=== PATIENT | female | born 1970 | race Caucasian/White ===

== ENCOUNTER 2019-08-05 12:32 | Inpatient (IN) | payer OTHER ==
--- NOTE | 2019-08-05 12:24 | XR ---
EXAMINATION TYPE: XR chest 2V DATE OF EXAM: 08/05/2019 COMPARISON: None INDICATION: Chronic obstructive pulmonary disease emphysema short of breath x4 days TECHNIQUE: Frontal and lateral views of the chest are obtained. FINDINGS: The heart size is normal. The pulmonary vasculature is normal. There is a moderately large left pneumothorax. A loculated pneumothorax at the left costophrenic angl e. This is estimated to measure 50%. No focal consolidations are evident. Some atelectasis may be at the level left lung base. There is hyperinflation compatible COPD. IMPRESSION: 1. Moderately large left pneumothorax estimated at 50%. 2. COPD. A Red level critical message alert has been initiated for Celio Barahona DO via the [employer] Critical Results System on 08/05/2019 12:21 PM. This message alert has been sent to Celio Curiel nd, DO via the preferences provided by the clinician for the receipt of Radiology Critical Findings. Message ID [id number].
[2019-08-05] MEDS ORDERED: KETOROLAC 30 MG/ML 1 ML VIAL IVP STA (12:53)
[2019-08-05] MEDS ORDERED: LORazepam 2 MG/ML INJ IV STA (12:53)
[2019-08-05 13:12] LABS: Basophils % (A) 1 %; Eosinophils # (A) 0.2 k/uL (0-0.7); Eosinophils % (A) 3 %; HCT 42.6 % (34.0-46.0); HGB 14.5 gm/dL (11.4-16.0); Lymphocytes # (A) 1.8 k/uL (1.0-4.8); Lymphocytes % (A) 27 %; MCH 32.3 pg (25.0-35.0); MCV 94.9 fL (80.0-100.0); Monocytes # (A) 0.3 k/uL (0-1.0); Monocytes % (A) 4 %; Neutrophils # (A) 4.3 k/uL (1.3-7.7); Neutrophils % (A) 64 %; Platelet Count 270 k/uL (150-450); RBC 4.49 m/uL (3.80-5.40); RDW 12.4 % (11.5-15.5); WBC 6.7 k/uL (3.8-10.6)
[2019-08-05 13:22] LABS: ALT 23 U/L (9-52); AST 26 U/L (14-36); African American GFR (CKD) >90 (>60 ml/min/1.73 sqM); Albumin 4.6 g/dL (3.5-5.0); Alkaline Phosphatase 50 U/L (38-126); Anion Gap 12 mmol/L; Blood Urea Nitrogen 13 mg/dL (7-17); Calcium 9.8 mg/dL (8.4-10.2); Carbon Dioxide 22 mmol/L (22-30); Chloride 107 mmol/L (98-107); Glucose 126 mg/dL (74-99); Non-African American GFR(CKD) >90 (>60 ml/min/1.73 sqM); Potassium 3.8 mmol/L (3.5-5.1); Sodium 141 mmol/L (137-145); Total Bilirubin 0.8 mg/dL (0.2-1.3); Total Protein 7.5 g/dL (6.3-8.2)
--- NOTE | 2019-08-05 13:37 | ED ---
General Adult HPI - General Chief complaint: Shortness of Breath Stated complaint: pneumothorax Time Seen by Provider: 08/05/19 12:40 Source: patient, RN notes reviewed, old records reviewed Mode of arrival: wheelchair Limitations: no limitations - History of Present Illness Initial comments: 41-year-old female with history of COPD presents from outpatient x-ray with x- ray confirmed pneumothorax. She's had cough and dyspnea for the past 5 days. Coughs been nonproductive. She did report subjective fever and chills. Breathing has worsened over this 5 days. She does report some mild left-sided chest pain as well. No history of pneumothorax. - Related Data Home Medications Medication Instructions Recorded Confirmed Ibuprofen [Motrin Ib] 400 mg PO Q6H PRN 08/05/19 08/05/19 Loratadine [Claritin] 10 mg PO DAILY 08/05/19 08/05/19 Allergies Allergy/AdvReac Type Severity Reaction Status Date / Time Penicillins Allergy Rash/Hives Verified 08/05/19 14:05 erythromycin base AdvReac Vomiting Verified 08/05/19 14:05 Review of Systems ROS Statement: Those systems with pertinent positive or pertinent negative responses have been documented in the HPI. ROS Other: All systems not noted in ROS Statement are negative. Past Medical History Past Medical History: No Reported History History of Any Multi-Drug Resistant Organisms: None Reported Past Surgical History: Cholecystectomy Past Psychological History: Anxiety, Bipolar, Depression Smoking Status: Current every day smoker Past Alcohol Use History: Rare Past Drug Use History: Marijuana General Exam Limitations: no limitations General appearance: alert, in no apparent distress Head exam: Present: atraumatic, normocephalic Eye exam: Present: normal appearance, PERRL ENT exam: Present: normal exam Neck exam: Present: normal inspection. Absent: tenderness, meningismus Respiratory exam: Present: respiratory distress, decreased breath sounds (Left- sided lung diminished breath sounds) Cardiovascular Exam: Present: regular rate, normal rhythm GI/Abdominal exam: Present: soft. Absent: distended, tenderness, guarding Extremities exam: Present: normal inspection, normal capillary refill. Absent: pedal edema Neurological exam: Present: alert, oriented X3, CN II-XII intact. Absent: motor sensory deficit Psychiatric exam: Present: normal affect, normal mood Skin exam: Present: warm, dry, intact. Absent: cyanosis, diaphoretic Course Vital Signs 08/05/19 08/05/19 08/05/19 12:33 12:53 13:22 Temperature 98.2 F Pulse Rate 62 76 61 Respiratory 18 16 18 Rate Blood Pressure 117/76 143/82 111/82 O2 Sat by Pulse 95 96 100 Oximetry 08/05/19 08/05/19 08/05/19 13:26 13:32 14:11 Temperature Pulse Rate 70 66 Respiratory 22 16 16 Rate Blood Pressure 122/91 125/99 O2 Sat by Pulse 100 99 Oximetry EKG Findings - EKG Comments: EKG Findings:: EKG: Normal sinus rhythm, rate of 67, MI interval 150, QRS duration 84, QTC 448 Procedures - Chest Tube Insertion Consent Obtained: written consent Side of Procedure: left Indication: Pneumothorax Placed on monitor/pulse oximetry: Yes Site Prep: Chloroprep Local Anesthesia: Lidocaine 1% Amount (mLs): 5 Insertion Site: Other (Midclavicular, second intercostal space) Scalpel: #11 Open into Pleural Space Using: Trocar Tube Size (Frisian): Other (thora-vent) Returns: Air Attached to Suction: No Type of Suction: Other (Improved aeration chest tube in place) Repeat X-ray Results: Other (Placement of left-sided chest tube with minimal reexpansion of left lung) Patient Tolerated Procedure: well Medical Decision Making - Medical Decision Making 49-year-old patient with COPD, current smoker presenting with spontaneous pneumothorax. Patient had an outpatient x-ray and was brought immediately to the trauma bay for evaluation and treatment. Patient was in mild to moderate respiratory distress. She had stable blood pressure and heart repeat she was placed on a nonrebreather. Case was discussed with work measurement engineer Dr. Donaldson, prior to chest tube placement. A Thoravent was placed on the left. Patient tolerated procedure well. Vital signs after the procedure were stable she was monitored in the emergency department. Repeat chest x-ray was performed which showed minimal reexpansion of the left lung. Patient does have a functioning vent. Case discussed with Dr. Snow, will accept admission with pulmonology on consult. - Lab Data Result diagrams: 08/05/19 12:51 08/05/19 12:51 Lab Results 08/05/19 08/05/19 Range/Units 12:51 12:51 WBC 6.7 (3.8-10.6) k/uL RBC 4.49 (3.80-5.40) m/uL Hgb 14.5 (11.4-16.0) gm/dL Hct 42.6 (34.0-46.0) % MCV 94.9 (80.0-100.0) fL MCH 32.3 (25.0-35.0) pg MCHC 34.0 (31.0-37.0) g/dL RDW 12.4 (11.5-15.5) % Plt Count 270 (150-450) k/uL Neutrophils % 64 % Lymphocytes % 27 % Monocytes % 4 % Eosinophils % 3 % Basophils % 1 % Neutrophils # 4.3 (1.3-7.7) k/uL Lymphocytes # 1.8 (1.0-4.8) k/uL Monocytes # 0.3 (0-1.0) k/uL Eosinophils # 0.2 (0-0.7) k/uL Basophils # 0.0 (0-0.2) k/uL Sodium 141 (137-145) mmol/L Potassium 3.8 (3.5-5.1) mmol/L Chloride 107 (98-107) mmol/L Carbon Dioxide 22 (22-30) mmol/L Anion Gap 12 mmol/L BUN 13 (7-17) mg/dL Creatinine 0.61 (0.52-1.04) mg/dL Est GFR (CKD-EPI)AfAm >90 (>60 ml/min/1.73 sqM) Est GFR (CKD-EPI)NonAf >90 (>60 ml/min/1.73 sqM) Glucose 126 H (74-99) mg/dL Calcium 9.8 (8.4-10.2) mg/dL Total Bilirubin 0.8 (0.2-1.3) mg/dL AST 26 (14-36) U/L ALT 23 (9-52) U/L Alkaline Phosphatase 50 (38-126) U/L Total Protein 7.5 (6.3-8.2) g/dL Albumin 4.6 (3.5-5.0) g/dL Critical Care Time Critical Care Time: Yes Total Critical Care Time: 35 Disposition Clinical Impression: Pneumothorax on left Disposition: ADMITTED IP TO THIS HOSP Condition: Stable Is patient prescribed a controlled substance at d/c from ED?: No Referrals: Celio Barahona DO [Primary Care Provider] - 1-2 days Decision to Admit Reason: Admit from EC Decision Date: 08/05/19 Decision Time: 14:19
--- NOTE | 2019-08-05 13:59 | XR ---
EXAMINATION TYPE: XR chest 1V portable DATE OF EXAM: 08/05/2019 COMPARISON: Chest x-ray earlier today. HISTORY: Chest tube placement. TECHNIQUE: Single frontal view of the chest is obtained. FINDINGS: New chest tube projects over the left upper lung on frontal view only. There is stable mod erate to large size left apical and lateral pneumothorax. Background chronic emphysematous change wi th central parenchymal scarring. The cardiac silhouette size remains within normal limits. No mediast inal shift. The osseous structures are intact. IMPRESSION: Stable moderate to large size left pneumothorax despite chest tube placement. Lateral vie w not performed to evaluate chest tube tip.
[2019-08-05] MEDS ORDERED: NALOXONE 0.4 MG/ML 1 ML VIAL IV PRN (14:12)
[2019-08-05] MEDS ORDERED: HYDROmorphone 0.5 MG/0.5 ML SYRINGE IVP PRN (14:12)
--- NOTE | 2019-08-05 15:40 | XR ---
EXAMINATION TYPE: XR chest 1V DATE OF EXAM: 08/05/2019 COMPARISON: Prior chest x-ray 08/05/2019 at earlier time HISTORY: Pneumothorax TECHNIQUE: Single frontal view of the chest is obtained. FINDINGS: Left-sided pneumothorax is markedly improved. Left-sided pleural vein shows the distal tip at the left lung apex. Some probable subsegmental atelectatic changes at the left lung base. Heart s ize is stable. Patient is rotated. IMPRESSION: Improvement in patient's pneumothorax.
--- NOTE | 2019-08-05 16:11 | P.CNPUL ---
History of Present Illness Consult date: 08/05/19 Reason for consult: COPD, pneumothorax History of present illness: A 41-year-old female patient, a chronic smoker, history of COPD, was been having symptoms of bronchitis with cough and congestion of 5 days' duration. Her breathing got worse and she presented emergency department and the patient was found to have a large left-sided pneumothorax. The chest x-ray showed a 50% pneumothorax on the left. The patient had a Thoravent inserted in the emergency department. There was incomplete expansion of the left lung. Based on that, using a T wave stopcock, I used a syringe to evacuate more air through the Thoravent and attached the Thoravent to a Pleur-evac. Patient's FiO2 is at 100% nonrebreather facemask and the patient is currently pulse oxing 100%. No chest pain. Less short of breath. A subsequent chest x-ray was done and showed a left-sided pneumothorax is markedly improved. No trauma. No falls. No previous history of pneumothoraces. The patient smokes cigarettes and she also smokes marijuana. Review of Systems Constitutional: Denies chills, Denies fever Eyes: denies as per HPI, denies blurred vision, denies bulging eye, denies decreased vision, denies diplopia, denies discharge, denies dry eye, denies irritation, denies itching, denies pain, denies photophobia, denies loss of peripheral vision, denies loss of vision, denies tunnel vision/blind spots Ears: deny: decreased hearing, ear discharge, earache, tinnitus Ears, nose, mouth and throat: Denies headache, Denies sore throat Breasts: absent: as per HPI, change in shape, gynecomastia, masses, nipple discharge, pain, skin changes, swelling Cardiovascular: Reports decreased exercise tolerance, Reports dyspnea on exertion Respiratory: Reports dyspnea Gastrointestinal: Reports as per HPI Genitourinary: Reports as per HPI Menstruation: Reports as per HPI Musculoskeletal: Reports as per HPI Musculoskeletal: absent: ankle pain, ankle stiffness, ankle swelling, as per HPI, elbow pain, elbow stiffness, elbow swelling, foot pain, foot stiffness, foot swelling, hand pain, hand stiffness, hand swelling, hip pain, hip stiffness, hip swelling, knee pain, knee stiffness, knee swelling, shoulder pain, shoulder stiffness, shoulder swelling, wrist pain, wrist stiffness, wrist swelling Integumentary: Reports as per HPI Neurological: Reports as per HPI Psychiatric: Reports as per HPI Endocrine: Reports as per HPI Past Medical History Past Medical History: No Reported History, COPD History of Any Multi-Drug Resistant Organisms: None Reported Past Surgical History: Cholecystectomy Past Psychological History: Anxiety, Bipolar, Depression Smoking Status: Current every day smoker Past Alcohol Use History: Rare Past Drug Use History: Marijuana Medications and Allergies Home Medications Medication Instructions Recorded Confirmed Type Ibuprofen [Motrin Ib] 400 mg PO Q6H PRN 08/05/19 08/05/19 History Loratadine [Claritin] 10 mg PO DAILY 08/05/19 08/05/19 History Allergies Allergy/AdvReac Type Severity Reaction Status Date / Time Penicillins Allergy Rash/Hives Verified 08/05/19 14:05 erythromycin base AdvReac Vomiting Verified 08/05/19 14:05 Physical Exam Vitals: Vital Signs Temp Pulse Resp BP Pulse Ox 08/05/19 14:11 66 16 125/99 99 08/05/19 13:32 70 16 122/91 100 08/05/19 13:26 22 08/05/19 13:22 61 18 111/82 100 08/05/19 12:53 76 16 143/82 96 08/05/19 12:33 98.2 F 62 18 117/76 95 Intake and Output 08/05/19 08/05/19 08/05/19 06:59 14:59 22:59 Other: Weight 48.988 kg - Constitutional General appearance: no acute distress - EENT Eyes: EOMI Ears: negative: bulging, bullous, dull, erythema, fluid, myringotomy tube, obstructed by cerumen, scarring, unable to vistualize, other - Neck Neck: no lymphadenopathy Carotids: negative: upstroke normal, upstroke delayed, upstroke diminished, upstroke bounding, bruit absent, bruit present Thyroid: negative: normal size, enlarged, firm, nodule - Respiratory Respiratory: left: diminished, bilateral: wheezing - Cardiovascular Rhythm: regular Heart sounds: normal: S1, S2 - Gastrointestinal General gastrointestinal: no organomegaly, soft, no tenderness - Neurologic Neurologic: CNII-XII intact - Psychiatric Psychiatric: A&O x's 3 Results - Laboratory Findings CBC and BMP: 08/05/19 12:51 08/05/19 12:51 Abnormal lab findings: Abnormal Labs 08/05/19 12:51 Glucose 126 H - Diagnostic Findings Chest x-ray: image reviewed Assessment and Plan Plan: 1 acute left-sided pneumothorax, likely secondary pneumothorax as the patient has underlying COPD. The patient's postoperative vent insertion with adequate expansion of the left lung. 2 acute shortness of breath secondary to above 3 COPD 4 acute bronchitis 5 smoking cigarettes and marijuana Plan Admit the patient to the hospital. Provide an incentive spirometer. Keep the fluoroscopy vent attached to a Pleur-evac and the subsequent chest x-ray shows reexpansion of the left lung. Monitor for air leaks. Provide the patient Dilaudid for pain control. Provide the patient incentive spirometer. Daily chest x-rays. Nicotine patch. Albuterol nebulized treatments 4 times a day [id number]. Heparin subcu for DVT prophylaxis. We'll continue to follow. We'll need an outpatient of alpha-1 antitrypsin level. Outpatient PFT regarding the severity of her COPD.
[2019-08-05] MEDS: ONDANSETRON 4 MG/2 ML VIAL IVP PRN (17:15)
[2019-08-05] MEDS: ALBUTEROL NEBULIZED 2.5 MG/3 ML INHALATION SCH (19:32)
[2019-08-05] MEDS: IBUPROFEN 400 MG TAB PO PRN (20:18)
[2019-08-05] MEDS: HEPARIN SODIUM,PORCINE 5,000 UNIT/ML 1 ML VIAL SQ SCH (21:37)
[2019-08-06] MEDS: ALBUTEROL NEBULIZED 2.5 MG/3 ML INHALATION SCH ×2 (07:26→11:05)
--- NOTE | 2019-08-06 07:40 | XR ---
EXAMINATION TYPE: XR chest 1V portable DATE OF EXAM: 08/06/2019 CLINICAL HISTORY: Difficulty breathing in pneumothorax progress study. TECHNIQUE: Single AP portable upright view of the chest is obtained. COMPARISON: Chest x-ray from one day earlier and older studies. FINDINGS: Stable left apical chest tube. There is Background chronic emphysematous an parenchymal f ibrotic change without new focal airspace opacity or pleural effusion. The cardiac silhouette size re vidhi within normal limits. No significant left-sided pneumothorax. The osseous structures are inta ct. IMPRESSION: Overall stable findings, chronic emphysematous and parenchymal changes. Left apical jg st tube without pneumothorax.
[2019-08-06] MEDS: HEPARIN SODIUM,PORCINE 5,000 UNIT/ML 1 ML VIAL SQ SCH (09:56)
[2019-08-06] MEDS: NICOTINE 21MG/24HR PATCH TRANSDERM SCH (13:49)
[2019-08-06] MEDS: NICOTINE POLACRILEX 2 MG GUM BUCCAL PRN ×2 (13:49→20:24)
--- NOTE | 2019-08-06 13:57 | P.PN ---
Subjective Progress Note Date: 08/06/19 On 08/06/2019, the patient is feeling well. No chest pain. The fluoroscopy vent is in place and there is evidence of air leak. The chest x-ray from today shows adequate expansion of the left lung without any significant residual pneumothorax. She is having some soreness of the chest area. She is using incentive spirometer. No fever or chills. No other new complaints otherwise for now. Objective - Vital Signs Vital signs: Vital Signs Temp 98.3 F 08/06/19 12:00 Pulse 58 L 08/06/19 12:00 Resp 16 08/06/19 12:00 BP 124/69 08/06/19 12:00 Pulse Ox 98 08/06/19 12:00 Intake & Output 08/05/19 08/06/19 08/06/19 18:59 06:59 18:59 Intake Total 222 Balance 222 Weight 48.988 kg 48.988 kg Intake: Oral 222 Other: Voiding Method Toilet # Voids 1 - Exam The patient appeared well nourished and normally developed. Vital signs as documented. Head exam is unremarkable. No scleral icterus or corneal arcus noted. Neck is without jugular venous distension, thyromegaly, or carotid bruits. Carotid upstrokes are brisk bilaterally. Lungs equal and symmetrical breath sounds and the patient has a fluoroscopy vent over the left anterior chest area with positive air leak and the Pleur-evac. Cardiac exam reveals the PMI to be normally sized and situated. Rhythm is regular. First and second heart sounds normal. No murmurs, rubs or gallops. Abdominal exam reveals normal bowel sounds, no masses, no organomegaly and no aortic enlargement. Extremities are nonedematous and both femoral and pedal pulses are normal.Examination of the skin revealed no evidence of significant rashes, suspicious appearing nevi or other concerning lesions. Neurologically the patient is awake and alert and there is no focal neurological deficits. - Labs CBC & Chem 7: 08/05/19 12:51 08/05/19 12:51 Assessment and Plan Plan: 1 acute left-sided pneumothorax, likely secondary pneumothorax as the patient has underlying COPD. The patient's postoperative vent insertion with adequate expansion of the left lung. There is positive air leak. We'll keep the suction and we'll keep the chest tube in place. 2 acute shortness of breath secondary to above 3 COPD 4 acute bronchitis 5 smoking cigarettes and marijuana Plan Keep the Serevent in place. Continue low suction. Pain is under adequate control. No significant respiratory distress. She was taken off the oxygen and she is currently on room air. We'll continue to follow. Daily chest x-rays. Nicotine patch.
--- NOTE | 2019-08-06 14:47 | P.HPIM ---
History of Present Illness H&P Date: 08/06/19 Chief Complaint: Short of breath History of present complaint: This is a pleasant 49-year-old patient of Dr. Scarlett Barahona. Long-standing smoker. Also smokes marijuana. Last 5 days has noticed herself to become more and more short of breath and wheezing. Decided to present to her PCP. She was given bronchodilators and sent to the ER. Accu-Cheks x-ray done. Checks x-ray revealed 50% left-sided pneumothorax. thoravac was placed. Attached to a chest tube. Patient is having nicotine craving. Patient's daughter by the bedside. Review of systems: GEN.: Tired EYES: None HEENT: None NECK: None RESPIRATORY: As above. Minimal cough] CARDIOVASCULAR: None GASTROINTESTINAL: None GENITOURINARY: None MUSCULOSKELETAL: None LYMPHATICS: None HEMATOLOGICAL: None PSYCHIATRY: Bit anxious NEUROLOGICAL: None Past medical history: Bipolar, COPD Past surgical history: cholecystectomy Social history: . Smokes a pack a day for about 36 years, does 2 joints of marijuana for many years. Works as a [employer] Physical examination: VITAL SIGNS: 98.2, 62, 18, 11 7/76, 95% room air-upon presentation GENERAL: BMI 18, sitting up in bed slightly anxious. EYES: Pupils equal. Conjunctiva normal. HEENT: External appearance of nose and ears normal, oral cavity grossly normal. NECK: JVD not raised; masses not palpable. HEART: First and second heart sounds are normal; no edema. LUNGS: Respiratory rate increased, decreased breath sounds, some wheezing, thora VAC on the left chest wall anteriorly. ABDOMEN: Soft, nontender, liver spleen not palpable, no masses palpable. PSYCH: Alert and oriented x3; mood and affect slightly anxiousl. NEUROLOGICAL: Cranial nerves grossly intact; no facial asymmetry, power and sensation grossly intact. LYMPHATICS: No lymph nodes palpable in the axilla and neck INVESTIGATIONS, reviewed in the clinical context: White count 6.7 hemoglobin 40.5 platelets 270 progression 3.8 crit 0.61 Chest x-ray film personally reviewed by me-hyperinflation left-sided pneumothorax EKG tracing-personally reviewed by me shows normal sinus rhythm Assessment: -Acute left-sided pneumothorax present for at least 5 days. The patient and possibly bullous emphysema -COPD in a current smoker -Chronic nicotine dependence patient's active cigarette smoker -Recreational marijuana use - Plan: Patient checks x-ray showed expansion of the lung compared to yesterday. Rather anxious. Having nicotine withdrawal symptoms. Nicotine patch and nicotine gum is being prescribed. Lovenox for DVT prophylaxis. Bronchodilators added. Pulmonary was consulted. Smoke cessation counseling: This was done with the patient. Nicotine patch and nicotine gum is being given. More than 3 minutes was spent for this Past Medical History Past Medical History: COPD History of Any Multi-Drug Resistant Organisms: None Reported Past Surgical History: Cholecystectomy Additional Past Surgical History / Comment(s): laproscoph Past Anesthesia/Blood Transfusion Reactions: No Reported Reaction Past Psychological History: Anxiety, Bipolar, Depression Smoking Status: Current every day smoker Past Alcohol Use History: None Reported, Rare Past Drug Use History: Marijuana - Past Family History Mother Family Medical History: Cancer Additional Family Medical History / Comment(s): Mother and father from Lung Cancer; Brother is Diabetic and ETOH Medications and Allergies Home Medications Medication Instructions Recorded Confirmed Type Ibuprofen [Motrin Ib] 400 mg PO Q6H PRN 08/05/19 08/05/19 History Loratadine [Claritin] 10 mg PO DAILY 08/05/19 08/05/19 History Allergies Allergy/AdvReac Type Severity Reaction Status Date / Time Penicillins Allergy Rash/Hives Verified 08/05/19 14:05 erythromycin base AdvReac Vomiting Verified 08/05/19 14:05 Physical Exam Vitals: Vital Signs Temp Pulse Pulse Resp BP BP Pulse Ox 08/06/19 08:00 98.5 F 66 16 122/72 96 08/06/19 04:00 69 16 105/69 96 08/05/19 23:51 61 16 122/69 98 08/05/19 20:00 51 L 16 121/71 97 08/05/19 16:35 97.4 F L 57 L 16 110/66 94 L 08/05/19 16:00 97.4 F L 57 L 16 110/66 94 L 08/05/19 15:53 56 L 16 112/75 98 08/05/19 14:11 66 16 125/99 99 08/05/19 13:32 70 16 122/91 100 08/05/19 13:26 22 08/05/19 13:22 61 18 111/82 100 08/05/19 12:53 76 16 143/82 96 08/05/19 12:33 98.2 F 62 18 117/76 95 Intake and Output 08/05/19 08/06/19 08/06/19 22:59 06:59 14:59 Intake Total 222 Balance 222 Intake: Oral 222 Other: Voiding Method Toilet # Voids 1 1 Weight 48.988 kg Results CBC & Chem 7: 08/05/19 12:51 08/05/19 12:51 Labs: Abnormal Lab Results - Last 24 Hours (Table) 08/05/19 Range/Units 12:51 Glucose 126 H (74-99) mg/dL Thrombosis Risk Factor Assmnt - Choose All That Apply Each Factor Represents 1 point: Age 41-60 years Other Risk Factors: No Other congenital or acquired thrombophilia - If yes, enter type in comment: No Thrombosis Risk Factor Assessment Total Risk Factor Score: 1 Thrombosis Risk Factor Assessment Level: Low Risk
[2019-08-06] MEDS: ENOXAPARIN 40 MG/0.4 ML SYRINGE SQ SCH (15:30)
[2019-08-06] MEDS: IPRATROPIUM-ALBUTEROL 3 ML NEB INHALATION SCH ×2 (16:30→19:50)
[2019-08-06] MEDS: IBUPROFEN 400 MG TAB PO PRN ×2 (17:44→22:35)
[2019-08-07] MEDS: ACETAMINOPHEN TAB 325 MG TAB PO PRN ×2 (02:00→21:42)
[2019-08-07] MEDS: IBUPROFEN 400 MG TAB PO PRN ×3 (06:04→18:33)
[2019-08-07] MEDS: IPRATROPIUM-ALBUTEROL 3 ML NEB INHALATION SCH ×4 (07:43→20:50)
--- NOTE | 2019-08-07 08:26 | XR ---
EXAMINATION TYPE: XR chest 1V portable DATE OF EXAM: 08/07/2019 COMPARISON: Prior chest x-ray 07/29/2019 HISTORY: Spontaneous pneumothorax, chest tube TECHNIQUE: Single frontal view of the chest is obtained. FINDINGS: Minimal left apical pneumothorax is present, there is a thoracic vent in place with the ti p of the level of the left hemithorax apex. No evident effusion. Heart is small. Pulmonary vascularit y and chucky are stable. There are overlying cardiac leads. There are prominent lung volumes. IMPRESSION: Indwelling chest tube, minimal left apical pneumothorax
[2019-08-07] MEDS: ENOXAPARIN 40 MG/0.4 ML SYRINGE SQ SCH (08:42)
[2019-08-07] MEDS: NICOTINE 21MG/24HR PATCH TRANSDERM SCH (08:42)
--- NOTE | 2019-08-07 10:20 | XR ---
EXAMINATION TYPE: XR chest 1V portable DATE OF EXAM: 08/07/2019 COMPARISON: Chest x-ray same dated earlier time HISTORY: Pneumothorax and chest tube TECHNIQUE: Single frontal view of the chest is obtained. FINDINGS: Left apical pneumothorax has increased in size slightly. Left apical chest tube is again s een. No other significant interval change. IMPRESSION: There has been some progression in the size of the left apical pneumothorax.
[2019-08-07] MEDS: NICOTINE POLACRILEX 2 MG GUM BUCCAL PRN (10:42)
--- NOTE | 2019-08-07 11:29 | P.GSCN ---
<Benitez Llanos - Last Filed: 08/07/19 11:06> History of Present Illness Consult date: 08/07/19 Reason for Consult: Spontaneous left pneumothorax Requesting physician: You Ramirez History of present illness: This is a 49-year-old female patient who is followed by Dr. Scarlett Barahona on an outpatient basis. She has a past medical history significant for chronic obstructive pulmonary disease, chronic ongoing nicotine dependence, manic depression bipolar, and history of marijuana use. On 08/01/2019 on doing some house chores she became severely short of breath. She denies any trauma, nausea, vomiting, fever or chills. Over the next several days her shortness of breath became progressive and she presented to her family doctor's office on Saturday with the above mentioned complaints. She was sent to the emergency department at [facility] where she underwent a chest x-ray which demonstrated a 50% spontaneous pneumothorax on the left side. Subsequently a left Thoravent was inserted in the emergency department by the emergency room physician. A repeat chest x-ray post Thoravent placement showed a markedly improved left-sided pneumothorax. Subsequently the patient was admitted for further evaluation. Due to the patient's presenting symptoms, spontaneous pneumothorax requiring Thoravent placement a consult was placed to Dr. Amador from cardio thoracic surgery for further evaluation and treatment recommendations. Review of Systems A 14 point review of systems was completed was negative except as mentioned in the HPI. Past Medical History Past Medical History: COPD History of Any Multi-Drug Resistant Organisms: None Reported Past Surgical History: Cholecystectomy Additional Past Surgical History / Comment(s): Laparoscopy, history of neck fracture. Past Anesthesia/Blood Transfusion Reactions: No Reported Reaction Past Psychological History: Anxiety, Bipolar, Depression Smoking Status: Current every day smoker Past Alcohol Use History: Rare Past Drug Use History: Marijuana - Past Family History Mother Family Medical History: Cancer Additional Family Medical History / Comment(s): Mother and father from Lung Cancer; Brother is Diabetic and ETOH Medications and Allergies Home Medications Medication Instructions Recorded Confirmed Type Ibuprofen [Motrin Ib] 400 mg PO Q6H PRN 08/05/19 08/05/19 History Loratadine [Claritin] 10 mg PO DAILY 08/05/19 08/05/19 History Allergies Allergy/AdvReac Type Severity Reaction Status Date / Time Penicillins Allergy Rash/Hives Verified 08/12/19 12:09 erythromycin base AdvReac Vomiting Verified 08/12/19 12:09 hydromorphone [From Dilaudid] AdvReac Vomiting Verified 08/12/19 12:09 Surgical - Exam Vital Signs Temp Pulse Resp BP Pulse Ox 98.2 F 62 18 117/76 95 08/05/19 12:33 08/05/19 12:33 08/05/19 12:33 08/05/19 12:33 08/05/19 12:33 - General well developed, well nourished, no distress, no pain - Eyes PERRL, normal ocular movement - ENT normal pinna, normal nares, normal mucosa, no hearing loss, no congestion, dentures (Upper plate) - Neck Neck is supple, no lymphadenopathy. no masses, no bruits, trachea midline, no venous distension - Respiratory Lung sounds are essentially clear throughout, no wheezes, rhonchi or crackles. Respirations are symmetrical and nonlabored. Left chest Thoravent in place to low continuous wall suction -20 cm H2O. Intermittent air leak is present. - Cardiovascular Regular rhythm and rate. S1 and S2 present, negative for S3, gallop or murmur. Remote telemetry showing normal sinus rhythm heart rate 62. No edema present. - Abdomen Abdomen is soft, nontender and nondistended. Active bowel sounds present in all 4 abdominal quadrants. No organomegaly. - Genitourinary Deferred - Rectum Deferred - Integumentary no rash, no growths, no abnormal pigmentation - Neurologic normal coordination, normal sensation - Musculoskeletal normal gait, normal posture - Psychiatric oriented to time, oriented to person, oriented to place, speech is normal, memor y intact Results - Labs 08/05/19 12:51 08/05/19 12:51 - Imaging Chest x-ray: report reviewed, image reviewed Assessment and Plan Assessment: 1. Left spontaneous pneumothorax, status post Thoravent placement by the emergency room physician. 2. Acute dyspnea secondary to left spontaneous pneumothorax 3. History of chronic obstructive pulmonary disease 4. Chronic ongoing nicotine abuse 5. History of marijuana use Plan: The patient was seen and examined at her bedside on the cardiac stepdown unit. Her chart and diagnostics were reviewed. She was seen and examined by Dr. Haider Amador from cardiothoracic surgery. We will place her left Thoravent chest tube to waterseal and repeat a chest x-ray 1 hour post placement waterseal. No surgical intervention is warranted at this time. Discussed the importance of smoking cessation with the patient. We will follow her daily chest x-rays and monitor her left Thoravent 4 resolution of her air leak. Incentive spirometry ordered and encouraged to use of her incentive spirometry every hour while awake. Medical management recommendations per primary care service. Pulmonary management per pulmonology recommendations. More recommendations to follow based on patient's clinical course. Thank you Dr. Ramirez for this consult and we will forward to working with you in the care of your patient. Time with Patient: Greater than 30 <Haider Amador - Last Filed: 08/14/19 14:02> Surgical - Exam Vital Signs Temp Pulse Resp BP Pulse Ox 98.2 F 62 18 117/76 95 08/05/19 12:33 08/05/19 12:33 08/05/19 12:33 08/05/19 12:33 08/05/19 12:33 Results - Labs 08/13/19 06:10 08/13/19 06:10 Assessment and Plan Plan: The patient was seen and examined. The history and physical findings were verified. I agree with the above assessment and plan. The patient is a 49 year old female who presented to the hospital with shortness of breath. She was diagnosed with her first episode of left spontaneous pneumothorax. A thoravent was placed in the ED. Her CXR reveals expansion of the left lung. She appears to have a persistent leak. We will therefore continue the patient on suction for now. Additional recommendations will follow.
--- NOTE | 2019-08-07 11:46 | P.CNPUL ---
History of Present Illness Consult date: 08/07/19 Reason for consult: dyspnea, chest pain, COPD, pneumothorax Chief complaint: Left-sided chest pain History of present illness: This is a 41-year-old female patient, a chronic smoker, history of COPD, was been having symptoms of bronchitis with cough and congestion of 5 days' duration. Her breathing got worse and she presented emergency department and the patient was found to have a large left-sided pneumothorax. The chest x-ray showed a 50% pneumothorax on the left. The patient had a Thoravent inserted in the emergency department. There was incomplete expansion of the left lung. Patient's initial FiO2 is at 100% nonrebreather facemask now is tapered down to 2 L nasal cannula. No chest pain. Less short of breath. Denies any trauma. No falls. No previous history of pneumothoraces. The patient smokes cigarettes and she also smokes marijuana. This morning she was placed on water seal pneumothorax have progressed again and sharp she started feeling some symptoms of chest discomfort connected back to section noted that significant air leak was present however pain subsided post placing on suction Review of Systems All systems: negative Past Medical History Past Medical History: COPD History of Any Multi-Drug Resistant Organisms: None Reported Past Surgical History: Cholecystectomy Additional Past Surgical History / Comment(s): Laparoscopy, history of neck fracture. Past Anesthesia/Blood Transfusion Reactions: No Reported Reaction Past Psychological History: Anxiety, Bipolar, Depression Smoking Status: Current every day smoker Past Alcohol Use History: Rare Past Drug Use History: Marijuana - Past Family History Mother Family Medical History: Cancer Additional Family Medical History / Comment(s): Mother and father from Lung Cancer; Brother is Diabetic and ETOH Medications and Allergies Home Medications Medication Instructions Recorded Confirmed Type Ibuprofen [Motrin Ib] 400 mg PO Q6H PRN 08/05/19 08/05/19 History Loratadine [Claritin] 10 mg PO DAILY 08/05/19 08/05/19 History Allergies Allergy/AdvReac Type Severity Reaction Status Date / Time Penicillins Allergy Rash/Hives Verified 08/05/19 14:05 erythromycin base AdvReac Vomiting Verified 08/05/19 14:05 Physical Exam Vitals: Vital Signs Temp Pulse Pulse Resp BP Pulse Ox 08/07/19 04:00 73 17 129/65 96 08/06/19 23:16 63 17 128/76 96 08/06/19 20:00 98.5 F 65 16 112/70 99 08/06/19 16:00 98.2 F 58 L 16 130/70 98 08/06/19 12:00 98.3 F 58 L 16 124/69 98 Intake and Output 08/06/19 08/07/19 08/07/19 22:59 06:59 14:59 Intake Total 150 Output Total 7 Balance -7 150 Intake: Oral 150 Output: Chest Tube Drainage 7 Thora-Vent Left Anterior 7 Chest Other: # Voids 1 1 Weight 48.9 kg - Constitutional General appearance: cooperative, disheveled, no acute distress, thin - EENT Eyes: anicteric sclerae, EOMI, PERRLA, poor dentition, normal appearance ENT: hearing grossly normal Ears: bilateral: normal - Neck Neck: normal ROM Carotids: bilateral: upstroke normal - Respiratory Respiratory: bilateral: CTA - Cardiovascular Rhythm: regular Heart sounds: normal: S1, S2 - Gastrointestinal General gastrointestinal: normal bowel sounds - Integumentary Integumentary: normal turgor - Neurologic Neurologic: CNII-XII intact - Musculoskeletal Musculoskeletal: gait normal, generalized weakness, strength equal bilaterally - Psychiatric Psychiatric: A&O x's 3, appropriate affect, intact judgment & insight Results - Laboratory Findings CBC and BMP: 08/05/19 12:51 08/05/19 12:51 Abnormal lab findings: Abnormal Labs 08/05/19 12:51 Glucose 126 H - Diagnostic Findings Chest x-ray: report reviewed, image reviewed (X-rays reviewed finding as above) Assessment and Plan Assessment: Spontaneous pneumothorax of the left side 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
--- NOTE | 2019-08-07 12:42 | CT ---
EXAMINATION TYPE: CT chest wo con DATE OF EXAM: 08/07/2019 COMPARISON: None HISTORY: Post op vent insertion CT DLP: 201.[address] of the chest was performed with lung and mediastinal window settings submitted. The la ck of contrast limits evaluation of the vascular, mediastinal and parenchymal structures including th e upper abdomen. LUNGS: Left apical vent plaque noted to be in place. There is a left-sided pneumothorax identified es timated at 15%. Largest component is noted at the left lung base. Moderate upper lobe emphysematous c hange appreciated. Small amount of subcutaneous air noted at the insertion of the vent. Moderate uppe r lobe emphysematous changes noted. MEDIASTINUM/HARRIETT: Thoracic aorta is of normal caliber with limited evaluation given lack of contrast . The heart is not enlarged. No evidence for mediastinal mass. No lymph nodes greater than 1cm. UPPER ABDOMEN: No significant abnormality is seen. OTHER: No significant other abnormality. IMPRESSION: 1. Left Sided pneumothorax estimated at approximately 15% as noted above.
[2019-08-07 17:33] LABS: Appearance,Urine Cloudy (Clear); Bilirubin,Urine Negative (Negative); Blood,Urine Negative (Negative); Color,Urine Yellow; Glucose,Urine (UA) Negative (Negative); Hyaline Casts,Urine 1 /lpf (0-2); Ketones,Urine Negative (Negative); Leukocyte Esterase,Urine Small (Negative); Mucus,Urine Rare /hpf; Nitrite,Urine Negative (Negative); PH, Urine 6.5 (5.0-8.0); Protein,Urine Trace (Negative); RBC,Urine 3 /hpf (0-5); Specific Gravity,Urine 1.022 (1.001-1.035); Squamous Epithelial Cell,Urine 12 /hpf (0-4); WBC,Urine 1 /hpf (0-5)
--- NOTE | 2019-08-07 22:55 | P.PN ---
Progress Note - Text Progress Note Date: 08/07/19 Chief Complaint: Short of breath Interval history: This is a pleasant 49-year-old patient of Dr. Scarlett Barahona. Long-standing smoker. Also smokes marijuana. Last 5 days has noticed herself to become more and more short of breath and wheezing. Decided to present to her PCP. She was given bronchodilators and sent to the ER. Accu-Cheks x-ray done. Checks x-ray revealed 50% left-sided pneumothorax. thoravac was placed. Attached to a chest tube. Patient is having nicotine craving. Patient's daughter by the bedside. Today-patient's Thora-vent was attached to water seal. Patient had again 15% pneumothorax on the CT chest following reexpansion. Short of breath. Patient's mother the bedside. Review of systems: Was done for constitutional, cardiovascular, GI, pulmonary. relevant finding as above Active Medications Acetaminophen (Tylenol Tab) 650 mg PO Q6HR PRN PRN Reason: Mild Pain or Fever > 100.5 Last Admin: 08/07/19 21:42 Dose: 650 mg Documented by: Albuterol/Ipratropium (Duoneb 0.5 Mg-3 Mg/3 Ml Soln) 3 ml INHALATION RT-QID [facility] Last Admin: 08/07/19 20:50 Dose: Not Given Documented by: Enoxaparin Sodium (Lovenox) 40 mg SQ DAILY [facility] Last Admin: 08/07/19 08:42 Dose: 40 mg Documented by: Hydromorphone HCl (Dilaudid) 0.5 mg IVP Q3HR PRN PRN Reason: Moderate Pain Last Admin: 08/05/19 16:24 Dose: 0.5 mg Documented by: Ibuprofen (Motrin) 400 mg PO Q6HR PRN PRN Reason: Mild Pain or Fever > 100.5 Last Admin: 08/07/19 18:33 Dose: 400 mg Documented by: Naloxone HCl (Narcan) 0.2 mg IV Q2M PRN PRN Reason: Opioid Reversal Nicotine (Habitrol 21mg/24hr Patch) 1 patch TRANSDERM DAILY [facility] Last Admin: 08/07/19 08:42 Dose: 1 patch Documented by: Nicotine Polacrilex (Nicorette Gum) 2 mg BUCCAL Q4HR PRN PRN Reason: Nicotine Cravings Last Admin: 08/07/19 10:42 Dose: 2 mg Documented by: Ondansetron HCl (Zofran) 4 mg IVP Q6HR PRN PRN Reason: Nausea And Vomiting Last Admin: 08/05/19 17:15 Dose: 4 mg Documented by: Physical examination: VITAL SIGNS: 98.2, 69, 16, 11 , 97% room air GENERAL: Sitting up in a chair, slightly short of breath EYES: Pupils equal. Conjunctiva normal. HEENT: External appearance of nose and ears normal, oral cavity grossly normal. NECK: JVD not raised; masses not palpable. HEART: First and second heart sounds are normal; no edema. LUNGS: Respiratory rate increased, decreased breath sounds, some wheezing, thora VAC on the left chest wall anteriorly. ABDOMEN: Soft, nontender, liver spleen not palpable, no masses palpable. PSYCH: Alert and oriented x3; mood and affect slightly anxiousl. INVESTIGATIONS, reviewed in the clinical context: CT chest-15% left-sided pneumothorax Previous testing White count 6.7 hemoglobin 40.5 platelets 270 progression 3.8 crit 0.61 Chest x-ray film personally reviewed by me-hyperinflation left-sided pneumothorax EKG tracing-personally reviewed by me shows normal sinus rhythm Assessment: -Acute left-sided pneumothorax present for at least 5 days. The patient and possibly bullous emphysema. Slow to expand -Thora-vent on the left sideto water seal -COPD in a current smoker -Chronic nicotine dependence patient's active cigarette smoker -Recreational marijuana use -Moderate protein calorie malnutrition. Patient is decreased muscle mass loss of subcutaneous fat. - Plan: Care was discussed with the patient. Continue to water seal. Encouraged to increase oral intake. Questions were answered. Ensure supplements to be added.
[2019-08-08] MEDS: IBUPROFEN 400 MG TAB PO PRN ×3 (04:20→20:30)
--- NOTE | 2019-08-08 06:53 | XR ---
EXAMINATION TYPE: XR chest 1V portable DATE OF EXAM: 08/08/2019 CLINICAL HISTORY: Difficulty breathing progress study. TECHNIQUE: Single AP portable frontal view of the chest is obtained. COMPARISON: Chest x-ray from one day earlier and older studies. CT chest from yesterday. FINDINGS: Background of fairly advanced emphysematous change redemonstrated that are appreciated on CT versus x-ray. There is stable left apical chest tube with fairly stable small residual apical pneu mothorax estimated near 10%. Scattered parenchymal fibrotic changes without new focal airspace opacit y or pleural effusion. No mediastinal shift. Cardiac silhouette size is stable and within normal limi ts. Osseous structures intact. Cholecystectomy clips are redemonstrated. IMPRESSION: Overall stable findings, residual small left apical pneumothorax despite chest tube. Ba ckground moderate to advanced emphysematous change without new acute pulmonary process.
[2019-08-08] MEDS: NICOTINE 21MG/24HR PATCH TRANSDERM SCH (08:06)
[2019-08-08] MEDS: NICOTINE POLACRILEX 2 MG GUM BUCCAL PRN ×2 (08:07→20:30)
[2019-08-08] MEDS: ENOXAPARIN 40 MG/0.4 ML SYRINGE SQ SCH (08:07)
[2019-08-08] MEDS: IPRATROPIUM-ALBUTEROL 3 ML NEB INHALATION SCH ×4 (08:49→19:31)
--- NOTE | 2019-08-08 10:17 | XR ---
EXAMINATION TYPE: XR chest 1V portable DATE OF EXAM: 08/08/2019 CLINICAL HISTORY: Pneumothorax on waterseal. TECHNIQUE: Single AP portable upright view of the chest is obtained. COMPARISON: Chest x-ray from earlier today and older studies FINDINGS: There is a larger left apical pneumothorax when chest tube placed off suction. Lateral bas ilar component now visualized. No new mediastinal shift. Emphysematous and fibrotic changes bilateral ly. Right lung remains clear. Cardiac silhouette size stable. Osseous structures intact. IMPRESSION: Small to moderate size left pneumothorax increased in size after chest tube taken off suc tion.
--- NOTE | 2019-08-08 10:24 | P.PN ---
Subjective Progress Note Date: 08/08/19 Principal diagnosis: Left-sided spontaneous pneumothorax, severe COPD, extensive emphysematous bullous changes 08/08/2019, patient seen eval examined during the rounds patient has a computed tomography scan done which is reviewed extensive bullous changes in the apices has been noted bilaterally to the pneumothorax is mainly at the basal area with the small bore chest tube in the apical region, cardiothoracic surgery is planning to DC the suction 2 hour post chest x-ray shows significant enlarging pneumothorax after that This is a 41-year-old female patient, a chronic smoker, history of COPD, was been having symptoms of bronchitis with cough and congestion of 5 days' duration. Her breathing got worse and she presented emergency department and the patient was found to have a large left-sided pneumothorax. The chest x-ray showed a 50% pneumothorax on the left. The patient had a Thoravent inserted in the emergency department. There was incomplete expansion of the left lung. Patient's initial FiO2 is at 100% nonrebreather facemask now is tapered down to 2 L nasal cannula. No chest pain. Less short of breath. Denies any trauma. N o falls. No previous history of pneumothoraces. The patient smokes cigarettes and she also smokes marijuana. This morning she was placed on water seal pneumothorax have progressed again and sharp she started feeling some symptoms of chest discomfort connected back to section noted that significant air leak was present however pain subsided post placing on suction Objective - Vital Signs Vital signs: Vital Signs Temp 98.3 F 08/08/19 04:00 Pulse 68 08/08/19 09:06 Resp 17 08/08/19 04:00 BP 125/75 08/08/19 04:00 Pulse Ox 98 08/08/19 04:00 Intake & Output 08/07/19 08/08/19 08/08/19 18:59 06:59 18:59 Intake Total 630 120 Balance 630 120 Weight 48.1 kg Intake: Oral 630 120 Other: Voiding Method Toilet # Voids 1 1 # Bowel Movements 0 0 - Exam - Constitutional General appearance: cooperative, disheveled, no acute distress, thin - EENT Eyes: anicteric sclerae, EOMI, PERRLA, poor dentition, normal appearance ENT: hearing grossly normal Ears: bilateral: normal - Neck Neck: normal ROM Carotids: bilateral: upstroke normal - Respiratory Respiratory: bilateral: CTA - Cardiovascular Rhythm: regular Heart sounds: normal: S1, S2 - Gastrointestinal General gastrointestinal: normal bowel sounds - Integumentary Integumentary: normal turgor - Neurologic Neurologic: CNII-XII intact - Musculoskeletal Musculoskeletal: gait normal, generalized weakness, strength equal bilaterally - Psychiatric Psychiatric: A&O x's 3, appropriate affect, intact judgment & insight - Labs CBC & Chem 7: 08/05/19 12:51 08/05/19 12:51 Labs: Abnormal Lab Results - Last 24 Hours (Table) 08/07/19 Range/Units 17:18 Urine Appearance Cloudy H (Clear) Urine Protein Trace H (Negative) Ur Leukocyte Esterase Small H (Negative) Ur Squamous Epith Cells 12 H (0-4) /hpf Urine Mucus Rare H (None) /hpf Assessment and Plan Assessment: Spontaneous pneumothorax of the left side 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
--- NOTE | 2019-08-08 11:11 | P.PN ---
Subjective Progress Note Date: 08/08/19 Principal diagnosis: Spontaneous left pneumothorax. Past medical history significant for chronic obstructive pulmonary disease, chronic ongoing nicotine dependence, manic-depressive bipolar and history of marijuana use. POD #3 Post Thoravent placement by the emergency room physician, for a spontaneous left pneumothorax. The patient is sitting up in bed on the cardiac stepdown unit. She is no acute distress. She denies any complaints of pain or shortness of breath at this time. Left anterior chest Thoravent remains in place to low continuous wall suction -20 cm H2O. Continuous air leak is present. No drainage is present. The patient underwent a computed tomography scan of her chest yesterday without contrast which demonstrated a left sided pneumothorax estimated around 15% off suction. Oxygen saturation is 98% on room air. Achieving 1500 mL on her incentive spirometry. Importance of smoking cessation were discussed with the patient. Objective - Vital Signs Vital signs: Vital Signs Temp 98.3 F 08/08/19 04:00 Pulse 68 08/08/19 09:06 Resp 17 08/08/19 04:00 BP 125/75 08/08/19 04:00 Pulse Ox 98 08/08/19 04:00 Intake & Output 08/07/19 08/08/19 08/08/19 18:59 06:59 18:59 Intake Total 630 120 Balance 630 120 Weight 48.1 kg Intake: Oral 630 120 Other: Voiding Method Toilet # Voids 1 1 # Bowel Movements 0 0 - Constitutional General appearance: Present: cooperative, no acute distress, thin (Resident) - Respiratory Details: Lung sounds essentially clear throughout, diminished to her left lower lobe. No wheezes, rhonchi present. Respirations are symmetrical and nonlabored. Left anterior chest Thoravent in place to low continuous wall suction -20 cm H2O. Positive air leak is present. - Cardiovascular Details: Regular rhythm and rate. S1 and S2 present, negative for S3, gallop or murmur. No edema present. - Gastrointestinal Gastrointestinal Comment(s): Abdomen is soft, nontender and nondistended. Active bowel sounds present all 4 abdominal quadrants. No guarding or rigidity. No organomegaly appreciated. - Neurologic Neurologic: Present: CNII-XII intact - Musculoskeletal Musculoskeletal: Present: gait normal, strength equal bilaterally - Psychiatric Psychiatric: Present: A&O x's 3, appropriate affect, intact judgment & insight - Allied health notes Allied health notes reviewed: nursing - Labs CBC & Chem 7: 08/05/19 12:51 08/05/19 12:51 Labs: Abnormal Lab Results - Last 24 Hours (Table) 08/07/19 Range/Units 17:18 Urine Appearance Cloudy H (Clear) Urine Protein Trace H (Negative) Ur Leukocyte Esterase Small H (Negative) Ur Squamous Epith Cells 12 H (0-4) /hpf Urine Mucus Rare H (None) /hpf - Imaging and Cardiology Chest x-ray: report reviewed, image reviewed CT scan - chest: report reviewed, image reviewed Assessment and Plan Assessment: 1. Left spontaneous pneumothorax, status post Thoravent placement by the emergency room physician. 2. Acute dyspnea secondary to left spontaneous pneumothorax 3. History of chronic obstructive pulmonary disease 4. Chronic ongoing nicotine abuse 5. History of marijuana use Plan: 1. We will remove wall suction from her Thoravent today and The Thoravent. Repeat chest x-ray 2 hours after the Thoravent has been capped. 2. Continue to encourage smoking cessation and discussed the importance with the patient. 3. Encourage use of her incentive spirometry every hour while awake. 4. Monitor daily chest x-rays. 5. GI and DVT prophylaxis. 6. Increase activity as tolerated. 7. More recommendations to follow based on patient's clinical course. Time with Patient: Greater than 30
[2019-08-08] MEDS: ACETAMINOPHEN TAB 325 MG TAB PO PRN (15:25)
--- NOTE | 2019-08-08 20:40 | P.PN ---
Progress Note - Text Progress Note Date: 08/08/19 Chief Complaint: Short of breath Interval history: This is a pleasant 49-year-old patient of Dr. Scarlett Barahona. Long-standing smoker. Also smokes marijuana. Last 5 days has noticed herself to become more and more short of breath and wheezing. Decided to present to her PCP. She was given bronchodilators and sent to the ER. Accu-Cheks x-ray done. Checks x-ray revealed 50% left-sided pneumothorax. thoravac was placed. Today- today patient was taken off the wall suction. Thora VAC was.capped. Repeat x-ray showed a pneumothorax to be present again./Increasing. Patient is put back to water seal. Patient is very anxious. Some pain at the chest tube site. Patient's been turning down bronchodilators as it makes her feel dizzy. Review of systems: Was done for constitutional, cardiovascular, GI, pulmonary. relevant finding as above Active Medications Acetaminophen (Tylenol Tab) 650 mg PO Q6HR PRN PRN Reason: Mild Pain or Fever > 100.5 Last Admin: 08/08/19 15:25 Dose: 650 mg Documented by: Albuterol/Ipratropium (Duoneb 0.5 Mg-3 Mg/3 Ml Soln) 3 ml INHALATION RT-QID [facility] Last Admin: 08/08/19 19:31 Dose: 3 ml Documented by: Enoxaparin Sodium (Lovenox) 40 mg SQ DAILY [facility] Last Admin: 08/08/19 08:07 Dose: 40 mg Documented by: Hydromorphone HCl (Dilaudid) 0.5 mg IVP Q3HR PRN PRN Reason: Moderate Pain Last Admin: 08/05/19 16:24 Dose: 0.5 mg Documented by: Ibuprofen (Motrin) 400 mg PO Q6HR PRN PRN Reason: Mild Pain or Fever > 100.5 Last Admin: 08/08/19 20:30 Dose: 400 mg Documented by: Naloxone HCl (Narcan) 0.2 mg IV Q2M PRN PRN Reason: Opioid Reversal Nicotine (Habitrol 21mg/24hr Patch) 1 patch TRANSDERM DAILY [facility] Last Admin: 08/08/19 08:06 Dose: 1 patch Documented by: Nicotine Polacrilex (Nicorette Gum) 2 mg BUCCAL Q4HR PRN PRN Reason: Nicotine Cravings Last Admin: 08/08/19 20:30 Dose: 2 mg Documented by: Ondansetron HCl (Zofran) 4 mg IVP Q6HR PRN PRN Reason: Nausea And Vomiting Last Admin: 08/05/19 17:15 Dose: 4 mg Documented by: Pantoprazole Sodium (Protonix) 40 mg PO AC-BRKFST [facility] Physical examination: VITAL SIGNS: 98.2, 56, 16, 128/54, 99% room air GENERAL: Laying in bed, but anxious EYES: Pupils equal. Conjunctiva normal. HEENT: External appearance of nose and ears normal, oral cavity grossly normal. NECK: JVD not raised; masses not palpable. HEART: First and second heart sounds are normal; no edema. LUNGS: Respiratory rate increased, decreased breath sounds, some wheezing, thora VAC on the left chest wall anteriorly., Atto water seal ABDOMEN: Soft, nontender, liver spleen not palpable, no masses palpable. PSYCH: Alert and oriented x3; mood and affect anxiousl. INVESTIGATIONS, reviewed in the clinical context: Chest x-ray showing increasing pneumothorax after the Thora VAC was capped Previous testing White count 6.7 hemoglobin 40.5 platelets 270 progression 3.8 crit 0.61 Chest x-ray film personally reviewed by me-hyperinflation left-sided pneumothorax EKG tracing-personally reviewed by me shows normal sinus rhythm Assessment: -Acute left-sided pneumothorax, but the Thora VAC, slow to respond -Thora-vent on the left sideto water seal -COPD in a current smoker -Chronic nicotine dependence patient's active cigarette smoker -Recreational marijuana use -Moderate protein calorie malnutrition. Patient is decreased muscle mass loss of subcutaneous fat. -Situational anxiety - Plan: Spent a lot of time with patient today to reassure her. Made to understand the disease process. Did remind her that I told him the beginning that this happened that lungs were not fully expanded. Encouraged her with simple things to do to mind. Follow with pulmonary and cardiac thoracic surgery.
[2019-08-08] MEDS: ALPRAZolam 0.25 MG TAB PO PRN (22:34)
[2019-08-08] MEDS: LEVOFLOXACIN 500 MG TAB PO SCH (22:34)
[2019-08-09] MEDS: IBUPROFEN 400 MG TAB PO PRN ×4 (04:07→23:21)
[2019-08-09] MEDS: PANTOPRAZOLE 40 MG TABLET PO SCH (06:31)
[2019-08-09] MEDS: ALPRAZolam 0.25 MG TAB PO PRN ×3 (06:50→23:21)
[2019-08-09] MEDS: IPRATROPIUM-ALBUTEROL 3 ML NEB INHALATION SCH ×4 (07:22→19:46)
[2019-08-09] MEDS: ENOXAPARIN 40 MG/0.4 ML SYRINGE SQ SCH (08:14)
[2019-08-09] MEDS: NICOTINE 21MG/24HR PATCH TRANSDERM SCH (08:14)
[2019-08-09] MEDS: NICOTINE POLACRILEX 2 MG GUM BUCCAL PRN ×2 (08:14→12:00)
--- NOTE | 2019-08-09 10:19 | P.PN ---
Subjective Progress Note Date: 08/09/19 Principal diagnosis: Spontaneous left pneumothorax. Past medical history significant for chronic obstructive pulmonary disease, chronic ongoing nicotine dependence, manic-depressive bipolar and history of marijuana use. POD #4 Post Thoravent placement by the emergency room physician, for a spontaneous left pneumothorax. The patient is sitting up in bed on the cardiac stepdown unit. She is no acute distress. She denies any complaints of pain or shortness of breath at this time. Left anterior chest Thoravent remains in place to low continuous wall suction -20 cm H2O. Continuous air leak is present. No drainage is present. The Thoravent was stopped taken off wall suction yesterday and was. Repeat chest x-ray was completed a couple hours post capping of the Thoravent and demonstrated an increased size of her left pneumothorax, subsequently her Thoravent was placed back to low continuous wall suction -20 cm H2O. Oxygen saturation is 96% on room air. Achieving 1500 mL on her incentive spirometry. Importance of smoking cessation were discussed with the patient. Objective - Vital Signs Vital signs: Vital Signs Temp 98.3 F 08/09/19 08:00 Pulse 73 08/09/19 08:00 Resp 18 08/09/19 08:00 BP 94/54 08/09/19 08:00 Pulse Ox 96 08/09/19 08:00 Intake & Output 08/08/19 08/09/19 08/09/19 18:59 06:59 18:59 Intake Total 450 240 Balance 450 240 Weight 48.7 kg Intake: Oral 450 240 Other: Voiding Method Toilet Toilet Toilet # Voids 1 1 # Bowel Movements 0 - Constitutional General appearance: Present: cooperative, no acute distress, thin - Respiratory Details: Lung sounds essentially clear throughout. Respirations are symmetrical and nonlabored. Oxygen saturation are 96% on room air. Achieving 1500 mL on her incentive spirometry. Left Thoravent in place to low continuous wall suction at -20 cm H2O. Continuous air leak is present. - Cardiovascular Details: Regular rhythm and rate. S1 and S2 present, negative for S3, gallop or murmur. No edema present. - Gastrointestinal Gastrointestinal Comment(s): Abdomen is soft, nontender and nondistended. Active bowel sounds present all 4 abdominal quadrants. No guarding or rigidity. No organomegaly appreciated. Tolerating oral intake. - Genitourinary Genitourinary Comment(s): Voiding clear yellow urine. - Integumentary Integumentary Comment(s): Skin is warm and dry. No clubbing or cyanosis is present. Left chest Thoravent dressing clean and dry. - Neurologic Neurologic: Present: CNII-XII intact - Musculoskeletal Musculoskeletal: Present: gait normal, strength equal bilaterally - Psychiatric Psychiatric: Present: A&O x's 3, appropriate affect, intact judgment & insight - Allied health notes Allied health notes reviewed: nursing - Labs CBC & Chem 7: 08/05/19 12:51 08/05/19 12:51 - Imaging and Cardiology Chest x-ray: report reviewed, image reviewed Assessment and Plan Assessment: 1. Left spontaneous pneumothorax, status post Thoravent placement by the emergency room physician. 2. Acute dyspnea secondary to left spontaneous pneumothorax 3. History of chronic obstructive pulmonary disease 4. Chronic ongoing nicotine abuse 5. History of marijuana use Plan: 1. Continue left chest Thoravent to continuous low wall suction -20 cm H2O. If the air leak remains persistent she may require a VATS with stapling procedure. This was discussed with the patient by Dr. Kidd. 2. Continue to encourage smoking cessation and discussed the importance with the patient. 3. Encourage use of her incentive spirometry every hour while awake. 4. Monitor daily chest x-rays. 5. GI and DVT prophylaxis. 6. Increase activity as tolerated. 7. More recommendations to follow based on patient's clinical course. Time with Patient: Greater than 30
--- NOTE | 2019-08-09 10:26 | P.PN ---
Subjective Progress Note Date: 08/09/19 Principal diagnosis: Left-sided spontaneous pneumothorax, severe COPD, extensive emphysematous bullous changes 08/09/2019, patient seen eval examined during the rounds labs reviewed medications reviewed remains on suction intermittent. Li present chest x-ray performed today reviewed no significant pneumothorax is seen patient has some shoulder discomfort otherwise doing very well continued do deep breathing exercises and incentive spirometry, has been on breathing treatment twice a day as needed 08/08/2019, patient seen eval examined during the rounds patient has a computed tomography scan done which is reviewed extensive bullous changes in the apices has been noted bilaterally to the pneumothorax is mainly at the basal area with the small bore chest tube in the apical region, cardiothoracic surgery is planning to DC the suction 2 hour post chest x-ray shows significant enlarging pneumothorax after that This is a 41-year-old female patient, a chronic smoker, history of COPD, was been having symptoms of bronchitis with cough and congestion of 5 days' duration. Her breathing got worse and she presented emergency department and the patient was found to have a large left-sided pneumothorax. The chest x-ray showed a 50% pneumothorax on the left. The patient had a Thoravent inserted in the emergency department. There was incomplete expansion of the left lung. Patient's initial FiO2 is at 100% nonrebreather facemask now is tapered down to 2 L nasal cannula. No chest pain. Less short of breath. Denies any trauma. No falls. No previous history of pneumothoraces. The patient smokes cigarettes and she also smokes marijuana. This morning she was placed on water seal pneumothorax have progressed again and sharp she started feeling some symptoms of chest discomfort connected back to section noted that significant air leak was present however pain subsided post placing on suction Objective - Vital Signs Vital signs: Vital Signs Temp 98.3 F 08/09/19 08:00 Pulse 73 08/09/19 08:00 Resp 18 08/09/19 08:00 BP 94/54 08/09/19 08:00 Pulse Ox 96 08/09/19 08:00 Intake & Output 08/08/19 08/09/19 08/09/19 18:59 06:59 18:59 Intake Total 450 240 Balance 450 240 Weight 48.7 kg Intake: Oral 450 240 Other: Voiding Method Toilet Toilet Toilet # Voids 1 1 # Bowel Movements 0 - Exam - Constitutional General appearance: cooperative, disheveled, no acute distress, thin - EENT Eyes: anicteric sclerae, EOMI, PERRLA, poor dentition, normal appearance ENT: hearing grossly normal Ears: bilateral: normal - Neck Neck: normal ROM Carotids: bilateral: upstroke normal - Respiratory Respiratory: bilateral: CTA - Cardiovascular Rhythm: regular Heart sounds: normal: S1, S2 - Gastrointestinal General gastrointestinal: normal bowel sounds - Integumentary Integumentary: normal turgor - Neurologic Neurologic: CNII-XII intact - Musculoskeletal Musculoskeletal: gait normal, generalized weakness, strength equal bilaterally - Psychiatric Psychiatric: A&O x's 3, appropriate affect, intact judgment & insight - Labs CBC & Chem 7: 08/05/19 12:51 08/05/19 12:51 Assessment and Plan Assessment: Spontaneous pneumothorax of the left side Likely severe COPD emphysema Extensive bullous lung disease bilaterally History of smoking and nicotine abuse and use of marijuana Plan: Continue chest tube to suction for continued to have a leak may need an another regular chest tube, as it appears that it may be malpositioned Agree with plan of cardiothoracic surgery if he continued to present for VATS with stapling procedure Continue deep breathing exercises incentive spirometry Supplemental oxygen Reviewed computed tomography scan of the chest without any contrast to review extent of pneumothorax as well as bullous lung disease Time with Patient: Greater than 30
--- NOTE | 2019-08-09 10:49 | XR ---
EXAMINATION TYPE: XR chest 1V portable DATE OF EXAM: 08/09/2019 COMPARISON: 08/08/2019 HISTORY: Chest pain TECHNIQUE: Single frontal view of the chest is obtained. FINDINGS: Left apical pleural catheter is in place. Pneumothorax is smaller in size and is estimated at less th an 10%. Hyperinflation is compatible with COPD. Cardia mediastinal silhouette is unremarkable. IMPRESSION: 1. Left apical pleural catheter is in place. Pneumothorax is smaller in size and is estimated at les s than 10%.
[2019-08-09] MEDS: ACETAMINOPHEN TAB 325 MG TAB PO PRN ×2 (11:49→19:09)
--- NOTE | 2019-08-09 19:11 | P.PN ---
Progress Note - Text Progress Note Date: 08/09/19 Chief Complaint: Short of breath Interval history: This is a pleasant 49-year-old patient of Dr. Scarlett Barahona. Long-standing smoker. Also smokes marijuana. Last 5 days has noticed herself to become more and more short of breath and wheezing. Decided to present to her PCP. She was given bronchodilators and sent to the ER. Accu-Cheks x-ray done. Checks x-ray revealed 50% left-sided pneumothorax. thoravac was placed. Today- patient checks x-ray from today showing less than 10% pneumothorax. Remains on wall suction. Patient's been a bit anxious. Tolerated diet. Family present.. Review of systems: Was done for constitutional, cardiovascular, GI, pulmonary. relevant finding as above Active Medications Acetaminophen (Tylenol Tab) 650 mg PO Q6HR PRN PRN Reason: Mild Pain or Fever > 100.5 Last Admin: 08/09/19 11:49 Dose: 650 mg Documented by: Albuterol/Ipratropium (Duoneb 0.5 Mg-3 Mg/3 Ml Soln) 3 ml INHALATION RT-QID [facility] Last Admin: 08/09/19 15:13 Dose: Not Given Documented by: Alprazolam (Xanax) 0.25 mg PO TID PRN PRN Reason: Anxiety Last Admin: 08/09/19 14:50 Dose: 0.25 mg Documented by: Enoxaparin Sodium (Lovenox) 40 mg SQ DAILY [facility] Last Admin: 08/09/19 08:14 Dose: 40 mg Documented by: Hydromorphone HCl (Dilaudid) 0.5 mg IVP Q3HR PRN PRN Reason: Moderate Pain Last Admin: 08/05/19 16:24 Dose: 0.5 mg Documented by: Ibuprofen (Motrin) 400 mg PO Q6HR PRN PRN Reason: Mild Pain or Fever > 100.5 Last Admin: 08/09/19 16:40 Dose: 400 mg Documented by: Levofloxacin (Levaquin) 500 mg PO Q24H [facility] Last Admin: 08/08/19 22:34 Dose: 500 mg Documented by: Naloxone HCl (Narcan) 0.2 mg IV Q2M PRN PRN Reason: Opioid Reversal Nicotine (Habitrol 21mg/24hr Patch) 1 patch TRANSDERM DAILY [facility] Last Admin: 08/09/19 08:14 Dose: 1 patch Documented by: Nicotine Polacrilex (Nicorette Gum) 2 mg BUCCAL Q4HR PRN PRN Reason: Nicotine Cravings Last Admin: 08/09/19 12:00 Dose: 2 mg Documented by: Ondansetron HCl (Zofran) 4 mg IVP Q6HR PRN PRN Reason: Nausea And Vomiting Last Admin: 08/05/19 17:15 Dose: 4 mg Documented by: Pantoprazole Sodium (Protonix) 40 mg PO AC-BRKFST [facility] Last Admin: 08/09/19 06:31 Dose: 40 mg Documented by: Physical examination: VITAL SIGNS: 98.1, 71, 16, 105/70, 98% room air GENERAL: Sitting up in the bed, slightly short of breath EYES: Pupils equal. Conjunctiva normal. HEENT: External appearance of nose and ears normal, oral cavity grossly normal. NECK: JVD not raised; masses not palpable. HEART: First and second heart sounds are normal; no edema. LUNGS: Respiratory rate increased, decreased breath sounds, some wheezing, thora VAC on the left chest wall anteriorly., Attached toto water seal ABDOMEN: Soft, nontender, liver spleen not palpable, no masses palpable. PSYCH: Alert and oriented x3; mood and affect anxiousl. INVESTIGATIONS, reviewed in the clinical context: Chest x-ray showing less than 10% pneumothorax Previous testing White count 6.7 hemoglobin 40.5 platelets 270 progression 3.8 crit 0.61 Chest x-ray film personally reviewed by me-hyperinflation left-sided pneumothorax EKG tracing-personally reviewed by me shows normal sinus rhythm Assessment: -Acute left-sided pneumothorax, with Thora VAC, slow to respond -Thora-vent on the left sideto water seal -COPD in a current smoker -Chronic nicotine dependence patient's active cigarette smoker -Recreational marijuana use -Moderate protein calorie malnutrition. Patient is decreased muscle mass loss of subcutaneous fat. -Situational anxiety - Plan: Spent time again with the patient and reassured her. If the lung does not expand and patient have to go to the stapling procedure with a VATS procedure. Discussed with Dr. Ramirez from pulmonary.
[2019-08-09] MEDS: LEVOFLOXACIN 500 MG TAB PO SCH (23:21)
[2019-08-10] MEDS: IBUPROFEN 400 MG TAB PO PRN ×3 (06:18→17:47)
[2019-08-10] MEDS: PANTOPRAZOLE 40 MG TABLET PO SCH (06:18)
[2019-08-10] MEDS: ALPRAZolam 0.25 MG TAB PO PRN ×3 (06:18→22:52)
[2019-08-10] MEDS: IPRATROPIUM-ALBUTEROL 3 ML NEB INHALATION SCH ×4 (07:20→18:51)
[2019-08-10] MEDS: ENOXAPARIN 40 MG/0.4 ML SYRINGE SQ SCH (08:07)
[2019-08-10] MEDS: NICOTINE 21MG/24HR PATCH TRANSDERM SCH (08:07)
[2019-08-10] MEDS: NICOTINE POLACRILEX 2 MG GUM BUCCAL PRN (08:07)
--- NOTE | 2019-08-10 08:13 | XR ---
EXAMINATION TYPE: XR chest 1V portable DATE OF EXAM: 08/10/2019 COMPARISON: 08/09/2019 HISTORY: Chest tube placement TECHNIQUE: Single frontal view of the chest is obtained. FINDINGS: Diffuse emphysematous changes are noted. Left-sided chest tube is seen. No definite sizabl e pneumothorax. No overt failure or consolidation. No pleural effusion. IMPRESSION: COPD. No definite sizable pneumothorax identified.
[2019-08-10] MEDS: ACETAMINOPHEN TAB 325 MG TAB PO PRN ×3 (10:09→20:45)
--- NOTE | 2019-08-10 13:09 | P.PN ---
Subjective Progress Note Date: 08/10/19 Principal diagnosis: Spontaneous left pneumothorax. Past medical history significant for chronic obstructive pulmonary disease, chronic ongoing nicotine dependence, manic-depressive bipolar and history of marijuana use. POD #5 Post Thoravent placement by the emergency room physician, for a spontaneous left pneumothorax. The patient is sitting up in bed on the cardiac stepdown unit. She is no acute distress. She denies any complaints of pain or shortness of breath at this t margarito. States pain is controlled. Left anterior chest Thoravent remains in place to low continuous wall suction -20 cm H2O. Continuous air leak is present. 5ml serous drainage is present. Chest x-ray was completed this morning and findings indicated no definite sizable pneumothorax, no overt failure or consolidation, and no pleural effusion. Oxygen saturation is 98% on room air. Achieving 1500 mL on her incentive spirometry. Objective - Vital Signs Vital signs: Vital Signs Temp 98.1 F 08/09/19 23:59 Pulse 72 08/10/19 07:34 Resp 18 08/10/19 04:00 BP 116/71 08/10/19 04:00 Pulse Ox 98 08/10/19 07:25 Intake & Output 08/09/19 08/10/19 08/10/19 18:59 06:59 18:59 Intake Total 480 500 Output Total 0 10 Balance 480 490 Weight 48.3 kg Intake: Oral 480 500 Output: Chest Tube Drainage 0 10 Thora-Vent Left Anterior 0 10 Chest Other: Voiding Method Toilet Toilet # Voids 1 1 # Bowel Movements 0 - Constitutional General appearance: Present: cooperative, no acute distress, thin - Respiratory Details: Lungs essentially clear throughout with bilateral diminished bases. Respirations are symmetrical and nonlabored. Oxygen saturation is 98% on RA. Achieving 1500ml on her incentive spirpmetry. Left Thoravent in place to low continuous wall suction at -20 cm H2O. Continuous air leak is present. - Cardiovascular Details: Regular rhythm and rate. S1 and S2 present, negative for S3, gallop or murmur. No edema present. - Gastrointestinal Gastrointestinal Comment(s): Abdomen is soft, nontender and nondistended. Active bowel sounds present in all 4 quadrants. No guarding or rigidity. No organomegaly appreciated. Tolerating diet. - Genitourinary Genitourinary Comment(s): Voiding clear yellow urine. - Integumentary Integumentary: Present: normal - Neurologic Neurologic: Present: CNII-XII intact - Musculoskeletal Musculoskeletal: Present: gait normal, strength equal bilaterally - Psychiatric Psychiatric: Present: A&O x's 3, appropriate affect, intact judgment & insight - Allied health notes Allied health notes reviewed: nursing - Labs CBC & Chem 7: 08/05/19 12:51 08/05/19 12:51 - Imaging and Cardiology Chest x-ray: report reviewed, image reviewed Assessment and Plan Assessment: 1. Left spontaneous pneumothorax, status post Thoravent placement by the emergency room physician. 2. Acute dyspnea secondary to left spontaneous pneumothorax 3. History of chronic obstructive pulmonary disease 4. Chronic ongoing nicotine abuse 5. History of marijuana use Plan: 1. Continue left chest Thoravent to continuous low wall suction -20 cm H2O. If the air leak remains persistent she may require a VATS with stapling procedure. 2. Continue to encourage smoking cessation and discussed the importance with the patient. 3. Encourage use of her incentive spirometry every hour while awake. 4. Monitor daily chest x-rays. 5. GI and DVT prophylaxis. 6. Increase activity as tolerated. 7. More recommendations to follow based on patient's clinical course. Time with Patient: Greater than 30
--- NOTE | 2019-08-10 16:25 | P.PN ---
Subjective Progress Note Date: 08/10/19 Principal diagnosis: Left-sided spontaneous pneumothorax, severe COPD, extensive emphysematous bullous changes 08/10/2019, patient seen eval examined during the rounds labs reviewed medications reviewed today's x-ray has been reviewed as well patient has intermittently air leak from the chest U however lungs are fully expanded now patient is tentatively being scheduled for VATS and stapling procedure for 08/09/2019, patient seen eval examined during the rounds labs reviewed medications reviewed remains on suction intermittent. Li present chest x-ray performed today reviewed no significant pneumothorax is seen patient has some shoulder discomfort otherwise doing very well continued do deep breathing exercises and incentive spirometry, has been on breathing treatment twice a day as needed 08/08/2019, patient seen eval examined during the rounds patient has a computed tomography scan done which is reviewed extensive bullous changes in the apices has been noted bilaterally to the pneumothorax is mainly at the basal area with the small bore chest tube in the apical region, cardiothoracic surgery is planning to DC the suction 2 hour post chest x-ray shows significant enlarging pneumothorax after that This is a 41-year-old female patient, a chronic smoker, history of COPD, was been having symptoms of bronchitis with cough and congestion of 5 days' duration. Her breathing got worse and she presented emergency department and the patient was found to have a large left-sided pneumothorax. The chest x-ray showed a 50% pneumothorax on the left. The patient had a Thoravent inserted in the emergency department. There was incomplete expansion of the left lung. Patient's initial FiO2 is at 100% nonrebreather facemask now is tapered down to 2 L nasal cannula. No chest pain. Less short of breath. Denies any trauma. N o falls. No previous history of pneumothoraces. The patient smokes cigarettes and she also smokes marijuana. This morning she was placed on water seal pneumothorax have progressed again and sharp she started feeling some symptoms of chest discomfort connected back to section noted that significant air leak was present however pain subsided post placing on suction Objective - Vital Signs Vital signs: Vital Signs Temp 98.6 F 08/10/19 16:00 Pulse 68 08/10/19 16:00 Resp 18 08/10/19 16:00 BP 117/72 08/10/19 16:00 Pulse Ox 98 08/10/19 16:00 Intake & Output 08/09/19 08/10/19 08/10/19 18:59 06:59 18:59 Intake Total 480 500 Output Total 0 10 2 Balance 480 490 -2 Weight 48.3 kg Intake: Oral 480 500 Output: Chest Tube Drainage 0 10 0 Thora-Vent Left Anterior 0 10 0 Chest Urine 2 Other: Voiding Method Toilet Toilet Toilet # Voids 1 1 2 # Bowel Movements 0 - Exam - Constitutional General appearance: cooperative, disheveled, no acute distress, thin - EENT Eyes: anicteric sclerae, EOMI, PERRLA, poor dentition, normal appearance ENT: hearing grossly normal Ears: bilateral: normal - Neck Neck: normal ROM Carotids: bilateral: upstroke normal - Respiratory Respiratory: bilateral: CTA - Cardiovascular Rhythm: regular Heart sounds: normal: S1, S2 - Gastrointestinal General gastrointestinal: normal bowel sounds - Integumentary Integumentary: normal turgor - Neurologic Neurologic: CNII-XII intact - Musculoskeletal Musculoskeletal: gait normal, generalized weakness, strength equal bilaterally - Psychiatric Psychiatric: A&O x's 3, appropriate affect, intact judgment & insight - Labs CBC & Chem 7: 08/05/19 12:51 08/05/19 12:51 Assessment and Plan Assessment: Spontaneous pneumothorax of the left side Likely severe COPD emphysema Extensive bullous lung disease bilaterally History of smoking and nicotine abuse and use of marijuana Plan: Continue chest tube to suction for continued to have a leak Agree with plan of cardiothoracic surgery if he continued to present for VATS with stapling procedure Continue deep breathing exercises incentive spirometry Supplemental oxygen Reviewed computed tomography scan of the chest without any contrast to review extent of pneumothorax as well as bullous lung disease Time with Patient: Greater than 30
[2019-08-10] MEDS: LEVOFLOXACIN 500 MG TAB PO SCH (22:52)
--- NOTE | 2019-08-11 00:18 | P.PN ---
Progress Note - Text Progress Note Date: 08/10/19 Chief Complaint: Short of breath Interval history: This is a pleasant 49-year-old patient of Dr. Scarlett Barahona. Long-standing smoker. Also smokes marijuana. Last 5 days has noticed herself to become more and more short of breath and wheezing. Decided to present to her PCP. She was given bronchodilators and sent to the ER. Accu-Cheks x-ray done. Checks x-ray revealed 50% left-sided pneumothorax. thoravac was placed. Today- . Stable. Breathing stable. No new issues. Minimal pneumothorax on the chest x-ray. . Review of systems: Was done for constitutional, cardiovascular, GI, pulmonary. relevant finding as above Active Medications Acetaminophen (Tylenol Tab) 650 mg PO Q6HR PRN PRN Reason: Mild Pain or Fever > 100.5 Last Admin: 08/10/19 20:45 Dose: 650 mg Documented by: Albuterol/Ipratropium (Duoneb 0.5 Mg-3 Mg/3 Ml Soln) 3 ml INHALATION RT-QID [facility] Last Admin: 08/10/19 18:51 Dose: 3 ml Documented by: Alprazolam (Xanax) 0.25 mg PO TID PRN PRN Reason: Anxiety Last Admin: 08/10/19 22:52 Dose: 0.25 mg Documented by: Enoxaparin Sodium (Lovenox) 40 mg SQ DAILY [facility] Last Admin: 08/10/19 08:07 Dose: 40 mg Documented by: Hydromorphone HCl (Dilaudid) 0.5 mg IVP Q3HR PRN PRN Reason: Moderate Pain Last Admin: 08/05/19 16:24 Dose: 0.5 mg Documented by: Ibuprofen (Motrin) 400 mg PO Q6HR PRN PRN Reason: Mild Pain or Fever > 100.5 Last Admin: 08/10/19 17:47 Dose: 400 mg Documented by: Levofloxacin (Levaquin) 500 mg PO Q24H [facility] Last Admin: 08/10/19 22:52 Dose: 500 mg Documented by: Naloxone HCl (Narcan) 0.2 mg IV Q2M PRN PRN Reason: Opioid Reversal Nicotine (Habitrol 21mg/24hr Patch) 1 patch TRANSDERM DAILY [facility] Last Admin: 08/10/19 08:07 Dose: 1 patch Documented by: Nicotine Polacrilex (Nicorette Gum) 2 mg BUCCAL Q4HR PRN PRN Reason: Nicotine Cravings Last Admin: 08/10/19 08:07 Dose: 2 mg Documented by: Ondansetron HCl (Zofran) 4 mg IVP Q6HR PRN PRN Reason: Nausea And Vomiting Last Admin: 08/05/19 17:15 Dose: 4 mg Documented by: Pantoprazole Sodium (Protonix) 40 mg PO -[facility] Last Admin: 08/10/19 06:18 Dose: 40 mg Documented by: Physical examination: VITAL SIGNS: 98.1, 77, 18, 11 6/69, 97% room air GENERAL: Laying in bed EYES: Pupils equal. Conjunctiva normal. HEENT: External appearance of nose and ears normal, oral cavity grossly normal. NECK: JVD not raised; masses not palpable. HEART: First and second heart sounds are normal; no edema. LUNGS: Respiratory rate increased, decreased breath sounds, some wheezing, thora VAC on the left chest wall anteriorly., Attached toto water seal ABDOMEN: Soft, nontender, liver spleen not palpable, no masses palpable. PSYCH: Alert and oriented x3; mood and affect anxiousl. INVESTIGATIONS, reviewed in the clinical context: Chest x-ray not showing pneumothorax Previous testing White count 6.7 hemoglobin 40.5 platelets 270 progression 3.8 crit 0.61 Chest x-ray film personally reviewed by me-hyperinflation left-sided pneumothorax EKG tracing-personally reviewed by me shows normal sinus rhythm Assessment: -Acute left-sided pneumothorax, with Thora VAC, slow to respond -Thora-vent on the left sideto water seal -COPD in a current smoker -Chronic nicotine dependence patient's active cigarette smoker -Recreational marijuana use -Moderate protein calorie malnutrition. Patient is decreased muscle mass loss of subcutaneous fat. -Situational anxiety - Plan: Care was discussed with the patient. Possible stapling and VATS procedure on . Other medications to continue.
[2019-08-11] MEDS: PANTOPRAZOLE 40 MG TABLET PO SCH (05:07)
[2019-08-11] MEDS: IBUPROFEN 400 MG TAB PO PRN ×3 (05:09→19:31)
[2019-08-11] MEDS: NICOTINE POLACRILEX 2 MG GUM BUCCAL PRN ×3 (07:00→19:31)
[2019-08-11] MEDS: NICOTINE 21MG/24HR PATCH TRANSDERM SCH (08:05)
[2019-08-11] MEDS: ENOXAPARIN 40 MG/0.4 ML SYRINGE SQ SCH (08:05)
[2019-08-11] MEDS: ACETAMINOPHEN TAB 325 MG TAB PO PRN ×3 (08:05→23:34)
[2019-08-11] MEDS: ALPRAZolam 0.25 MG TAB PO PRN ×3 (08:05→23:34)
[2019-08-11] MEDS: IPRATROPIUM-ALBUTEROL 3 ML NEB INHALATION SCH ×4 (09:01→19:05)
--- NOTE | 2019-08-11 09:15 | P.PN ---
Subjective Progress Note Date: 08/11/19 Principal diagnosis: Spontaneous left pneumothorax, first episode. 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 POD #6 Thoravent placement by the emergency room physicians The patient is currently sitting up in bed in no acute distress on the cardiac step-down unit eating breakfast. She does complain of pain at the Thora-vent site with coughing and deep inspiration, denies shortness of breath. Thora-vent remains connected to continuous wall suction with continuous air leak present. No other new concerns. Objective - Vital Signs Vital signs: Vital Signs Temp 98.4 F 08/11/19 04:00 Pulse 65 08/11/19 04:00 Resp 16 08/11/19 04:00 BP 110/60 08/11/19 04:00 Pulse Ox 98 08/11/19 04:00 Intake & Output 08/10/19 08/11/19 08/11/19 18:59 06:59 18:59 Output Total 2 5 Balance -2 -5 Weight 47.8 kg Output: Chest Tube Drainage 0 5 Thora-Vent Left Anterior 0 5 Chest Urine 2 Other: Voiding Method Toilet Toilet # Voids 2 2 - Constitutional General appearance: Present: cooperative, no acute distress, thin - Respiratory Details: Lung sounds diminished bilaterally. Respirations even, non-labored. Currently on room air with oxygen saturation 98%. Able to achieve 2000 mL on her incentive spirometry. Strong cough. Left-sided thoravent present and connected to continuous wall suction, 20 mL total serous drainage in atrium, continuous air leak present. - Cardiovascular Details: S1/S2 present. Regular rate/rhythm, sinus rhythm on telemetry. Palpable pulses bilaterally. No edema present. No calf pain or tenderness noted. SCDs present. - Gastrointestinal Gastrointestinal Comment(s): Abdomen soft, non-tender, non-distended. Active bowel sounds x 4 quadrants. Tolerating diet. - Genitourinary Genitourinary Comment(s): Continues to void. - Integumentary Integumentary Comment(s): Skin is warm and dry with evidence of good perfusion. - Neurologic Neurologic: Present: CNII-XII intact - Musculoskeletal Musculoskeletal: Present: gait normal, strength equal bilaterally - Psychiatric Psychiatric: Present: A&O x's 3, appropriate affect, intact judgment & insight - Allied health notes Allied health notes reviewed: nursing - Labs CBC & Chem 7: 08/05/19 12:51 08/05/19 12:51 - Imaging and Cardiology Chest x-ray: image reviewed Assessment and Plan Assessment: 1. Spontaneous left-sided pneumothorax, first episode, status post thora-vent placement 2. COPD with bullous disease 3. Chronic on-going nicotine dependence 4. Manic-depressive bipolar disorder 5. Marijuana use Plan: 1. Continue left-sided Thoravent to wall suction. Plan is for left thoracoscopic stapling of blebs with pleurodesis on Saturday, Aug 12, 2019. NPO after midnight 2. Continue to encourage smoking cessation 3. Encourage use of incentive spirometry 10x every hour while awake. 4. Monitor daily chest x-rays. 5. GI and DVT prophylaxis. 6. Increase activity as tolerated. Nursing to add extention tubing to atrium to allow ambulation around the room. 7. More recommendations to follow based on patient's clinical course. Time with Patient: Greater than 30
--- NOTE | 2019-08-11 10:51 | XR ---
EXAMINATION TYPE: XR chest 1V portable DATE OF EXAM: 08/11/2019 COMPARISON: 08/10/2019 HISTORY: Shortness of breath TECHNIQUE: Single frontal view of the chest is obtained. FINDINGS: Diffuse emphysematous changes are noted. Left-sided chest tube is seen. No definite sizabl e pneumothorax. No overt failure or consolidation. No pleural effusion. IMPRESSION: COPD. No definite sizable pneumothorax identified.
--- NOTE | 2019-08-11 13:38 | P.PN ---
Subjective Progress Note Date: 08/11/19 Principal diagnosis: Left-sided spontaneous pneumothorax, severe COPD, extensive emphysematous bullous changes 08/11/2019, patient seen eval reexamined during the rounds labs reviewed medications reviewed, patient has a higher lung expanded well but however still have significant air leak, some shoulder pain is present, hemodynamically she is stable denies any cough or sputum production patient is being scheduled tentatively for the VATS with bleb resection and stapling for tomorrow 08/10/2019, patient seen eval examined during the rounds labs reviewed medications reviewed today's x-ray has been reviewed as well patient has intermittently air leak from the chest U however lungs are fully expanded now patient is tentatively being scheduled for VATS and stapling procedure for 08/09/2019, patient seen eval examined during the rounds labs reviewed medications reviewed remains on suction intermittent. Li present chest x-ray performed today reviewed no significant pneumothorax is seen patient has some shoulder discomfort otherwise doing very well continued do deep breathing exercises and incentive spirometry, has been on breathing treatment twice a day as needed 08/08/2019, patient seen eval examined during the rounds patient has a computed tomography scan done which is reviewed extensive bullous changes in the apices has been noted bilaterally to the pneumothorax is mainly at the basal area with the small bore chest tube in the apical region, cardiothoracic surgery is planning to DC the suction 2 hour post chest x-ray shows significant enlarging pneumothorax after that This is a 41-year-old female patient, a chronic smoker, history of COPD, was been having symptoms of bronchitis with cough and congestion of 5 days' duration. Her breathing got worse and she presented emergency department and the patient was found to have a large left-sided pneumothorax. The chest x-ray showed a 50% pneumothorax on the left. The patient had a Thoravent inserted in the emergency department. There was incomplete expansion of the left lung. Patient's initial FiO2 is at 100% nonrebreather facemask now is tapered down to 2 L nasal cannula. No chest pain. Less short of breath. Denies any trauma. No falls. No previous history of pneumothoraces. The patient smokes cigarettes and she also smokes marijuana. This morning she was placed on water seal pneumothorax have progressed again and sharp she started feeling some symptoms of chest discomfort connected back to section noted that significant air leak was present however pain subsided post placing on suction Objective - Vital Signs Vital signs: Vital Signs Temp 98.4 F 08/11/19 12:00 Pulse 70 08/11/19 12:00 Resp 18 08/11/19 12:00 BP 106/69 08/11/19 12:00 Pulse Ox 99 08/11/19 12:00 Intake & Output 08/10/19 08/11/19 08/11/19 18:59 06:59 18:59 Intake Total 340 Output Total 2 5 0 Balance -2 -5 340 Weight 47.8 kg Intake: Oral 340 Output: Chest Tube Drainage 0 5 0 Thora-Vent Left Anterior 0 5 0 Chest Urine 2 Other: Voiding Method Toilet Toilet Toilet # Voids 2 2 1 # Bowel Movements 1 - Exam - Constitutional General appearance: cooperative, disheveled, no acute distress, thin - EENT Eyes: anicteric sclerae, EOMI, PERRLA, poor dentition, normal appearance ENT: hearing grossly normal Ears: bilateral: normal - Neck Neck: normal ROM Carotids: bilateral: upstroke normal - Respiratory Respiratory: bilateral: CTA - Cardiovascular Rhythm: regular Heart sounds: normal: S1, S2 - Gastrointestinal General gastrointestinal: normal bowel sounds - Integumentary Integumentary: normal turgor - Neurologic Neurologic: CNII-XII intact - Musculoskeletal Musculoskeletal: gait normal, generalized weakness, strength equal bilaterally - Psychiatric Psychiatric: A&O x's 3, appropriate affect, intact judgment & insight - Labs CBC & Chem 7: 08/05/19 12:51 08/05/19 12:51 Assessment and Plan Assessment: Spontaneous pneumothorax of the left side Likely severe COPD emphysema Extensive bullous lung disease bilaterally History of smoking and nicotine abuse and use of marijuana Plan: Continue chest tube to suction for continued to have a leak Agree with plan of cardiothoracic surgery if he continued to present for VATS with stapling procedure and lab results showed Continue deep breathing exercises incentive spirometry Supplemental oxygen Time with Patient: Greater than 30
[2019-08-11] MEDS: LEVOFLOXACIN 500 MG TAB PO SCH (23:34)
[2019-08-11] MEDS: DEXTROSE 5%-0.45% NACL 1,000 ML IV SCH (23:38)
--- NOTE | 2019-08-11 23:44 | P.PN ---
Progress Note - Text Progress Note Date: 08/11/19 Chief Complaint: Short of breath Interval history: This is a pleasant 49-year-old patient of Dr. Scarlett Barahona. Long-standing smoker. Also smokes marijuana. Last 5 days has noticed herself to become more and more short of breath and wheezing. Decided to present to her PCP. She was given bronchodilators and sent to the ER. Accu-Cheks x-ray done. Checks x-ray - 50% left-sided pneumothorax. thoravac was placed. Today- laying in bed. No new issues. Connected to wall suction . Review of systems: Was done for constitutional, cardiovascular, GI, pulmonary. relevant finding as above Active Medications Acetaminophen (Tylenol Tab) 650 mg PO Q6HR PRN PRN Reason: Mild Pain or Fever > 100.5 Last Admin: 08/11/19 23:34 Dose: 650 mg Documented by: Albuterol/Ipratropium (Duoneb 0.5 Mg-3 Mg/3 Ml Soln) 3 ml INHALATION RT-QID [facility] Last Admin: 08/11/19 19:05 Dose: 3 ml Documented by: Alprazolam (Xanax) 0.25 mg PO TID PRN PRN Reason: Anxiety Last Admin: 08/11/19 23:34 Dose: 0.25 mg Documented by: Enoxaparin Sodium (Lovenox) 40 mg SQ DAILY [facility] Last Admin: 08/11/19 08:05 Dose: 40 mg Documented by: Hydromorphone HCl (Dilaudid) 0.5 mg IVP Q3HR PRN PRN Reason: Moderate Pain Last Admin: 08/05/19 16:24 Dose: 0.5 mg Documented by: Dextrose/Sodium Chloride (Dextrose 5%-1/2ns Iv Soln) 1,000 mls @ 75 mls/hr IV .[id number] ON LICENSE OF [facility] Last Admin: 08/11/19 23:38 Dose: 75 mls/hr Documented by: Cefazolin Sodium 2 gm/ Sodium (Chloride) 50 mls @ 100 mls/hr IVPB ONCE ONE Stop: 08/12/19 12:29 Ibuprofen (Motrin) 400 mg PO Q6HR PRN PRN Reason: Mild Pain or Fever > 100.5 Last Admin: 08/11/19 19:31 Dose: 400 mg Documented by: Levofloxacin (Levaquin) 500 mg PO Q24H [facility] Last Admin: 08/11/19 23:34 Dose: 500 mg Documented by: Naloxone HCl (Narcan) 0.2 mg IV Q2M PRN PRN Reason: Opioid Reversal Nicotine (Habitrol 21mg/24hr Patch) 1 patch TRANSDERM DAILY [facility] Last Admin: 08/11/19 08:05 Dose: 1 patch Documented by: Nicotine Polacrilex (Nicorette Gum) 2 mg BUCCAL Q4HR PRN PRN Reason: Nicotine Cravings Last Admin: 08/11/19 19:31 Dose: 2 mg Documented by: Ondansetron HCl (Zofran) 4 mg IVP Q6HR PRN PRN Reason: Nausea And Vomiting Last Admin: 08/05/19 17:15 Dose: 4 mg Documented by: Pantoprazole Sodium (Protonix) 40 mg PO AC-BRKFST ON [facility] Last Admin: 08/11/19 05:07 Dose: 40 mg Documented by: Physical examination: VITAL SIGNS: 98.4, 70, 18, 106/69, 99% on room air GENERAL: Sitting up, comfortable EYES: Pupils equal. Conjunctiva normal. HEENT: External appearance of nose and ears normal, oral cavity grossly normal. NECK: JVD not raised; masses not palpable. HEART: First and second heart sounds are normal; no edema. LUNGS: Respiratory rate increased, decreased breath sounds, some wheezing, thora VAC on the left chest wall anteriorly., Attached toto water seal ABDOMEN: Soft, nontender, liver spleen not palpable, no masses palpable. PSYCH: Alert and oriented x3; mood and affect anxiousl. INVESTIGATIONS, reviewed in the clinical context: Chest x-ray not showing pneumothorax Previous testing White count 6.7 hemoglobin 40.5 platelets 270 progression 3.8 crit 0.61 Chest x-ray film personally reviewed by me-hyperinflation left-sided pneumothorax EKG tracing-personally reviewed by me shows normal sinus rhythm Assessment: -Acute left-sided pneumothorax, with Thora VAC, slow to respond -Thora-vent on the left sideto water seal -COPD in a current smoker -Chronic nicotine dependence patient's active cigarette smoker -Recreational marijuana use -Moderate protein calorie malnutrition. Patient is decreased muscle mass loss of subcutaneous fat. -Situational anxiety - Plan: Care was discussed with the patient. Possible stapling and VATS procedure tomorrow.
[2019-08-12] MEDS: IBUPROFEN 400 MG TAB PO PRN (05:07)
[2019-08-12] MEDS: NICOTINE POLACRILEX 2 MG GUM BUCCAL PRN ×2 (05:44→18:21)
[2019-08-12 06:15] LABS: Basophils % (A) 1 %; Eosinophils # (A) 0.4 k/uL (0-0.7); Eosinophils % (A) 8 %; HCT 36.9 % (34.0-46.0); Lymphocytes # (A) 1.7 k/uL (1.0-4.8); Lymphocytes % (A) 32 %; MCH 33.6 pg (25.0-35.0); MCHC 35.1 g/dL (31.0-37.0); MCV 95.7 fL (80.0-100.0); Mean Platelet Volume 6.3; Monocytes # (A) 0.3 k/uL (0-1.0); Monocytes % (A) 6 %; Neutrophils # (A) 2.9 k/uL (1.3-7.7); Neutrophils % (A) 53 %; Platelet Count 192 k/uL (150-450); RBC 3.86 m/uL (3.80-5.40); RDW 12.4 % (11.5-15.5); WBC 5.4 k/uL (3.8-10.6)
[2019-08-12 06:23] LABS: Prothrombin Time 10.3 sec (9.0-12.0)
[2019-08-12 06:28] LABS: African American GFR (CKD) >90 (>60 ml/min/1.73 sqM); Anion Gap 8 mmol/L; Blood Urea Nitrogen 19 mg/dL (7-17); Calcium 9.6 mg/dL (8.4-10.2); Carbon Dioxide 25 mmol/L (22-30); Chloride 106 mmol/L (98-107); Glucose 92 mg/dL (74-99); Non-African American GFR(CKD) >90 (>60 ml/min/1.73 sqM); Potassium 4.8 mmol/L (3.5-5.1); Sodium 139 mmol/L (137-145)
[2019-08-12] MEDS: IPRATROPIUM-ALBUTEROL 3 ML NEB INHALATION SCH ×4 (07:37→19:57)
[2019-08-12] MEDS: ALPRAZolam 0.25 MG TAB PO PRN ×2 (07:49→20:42)
[2019-08-12] MEDS: NICOTINE 21MG/24HR PATCH TRANSDERM SCH (07:50)
[2019-08-12] MEDS: PANTOPRAZOLE 40 MG TABLET PO SCH (07:51)
[2019-08-12] MEDS: ACETAMINOPHEN TAB 325 MG TAB PO PRN (08:04)
--- NOTE | 2019-08-12 08:34 | XR ---
EXAMINATION TYPE: XR chest 1V portable DATE OF EXAM: 08/12/2019 COMPARISON: 08/11/2019 HISTORY: Chest pain TECHNIQUE: Single frontal view of the chest is obtained. FINDINGS: Left apical pleural catheter noted with persistent left apical pneumothorax. Pneumothorax is essentia lly unchanged and estimated at less than 10% measures 1.1 cm in greatest dimension. Lungs are hyperin flated. Cardiomediastinal silhouette is stable. IMPRESSION: 1. No significant change in left apical pneumothorax.
[2019-08-12] MEDS ORDERED: STERILE TALC 3 GM POWDER W/BLOWER KIT INTRAPLEUR ONE (08:59)
[2019-08-12] MEDS: DEXTROSE 5%-0.45% NACL 1,000 ML IV SCH (11:28)
[2019-08-12] MEDS ORDERED: IV FLUID CONTINUATION 1,000 ML IV ONE (12:17)
[2019-08-12] MEDS ORDERED: DEXAMETHASONE SOD PHOSPHATE 10 MG/ML 1 ML VIAL IV ONE (12:23)
[2019-08-12] MEDS: ONDANSETRON 4 MG/2 ML VIAL IVP PRN (12:23)
[2019-08-12] MEDS ORDERED: SCOPOLAMINE 1.5MG/72HR PATCH TRANSDERM ONE (12:24)
[2019-08-12] MEDS ORDERED: MIDAZOLAM 2 MG/2 ML VIAL IV ONE (12:34)
[2019-08-12] MEDS ORDERED: LIDOCAINE 1% INJ 10MG/ML (20 ML MDV) ONE (13:27)
[2019-08-12] MEDS ORDERED: GLYCOPYRROLATE 0.2 MG/ML 2 ML VIAL ONE (13:27)
[2019-08-12] MEDS ORDERED: SUCCINYLCHOLINE CHLORIDE 100 MG/5 ML SYR IV ONE (13:27)
[2019-08-12] MEDS ORDERED: PROPOFOL 10 MG/ML 20 ML VIAL IV ONE (13:27)
[2019-08-12] MEDS ORDERED: ROCURONIUM BROMIDE 10 MG/ML 10 ML VIAL IV ONE (13:27)
[2019-08-12] MEDS ORDERED: fentaNYL (PF) 50 MCG/ML 2 ML AMP ONE (13:27)
[2019-08-12] MEDS ORDERED: NEOSTIGMINE 1 MG/ML 10 ML VIAL ONE (13:27)
[2019-08-12] MEDS ORDERED: MIDAZOLAM 2 MG/2 ML VIAL ONE (13:27)
[2019-08-12] MEDS ORDERED: BUPIVACAINE (PF) 0.5% 30 ML VIAL SQ ONE ×2 (13:58)
[2019-08-12] MEDS ORDERED: DEXTROSE 5%-0.45% NACL 1,000 ML IV SCH (14:39)
[2019-08-12] MEDS ORDERED: diphenhydrAMINE 50 MG/ML 1 ML VIAL IVP ONE (14:49)
[2019-08-12] MEDS: MORPHINE SULFATE 4 MG/ML SYRINGE IVP ONE ×3 (14:50→14:57)
[2019-08-12] MEDS ORDERED: ONDANSETRON 4 MG/2 ML VIAL IVP ONE (14:50)
[2019-08-12] MEDS ORDERED: MIDAZOLAM 2 MG/2 ML VIAL IVP ONE (15:00)
--- NOTE | 2019-08-12 15:13 | XR ---
EXAMINATION TYPE: XR chest 1V DATE OF EXAM: 08/12/2019 COMPARISON: 08/12/2019 HISTORY: Post VATS TECHNIQUE: Single frontal view of the chest is obtained. FINDINGS: There is a left-sided pneumothorax measuring approximately 30%. No mediastinal deviation. Chest tube is seen in position. Underlying COPD noted. Heart size stable. No sizable pleural effusion or consolidation. IMPRESSION: Chest tube noted in position with interval increase in size of the left pneumothorax now measuring approximately 30%.
[2019-08-12] MEDS: ACETAMINOPHEN IV (For NPO) 1,000 MG in EMPTY BAG 1 BAG IVPB SCH ×2 (15:27→22:04)
[2019-08-12] MEDS: KETOROLAC 30 MG/ML 1 ML VIAL IVP SCH ×2 (15:28→21:59)
[2019-08-12] MEDS ORDERED: LACTATED RINGERS 1,000 ML IV ONE (15:28)
[2019-08-12] MEDS: HYDROmorphone 1 MG/ML 1 ML SYRINGE IVP ONE ×2 (15:37→15:46)
--- NOTE | 2019-08-12 15:51 | P.OP ---
Date of Procedure: 08/12/19 Preoperative Diagnosis: Left spontaneous pneumothorax with persistent bronchopleural fistula, bullous emphysematous disease of lung Postoperative Diagnosis: Same Procedure(s) Performed: Left thoracoscopy with reinforced wedge resection of apex of left upper lobe including ruptured bleb Anesthesia: OSCAR Surgeon: Kee Kidd Estimated Blood Loss (ml): 5 IV fluids (ml): 500 Pathology: other (Wedge resection left upper lobe) Condition: stable Disposition: PACU Indications for Procedure: 49-year-old female presents with spontaneous pneumothorax and shortness of breath. Thora vent was placed in the emergency department with good reexpansion of the lung. Patient had persistent air leak. Patient had recurrent pneumothorax anytime the Thora vent was removed from suction. After 1 week of hospitalization, surgical repair was recommended. Operative Findings: There was chronic emphysematous disease of the lung. There were minimal adhesions within the pleural space. The apex there were no adhesions. There was an obvious ruptured bleb. On completion of resection, reinforced staple lines were intact. They did not go through any obvious blebs. Description of Procedure: The patient was brought to the operating room, placed supine on the operating table, anesthetized and intubated. Double lumen endotracheal tube was positioned appropriately with fiberoptic bronchoscopy and secured. Patient was turned in the right lateral decubitus position. Left chest sterilely prepped and draped. 3 one-inch incisions were made in the left chest and the lung was deflated. Video thoracoscope was introduced. Chest was explored with findings as noted above. The area bleb disease in the apex along with the associated ruptured bleb were carefully evaluated and plan staple line was initiated. This was initially planned by clamping with the lung clamp and being sure that the resultant staple line was not through any blebs. 45 mm reinforced stapler was used to create the staple lines along the areas outlined by the lung clamp after appropriate preconditioning. Following completion of the wedge resection of the apex it was removed. The area of the ruptured bleb was carefully examined and marked with a suture for sending to pathology. Mechanical pleurodesis was performed throughout the chest cavity with sponges and a 28-Bulgarian chest tube was placed through separate stab incision anteriorly and positioned posterior apically and connected to a Pleur-evac. The lung was reinflated. There was persistent air leak noted. Was felt this was likely from the reinforced staple lines. No other evidence of air leak could be ascertained. Rib blocks were performed at the level of the incisions were half percent Marcaine. Incisions were closed with layers of Vicryl suture. They were dressed with skin glue and Band-Aids. The patient was turned supine and extubated and transferred to recovery in stable position.
[2019-08-12] MEDS: ENOXAPARIN 40 MG/0.4 ML SYRINGE SQ SCH (16:17)
[2019-08-12] MEDS ORDERED: HYDROmorphone 0.5 MG/0.5 ML SYRINGE IVP PRN (16:57)
[2019-08-12] MEDS: ACETAMINOPHEN TAB 500 MG TAB PO PRN (19:52)
[2019-08-12] MEDS: LEVOFLOXACIN 500 MG TAB PO SCH (21:59)
--- NOTE | 2019-08-12 22:32 | P.PN ---
Progress Note - Text Progress Note Date: 08/12/19 Chief Complaint: Short of breath Interval history: This is a pleasant 49-year-old patient of Dr. Scarlett Barahona. Long-standing smoker. Also smokes marijuana. Last 5 days has noticed herself to become more and more short of breath and wheezing. Decided to present to her PCP. She was given bronchodilators and sent to the ER. Accu-Cheks x-ray done. Checks x-ray - 50% left-sided pneumothorax. thoravac was placed. Patient did not respond to be water seal. Decision was made to have the patient go down for surgery. Today-underwent wedge resection of the left upper lobe and stapling off the ruptured bleb. Chest tube drain in place. Some pain is present. . Review of systems: Was done for constitutional, cardiovascular, GI, pulmonary. relevant finding as above Active Medications Acetaminophen (Tylenol Tab) 1,000 mg PO Q6HR PRN PRN Reason: Fever and/ or Pain Last Admin: 08/12/19 19:52 Dose: 1,000 mg Documented by: Albuterol/Ipratropium (Duoneb 0.5 Mg-3 Mg/3 Ml Soln) 3 ml INHALATION RT-QID [facility] Last Admin: 08/12/19 19:57 Dose: Not Given Documented by: Alprazolam (Xanax) 0.25 mg PO TID PRN PRN Reason: Anxiety Last Admin: 08/12/19 20:42 Dose: 0.25 mg Documented by: Enoxaparin Sodium (Lovenox) 40 mg SQ DAILY [facility] Last Admin: 08/12/19 16:17 Dose: Not Given Documented by: Hydromorphone HCl (Dilaudid) 0.5 mg IVP Q3HR PRN PRN Reason: Pain Cefazolin Sodium 2 gm/ Sodium (Chloride) 50 mls @ 100 mls/hr IVPB Q8H [facility] Stop: 08/13/19 06:29 Last Admin: 08/12/19 22:04 Dose: 100 mls/hr Documented by: Dextrose/Sodium Chloride (Dextrose 5%-1/2ns Iv Soln) 1,000 mls @ 40 mls/hr IV .Q24H [facility] Stop: 08/13/19 02:40 Last Admin: 08/12/19 17:24 Dose: 40 mls/hr Documented by: Ketorolac Tromethamine (Toradol) 15 mg IVP Q6H [facility] Stop: 08/17/19 16:01 Last Admin: 08/12/19 21:59 Dose: 15 mg Documented by: Levofloxacin (Levaquin) 500 mg PO Q24H [facility] Last Admin: 08/12/19 21:59 Dose: 500 mg Documented by: Nicotine (Habitrol 21mg/24hr Patch) 1 patch TRANSDERM DAILY [facility] Last Admin: 08/12/19 07:50 Dose: 1 patch Documented by: Nicotine Polacrilex (Nicorette Gum) 2 mg BUCCAL Q4HR PRN PRN Reason: Nicotine Cravings Last Admin: 08/12/19 18:21 Dose: 2 mg Documented by: Ondansetron HCl (Zofran) 4 mg IVP Q6HR PRN PRN Reason: Nausea And Vomiting Last Admin: 08/12/19 12:23 Dose: 4 mg Documented by: Pantoprazole Sodium (Protonix) 40 mg PO AC-BRKFST [facility] Last Admin: 08/12/19 07:51 Dose: Not Given Documented by: Physical examination: VITAL SIGNS: Afebrile, 57, 18, 105/59, 96% on 2 L GENERAL: Sitting up, tired EYES: Pupils equal. Conjunctiva normal. HEENT: External appearance of nose and ears normal, oral cavity grossly normal. NECK: JVD not raised; masses not palpable. HEART: First and second heart sounds are normal; no edema. LUNGS: Respiratory rate increased, decreased breath sounds, some wheezing, left- sided chest tube ABDOMEN: Soft, nontender, liver spleen not palpable, no masses palpable. PSYCH: Alert and oriented x3; mood and affect anxiousl. INVESTIGATIONS, reviewed in the clinical context: White count 5.4 hemoglobin 13 creatinine 0.69 Previous testing White count 6.7 hemoglobin 40.5 platelets 270 progression 3.8 crit 0.61 Chest x-ray film personally reviewed by me-hyperinflation left-sided pneumothorax EKG tracing-personally reviewed by me shows normal sinus rhythm Assessment: -Acute left-sided pneumothorax, with Thora VAC, slow to respond -08/12/2019-partial left upper lobe wedge resection with bleb stapling -Thora-vent on the left sideto water seal -COPD in a current smoker -Chronic nicotine dependence patient's active cigarette smoker -Recreational marijuana use -Moderate protein calorie malnutrition. Patient is decreased muscle mass loss of subcutaneous fat. -Situational anxiety - Plan: Patient is status post above procedure today. Pain control in place. No new issues.Did tolerate her supper.
[2019-08-13] MEDS: ACETAMINOPHEN TAB 500 MG TAB PO PRN ×3 (02:46→23:46)
[2019-08-13] MEDS: KETOROLAC 30 MG/ML 1 ML VIAL IVP SCH ×4 (02:50→21:10)
[2019-08-13] MEDS: NICOTINE 21MG/24HR PATCH TRANSDERM SCH (06:14)
[2019-08-13] MEDS: PANTOPRAZOLE 40 MG TABLET PO SCH (06:15)
[2019-08-13 06:28] LABS: Basophils % (A) 0 %; Eosinophils # (A) 0.2 k/uL (0-0.7); Eosinophils % (A) 2 %; HCT 38.5 % (34.0-46.0); HGB 12.7 gm/dL (11.4-16.0); Lymphocytes # (A) 1.5 k/uL (1.0-4.8); Lymphocytes % (A) 19 %; MCH 31.6 pg (25.0-35.0); MCHC 32.8 g/dL (31.0-37.0); MCV 96.2 fL (80.0-100.0); Mean Platelet Volume 6.7; Monocytes # (A) 0.4 k/uL (0-1.0); Monocytes % (A) 5 %; Neutrophils % (A) 73 %; Platelet Count 191 k/uL (150-450); RBC 4.01 m/uL (3.80-5.40); RDW 12.3 % (11.5-15.5); WBC 8.2 k/uL (3.8-10.6)
[2019-08-13 06:38] LABS: African American GFR (CKD) >90 (>60 ml/min/1.73 sqM); Anion Gap 10 mmol/L; Blood Urea Nitrogen 14 mg/dL (7-17); Calcium 9.2 mg/dL (8.4-10.2); Carbon Dioxide 21 mmol/L (22-30); Chloride 105 mmol/L (98-107); Glucose 93 mg/dL (74-99); Non-African American GFR(CKD) >90 (>60 ml/min/1.73 sqM); Potassium 4.4 mmol/L (3.5-5.1); Sodium 136 mmol/L (137-145)
--- NOTE | 2019-08-13 06:46 | XR ---
EXAMINATION TYPE: XR chest 1V portable DATE OF EXAM: 08/13/2019 COMPARISON: 08/12/2019 HISTORY: Postop TECHNIQUE: Single frontal view of the chest is obtained. FINDINGS: There is a left chest tube with the tip at the left lung apex. There is small left apical pneumothorax. Pneumothorax improved compared to yesterday. There is some mild atelectasis left upper lobe and left lower lobe. Right lung is clear. There is no heart failure. Heart size is normal. There is emphysema right upper lobe. IMPRESSION: There is improvement in the left side pneumothorax compared to yesterday.
[2019-08-13] MEDS: NICOTINE POLACRILEX 2 MG GUM BUCCAL PRN ×2 (07:34→16:58)
[2019-08-13] MEDS: IPRATROPIUM-ALBUTEROL 3 ML NEB INHALATION SCH ×4 (07:39→19:50)
[2019-08-13] MEDS: ALPRAZolam 0.25 MG TAB PO PRN ×2 (08:34→21:11)
[2019-08-13] MEDS: ENOXAPARIN 40 MG/0.4 ML SYRINGE SQ SCH (08:35)
--- NOTE | 2019-08-13 09:24 | P.PN ---
Subjective Progress Note Date: 08/13/19 Principal diagnosis: Spontaneous left pneumothorax, first episode, with persistent bronchopleural fistula, emphysematous disease of the lung, continued air leak. 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 POD #8 Thoravent placement by the emergency room physicians POD #1 left thoracoscopy with reinforced wedge resection of the apex of the left upper lobe including ruptured bleb The patient is currently sitting up in bed in no acute distress on the cardiac step-down unit eating breakfast. She does complain of left-sided post surgical chest pain with coughing and deep inspiration, denies shortness of breath. Patient states she doesn't want to take narcotics, continues with Tylenol and Toradol. Left pleural chest tube remains to continuous wall suction with air leak present with expiration and coughing. No new complaints. Objective - Vital Signs Vital signs: Vital Signs Temp 98.9 F 08/13/19 08:00 Pulse 68 08/13/19 08:00 Resp 18 08/13/19 08:00 BP 131/68 08/13/19 08:00 Pulse Ox 98 08/13/19 08:00 Intake & Output 08/12/19 08/13/19 08/13/19 18:59 06:59 18:59 Intake Total 1422 240 Output Total 510 1108 Balance 912 -1108 240 Weight 49.7 kg Intake: IV 1050 Intake, IV Titration 150 Amount Dextrose 5%-0.45% NaCl 1, 150 000 ml @ 75 mls/hr IV . [id number] [facility] Rx#:[id number] Oral 222 240 Output: Chest Tube Drainage 0 108 Chest Tube Left Lower 108 Anterior Chest Thora-Vent Left Anterior 0 Chest Urine 500 1000 Estimated Blood Loss 10 Other: Voiding Method Toilet - Constitutional General appearance: Present: cooperative, no acute distress, thin - Respiratory Details: Lung sounds diminished bilaterally. Respirations even, non-labored. Currently on room air with oxygen saturation 98%. Able to achieve 1000 mL on her incentive spirometry. Strong cough. Left pleural chest tube present, connected to continuous wall suction, 140 mL total serous drainage in atrium, air leak present with expiration and coughing. - Cardiovascular Details: S1/S2 present. Regular rate/rhythm, sinus rhythm on telemetry. Palpable pulses bilaterally. No edema present. No calf pain or tenderness noted. SCDs present. - Gastrointestinal Gastrointestinal Comment(s): Abdomen soft, non-tender, non-distended. Active bowel sounds x 4 quadrants. Tolerating diet. - Genitourinary Genitourinary Comment(s): Continues to void. - Integumentary Integumentary Comment(s): Skin is warm and dry with evidence of good perfusion. - Neurologic Neurologic: Present: CNII-XII intact - Musculoskeletal Musculoskeletal: Present: gait normal, strength equal bilaterally - Psychiatric Psychiatric: Present: A&O x's 3, appropriate affect, intact judgment & insight - Allied health notes Allied health notes reviewed: nursing - Labs CBC & Chem 7: 08/13/19 06:10 08/13/19 06:10 Labs: Abnormal Lab Results - Last 24 Hours (Table) 08/13/19 Range/Units 06:10 Sodium 136 L (137-145) mmol/L Carbon Dioxide 21 L (22-30) mmol/L - Imaging and Cardiology Chest x-ray: report reviewed, image reviewed Assessment and Plan Assessment: 1. Spontaneous left-sided pneumothorax, first episode, with persistent bronchopleural fistula, emphysematous disease of the lung, continued air leak, status post thora-vent placement, status post left thoracoscopy 2. COPD with bullous disease 3. Chronic on-going nicotine dependence 4. Manic-depressive bipolar disorder 5. Marijuana use Plan: 1. Continue pleural chest tube to wall suction. Will monitor for resolution of air leak 2. Continue to encourage smoking cessation. Continue nicotine patch and lozeng es 3. Encourage use of incentive spirometry 10x every hour while awake. 4. Monitor daily chest x-rays. 5. GI and DVT prophylaxis. 6. Increase activity as tolerated. Nursing to add extention tubing to atrium to allow ambulation around the room. 7. More recommendations to follow based on patient's clinical course. Time with Patient: Greater than 30
[2019-08-13] MEDS ORDERED: MORPHINE SULFATE 2 MG/ML SYRINGE IVP STA (12:30)
--- NOTE | 2019-08-13 12:42 | XR ---
EXAMINATION TYPE: XR chest 1V portable DATE OF EXAM: 08/13/2019 COMPARISON: 08/13/2019 HISTORY: Postop TECHNIQUE: Single frontal view of the chest is obtained. FINDINGS: There is a 5% or less apical pneumothorax. This appears similar to the prior exam. Postsur gical changes and chest tube is stable. Underlying COPD noted. Linear changes left upper lobe suggest sophia of scar or atelectasis. IMPRESSION: Postsurgical change with COPD and less than 5% left apical pneumothorax.
[2019-08-13] MEDS: ONDANSETRON 4 MG/2 ML VIAL IVP PRN (12:52)
--- NOTE | 2019-08-13 15:12 | P.PN ---
Subjective Progress Note Date: 08/13/19 Principal diagnosis: Left-sided spontaneous pneumothorax, severe COPD, extensive emphysematous bullous changes 08/13/2019, patient seen eval examined during the rounds he she is postoperative day #1 of left thoracoscopy with wedge resection of left upper lobe ruptured bulla were resected, complaining of some pain morphine just have been given, chest x-ray cystoscopy postoperative changes of COPD with small rhythm left apical pneumothorax 08/11/2019, patient seen eval reexamined during the rounds labs reviewed medications reviewed, patient has a higher lung expanded well but however still have significant air leak, some shoulder pain is present, hemodynamically she is stable denies any cough or sputum production patient is being scheduled tentatively for the VATS with bleb resection and stapling for tomorrow 08/10/2019, patient seen eval examined during the rounds labs reviewed medications reviewed today's x-ray has been reviewed as well patient has intermittently air leak from the chest U however lungs are fully expanded now patient is tentatively being scheduled for VATS and stapling procedure for 08/09/2019, patient seen eval examined during the rounds labs reviewed medications reviewed remains on suction intermittent. Li present chest x-ray performed today reviewed no significant pneumothorax is seen patient has some shoulder discomfort otherwise doing very well continued do deep breathing exercises and incentive spirometry, has been on breathing treatment twice a day as needed 08/08/2019, patient seen eval examined during the rounds patient has a computed tomography scan done which is reviewed extensive bullous changes in the apices has been noted bilaterally to the pneumothorax is mainly at the basal area with the small bore chest tube in the apical region, cardiothoracic surgery is planning to DC the suction 2 hour post chest x-ray shows significant enlarging pneumothorax after that This is a 41-year-old female patient, a chronic smoker, history of COPD, was been having symptoms of bronchitis with cough and congestion of 5 days' duration. Her breathing got worse and she presented emergency department and the patient was found to have a large left-sided pneumothorax. The chest x-ray showed a 50% pneumothorax on the left. The patient had a Thoravent inserted in the emergency department. There was incomplete expansion of the left lung. Patient's initial FiO2 is at 100% nonrebreather facemask now is tapered down to 2 L nasal cannula. No chest pain. Less short of breath. Denies any trauma. No falls. No previous history of pneumothoraces. The patient smokes cigarettes and she also smokes marijuana. This morning she was placed on water seal pneumothorax have progressed again and sharp she started feeling some symptoms of chest discomfort connected back to section noted that significant air leak was present however pain subsided post placing on suction Objective - Vital Signs Vital signs: Vital Signs Temp 98.7 F 08/13/19 11:22 Pulse 67 08/13/19 11:22 Resp 18 08/13/19 11:22 BP 116/71 08/13/19 11:22 Pulse Ox 98 08/13/19 11:22 Intake & Output 08/12/19 08/13/19 08/13/19 18:59 06:59 18:59 Intake Total 1422 688 Output Total 510 1108 Balance 912 -1108 688 Weight 49.7 kg 49.7 kg Intake: IV 1050 Intake, IV Titration 150 Amount Dextrose 5%-0.45% NaCl 1, 150 000 ml @ 75 mls/hr IV . [id number] [facility] Rx#:[id number] Oral 222 688 Output: Chest Tube Drainage 0 108 Chest Tube Left Lower 108 Anterior Chest Thora-Vent Left Anterior 0 Chest Urine 500 1000 Estimated Blood Loss 10 Other: Voiding Method Toilet Toilet # Bowel Movements 1 - Exam - Constitutional General appearance: cooperative, disheveled, no acute distress, thin - EENT Eyes: anicteric sclerae, EOMI, PERRLA, poor dentition, normal appearance ENT: hearing grossly normal Ears: bilateral: normal - Neck Neck: normal ROM Carotids: bilateral: upstroke normal - Respiratory Respiratory: bilateral: CTA - Cardiovascular Rhythm: regular Heart sounds: normal: S1, S2 - Gastrointestinal General gastrointestinal: normal bowel sounds - Integumentary Integumentary: normal turgor - Neurologic Neurologic: CNII-XII intact - Musculoskeletal Musculoskeletal: gait normal, generalized weakness, strength equal bilaterally - Psychiatric Psychiatric: A&O x's 3, appropriate affect, intact judgment & insight - Labs CBC & Chem 7: 08/13/19 06:10 08/13/19 06:10 Labs: Abnormal Lab Results - Last 24 Hours (Table) 08/13/19 Range/Units 06:10 Sodium 136 L (137-145) mmol/L Carbon Dioxide 21 L (22-30) mmol/L Assessment and Plan Assessment: Spontaneous pneumothorax of the left side, status post repair of bronchopleural fistula and vaginal resection of ruptured bleb thoracoscopic procedure Likely severe COPD emphysema Extensive bullous lung disease bilaterally History of smoking and nicotine abuse and use of marijuana Plan: Continue chest tube to suction for continued to have a leak Pain management Continue deep breathing exercises incentive spirometry Supplemental oxygen Time with Patient: Greater than 30
[2019-08-13] MEDS: LEVOFLOXACIN 500 MG TAB PO SCH (21:11)
--- NOTE | 2019-08-13 22:10 | P.PN ---
Progress Note - Text Progress Note Date: 08/13/19 Chief Complaint: Short of breath Interval history: This is a pleasant 49-year-old patient of Dr. Scarlett Barahona. Long-standing smoker. Also smokes marijuana. Last 5 days has noticed herself to become more and more short of breath and wheezing. Decided to present to her PCP. She was given bronchodilators and sent to the ER. Accu-Cheks x-ray done. Checks x-ray - 50% left-sided pneumothorax. thoravac was placed. Patient did not respond to be water seal. Decision was made to have the patient go down for surgery.underwent wedge resection of the left upper lobe and stapling off the ruptured bleb.Chest tube drain in place. Today-chest tube remains in place. No new issues. Laying in bed. at the bedside. Did tolerate some diet. . Review of systems: Was done for constitutional, cardiovascular, GI, pulmonary. relevant finding as above Active Medications Acetaminophen (Tylenol Tab) 1,000 mg PO Q6HR PRN PRN Reason: Fever and/ or Pain Last Admin: 08/13/19 08:34 Dose: 1,000 mg Documented by: Albuterol/Ipratropium (Duoneb 0.5 Mg-3 Mg/3 Ml Soln) 3 ml INHALATION RT-QID [facility] Last Admin: 08/13/19 19:50 Dose: 3 ml Documented by: Alprazolam (Xanax) 0.25 mg PO TID PRN PRN Reason: Anxiety Last Admin: 08/13/19 21:11 Dose: 0.25 mg Documented by: Enoxaparin Sodium (Lovenox) 40 mg SQ DAILY [facility] Last Admin: 08/13/19 08:35 Dose: 40 mg Documented by: Ketorolac Tromethamine (Toradol) 15 mg IVP Q6H [facility] Stop: 08/17/19 16:01 Last Admin: 08/13/19 21:10 Dose: 15 mg Documented by: Levofloxacin (Levaquin) 500 mg PO Q24H [facility] Last Admin: 08/13/19 21:11 Dose: 500 mg Documented by: Nicotine (Habitrol 21mg/24hr Patch) 1 patch TRANSDERM DAILY [facility] Last Admin: 08/13/19 06:14 Dose: 1 patch Documented by: Nicotine Polacrilex (Nicorette Gum) 2 mg BUCCAL Q4HR PRN PRN Reason: Nicotine Cravings Last Admin: 08/13/19 16:58 Dose: 2 mg Documented by: Ondansetron HCl (Zofran) 4 mg IVP Q6HR PRN PRN Reason: Nausea And Vomiting Last Admin: 08/13/19 12:52 Dose: 4 mg Documented by: Pantoprazole Sodium (Protonix) 40 mg PO -[facility] Last Admin: 08/13/19 06:15 Dose: 40 mg Documented by: Physical examination: VITAL SIGNS: 99, 74, 18, 110/61, 97% on room air GENERAL: Laying in bed, not in distress EYES: Pupils equal. Conjunctiva normal. HEENT: External appearance of nose and ears normal, oral cavity grossly normal. NECK: JVD not raised; masses not palpable. HEART: First and second heart sounds are normal; no edema. LUNGS: Respiratory rate increased, decreased breath sounds, some wheezing, left- sided chest tube ABDOMEN: Soft, nontender, liver spleen not palpable, no masses palpable. PSYCH: Alert and oriented x3; mood and affect anxiousl. INVESTIGATIONS, reviewed in the clinical context: White count 8.2 hemoglobin 12.7 progression 4.4 bun 14 creatinine 0.56 Previous testing White count 6.7 hemoglobin 40.5 platelets 270 progression 3.8 crit 0.61 Chest x-ray film personally reviewed by me-hyperinflation left-sided pneumothorax EKG tracing-personally reviewed by me shows normal sinus rhythm Assessment: -Acute left-sided pneumothorax, with Thora VAC, followed by on 08/12/2019- partial left upper lobe wedge resection with bleb stapling -COPD in a current smoker -Chronic nicotine dependence patient's active cigarette smoker -Recreational marijuana use -Moderate protein calorie malnutrition. Patient is decreased muscle mass loss of subcutaneous fat. -Situational anxiety - Plan: Continue current medication treatment plan. Care was discussed with the patient and .
[2019-08-14] MEDS: KETOROLAC 30 MG/ML 1 ML VIAL IVP SCH ×4 (03:02→21:18)
[2019-08-14] MEDS: PANTOPRAZOLE 40 MG TABLET PO SCH (06:58)
[2019-08-14] MEDS: ALPRAZolam 0.25 MG TAB PO PRN ×3 (06:58→21:18)
[2019-08-14] MEDS: ACETAMINOPHEN TAB 500 MG TAB PO PRN ×3 (06:58→18:51)
[2019-08-14] MEDS: NICOTINE POLACRILEX 2 MG GUM BUCCAL PRN ×2 (07:04→18:52)
[2019-08-14] MEDS: IPRATROPIUM-ALBUTEROL 3 ML NEB INHALATION SCH ×4 (07:34→19:47)
--- NOTE | 2019-08-14 07:37 | P.PN ---
Subjective Progress Note Date: 08/14/19 Principal diagnosis: Spontaneous left pneumothorax, first episode, with persistent bronchopleural fistula, emphysematous disease of the lung, continued air leak. 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 POD #9 Thoravent placement by the emergency room physicians POD #2 Left thoracoscopy with reinforced wedge resection of the apex of the left upper lobe including ruptured bleb The patient is currently sitting up in the chairi no acute distress on the cardiac step-down unit eating breakfast. She does complain of left-sided post surgical chest pain with coughing and deep inspiration, denies shortness of breath. Patient states she doesn't want to take narcotics, but states pain is not controlled with Tylenol and Toradol. Left pleural chest tube remains to continuous wall suction with air leak present with expiration and coughing. No new complaints. Objective - Vital Signs Vital signs: Vital Signs Temp 98.3 F 08/14/19 03:06 Pulse 62 08/14/19 03:06 Resp 18 08/14/19 03:06 BP 108/62 08/14/19 03:06 Pulse Ox 95 08/14/19 03:06 Intake & Output 08/13/19 08/14/19 08/14/19 18:59 06:59 18:59 Intake Total 688 Output Total 50 40 Balance 638 -40 Weight 49.7 kg 49.7 kg Intake: Oral 688 Output: Chest Tube Drainage 50 40 Chest Tube Left Lower 50 40 Anterior Chest Other: Voiding Method Toilet # Bowel Movements 1 - Constitutional Constitutional Comment(s): Present: cooperative, no acute distress, thin - Respiratory Details: Lung sounds diminished bilaterally. Respirations even, non-labored. Currently on room air with oxygen saturation 95%. Able to achieve 900 mL on her incentive spirometry. Strong cough. Left pleural chest tube present, connected to continuous wall suction, 100ml serous drainage in the last 24 hours, 140 mL total drainage in atrium. Air leak present with expiration and coughing. - Cardiovascular Details: S1/S2 present. Regular rate/rhythm, sinus rhythm on telemetry. Palpable pulses bilaterally. No edema present. No calf pain or tenderness noted. SCDs present. - Gastrointestinal Gastrointestinal Comment(s): Abdomen soft, non-tender, non-distended. Active bowel sounds x 4 quadrants. Tolerating diet. - Genitourinary Genitourinary Comment(s): Able to void without difficulty - Integumentary Integumentary Comment(s): Skin warm, dry and intact. Chest tube with dressing CDI. - Neurologic Neurologic Comment(s): Alert and oriented, CNII-XII grossly intact - Musculoskeletal Musculoskeletal Comment(s): Gait normal, strength equal bilaterally - Psychiatric Psychiatric: Present: A&O x's 3, appropriate affect, intact judgment & insight - Labs CBC & Chem 7: 08/13/19 06:10 08/13/19 06:10 - Imaging and Cardiology Chest x-ray: report reviewed, image reviewed Assessment and Plan Assessment: 1. Spontaneous left-sided pneumothorax, first episode, with persistent bronchopleural fistula, emphysematous disease of the lung, continued air leak, status post thora-vent placement, status post left thoracoscopy 2. COPD with bullous disease 3. Chronic on-going nicotine dependence 4. Manic-depressive bipolar disorder 5. Marijuana use Plan: 1. Continue pleural chest tube to wall suction. Will monitor for resolution of air leak 2. Continue to encourage smoking cessation. Continue nicotine patch and lozenges 3. Encourage use of incentive spirometry 10x every hour while awake. 4. Continue Toradol and Tylenol, add Tramadol for better pain control. 4. Monitor daily chest x-rays. 5. GI and DVT prophylaxis. 6. Increase activity as tolerated. Nursing to add extention tubing to atrium to allow ambulation around the room. 7. More recommendations to follow based on patient's clinical course.
[2019-08-14] MEDS: NICOTINE 21MG/24HR PATCH TRANSDERM SCH (08:13)
[2019-08-14] MEDS: traMADol 50 MG TAB PO PRN ×3 (08:13→20:11)
[2019-08-14] MEDS: ENOXAPARIN 40 MG/0.4 ML SYRINGE SQ SCH (08:14)
--- NOTE | 2019-08-14 10:26 | XR ---
EXAMINATION TYPE: XR chest 1V portable DATE OF EXAM: 08/14/2019 COMPARISON: 08/13/2019 HISTORY: Shortness of breath TECHNIQUE: Single frontal view of the chest is obtained. FINDINGS: Left-sided chest tube is seen. There is a small persistent left-sided pneumothorax noted l aterally measuring approximately 5-10%. Subcutaneous emphysema noted. Underlying COPD noted and there is soft tissue fullness in the left upper lobe medially which is increased from the prior exam. Righ t lung is clear. Heart size normal. IMPRESSION: 1. Left upper lobe medial consolidation may been the basis of atelectasis rather than pneumonia follo w-up to resolution. 2. Chest tube remains in place. There is a linear density along the lateral margin of the left lung m ay represent a soft tissue artifact rather than pneumothorax.
--- NOTE | 2019-08-14 14:57 | P.PN ---
Subjective Progress Note Date: 08/14/19 Principal diagnosis: Left-sided spontaneous pneumothorax, severe COPD, extensive emphysematous bullous changes 08/14/2019, patient seen ahmet examined during the rounds she is postoperative day #2 chest pain is slightly improved but still have significant air leak from 2 Pleur-evac Meryl has been doing deep breathing exercise incentive spirometry reviewed medications reviewed , Chest x-ray atelectasis and left upper lobe stable chest tube 08/13/2019, patient seen ahmet examined during the rounds he she is postoperative day #1 of left thoracoscopy with wedge resection of left upper lobe ruptured bulla were resected, complaining of some pain morphine just have been given, c hest x-ray cystoscopy postoperative changes of COPD with small rhythm left apical pneumothorax 08/11/2019, patient seen ahmet reexamined during the rounds labs reviewed medications reviewed, patient has a higher lung expanded well but however still have significant air leak, some shoulder pain is present, hemodynamically she is stable denies any cough or sputum production patient is being scheduled tentatively for the VATS with bleb resection and stapling for tomorrow 08/10/2019, patient seen evlefty examined during the rounds labs reviewed medications reviewed today's x-ray has been reviewed as well patient has intermittently air leak from the chest U however lungs are fully expanded now patient is tentatively being scheduled for VATS and stapling procedure for 08/09/2019, patient seen ahmet examined during the rounds labs reviewed medications reviewed remains on suction intermittent. Il present chest x-ray performed today reviewed no significant pneumothorax is seen patient has some shoulder discomfort otherwise doing very well continued do deep breathing exercises and incentive spirometry, has been on breathing treatment twice a day as needed 08/08/2019, patient seen evlefty examined during the rounds patient has a computed tomography scan done which is reviewed extensive bullous changes in the apices has been noted bilaterally to the pneumothorax is mainly at the basal area with the small bore chest tube in the apical region, cardiothoracic surgery is planning to DC the suction 2 hour post chest x-ray shows significant enlarging pneumothorax after that This is a 41-year-old female patient, a chronic smoker, history of COPD, was been having symptoms of bronchitis with cough and congestion of 5 days' duration. Her breathing got worse and she presented emergency department and the patient was found to have a large left-sided pneumothorax. The chest x-ray showed a 50% pneumothorax on the left. The patient had a Thoravent inserted in the emergency department. There was incomplete expansion of the left lung. Patient's initial FiO2 is at 100% nonrebreather facemask now is tapered down to 2 L nasal cannula. No chest pain. Less short of breath. Denies any trauma. No falls. No previous history of pneumothoraces. The patient smokes cigarettes and she also smokes marijuana. This morning she was placed on water seal pne umothorax have progressed again and sharp she started feeling some symptoms of chest discomfort connected back to section noted that significant air leak was present however pain subsided post placing on suction Objective - Vital Signs Vital signs: Vital Signs Temp 98 F 08/14/19 12:00 Pulse 76 08/14/19 12:00 Resp 18 08/14/19 12:00 BP 105/71 08/14/19 12:00 Pulse Ox 97 08/14/19 12:00 Intake & Output 08/13/19 08/14/19 08/14/19 18:59 06:59 18:59 Intake Total 688 462 Output Total 50 40 Balance 638 422 Weight 49.7 kg 49.7 kg Intake: Oral 688 462 Output: Chest Tube Drainage 50 40 Chest Tube Left Lower 50 40 Anterior Chest Other: Voiding Method Toilet # Bowel Movements 1 - Exam - Constitutional General appearance: cooperative, disheveled, no acute distress, thin - EENT Eyes: anicteric sclerae, EOMI, PERRLA, poor dentition, normal appearance ENT: hearing grossly normal Ears: bilateral: normal - Neck Neck: normal ROM Carotids: bilateral: upstroke normal - Respiratory Respiratory: bilateral: CTA - Cardiovascular Rhythm: regular Heart sounds: normal: S1, S2 - Gastrointestinal General gastrointestinal: normal bowel sounds - Integumentary Integumentary: normal turgor - Neurologic Neurologic: CNII-XII intact - Musculoskeletal Musculoskeletal: gait normal, generalized weakness, strength equal bilaterally - Psychiatric Psychiatric: A&O x's 3, appropriate affect, intact judgment & insight - Labs CBC & Chem 7: 08/13/19 06:10 08/13/19 06:10 Assessment and Plan Assessment: Spontaneous pneumothorax of the left side, status post repair of bronchopleural fistula and vaginal resection of ruptured bleb thoracoscopic procedure, postop day #2 Likely severe COPD emphysema Extensive bullous lung disease bilaterally Left upper lobe atelectasis History of smoking and nicotine abuse and use of marijuana Plan: Continue chest tube to suction for continued to have a leak Pain management Continue deep breathing exercises incentive spirometry Supplemental oxygen We'll follow closely atelectasis so far no evidence of infection or pneumonia Time with Patient: Greater than 30
[2019-08-14 16:57] LABS: Glucose,Whole Blood 119 mg/dL (75-99)
[2019-08-14] MEDS: LEVOFLOXACIN 500 MG TAB PO SCH (21:18)
[2019-08-14] MEDS: MORPHINE SULFATE 2 MG/ML SYRINGE IVP PRN (23:42)
[2019-08-14] MEDS: ONDANSETRON 4 MG/2 ML VIAL IVP PRN (23:46)
[2019-08-15] MEDS: KETOROLAC 30 MG/ML 1 ML VIAL IVP SCH ×4 (04:07→22:16)
[2019-08-15] MEDS: ALPRAZolam 0.25 MG TAB PO PRN ×3 (04:08→23:38)
[2019-08-15] MEDS: PANTOPRAZOLE 40 MG TABLET PO SCH (06:31)
--- NOTE | 2019-08-15 07:50 | XR ---
EXAMINATION TYPE: XR chest 1V portable DATE OF EXAM: 08/15/2019 HISTORY: post vats. REFERENCE: Previous study dated 08/14/2019. FINDINGS: The lungs are overinflated. There are bullous changes in the upper lobes bilaterally. A lef t pleural drain remains in place. There is a tiny apical pneumothorax on the left. This is approximat marian 5-10% by volume. There is stable atelectatic changes at the lung bases. The heart is not enlarged . IMPRESSION: 1. COPD. 2. TINY LEFT APICAL PNEUMOTHORAX.
--- NOTE | 2019-08-15 08:44 | P.PN ---
Subjective Progress Note Date: 08/15/19 Principal diagnosis: Spontaneous left pneumothorax, first episode, with persistent bronchopleural fistula, emphysematous disease of the lung, continued air leak. 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 POD #10 Thoravent placement by the emergency room physicians POD #3 Left thoracoscopy with reinforced wedge resection of the apex of the left upper lobe including ruptured bleb The patient is currently sitting up in the chair in no acute distress on the cardiac step-down unit eating breakfast. She does complain of left-sided post surgical chest pain with coughing and deep inspiration, denies shortness of breath. Was up in chair most of the day yesterday. Left pleural chest tube remains to continuous wall suction with air leak present with expiration and coughing. No new complaints. Objective - Vital Signs Vital signs: Vital Signs Temp 98.6 F 08/15/19 04:31 Pulse 77 08/15/19 04:31 Resp 20 08/15/19 04:31 BP 106/69 08/15/19 04:31 Pulse Ox 96 08/15/19 04:31 Intake & Output 08/14/19 08/15/19 08/15/19 18:59 06:59 18:59 Intake Total 662 Output Total 40 0 Balance 622 0 Weight 49.3 kg Intake: Oral 662 Output: Chest Tube Drainage 40 0 Chest Tube Left Lower 40 0 Anterior Chest Other: Voiding Method Toilet - Constitutional General appearance: Present: cooperative, no acute distress, thin - Respiratory Details: Lung sounds diminished bilaterally. Respirations even, non-labored. Currently on room air with oxygen saturation 96%. Able to achieve 750 mL on her incentive spirometry. Strong cough. Left pleural chest tube present, connected to continuous wall suction, 140 mL total drainage in atrium. Air leak present with expiration and coughing. - Cardiovascular Details: S1/S2 present. Regular rate/rhythm, sinus rhythm on telemetry. Palpable pulses bilaterally. No edema present. No calf pain or tenderness noted. SCDs present. - Gastrointestinal Gastrointestinal Comment(s): Abdomen soft, non-tender, non-distended. Active bowel sounds x 4 quadrants. Tolerating diet. - Genitourinary Genitourinary Comment(s): Continues to void clear, yellow urine. - Integumentary Integumentary Comment(s): Skin warm, dry and intact. Chest tube with dressing CDI. - Neurologic Neurologic: Present: CNII-XII intact - Musculoskeletal Musculoskeletal: Present: gait normal, strength equal bilaterally - Psychiatric Psychiatric: Present: A&O x's 3, appropriate affect, intact judgment & insight - Allied health notes Allied health notes reviewed: nursing - Labs CBC & Chem 7: 08/13/19 06:10 08/13/19 06:10 Labs: Abnormal Lab Results - Last 24 Hours (Table) 08/14/19 Range/Units 16:45 POC Glucose (mg/dL) 119 H (75-99) mg/dL - Imaging and Cardiology Chest x-ray: report reviewed, image reviewed Assessment and Plan Assessment: 1. Spontaneous left-sided pneumothorax, first episode, with persistent bro nchopleural fistula, emphysematous disease of the lung, continued air leak, status post thora-vent placement, status post left thoracoscopy 2. COPD with bullous disease 3. Chronic on-going nicotine dependence 4. Manic-depressive bipolar disorder 5. Marijuana use Plan: 1. Continue pleural chest tube to wall suction. Will monitor for resolution of air leak 2. Continue to encourage smoking cessation. Continue nicotine patch and lozenges 3. Encourage use of incentive spirometry 10x every hour while awake. 4. Continue Toradol and Tylenol, Tramadol added for better pain control. Morphine added for breakthrough pain. 4. Monitor daily chest x-rays. 5. GI and DVT prophylaxis. 6. Increase activity as tolerated, may ambulate around the room. Patient should be up in the chair at the minimum for all meals. 7. More recommendations to follow based on patient's clinical course. Time with Patient: Greater than 30
[2019-08-15] MEDS: NICOTINE 21MG/24HR PATCH TRANSDERM SCH (08:46)
[2019-08-15] MEDS: ENOXAPARIN 40 MG/0.4 ML SYRINGE SQ SCH (08:47)
[2019-08-15] MEDS: ONDANSETRON 4 MG/2 ML VIAL IVP PRN ×3 (09:03→19:49)
[2019-08-15] MEDS: MORPHINE SULFATE 2 MG/ML SYRINGE IVP PRN ×3 (09:06→19:49)
[2019-08-15] MEDS: NICOTINE POLACRILEX 2 MG GUM BUCCAL PRN ×2 (09:11→19:58)
[2019-08-15] MEDS: IPRATROPIUM-ALBUTEROL 3 ML NEB INHALATION SCH ×4 (09:18→20:29)
[2019-08-15] MEDS: traMADol 50 MG TAB PO PRN ×3 (11:27→23:38)
[2019-08-15] MEDS: ACETAMINOPHEN TAB 500 MG TAB PO PRN ×2 (13:01→21:16)
[2019-08-15] MEDS ORDERED: LEVOFLOXACIN 500 MG TAB PO STA (22:12)
[2019-08-15] MEDS: LEVOFLOXACIN 500 MG TAB PO SCH (22:12)
--- NOTE | 2019-08-16 00:19 | P.PN ---
Subjective Progress Note Date: 08/14/19 Principal diagnosis: Spontaneous pneumothorax This is a pleasant 49-year-old patient of Dr. Scarlett Barahona. Long-standing smoker. Also smokes marijuana. Last 5 days has noticed herself to become more and more short of breath and wheezing. Decided to present to her PCP. She was given bronchodilators and sent to the ER. Accu-Cheks x-ray done. Checks x-ray - 50% left-sided pneumothorax. thoravac was placed. Patient did not respond to be water seal. Decision was made to have the patient go down for surgery.underwent wedge resection of the left upper lobe and stapling off the ruptured bleb.Chest tube drain in place. Today-chest tube remains in place. No new issues. Laying in bed. at the bedside. Did tolerate some diet. 08/14/2019 Patient is currently sitting up in the bed. Complaints of left-sided chest pain at the tube site. No complaints of shortness of breath. Left pleural chest tube with continuous suction with air leak. CT surgery is following. Patient is requesting IV pain medications . Review of systems: Was done for constitutional, cardiovascular, GI, pulmonary. relevant finding as above Objective - Vital Signs Vital signs: Vital Signs Temp 98.3 F 08/14/19 03:06 Pulse 73 08/14/19 08:00 Resp 18 08/14/19 08:00 BP 100/63 08/14/19 08:00 Pulse Ox 96 08/14/19 08:00 Intake & Output 08/13/19 08/14/19 08/14/19 18:59 06:59 18:59 Intake Total 688 222 Output Total 50 40 Balance 638 182 Weight 49.7 kg 49.7 kg Intake: Oral 688 222 Output: Chest Tube Drainage 50 40 Chest Tube Left Lower 50 40 Anterior Chest Other: Voiding Method Toilet # Bowel Movements 1 - Exam GENERAL: Laying in bed, not in distress EYES: Pupils equal. Conjunctiva normal. HEENT: External appearance of nose and ears normal, oral cavity grossly normal. NECK: JVD not raised; masses not palpable. HEART: First and second heart sounds are normal; no edema. LUNGS: Respiratory rate increased, decreased breath sounds, some wheezing, left- sided chest tube ABDOMEN: Soft, nontender, liver spleen not palpable, no masses palpable. PSYCH: Alert and oriented x3; mood and affect anxiousl. INVESTIGATIONS, reviewed in the clinical context: White count 8.2 hemoglobin 12.7 progression 4.4 bun 14 creatinine 0.56 Previous testing White count 6.7 hemoglobin 40.5 platelets 270 progression 3.8 crit 0.61 Chest x-ray film personally reviewed by me-hyperinflation left-sided pneumothorax EKG tracing-personally reviewed by me shows normal sinus rhythm - Labs CBC & Chem 7: 08/13/19 06:10 08/13/19 06:10 Assessment and Plan Assessment: Assessment: -Acute left-sided pneumothorax, with Thora VAC, followed by on 08/12/2019- partial left upper lobe wedge resection with bleb stapling -COPD in a current smoker -Chronic nicotine dependence patient's active cigarette smoker -Recreational marijuana use -Moderate protein calorie malnutrition. Patient is decreased muscle mass loss of subcutaneous fat. -Situational anxiety - Plan: Continue current medication treatment plan. Care was discussed with the patient and . Time with Patient: Greater than 30
--- NOTE | 2019-08-16 00:21 | P.PN ---
Subjective Progress Note Date: 08/15/19 Principal diagnosis: Spontaneous pneumothorax This is a pleasant 49-year-old patient of Dr. Scarlett Barahona. Long-standing smoker. Also smokes marijuana. Last 5 days has noticed herself to become more and more short of breath and wheezing. Decided to present to her PCP. She was given bronchodilators and sent to the ER. Accu-Cheks x-ray done. Checks x-ray - 50% left-sided pneumothorax. thoravac was placed. Patient did not respond to be water seal. Decision was made to have the patient go down for surgery.underwent wedge resection of the left upper lobe and stapling off the ruptured bleb.Chest tube drain in place. Today-chest tube remains in place. No new issues. Laying in bed. at the bedside. Did tolerate some diet. 08/14/2019 Patient is currently sitting up in the bed. Complaints of left-sided chest pain at the tube site. No complaints of shortness of breath. Left pleural chest tube with continuous suction with air leak. CT surgery is following. Patient is requesting IV pain medications 08/15/2019 Patient denied any complaints of shortness of breath today. Still has pain at the chest tube sites. Chest tube with suction is in place. Still leaking air with coughing and inspiration. No other acute overnight issues. Review of systems: Was done for constitutional, cardiovascular, GI, pulmonary. relevant finding as above Objective - Vital Signs Vital signs: Vital Signs Temp 98.6 F 08/15/19 16:00 Pulse 72 08/15/19 20:00 Resp 15 08/15/19 20:00 BP 119/72 08/15/19 20:00 Pulse Ox 96 08/15/19 20:00 Intake & Output 08/15/19 08/15/19 08/16/19 06:59 18:59 06:59 Intake Total 742 Output Total 0 6 10 Balance 0 736 -10 Weight 49.3 kg Intake: IV 40 0.9 40 Oral 702 Output: Chest Tube Drainage 0 5 10 Chest Tube Left Lower 0 5 10 Anterior Chest Urine 1 Other: Voiding Method Toilet Toilet # Voids 1 - Exam GENERAL: Laying in bed, not in distress EYES: Pupils equal. Conjunctiva normal. HEENT: External appearance of nose and ears normal, oral cavity grossly normal. NECK: JVD not raised; masses not palpable. HEART: First and second heart sounds are normal; no edema. LUNGS: Respiratory rate increased, decreased breath sounds, some wheezing, left- sided chest tube ABDOMEN: Soft, nontender, liver spleen not palpable, no masses palpable. PSYCH: Alert and oriented x3; mood and affect anxiousl. INVESTIGATIONS, reviewed in the clinical context: White count 8.2 hemoglobin 12.7 progression 4.4 bun 14 creatinine 0.56 Previous testing White count 6.7 hemoglobin 40.5 platelets 270 progression 3.8 crit 0.61 Chest x-ray film personally reviewed by me-hyperinflation left-sided pneumothorax EKG tracing-personally reviewed by me shows normal sinus rhythm - Labs CBC & Chem 7: 08/13/19 06:10 08/13/19 06:10 Assessment and Plan Assessment: Assessment: -Acute left-sided pneumothorax, with Thora VAC, followed by on 08/12/2019-p artial left upper lobe wedge resection with bleb stapling -COPD in a current smoker -Chronic nicotine dependence patient's active cigarette smoker -Recreational marijuana use -Moderate protein calorie malnutrition. Patient is decreased muscle mass loss of subcutaneous fat. -Situational anxiety - Plan: Continue current medication treatment plan. Care was discussed with the patient and . Time with Patient: Greater than 30
[2019-08-16] MEDS: KETOROLAC 30 MG/ML 1 ML VIAL IVP SCH ×4 (04:01→21:01)
[2019-08-16] MEDS: NICOTINE POLACRILEX 2 MG GUM BUCCAL PRN ×4 (04:09→23:19)
[2019-08-16] MEDS: PANTOPRAZOLE 40 MG TABLET PO SCH (05:38)
[2019-08-16] MEDS: ACETAMINOPHEN TAB 500 MG TAB PO PRN ×3 (05:39→17:17)
[2019-08-16 06:21] LABS: Basophils % (A) 0 %; Eosinophils # (A) 0.3 k/uL (0-0.7); Eosinophils % (A) 6 %; HCT 36.6 % (34.0-46.0); HGB 12.3 gm/dL (11.4-16.0); Lymphocytes # (A) 1.3 k/uL (1.0-4.8); Lymphocytes % (A) 24 %; MCH 32.6 pg (25.0-35.0); MCHC 33.7 g/dL (31.0-37.0); MCV 96.7 fL (80.0-100.0); Mean Platelet Volume 7.5; Monocytes # (A) 0.4 k/uL (0-1.0); Monocytes % (A) 7 %; Neutrophils # (A) 3.2 k/uL (1.3-7.7); Neutrophils % (A) 61 %; Platelet Count 227 k/uL (150-450); RBC 3.78 m/uL (3.80-5.40); RDW 12.1 % (11.5-15.5); WBC 5.3 k/uL (3.8-10.6)
[2019-08-16 06:30] LABS: African American GFR (CKD) >90 (>60 ml/min/1.73 sqM); Anion Gap 6 mmol/L; Blood Urea Nitrogen 18 mg/dL (7-17); Calcium 9.5 mg/dL (8.4-10.2); Carbon Dioxide 31 mmol/L (22-30); Chloride 98 mmol/L (98-107); Glucose 84 mg/dL (74-99); Non-African American GFR(CKD) >90 (>60 ml/min/1.73 sqM); Potassium 4.5 mmol/L (3.5-5.1); Sodium 135 mmol/L (137-145)
--- NOTE | 2019-08-16 06:57 | XR ---
EXAMINATION TYPE: XR chest 1V portable DATE OF EXAM: 08/16/2019 HISTORY: left pneumothorax. REFERENCE: Previous study dated 08/15/2019. FINDINGS: A left pleural drain remains in place. A definite residual pneumothorax is not identified. The lungs are overinflated. The heart is not enlarged. IMPRESSION: RESOLUTION OF THE PATIENT'S LEFT APICAL PNEUMOTHORAX.
[2019-08-16] MEDS: NICOTINE 21MG/24HR PATCH TRANSDERM SCH (07:33)
[2019-08-16] MEDS: ENOXAPARIN 40 MG/0.4 ML SYRINGE SQ SCH (07:34)
[2019-08-16] MEDS: traMADol 50 MG TAB PO PRN ×3 (07:41→19:02)
[2019-08-16] MEDS: IPRATROPIUM-ALBUTEROL 3 ML NEB INHALATION SCH ×4 (07:58→21:08)
--- NOTE | 2019-08-16 08:19 | P.PN ---
Subjective Progress Note Date: 08/16/19 Principal diagnosis: Spontaneous left pneumothorax, first episode, with persistent bronchopleural fistula, emphysematous disease of the lung, continued air leak. 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 POD #11 Thoravent placement by the emergency room physicians POD #4 Left thoracoscopy with reinforced wedge resection of the apex of the left upper lobe including ruptured bleb The patient is currently sitting up in the chair in no acute distress on the cardiac step-down unit. She does complain of left-sided post surgical chest pain with coughing and deep inspiration, denies shortness of breath. Left pleural chest tube remains to continuous wall suction with air leak present with expiration and coughing. No new complaints. Objective - Vital Signs Vital signs: Vital Signs Temp 98.4 F 08/16/19 07:45 Pulse 71 08/16/19 07:45 Resp 16 08/16/19 07:45 BP 112/72 08/16/19 07:45 Pulse Ox 96 08/16/19 07:45 Intake & Output 08/15/19 08/16/19 08/16/19 18:59 06:59 18:59 Intake Total 742 Output Total 6 10 0 Balance 736 -10 0 Weight 49.4 kg Intake: IV 40 0.9 40 Oral 702 Output: Chest Tube Drainage 5 10 0 Chest Tube Left Lower 5 10 0 Anterior Chest Urine 1 Other: Voiding Method Toilet # Voids 1 - Constitutional General appearance: Present: cooperative, no acute distress, thin - Respiratory Details: Lung sounds diminished bilaterally. Respirations even, non-labored. Currently on room air with oxygen saturation 95%. Able to achieve 1000 mL on her incentive spirometry. Strong cough. Left pleural chest tube present, connected to continuous wall suction, minimal serous drainage. Air leak present with expiration and coughing. - Cardiovascular Details: S1/S2 present. Regular rate/rhythm, sinus rhythm on telemetry. Palpable pulses bilaterally. No edema present. No calf pain or tenderness noted. SCDs present. - Gastrointestinal Gastrointestinal Comment(s): Abdomen soft, non-tender, non-distended. Active bowel sounds x 4 quadrants. Tolerating diet. Positive bowel movement - Genitourinary Genitourinary Comment(s): Continues to void clear, yellow urine. - Integumentary Integumentary Comment(s): Skin warm, dry and intact. Chest tube with dressing CDI. - Neurologic Neurologic: Present: CNII-XII intact - Musculoskeletal Musculoskeletal: Present: gait normal, strength equal bilaterally - Psychiatric Psychiatric: Present: A&O x's 3, appropriate affect, intact judgment & insight - Allied health notes Allied health notes reviewed: nursing - Labs CBC & Chem 7: 08/16/19 05:43 08/16/19 05:43 Labs: Abnormal Lab Results - Last 24 Hours (Table) 08/16/19 08/16/19 Range/Units 05:43 05:43 RBC 3.78 L (3.80-5.40) m/uL Sodium 135 L (137-145) mmol/L Carbon Dioxide 31 H (22-30) mmol/L BUN 18 H (7-17) mg/dL - Imaging and Cardiology Chest x-ray: report reviewed, image reviewed Assessment and Plan Assessment: 1. Spontaneous left-sided pneumothorax, first episode, with persistent bronchopleural fistula, emphysematous disease of the lung, continued air leak, status post thora-vent placement, status post left thoracoscopy 2. COPD with bullous disease 3. Chronic on-going nicotine dependence 4. Manic-depressive bipolar disorder 5. Marijuana use Plan: 1. Continue pleural chest tube to wall suction. Will monitor for resolution of air leak 2. Continue to encourage smoking cessation. Continue nicotine patch and lozenges 3. Encourage use of incentive spirometry 10x every hour while awake. 4. Continue Toradol and Tylenol, Tramadol added for better pain control. Morphine added for breakthrough pain. 4. Monitor daily chest x-rays. 5. GI and DVT prophylaxis. 6. Increase activity as tolerated, may ambulate around the room. Patient should be up in the chair at the minimum for all meals. 7. More recommendations to follow based on patient's clinical course. Time with Patient: Greater than 30
[2019-08-16] MEDS: ALPRAZolam 0.25 MG TAB PO PRN ×2 (11:00→17:17)
--- NOTE | 2019-08-16 14:36 | P.PN ---
Subjective Progress Note Date: 08/16/19 Principal diagnosis: Left-sided spontaneous pneumothorax, severe COPD, extensive emphysematous bullous changes 08/16/2019, patient seen and evaluated examined during the rounds labs reviewed medications reviewed care plan discussed with the patient at length, very minimal air leak present and pleural VAC chest pain is better patient is actively undergoing physical therapy Ammann chest x-ray showed resolution of left apical pneumothorax 08/14/2019, patient seen eval examined during the rounds she is postoperative day #2 chest pain is slightly improved but still have significant air leak from 2 Pleur-evac Meryl has been doing deep breathing exercise incentive spirometry reviewed medications reviewed , Chest x-ray atelectasis and left upper lobe stable chest tube 08/13/2019, patient seen eval examined during the rounds he she is postoperative day #1 of left thoracoscopy with wedge resection of left upper lobe ruptured bulla were resected, complaining of some pain morphine just have been given, chest x-ray cystoscopy postoperative changes of COPD with small rhythm left apical pneumothorax 08/11/2019, patient seen eval reexamined during the rounds labs reviewed m edications reviewed, patient has a higher lung expanded well but however still have significant air leak, some shoulder pain is present, hemodynamically she is stable denies any cough or sputum production patient is being scheduled tentatively for the VATS with bleb resection and stapling for tomorrow 08/10/2019, patient seen eval examined during the rounds labs reviewed medications reviewed today's x-ray has been reviewed as well patient has intermittently air leak from the chest U however lungs are fully expanded now patient is tentatively being scheduled for VATS and stapling procedure for 08/09/2019, patient seen eval examined during the rounds labs reviewed medications reviewed remains on suction intermittent. Li present chest x-ray performed today reviewed no significant pneumothorax is seen patient has some shoulder discomfort otherwise doing very well continued do deep breathing exercises and incentive spirometry, has been on breathing treatment twice a day as needed 08/08/2019, patient seen eval examined during the rounds patient has a computed tomography scan done which is reviewed extensive bullous changes in the apices has been noted bilaterally to the pneumothorax is mainly at the basal area with the small bore chest tube in the apical region, cardiothoracic surgery is planning to DC the suction 2 hour post chest x-ray shows significant enlarging pneumothorax after that This is a 41-year-old female patient, a chronic smoker, history of COPD, was been having symptoms of bronchitis with cough and congestion of 5 days' dur ation. Her breathing got worse and she presented emergency department and the patient was found to have a large left-sided pneumothorax. The chest x-ray showed a 50% pneumothorax on the left. The patient had a Thoravent inserted in the emergency department. There was incomplete expansion of the left lung. Patient's initial FiO2 is at 100% nonrebreather facemask now is tapered down to 2 L nasal cannula. No chest pain. Less short of breath. Denies any trauma. No falls. No previous history of pneumothoraces. The patient smokes cigarettes and she also smokes marijuana. This morning she was placed on water seal pneumothorax have progressed again and sharp she started feeling some symptoms of chest discomfort connected back to section noted that significant air leak was present however pain subsided post placing on suction Objective - Vital Signs Vital signs: Vital Signs Temp 98.8 F 08/16/19 11:39 Pulse 63 08/16/19 11:39 Resp 16 08/16/19 11:39 BP 106/62 08/16/19 11:39 Pulse Ox 96 08/16/19 11:39 Intake & Output 08/15/19 08/16/19 08/16/19 18:59 06:59 18:59 Intake Total 742 247 Output Total 6 10 0 Balance 736 -10 247 Weight 49.4 kg Intake: IV 40 10 0.9 40 10 Oral 702 237 Output: Chest Tube Drainage 5 10 0 Chest Tube Left Lower 5 10 0 Anterior Chest Urine 1 Other: Voiding Method Toilet # Voids 1 - Exam - Constitutional General appearance: cooperative, disheveled, no acute distress, thin - EENT Eyes: anicteric sclerae, EOMI, PERRLA, poor dentition, normal appearance ENT: hearing grossly normal Ears: bilateral: normal - Neck Neck: normal ROM Carotids: bilateral: upstroke normal - Respiratory Respiratory: bilateral: CTA - Cardiovascular Rhythm: regular Heart sounds: normal: S1, S2 - Gastrointestinal General gastrointestinal: normal bowel sounds - Integumentary Integumentary: normal turgor - Neurologic Neurologic: CNII-XII intact - Musculoskeletal Musculoskeletal: gait normal, generalized weakness, strength equal bilaterally - Psychiatric Psychiatric: A&O x's 3, appropriate affect, intact judgment & insight - Labs CBC & Chem 7: 08/16/19 05:43 08/16/19 05:43 Labs: Abnormal Lab Results - Last 24 Hours (Table) 08/16/19 08/16/19 Range/Units 05:43 05:43 RBC 3.78 L (3.80-5.40) m/uL Sodium 135 L (137-145) mmol/L Carbon Dioxide 31 H (22-30) mmol/L BUN 18 H (7-17) mg/dL Assessment and Plan Assessment: Spontaneous pneumothorax of the left side, status post repair of bronchopleural fistula and vaginal resection of ruptured bleb thoracoscopic procedure, postop day #4 Likely severe COPD emphysema Extensive bullous lung disease bilaterally Left upper lobe atelectasis History of smoking and nicotine abuse and use of marijuana Plan: Continue chest tube to suction for continued to have a minimal leak, which has been improved significantly Pain management Continue deep breathing exercises incentive spirometry Supplemental oxygen We'll follow closely atelectasis so far no evidence of infection or pneumonia Time with Patient: Greater than 30
--- NOTE | 2019-08-16 20:20 | XR ---
EXAMINATION TYPE: XR chest 1V portable DATE OF EXAM: 08/16/2019 COMPARISON: Chest x-ray same day at 0612 hours HISTORY: Pain, concern for chest tube displacement TECHNIQUE: Single frontal view of the chest is obtained. FINDINGS: Stable position of left chest tube with the tip projecting over the left lung apex. Postsurgical quispe ges are present of the left upper lung with suture material noted. No discrete pleural line is visual ized to suggest residual pneumothorax. Subcutaneous air is noted along the left costal margin extendi ng into the lower neck, more pronounced in the interim. No focal airspace consolidation. Apical predominant emphysematous changes of both lungs are noted. No pleural effusion. IMPRESSION: Stable position of left chest tube. No discretely visualized left pneumothorax. Subcutan eous air along the left chest wall is more pronounced from this morning however.
[2019-08-17] MEDS: ONDANSETRON 4 MG/2 ML VIAL IVP PRN (00:41)
[2019-08-17] MEDS: ALPRAZolam 0.25 MG TAB PO PRN ×4 (01:24→23:25)
[2019-08-17] MEDS: traMADol 50 MG TAB PO PRN ×3 (01:24→21:24)
--- NOTE | 2019-08-17 02:09 | P.PN ---
Subjective Progress Note Date: 08/16/19 Principal diagnosis: Spontaneous pneumothorax This is a pleasant 49-year-old patient of Dr. Scarlett Barahona. Long-standing smoker. Also smokes marijuana. Last 5 days has noticed herself to become more and more short of breath and wheezing. Decided to present to her PCP. She was given bronchodilators and sent to the ER. Accu-Cheks x-ray done. Checks x-ray - 50% left-sided pneumothorax. thoravac was placed. Patient did not respond to be water seal. Decision was made to have the patient go down for surgery.underwent wedge resection of the left upper lobe and stapling off the ruptured bleb.Chest tube drain in place. Today-chest tube remains in place. No new issues. Laying in bed. at the bedside. Did tolerate some diet. 08/14/2019 Patient is currently sitting up in the bed. Complaints of left-sided chest pain at the tube site. No complaints of shortness of breath. Left pleural chest tube with continuous suction with air leak. CT surgery is following. Patient is requesting IV pain medications 08/15/2019 Patient denied any complaints of shortness of breath today. Still has pain at the chest tube sites. Chest tube with suction is in place. Still leaking air with coughing and inspiration. No other acute overnight issues. 08 16 2019 Patient denied any complains of shortness of breath. Chest pain improved with morphine. Being monitored for resolution of a leak from the chest tube. Pulmonary and CT surgery is following. Review of systems: Was done for constitutional, cardiovascular, GI, pulmonary. relevant finding as above Objective - Vital Signs Vital signs: Vital Signs Temp 98.7 F 08/16/19 16:00 Pulse 68 08/16/19 19:48 Resp 16 08/16/19 19:48 BP 117/69 08/16/19 19:48 Pulse Ox 96 08/16/19 19:48 Intake & Output 08/16/19 08/16/19 08/17/19 06:59 18:59 06:59 Intake Total 247 Output Total 10 0 5 Balance -10 247 -5 Weight 49.4 kg Intake: IV 10 0.9 10 Oral 237 Output: Chest Tube Drainage 10 0 5 Chest Tube Left Lower 10 0 5 Anterior Chest Other: # Voids 1 1 - Exam GENERAL: Laying in bed, not in distress EYES: Pupils equal. Conjunctiva normal. HEENT: External appearance of nose and ears normal, oral cavity grossly normal. NECK: JVD not raised; masses not palpable. HEART: First and second heart sounds are normal; no edema. LUNGS: Respiratory rate increased, decreased breath sounds, some wheezing, left- sided chest tube ABDOMEN: Soft, nontender, liver spleen not palpable, no masses palpable. PSYCH: Alert and oriented x3; mood and affect anxiousl. INVESTIGATIONS, reviewed in the clinical context: White count 8.2 hemoglobin 12.7 progression 4.4 bun 14 creatinine 0.56 Previous testing White count 6.7 hemoglobin 40.5 platelets 270 progression 3.8 crit 0.61 Chest x-ray film personally reviewed by me-hyperinflation left-sided pneumothorax EKG tracing-personally reviewed by me shows normal sinus rhythm - Labs CBC & Chem 7: 08/16/19 05:43 08/16/19 05:43 Labs: Abnormal Lab Results - Last 24 Hours (Table) 08/16/19 08/16/19 Range/Units 05:43 05:43 RBC 3.78 L (3.80-5.40) m/uL Sodium 135 L (137-145) mmol/L Carbon Dioxide 31 H (22-30) mmol/L BUN 18 H (7-17) mg/dL Assessment and Plan Assessment: Assessment: -Acute left-sided pneumothorax, with Thora VAC, followed by on 08/12/2019- partial left upper lobe wedge resection with bleb stapling -COPD in a current smoker -Chronic nicotine dependence patient's active cigarette smoker -Recreational marijuana use -Moderate protein calorie malnutrition. Patient is decreased muscle mass loss of subcutaneous fat. -Situational anxiety - Plan: Continue current medication treatment plan. Care was discussed with the patient and . Time with Patient: Greater than 30
[2019-08-17] MEDS: KETOROLAC 30 MG/ML 1 ML VIAL IVP SCH ×3 (04:24→16:00)
[2019-08-17] MEDS: PANTOPRAZOLE 40 MG TABLET PO SCH (05:37)
[2019-08-17] MEDS: ACETAMINOPHEN TAB 500 MG TAB PO PRN ×2 (06:14→23:25)
[2019-08-17] MEDS: IPRATROPIUM-ALBUTEROL 3 ML NEB INHALATION SCH ×4 (07:58→21:27)
[2019-08-17] MEDS: NICOTINE 21MG/24HR PATCH TRANSDERM SCH (08:25)
[2019-08-17] MEDS: ENOXAPARIN 40 MG/0.4 ML SYRINGE SQ SCH (08:25)
[2019-08-17] MEDS: NICOTINE POLACRILEX 2 MG GUM BUCCAL PRN (08:28)
--- NOTE | 2019-08-17 09:15 | XR ---
EXAMINATION TYPE: XR chest 1V portable DATE OF EXAM: 08/17/2019 COMPARISON: 08/16/2019 HISTORY: Post VATS TECHNIQUE: Single frontal view of the chest is obtained. FINDINGS: Left-sided chest tube seen with a less than 5% stable pneumothorax. Diffuse COPD noted. He art size normal. No overt failure. Prominence the pulmonary arteries can reflect pulmonary arterial h ypertension. IMPRESSION: Stable less than 5% left apical pneumothorax.
--- NOTE | 2019-08-17 10:09 | P.PN ---
Subjective Progress Note Date: 08/17/19 Principal diagnosis: Spontaneous left pneumothorax, first episode, with persistent bronchopleural fistula, emphysematous disease of the lung, continued air leak. 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 POD #12 Thoravent placement by the emergency room physicians POD #5 Left thoracoscopy with reinforced wedge resection of the apex of the left upper lobe including ruptured bleb The patient is currently sitting up in bed in no acute distress on the cardiac step-down unit. She does complain of continued left-sided post surgical chest pain with coughing and deep inspiration, denies shortness of breath. Left pleural chest tube remains to continuous wall suction with air leak present with expiration and coughing, positional-not present when patient is sitting back in bed. No new complaints. Objective - Vital Signs Vital signs: Vital Signs Temp 98.7 F 08/16/19 16:00 Pulse 69 08/17/19 04:00 Resp 16 08/17/19 04:00 BP 123/75 08/17/19 04:00 Pulse Ox 95 08/17/19 04:00 Intake & Output 08/16/19 08/17/19 08/17/19 18:59 06:59 18:59 Intake Total 247 Output Total 0 5 Balance 247 -5 Weight 48.8 kg Intake: IV 10 0.9 10 Oral 237 Output: Chest Tube Drainage 0 5 Chest Tube Left Lower 0 5 Anterior Chest Other: # Voids 1 - Constitutional General appearance: Present: cooperative, no acute distress, thin - Respiratory Details: Lung sounds diminished bilaterally. Respirations even, non-labored. Currently on room air with oxygen saturation 95%. Able to achieve 1000 mL on her incentive spirometry. Strong cough. Left pleural chest tube present, connected to continuous wall suction, minimal serous drainage. Positional air leak present with expiration and coughing, not present when sitting back in bed. - Cardiovascular Details: S1/S2 present. Regular rate/rhythm, sinus rhythm on telemetry. Palpable pulses bilaterally. No edema present. No calf pain or tenderness noted. SCDs present. - Gastrointestinal Gastrointestinal Comment(s): Abdomen soft, non-tender, non-distended. Active bowel sounds x 4 quadrants. Tolerating diet. Positive bowel movement - Genitourinary Genitourinary Comment(s): Continues to void clear, yellow urine. - Integumentary Integumentary Comment(s): Skin warm, dry and intact. Chest tube with dressing CDI. - Neurologic Neurologic: Present: CNII-XII intact - Musculoskeletal Musculoskeletal Comment(s): Able to ambulate in room but does complain of weakness secondary to pain Musculoskeletal: Present: gait normal, strength equal bilaterally - Psychiatric Psychiatric: Present: A&O x's 3, appropriate affect, intact judgment & insight - Allied health notes Allied health notes reviewed: nursing - Labs CBC & Chem 7: 08/16/19 05:43 08/16/19 05:43 - Imaging and Cardiology Chest x-ray: image reviewed Assessment and Plan Assessment: 1. Spontaneous left-sided pneumothorax, first episode, with persistent bronchopleural fistula, emphysematous disease of the lung, continued air leak, status post thora-vent placement, status post left thoracoscopy 2. COPD with bullous disease 3. Chronic on-going nicotine dependence 4. Manic-depressive bipolar disorder 5. Marijuana use Plan: 1. Continue pleural chest tube to wall suction. Will monitor for resolution of air leak 2. Continue to encourage smoking cessation. Continue nicotine patch and lozen ges 3. Encourage use of incentive spirometry 10x every hour while awake. 4. Continue current pain control regimen. 4. Monitor daily chest x-rays. 5. GI and DVT prophylaxis. 6. Increase activity as tolerated, may ambulate around the room. Patient should be up in the chair at the minimum for all meals. 7. More recommendations to follow based on patient's clinical course. Time with Patient: Greater than 30
--- NOTE | 2019-08-17 11:47 | P.PN ---
Subjective 49-year-old patient of Dr. Scarlett Barahona. Long-standing smoker. Also smokes marijuana. Last 5 days has noticed herself to become more and more short of breath and wheezing. Decided to present to her PCP. She was given bronchodilators and sent to the ER. Accu-Cheks x-ray done. Checks x-ray - 50% left-sided pneumothorax. thoravac was placed. Patient did not respond to be water seal. Decision was made to have the patient go down for surgery.underwent wedge resection of the left upper lobe and stapling off the ruptured bleb.Chest tube drain in place. Today-chest tube remains in place. No new issues. Laying in bed. at the bedside. Did tolerate some diet. 08/14/2019 Patient is currently sitting up in the bed. Complaints of left-sided chest pain at the tube site. No complaints of shortness of breath. Left pleural chest tube with continuous suction with air leak. CT surgery is following. Patient is requesting IV pain medications 08/15/2019 Patient denied any complaints of shortness of breath today. Still has pain at the chest tube sites. Chest tube with suction is in place. Still leaking air with coughing and inspiration. No other acute overnight issues. 08 16 2019 Patient denied any complains of shortness of breath. Chest pain improved with morphine. Being monitored for resolution of a leak from the chest tube. Pulmonary and CT surgery is following. 08/17/2019 Patient chest tube is being clamped today patient when undergo repeat chest x- ray tomorrow if patient doesn't have any worsening pneumothorax chest tube will be removed. Patient denied any shortness of breath pain is better controlled Constitutional: Denied any fatigue denied any fever. Cardio vascular: denied any chest pain, palpitations Gastrointestinal denied any nausea vomiting Pulmonary: Denied any shortness of breath cough Neurologic denied any new focal deficits All inpatient medications were reviewed and appropriate changes in these medications as dictated in the interval history and assessment and plan. Objective - Vital Signs Vital signs: Vital Signs Temp 98.2 F 08/17/19 08:00 Pulse 72 08/17/19 11:37 Resp 16 08/17/19 08:00 BP 121/81 08/17/19 08:00 Pulse Ox 95 08/17/19 08:00 Intake & Output 08/16/19 08/17/19 08/17/19 18:59 06:59 18:59 Intake Total 247 237 Output Total 0 5 Balance 247 -5 237 Weight 48.8 kg Intake: IV 10 0.9 10 Oral 237 237 Output: Chest Tube Drainage 0 5 Chest Tube Left Lower 0 5 Anterior Chest Other: # Voids 1 - Exam PHYSICAL EXAMINATION: GENERAL: The patient is alert and oriented x3, not in any acute distress. Well developed, well nourished. HEENT: Pupils are round and equally reacting to light. EOMI. No scleral icterus. No conjunctival pallor. Normocephalic, atraumatic. No pharyngeal erythema. No thyromegaly. CARDIOVASCULAR: S1 and S2 present. No murmurs, rubs, or gallops. PULMONARY: Chest is clear to auscultation, no wheezing or crackles. patient has a left-sided chest tube not draining much better no air leak ABDOMEN: Soft, nontender, nondistended, normoactive bowel sounds. No palpable organomegaly. MUSCULOSKELETAL: No joint swelling or deformity. EXTREMITIES: No cyanosis, clubbing, or pedal edema. NEUROLOGICAL: Gross neurological examination did not reveal any focal deficits. SKIN: No rashes. - Labs CBC & Chem 7: 08/16/19 05:43 08/16/19 05:43 Assessment and Plan Plan: left-sided pneumothorax, with Thora VAC, followed by on 08/12/2019-partial left upper lobe wedge resection with bleb stapling, chest tube is being clamped today further management as mentioned above, continue Toradol morphine for pain. -COPD in a current smoker -Chronic nicotine dependence patient's active cigarette smoker -Recreational marijuana use -Moderate protein calorie malnutrition. Patient is decreased muscle mass loss of subcutaneous fat. -anxiety disorder
--- NOTE | 2019-08-17 13:11 | P.PN ---
Subjective Progress Note Date: 08/17/19 Principal diagnosis: Left-sided spontaneous pneumothorax, severe COPD, extensive emphysematous bullous changes 08/27/2019, patient seen eval examined during the rounds labs reviewed medications reviewed care plan discussed with the patient and son present at bedside, the chest tube has been connected to water seal is still occasional air bubbles noted, respiratory status improved now she able to ambulate, has been doing I-S regularly 08/16/2019, patient seen and evaluated examined during the rounds labs reviewed medications reviewed care plan discussed with the patient at length, very minimal air leak present and pleural VAC chest pain is better patient is actively [facility]ray showed resolution of left apical pneumothorax 08/14/2019, patient seen eval examined during the rounds she is postoperative day #2 chest pain is slightly improved but still have significant air leak from 2 Pleur-evac Meryl has been doing deep breathing exercise incentive spirometry reviewed medications reviewed , Chest x-ray atelectasis and left upper lobe stable chest tube 08/13/2019, patient seen eval examined during the rounds he she is postoperative day #1 of left thoracoscopy with wedge resection of left upper lobe ruptured bulla were resected, complaining of some pain morphine just have been given, chest x-ray cystoscopy postoperative changes of COPD with small rhythm left apical pneumothorax 08/11/2019, patient seen eval reexamined during the rounds labs reviewed medications reviewed, patient has a higher lung expanded well but however still have significant air leak, some shoulder pain is present, hemodynamically she is stable denies any cough or sputum production patient is being scheduled tentatively for the VATS with bleb resection and stapling for tomorrow 08/10/2019, patient seen eval examined during the rounds labs reviewed medications reviewed today's x-ray has been reviewed as well patient has intermittently air leak from the chest U however lungs are fully expanded now patient is tentatively being scheduled for VATS and stapling procedure for 08/09/2019, patient seen eval examined during the rounds labs reviewed medications reviewed remains on suction intermittent. Li present chest x-ray performed today reviewed no significant pneumothorax is seen patient has some shoulder discomfort otherwise doing very well continued do deep breathing exercises and incentive spirometry, has been on breathing treatment twice a day as needed 08/08/2019, patient seen eval examined during the rounds patient has a computed tomography scan done which is reviewed extensive bullous changes in the apices has been noted bilaterally to the pneumothorax is mainly at the basal area with the small bore chest tube in the apical region, cardiothoracic surgery is planning to DC the suction 2 hour post chest x-ray shows significant enlarging pneumothorax after that This is a 41-year-old female patient, a chronic smoker, history of COPD, was been having symptoms of bronchitis with cough and congestion of 5 days' duration. Her breathing got worse and she presented emergency department and the patient was found to have a large left-sided pneumothorax. The chest x-ray showed a 50% pneumothorax on the left. The patient had a Thoravent inserted in the emergency department. There was incomplete expansion of the left lung. Patient's initial FiO2 is at 100% nonrebreather facemask now is tapered down to 2 L nasal cannula. No chest pain. Less short of breath. Denies any trauma. No falls. No previous history of pneumothoraces. The patient smokes cigarettes and she also smokes marijuana. This morning she was placed on water seal pneumothorax have progressed again and sharp she started feeling some symptoms of chest discomfort connected back to section noted that significant air leak was present however pain subsided post placing on suction Objective - Vital Signs Vital signs: Vital Signs Temp 98.2 F 08/17/19 08:00 Pulse 78 08/17/19 12:00 Resp 16 08/17/19 08:00 BP 110/70 08/17/19 12:00 Pulse Ox 95 08/17/19 12:00 Intake & Output 08/16/19 08/17/19 08/17/19 18:59 06:59 18:59 Intake Total 247 237 Output Total 0 5 Balance 247 -5 237 Weight 48.8 kg Intake: IV 10 0.9 10 Oral 237 237 Output: Chest Tube Drainage 0 5 Chest Tube Left Lower 0 5 Anterior Chest Other: # Voids 1 - Exam - Constitutional General appearance: cooperative, disheveled, no acute distress, thin - EENT Eyes: anicteric sclerae, EOMI, PERRLA, poor dentition, normal appearance ENT: hearing grossly normal Ears: bilateral: normal - Neck Neck: normal ROM Carotids: bilateral: upstroke normal - Respiratory Respiratory: bilateral: CTA - Cardiovascular Rhythm: regular Heart sounds: normal: S1, S2 - Gastrointestinal General gastrointestinal: normal bowel sounds - Integumentary Integumentary: normal turgor - Neurologic Neurologic: CNII-XII intact - Musculoskeletal Musculoskeletal: gait normal, generalized weakness, strength equal bilaterally - Psychiatric Psychiatric: A&O x's 3, appropriate affect, intact judgment & insight - Labs CBC & Chem 7: 08/16/19 05:43 08/16/19 05:43 Assessment and Plan Assessment: Spontaneous pneumothorax of the left side, status post repair of bronchopleural fistula and vaginal resection of ruptured bleb thoracoscopic procedure, postop day #4 Likely severe COPD emphysema Extensive bullous lung disease bilaterally Left upper lobe atelectasis History of smoking and nicotine abuse and use of marijuana Plan: Continue chest tube to suction for continued to have a minimal leak, which has been improved significantly Pain management Continue deep breathing exercises incentive spirometry Supplemental oxygen We'll follow closely atelectasis so far no evidence of infection or pneumonia
[2019-08-18] MEDS: traMADol 50 MG TAB PO PRN ×2 (03:57→15:40)
[2019-08-18] MEDS: NICOTINE POLACRILEX 2 MG GUM BUCCAL PRN ×3 (04:02→17:48)
[2019-08-18] MEDS: ONDANSETRON 4 MG/2 ML VIAL IVP PRN (05:21)
[2019-08-18] MEDS: ACETAMINOPHEN TAB 500 MG TAB PO PRN (06:49)
[2019-08-18] MEDS: PANTOPRAZOLE 40 MG TABLET PO SCH (06:49)
[2019-08-18] MEDS: ALPRAZolam 0.25 MG TAB PO PRN ×2 (06:50→17:50)
--- NOTE | 2019-08-18 08:42 | XR ---
EXAMINATION TYPE: XR chest 2V DATE OF EXAM: 08/18/2019 COMPARISON: Prior chest x-ray 08/17/2019 HISTORY: Status post VATS, chest tube TECHNIQUE: Frontal and lateral views of the chest are obtained. FINDINGS: Left-sided chest tube shows a similar positioning, there is subcutaneous emphysema. Postop changes are noted at the upper aspect of the left lung, pneumothorax has increased in size in the in terval, estimated at 20-30%. Air-fluid level present at the left costophrenic angle. Heart size is st able. Aorta is dense. Increased volume noted of the right lung suggesting underlying COPD. IMPRESSION: Left hydropneumothorax has increased as compared to prior exam.
[2019-08-18] MEDS: ENOXAPARIN 40 MG/0.4 ML SYRINGE SQ SCH (08:53)
[2019-08-18] MEDS: NICOTINE 21MG/24HR PATCH TRANSDERM SCH (08:53)
--- NOTE | 2019-08-18 08:55 | P.PN ---
Subjective Progress Note Date: 08/18/19 Principal diagnosis: Spontaneous left pneumothorax, first episode, with persistent bronchopleural fistula, emphysematous disease of the lung, continued air leak. 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 POD #13 Thoravent placement by the emergency room physicians POD #6 Left thoracoscopy with reinforced wedge resection of the apex of the left upper lobe including ruptured bleb The patient is currently sitting up in bed in no acute distress on the cardiac step-down unit. She does complain of continued left-sided post surgical chest pain with coughing and deep inspiration, denies shortness of breath. Left pleural chest tube placed to waterseal yesterday, CXR this morning demonstrates increase apical pneumothorax to 20-30%, no increase in respiratory distress, oxygenating well, ambulating in hallway. Patient and updated by Dr. James kowalski, both were disappointed that the chest tube won't be removed today. Objective - Vital Signs Vital signs: Vital Signs Temp 98.2 F 08/18/19 04:00 Pulse 68 08/18/19 04:00 Resp 17 08/18/19 04:00 BP 128/74 08/18/19 04:00 Pulse Ox 92 L 08/18/19 04:00 Intake & Output 08/17/19 08/18/19 08/18/19 18:59 06:59 18:59 Intake Total 948 474 Output Total 30 Balance 948 -30 474 Weight 48.9 kg Intake: Oral 948 474 Output: Chest Tube Drainage 30 Chest Tube Left Lower 30 Anterior Chest Other: Voiding Method Toilet # Voids 1 - Constitutional General appearance: Present: cooperative, no acute distress, thin - Respiratory Details: Lung sounds diminished bilaterally, left greater than right. Respirations even, non-labored. Currently on room air with oxygen saturation 94%. Able to achieve 1000 mL on her incentive spirometry. Strong cough. Left pleural chest tube present, placed to water seal yesterday, air leak present - Cardiovascular Details: S1/S2 present. Regular rate/rhythm, sinus rhythm on telemetry. Palpable pulses bilaterally. No edema present. No calf pain or tenderness noted. SCDs present although patient is not wearing as she has been ambulating. - Gastrointestinal Gastrointestinal Comment(s): Abdomen soft, non-tender, non-distended. Active bowel sounds x 4 quadrants. Tolerating diet. Positive bowel movement - Genitourinary Genitourinary Comment(s): Continues to void clear, yellow urine. - Integumentary Integumentary Comment(s): Skin warm, dry and intact. Chest tube with dressing CDI. - Neurologic Neurologic: Present: CNII-XII intact - Musculoskeletal Musculoskeletal: Present: gait normal, strength equal bilaterally - Psychiatric Psychiatric: Present: A&O x's 3, appropriate affect, intact judgment & insight - Allied health notes Allied health notes reviewed: nursing - Labs CBC & Chem 7: 08/16/19 05:43 08/16/19 05:43 - Imaging and Cardiology Chest x-ray: report reviewed, image reviewed Assessment and Plan Assessment: 1. Spontaneous left-sided pneumothorax, first episode, with persistent bronchopleural fistula, emphysematous disease of the lung, continued air leak, status post thora-vent placement, status post left thoracoscopy 2. COPD with bullous disease 3. Chronic on-going nicotine dependence 4. Manic-depressive bipolar disorder 5. Marijuana use Plan: 1. Continue pleural chest tube to water seal. Will monitor for resolution of air leak 2. Continue to encourage smoking cessation. Continue nicotine patch and lozenges 3. Encourage use of incentive spirometry 10x every hour while awake and controlled coughing. 4. Continue current pain control regimen. Will re-add Toradol 4. Monitor daily chest x-rays. 5. GI and DVT prophylaxis. 6. Increase activity as tolerated, may ambulate in hallway. Patient should be up in the chair at the minimum for all meals. 7. More recommendations to follow based on patient's clinical course. Time with Patient: Greater than 30
[2019-08-18] MEDS: IPRATROPIUM-ALBUTEROL 3 ML NEB INHALATION SCH ×4 (09:48→21:35)
[2019-08-18] MEDS: KETOROLAC 30 MG/ML 1 ML VIAL IVP SCH ×3 (12:37→23:05)
--- NOTE | 2019-08-18 18:08 | P.PN ---
Subjective Progress Note Date: 08/18/19 Principal diagnosis: Left-sided spontaneous pneumothorax, severe COPD, extensive emphysematous bullous changes 08/18/2019, Pt seen examined care plan discussed, on water seal air leak is still present 08/17/2019, patient seen eval examined during the rounds labs reviewed medicati ons reviewed care plan discussed with the patient and son present at bedside, the chest tube has been connected to water seal is still occasional air bubbles noted, respiratory status improved now she able to ambulate, has been doing I-S regularly 08/16/2019, patient seen and evaluated examined during the rounds labs reviewed medications reviewed care plan discussed with the patient at length, very minimal air leak present and pleural VAC chest pain is better patient is actively undergoing physical therapy Ammann chest x-ray showed resolution of left apical pneumothorax 08/14/2019, patient seen eval examined during the rounds she is postoperative day #2 chest pain is slightly improved but still have significant air leak from 2 Pleur-evac Meryl has been doing deep breathing exercise incentive spirometry reviewed medications reviewed , Chest x-ray atelectasis and left upper lobe stable chest tube 08/13/2019, patient seen eval examined during the rounds he she is postoperative day #1 of left thoracoscopy with wedge resection of left upper lobe ruptured bulla were resected, complaining of some pain morphine just have been given, chest x-ray cystoscopy postoperative changes of COPD with small rhythm left apical pneumothorax 08/11/2019, patient seen eval reexamined during the rounds labs reviewed medications reviewed, patient has a higher lung expanded well but however still have significant air leak, some shoulder pain is present, hemodynamically she is stable denies any cough or sputum production patient is being scheduled tentatively for the VATS with bleb resection and stapling for tomorrow 08/10/2019, patient seen eval examined during the rounds labs reviewed medicat ions reviewed today's x-ray has been reviewed as well patient has intermittently air leak from the chest U however lungs are fully expanded now patient is tentatively being scheduled for VATS and stapling procedure for 08/09/2019, patient seen eval examined during the rounds labs reviewed medications reviewed remains on suction intermittent. Li present chest x-ray performed today reviewed no significant pneumothorax is seen patient has some shoulder discomfort otherwise doing very well continued do deep breathing exercises and incentive spirometry, has been on breathing treatment twice a day as needed 08/08/2019, patient seen eval examined during the rounds patient has a computed tomography scan done which is reviewed extensive bullous changes in the apices has been noted bilaterally to the pneumothorax is mainly at the basal area with the small bore chest tube in the apical region, cardiothoracic surgery is planning to DC the suction 2 hour post chest x-ray shows significant enlarging pneumothorax after that This is a 41-year-old female patient, a chronic smoker, history of COPD, was been having symptoms of bronchitis with cough and congestion of 5 days' duration. Her breathing got worse and she presented emergency department and the patient was found to have a large left-sided pneumothorax. The chest x-ray showed a 50% pneumothorax on the left. The patient had a Thoravent inserted in the emergency department. There was incomplete expansion of the left lung. Patient's initial FiO2 is at 100% nonrebreather facemask now is tapered down to 2 L nasal cannula. No chest pain. Less short of breath. Denies any trauma. No falls. No previous history of pneumothoraces. The patient smokes cigarettes and she also smokes marijuana. This morning she was placed on water seal pneumothorax have progressed again and sharp she started feeling some symptoms of chest discomfort connected back to section noted that significant air leak was present however pain subsided post placing on suction Objective - Vital Signs Vital signs: Vital Signs Temp 97.5 F L 08/18/19 08:00 Pulse 80 08/18/19 16:10 Resp 17 08/18/19 04:00 BP 125/69 08/18/19 08:00 Pulse Ox 93 L 08/18/19 12:00 Intake & Output 08/17/19 08/18/19 08/18/19 18:59 06:59 18:59 Intake Total 948 711 Output Total 30 0 Balance 948 -30 711 Weight 48.9 kg Intake: Oral 948 711 Output: Chest Tube Drainage 30 0 Chest Tube Left Lower 30 0 Anterior Chest Other: Voiding Method Toilet # Voids 1 1 - Exam - Constitutional General appearance: cooperative, disheveled, no acute distress, thin - EENT Eyes: anicteric sclerae, EOMI, PERRLA, poor dentition, normal appearance ENT: hearing grossly normal Ears: bilateral: normal - Neck Neck: normal ROM Carotids: bilateral: upstroke normal - Respiratory Respiratory: bilateral: CTA - Cardiovascular Rhythm: regular Heart sounds: normal: S1, S2 - Gastrointestinal General gastrointestinal: normal bowel sounds - Integumentary Integumentary: normal turgor - Neurologic Neurologic: CNII-XII intact - Musculoskeletal Musculoskeletal: gait normal, generalized weakness, strength equal bilaterally - Psychiatric Psychiatric: A&O x's 3, appropriate affect, intact judgment & insight - Labs CBC & Chem 7: 08/16/19 05:43 08/16/19 05:43 Assessment and Plan Assessment: Spontaneous pneumothorax of the left side, status post repair of bronchopleural fistula and vaginal resection of ruptured bleb thoracoscopic procedure, postop day #4 Likely severe COPD emphysema Extensive bullous lung disease bilaterally Left upper lobe atelectasis History of smoking and nicotine abuse and use of marijuana Plan: Continue chest tube to suction for continued to have a minimal leak, which has been improved significantly Pain management Continue deep breathing exercises incentive spirometry Supplemental oxygen We'll follow closely atelectasis so far no evidence of infection or pneumonia
--- NOTE | 2019-08-18 21:32 | P.PN ---
Progress Note - Text Progress Note Date: 08/18/19 Chief Complaint: Short of breath Interval history: This is a pleasant 49-year-old patient of Dr. Scarlett Barahona. Long-standing smoker. Also smokes marijuana. Last 5 days has noticed herself to become more and more short of breath and wheezing. Decided to present to her PCP. She was given bronchodilators and sent to the ER. Accu-Cheks x-ray done. Checks x-ray - 50% left-sided pneumothorax. thoravac was placed. Patient did not respond to be water seal. Decision was made to have the patient go down for surgery.underwent wedge resection of the left upper lobe and stapling off the ruptured bleb.Chest tube drain in place. Today-sitting out of bed. Chest tube in place. Has continued to have a leak. Has been up in the hallway yesterday. Does not like hospital food. Family the bedside including and daughter. . Review of systems: Was done for constitutional, cardiovascular, GI, pulmonary. relevant finding as above Active Medications Acetaminophen (Tylenol Tab) 1,000 mg PO Q6HR PRN PRN Reason: Fever and/ or Pain Last Admin: 08/18/19 06:49 Dose: 1,000 mg Documented by: Albuterol/Ipratropium (Duoneb 0.5 Mg-3 Mg/3 Ml Soln) 3 ml INHALATION RT-QID [facility] Last Admin: 08/18/19 16:00 Dose: 3 ml Documented by: Alprazolam (Xanax) 0.25 mg PO TID PRN PRN Reason: Anxiety Last Admin: 08/18/19 17:50 Dose: 0.25 mg Documented by: Enoxaparin Sodium (Lovenox) 40 mg SQ DAILY [facility] Last Admin: 08/18/19 08:53 Dose: 40 mg Documented by: Ketorolac Tromethamine (Toradol) 15 mg IVP Q6HR [facility] Stop: 08/23/19 12:01 Last Admin: 08/18/19 17:47 Dose: 15 mg Documented by: Morphine Sulfate (Morphine Sulfate (Inj)) 2 mg IVP Q4H PRN PRN Reason: Pain/Discomfort Last Admin: 08/15/19 19:49 Dose: 2 mg Documented by: Nicotine (Habitrol 21mg/24hr Patch) 1 patch TRANSDERM DAILY [facility] Last Admin: 08/18/19 08:53 Dose: 1 patch Documented by: Nicotine Polacrilex (Nicorette Gum) 2 mg BUCCAL Q4HR PRN PRN Reason: Nicotine Cravings Last Admin: 08/18/19 17:48 Dose: 2 mg Documented by: Ondansetron HCl (Zofran) 4 mg IVP Q6HR PRN PRN Reason: Nausea And Vomiting Last Admin: 08/18/19 05:21 Dose: 4 mg Documented by: Pantoprazole Sodium (Protonix) 40 mg PO AC-BRKFST [facility] Last Admin: 08/18/19 06:49 Dose: 40 mg Documented by: Tramadol HCl (Ultram) 50 mg PO QID PRN PRN Reason: Breakthrough Pain Last Admin: 08/18/19 15:40 Dose: 50 mg Documented by: Physical examination: VITAL SIGNS: 97.5, 77, 18, 125/69, 92% on room air GENERAL: Sitting up in bed, EYES: Pupils equal. Conjunctiva normal. HEENT: External appearance of nose and ears normal, oral cavity grossly normal. NECK: JVD not raised; masses not palpable. HEART: First and second heart sounds are normal; no edema. LUNGS: Respiratory rate increased, decreased breath sounds, some wheezing, left- sided chest tube ABDOMEN: Soft, nontender, liver spleen not palpable, no masses palpable. PSYCH: Alert and oriented x3; mood and affect anxiousl. INVESTIGATIONS, reviewed in the clinical context: Hemoglobin 12.3 creatinine 0.61 Previous testing White count 6.7 hemoglobin 40.5 platelets 270 progression 3.8 crit 0.61 Chest x-ray film personally reviewed by me-hyperinflation left-sided pneumothorax EKG tracing-personally reviewed by me shows normal sinus rhythm Assessment: -Acute left-sided pneumothorax, with Thora VAC, followed by on 08/12/2019- partial left upper lobe wedge resection with bleb stapling, continuous tremor a leak -COPD in a current smoker -Chronic nicotine dependence patient's active cigarette smoker -Recreational marijuana use -Moderate protein calorie malnutrition. Patient is decreased muscle mass loss of subcutaneous fat. -Situational anxiety - Plan: Discussed with Tenisha from thoracic team. Talked to the patient and the family. Reassured. Encouraged to increase oral intake.
[2019-08-19] MEDS: ACETAMINOPHEN TAB 500 MG TAB PO PRN (04:20)
[2019-08-19] MEDS: NICOTINE POLACRILEX 2 MG GUM BUCCAL PRN ×4 (04:20→19:51)
[2019-08-19] MEDS: ALPRAZolam 0.25 MG TAB PO PRN ×3 (04:20→15:54)
[2019-08-19] MEDS: KETOROLAC 30 MG/ML 1 ML VIAL IVP SCH ×4 (06:52→23:02)
[2019-08-19] MEDS: PANTOPRAZOLE 40 MG TABLET PO SCH (06:52)
[2019-08-19] MEDS: NICOTINE 21MG/24HR PATCH TRANSDERM SCH (08:16)
[2019-08-19] MEDS: ENOXAPARIN 40 MG/0.4 ML SYRINGE SQ SCH (08:17)
--- NOTE | 2019-08-19 08:49 | P.PN ---
Subjective Progress Note Date: 08/19/19 Principal diagnosis: Spontaneous left pneumothorax, first episode, with persistent bronchopleural fistula, emphysematous disease of the lung, continued air leak. 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 POD #14 Thoravent placement by the emergency room physicians POD #7 Left thoracoscopy with reinforced wedge resection of the apex of the left upper lobe including ruptured bleb The patient is currently sitting up in bed in no acute distress on the cardiac step-down unit. She does complain of continued left-sided post surgical chest pain with coughing and deep inspiration, denies shortness of breath. Left pleural chest tube continues to waterseal, CXR yesterday morning demonstrated increase apical pneumothorax to 20-30%, this morning's CXR appears slightly better, no increase in respiratory distress, oxygenating well, ambulating in hallway. There is tidaling in the water chamber and airleak is significantly less, positional, only with forceful coughing. Objective - Vital Signs Vital signs: Vital Signs Temp 97.8 F 08/19/19 04:00 Pulse 69 08/19/19 04:00 Resp 18 08/19/19 04:00 BP 111/57 08/19/19 04:00 Pulse Ox 96 08/19/19 04:00 Intake & Output 08/18/19 08/19/19 08/19/19 18:59 06:59 18:59 Intake Total 948 Output Total 0 0 Balance 948 0 Weight 49.9 kg Intake: Oral 948 Output: Chest Tube Drainage 0 0 Chest Tube Left Lower 0 0 Anterior Chest Other: Voiding Method Toilet # Voids 1 - Constitutional General appearance: Present: cooperative, no acute distress, thin - Respiratory Details: Lung sounds diminished bilaterally. Respirations even, non-labored. Currently on room air with oxygen saturation 96%. Able to achieve 1500 mL on her incentive spirometry. Strong cough. Left pleural chest tube present, continues to water seal, air leak present but significantly less, positional and occurs only with forceful coughing, tidaling present. - Cardiovascular Details: S1/S2 present. Regular rate/rhythm, sinus rhythm on telemetry. Palpable pulses bilaterally. No edema present. No calf pain or tenderness noted. SCDs present although patient is not wearing as she has been ambulating. - Gastrointestinal Gastrointestinal Comment(s): Abdomen soft, non-tender, non-distended. Active bowel sounds x 4 quadrants. Tolerating diet. Positive bowel movement - Genitourinary Genitourinary Comment(s): Continues to void clear, yellow urine. - Integumentary Integumentary Comment(s): Skin warm, dry and intact. Chest tube with dressing CDI. - Neurologic Neurologic: Present: CNII-XII intact - Musculoskeletal Musculoskeletal: Present: gait normal, strength equal bilaterally - Psychiatric Psychiatric: Present: A&O x's 3, appropriate affect, intact judgment & insight - Allied health notes Allied health notes reviewed: nursing - Labs CBC & Chem 7: 08/16/19 05:43 08/16/19 05:43 Assessment and Plan Assessment: 1. Spontaneous left-sided pneumothorax, first episode, with persistent bronchopleural fistula, emphysematous disease of the lung, continued air leak, status post thora-vent placement, status post left thoracoscopy 2. COPD with bullous disease 3. Chronic on-going nicotine dependence 4. Manic-depressive bipolar disorder 5. Marijuana use Plan: 1. Will continue chest tube to water seal for another 24 hours. May consider dc to home with Pneumostat until air leak completely resolved 2. Continue to encourage smoking cessation. Continue nicotine patch and lozenges 3. Encourage use of incentive spirometry 10x every hour while awake and controlled coughing. 4. Continue current pain control regimen. 4. Monitor daily chest x-rays. 5. GI and DVT prophylaxis. 6. Increase activity as tolerated, may ambulate in hallway. Patient should be up in the chair at the minimum for all meals. 7. More recommendations to follow based on patient's clinical course. Time with Patient: Greater than 30
[2019-08-19] MEDS: IPRATROPIUM-ALBUTEROL 3 ML NEB INHALATION SCH ×4 (09:40→20:19)
[2019-08-19] MEDS: traMADol 50 MG TAB PO PRN ×3 (10:23→23:03)
[2019-08-19 14:25] VITALS: BMI 18.3
--- NOTE | 2019-08-20 00:55 | P.PN ---
Progress Note - Text Progress Note Date: 08/19/19 Chief Complaint: Short of breath Interval history: This is a pleasant 49-year-old patient of Dr. Scarlett Barahona. Long-standing smoker. Also smokes marijuana. Last 5 days has noticed herself to become more and more short of breath and wheezing. Decided to present to her PCP. She was given bronchodilators and sent to the ER. Accu-Cheks x-ray done. Checks x-ray - 50% left-sided pneumothorax. thoravac was placed. Patient did not respond to be water seal. Decision was made to have the patient go down for surgery.underwent wedge resection of the left upper lobe and stapling off the ruptured bleb.Chest tube drain in place. Today-no new issues. Tolerating a diet. Chest tube was connected. Breathing stable. r. . Review of systems: Was done for constitutional, cardiovascular, GI, pulmonary. relevant finding as above Active Medications Acetaminophen (Tylenol Tab) 1,000 mg PO Q6HR PRN PRN Reason: Fever and/ or Pain Last Admin: 08/19/19 04:20 Dose: 1,000 mg Documented by: Albuterol/Ipratropium (Duoneb 0.5 Mg-3 Mg/3 Ml Soln) 3 ml INHALATION RT-QID [facility] Last Admin: 08/19/19 20:19 Dose: 3 ml Documented by: Alprazolam (Xanax) 0.25 mg PO TID PRN PRN Reason: Anxiety Last Admin: 08/19/19 15:54 Dose: 0.25 mg Documented by: Enoxaparin Sodium (Lovenox) 40 mg SQ DAILY [facility] Last Admin: 08/19/19 08:17 Dose: 40 mg Documented by: Ketorolac Tromethamine (Toradol) 15 mg IVP Q6HR [facility] Stop: 08/23/19 12:01 Last Admin: 08/19/19 23:02 Dose: 15 mg Documented by: Morphine Sulfate (Morphine Sulfate (Inj)) 2 mg IVP Q4H PRN PRN Reason: Pain/Discomfort Last Admin: 08/15/19 19:49 Dose: 2 mg Documented by: Nicotine (Habitrol 21mg/24hr Patch) 1 patch TRANSDERM DAILY [facility] Last Admin: 08/19/19 08:16 Dose: 1 patch Documented by: Nicotine Polacrilex (Nicorette Gum) 2 mg BUCCAL Q4HR PRN PRN Reason: Nicotine Cravings Last Admin: 08/19/19 19:51 Dose: 2 mg Documented by: Ondansetron HCl (Zofran) 4 mg IVP Q6HR PRN PRN Reason: Nausea And Vomiting Last Admin: 08/18/19 05:21 Dose: 4 mg Documented by: Pantoprazole Sodium (Protonix) 40 mg PO [facility] Last Admin: 08/19/19 06:52 Dose: 40 mg Documented by: Tramadol HCl (Ultram) 50 mg PO QID PRN PRN Reason: Breakthrough Pain Last Admin: 08/19/19 23:03 Dose: 50 mg Documented by: Physical examination: VITAL SIGNS: 98, 70, 20, 98/59, 100% room air GENERAL: Sitting up in bed, comfortable EYES: Pupils equal. Conjunctiva normal. HEENT: External appearance of nose and ears normal, oral cavity grossly normal. NECK: JVD not raised; masses not palpable. HEART: First and second heart sounds are normal; no edema. LUNGS: Respiratory rate increased, decreased breath sounds, some wheezing, left- sided chest tube ABDOMEN: Soft, nontender, liver spleen not palpable, no masses palpable. PSYCH: Alert and oriented x3; mood and affect anxiousl. INVESTIGATIONS, reviewed in the clinical context: Hemoglobin 12.3 creatinine 0.61 Previous testing White count 6.7 hemoglobin 40.5 platelets 270 progression 3.8 crit 0.61 Chest x-ray film personally reviewed by me-hyperinflation left-sided pneumothorax EKG tracing-personally reviewed by me shows normal sinus rhythm Assessment: -Acute left-sided pneumothorax, with Thora VAC, followed by on 08/12/2019- partial left upper lobe wedge resection with bleb stapling, -COPD in a current smoker -Chronic nicotine dependence patient's active cigarette smoker -Recreational marijuana use -Moderate protein calorie malnutrition. Patient is decreased muscle mass loss of subcutaneous fat. -Situational anxiety - Plan: Continue current medication treatment plan. Chest tube remains in place. Follow with cardiothoracic surgery. Discussed with the patient.
[2019-08-20] MEDS: IPRATROPIUM-ALBUTEROL 3 ML NEB INHALATION SCH ×4 (06:28→19:04)
[2019-08-20] MEDS: KETOROLAC 30 MG/ML 1 ML VIAL IVP SCH ×4 (06:33→23:10)
[2019-08-20] MEDS: NICOTINE POLACRILEX 2 MG GUM BUCCAL PRN ×5 (06:34→23:15)
[2019-08-20] MEDS: PANTOPRAZOLE 40 MG TABLET PO SCH (06:43)
[2019-08-20] MEDS: ENOXAPARIN 40 MG/0.4 ML SYRINGE SQ SCH (07:38)
[2019-08-20] MEDS: NICOTINE 21MG/24HR PATCH TRANSDERM SCH (07:38)
[2019-08-20] MEDS: ALPRAZolam 0.25 MG TAB PO PRN ×3 (07:38→23:10)
--- NOTE | 2019-08-20 07:47 | XR ---
EXAMINATION TYPE: XR chest 2V DATE OF EXAM: 08/19/2019 COMPARISON: Prior chest x-ray 08/18/2019 HISTORY: Chest tube TECHNIQUE: Frontal and lateral views of the chest are obtained. FINDINGS: The left-sided pneumothorax is reduced in size. Left-sided chest tube remains in place. No significant interval change. IMPRESSION: Improvement in left pneumothorax
--- NOTE | 2019-08-20 08:34 | XR ---
EXAMINATION TYPE: XR chest 2V DATE OF EXAM: 08/20/2019 COMPARISON: 08/19/2019 TECHNIQUE: PA and lateral views submitted. HISTORY: Post VATS FINDINGS: Left-sided chest tube seen with interval reduction in size of the pneumothorax now measuring 5% or le ss. Underlying COPD noted and there is left basilar consolidation small effusion. Subcutaneous emphys gregory persists. Right lung clear. No overt failure. IMPRESSION: 1. Interval reduction in size of the left pneumothorax measuring less than 5%.
[2019-08-20] MEDS: traMADol 50 MG TAB PO PRN ×2 (08:50→14:44)
--- NOTE | 2019-08-20 08:54 | P.PN ---
Subjective Progress Note Date: 08/20/19 Principal diagnosis: Spontaneous left pneumothorax, first episode, with persistent bronchopleural fistula, emphysematous disease of the lung, continued air leak. 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 POD #15 Thoravent placement by the emergency room physicians POD #8 Left thoracoscopy with reinforced wedge resection of the apex of the left upper lobe including ruptured bleb The patient is currently sitting up in bed in no acute distress on the cardiac step-down unit. She does complain of continued left-sided post surgical chest pain with coughing and deep inspiration, denies shortness of breath. Left pleural chest tube continues to waterseal, CXR demonstrates minimal apical PTX, no respiratory distress, oxygenating well, ambulating in hallway. There is tidaling in the water chamber and no airleak present. Objective - Vital Signs Vital signs: Vital Signs Temp 97 F L 08/20/19 07:43 Pulse 69 08/20/19 07:43 Resp 18 08/20/19 07:43 BP 109/71 08/20/19 07:43 Pulse Ox 97 08/20/19 07:43 Intake & Output 08/19/19 08/20/19 08/20/19 18:59 06:59 18:59 Intake Total 960 480 Output Total 0 0 0 Balance 960 0 480 Weight 49.9 kg 51.3 kg Intake: Oral 960 480 Output: Chest Tube Drainage 0 0 0 Chest Tube Left Lower 0 0 0 Anterior Chest Other: Voiding Method Toilet - Constitutional General appearance: Present: cooperative, no acute distress, thin - Respiratory Details: Lung sounds diminished bilaterally. Respirations even, non-labored. Currently on room air with oxygen saturation 97%. Able to achieve 1500 mL on her incentive spirometry. Strong cough. Left pleural chest tube present, continues to water seal, no air leak present, tidaling present. - Cardiovascular Details: S1/S2 present. Regular rate/rhythm, sinus rhythm on telemetry. Palpable pulses bilaterally. No edema present. No calf pain or tenderness noted. SCDs present although patient is not wearing as she has been ambulating. - Gastrointestinal Gastrointestinal Comment(s): Abdomen soft, non-tender, non-distended. Active bowel sounds x 4 quadrants. Tolerating diet. Positive bowel movement - Genitourinary Genitourinary Comment(s): Continues to void clear, yellow urine. - Integumentary Integumentary Comment(s): Skin warm, dry and intact. Chest tube with dressing CDI. - Neurologic Neurologic: Present: CNII-XII intact - Musculoskeletal Musculoskeletal: Present: gait normal, strength equal bilaterally - Psychiatric Psychiatric: Present: A&O x's 3, appropriate affect, intact judgment & insight - Allied health notes Allied health notes reviewed: nursing - Labs CBC & Chem 7: 08/16/19 05:43 08/16/19 05:43 - Imaging and Cardiology Chest x-ray: report reviewed, image reviewed Assessment and Plan Assessment: 1. Spontaneous left-sided pneumothorax, first episode, with persistent bronchopleural fistula, emphysematous disease of the lung, continued air leak, status post thora-vent placement, status post left thoracoscopy 2. COPD with bullous disease 3. Chronic on-going nicotine dependence 4. Manic-depressive bipolar disorder 5. Marijuana use Plan: 1. Will discontinue pleural chest tube. Repeat CXR in AM. If stable, may discharge to home from our standpoint when ok with primary and pulmonology. 2. Continue to encourage smoking cessation. Continue nicotine patch and lozenges 3. Encourage use of incentive spirometry 10x every hour while awake and controlled coughing. 4. Continue current pain control regimen. 4. Monitor daily chest x-rays. 5. GI and DVT prophylaxis. 6. Increase activity as tolerated, may ambulate in hallway. Patient should be up in the chair at the minimum for all meals. 7. More recommendations to follow based on patient's clinical course. Time with Patient: Greater than 30
--- NOTE | 2019-08-20 15:51 | P.PN ---
Subjective Progress Note Date: 08/20/19 Principal diagnosis: Left-sided spontaneous pneumothorax, severe COPD, extensive emphysematous bullous changes 08/20/2019, patient seen eval examined denies any chest pain or shortness of breath except during deep breathing and cough patient has been doing deep breathing exercises incentive spirometry, chest tubes have been removed x-rays pending for tomorrow, small residual pneumothorax is present 08/18/2019, Pt seen examined care plan discussed, on water seal air leak is s till present 08/17/2019, patient seen eval examined during the rounds labs reviewed medications reviewed care plan discussed with the patient and son present at bedside, the chest tube has been connected to water seal is still occasional air bubbles noted, respiratory status improved now she able to ambulate, has been doing I-S regularly 08/16/2019, patient seen and evaluated examined during the rounds labs reviewed medications reviewed care plan discussed with the patient at length, very minim al air leak present and pleural VAC chest pain is better patient is actively undergoing physical therapy [facility] chest x-ray showed resolution of left apical pneumothorax 08/14/2019, patient seen eval examined during the rounds she is postoperative day #2 chest pain is slightly improved but still have significant air leak from 2 Pleur-evac Meryl has been doing deep breathing exercise incentive spirometry reviewed medications reviewed , Chest x-ray atelectasis and left upper lobe stable chest tube 08/13/2019, patient seen eval examined during the rounds he she is postoperative day #1 of left thoracoscopy with wedge resection of left upper lobe ruptured bulla were resected, complaining of some pain morphine just have been given, chest x-ray cystoscopy postoperative changes of COPD with small rhythm left apical pneumothorax 08/11/2019, patient seen eval reexamined during the rounds labs reviewed medications reviewed, patient has a higher lung expanded well but however still have significant air leak, some shoulder pain is present, hemodynamically she is stable denies any cough or sputum production patient is being scheduled tentatively for the VATS with bleb resection and stapling for tomorrow 08/10/2019, patient seen eval examined during the rounds labs reviewed medications reviewed today's x-ray has been reviewed as well patient has intermittently air leak from the chest U however lungs are fully expanded now patient is tentatively being scheduled for VATS and stapling procedure for 08/09/2019, patient seen eval examined during the rounds labs reviewed medicati ons reviewed remains on suction intermittent. Li present chest x-ray performed today reviewed no significant pneumothorax is seen patient has some shoulder discomfort otherwise doing very well continued do deep breathing exercises and incentive spirometry, has been on breathing treatment twice a day as needed 08/08/2019, patient seen ahmet examined during the rounds patient has a computed tomography scan done which is reviewed extensive bullous changes in the apices has been noted bilaterally to the pneumothorax is mainly at the basal area with the small bore chest tube in the apical region, cardiothoracic surgery is planning to DC the suction 2 hour post chest x-ray shows significant enlarging pneumothorax after that This is a 41-year-old female patient, a chronic smoker, history of COPD, was been having symptoms of bronchitis with cough and congestion of 5 days' duration. Her breathing got worse and she presented emergency department and the patient was found to have a large left-sided pneumothorax. The chest x-ray showed a 50% pneumothorax on the left. The patient had a Thoravent inserted in the emergency department. There was incomplete expansion of the left lung. Patient's initial FiO2 is at 100% nonrebreather facemask now is tapered down to 2 L nasal cannula. No chest pain. Less short of breath. Denies any trauma. No falls. No previous history of pneumothoraces. The patient smokes cigarettes and she also smokes marijuana. This morning she was placed on water seal pneumothorax have progressed again and sharp she started feeling some symptoms of chest discomfort connected back to section noted that significant air leak was present however pain subsided post placing on suction Objective - Vital Signs Vital signs: Vital Signs Temp 98 F 08/20/19 12:00 Pulse 72 08/20/19 15:21 Resp 18 08/20/19 12:00 BP 108/63 08/20/19 12:00 Pulse Ox 95 08/20/19 12:00 Intake & Output 08/19/19 08/20/19 08/20/19 18:59 06:59 18:59 Intake Total 960 840 Output Total 0 0 0 Balance 960 0 840 Weight 49.9 kg 51.3 kg Intake: Oral 960 840 Output: Chest Tube Drainage 0 0 0 Chest Tube Left Lower 0 0 0 Anterior Chest Other: Voiding Method Toilet # Voids 1 - Exam - Constitutional General appearance: cooperative, disheveled, no acute distress, thin - EENT Eyes: anicteric sclerae, EOMI, PERRLA, poor dentition, normal appearance ENT: hearing grossly normal Ears: bilateral: normal - Neck Neck: normal ROM Carotids: bilateral: upstroke normal - Respiratory Respiratory: bilateral: CTA - Cardiovascular Rhythm: regular Heart sounds: normal: S1, S2 - Gastrointestinal General gastrointestinal: normal bowel sounds - Integumentary Integumentary: normal turgor - Neurologic Neurologic: CNII-XII intact - Musculoskeletal Musculoskeletal: gait normal, generalized weakness, strength equal bilaterally - Psychiatric Psychiatric: A&O x's 3, appropriate affect, intact judgment & insight - Labs CBC & Chem 7: 08/16/19 05:43 08/16/19 05:43 Assessment and Plan Assessment: Spontaneous pneumothorax of the left side, status post repair of bronchopleural fistula and vaginal resection of ruptured bleb thoracoscopic procedure, Likely severe COPD emphysema Extensive bullous lung disease bilaterally Left upper lobe atelectasis History of smoking and nicotine abuse and use of marijuana Plan: Pain management Continue deep breathing exercises incentive spirometry Supplemental oxygen We'll follow closely atelectasis so far no evidence of infection or pneumonia Time with Patient: Greater than 30
--- NOTE | 2019-08-20 22:06 | P.PN ---
Progress Note - Text Progress Note Date: 08/20/19 Chief Complaint: Short of breath Interval history: This is a pleasant 49-year-old patient of Dr. Scarlett Barahona. Long-standing smoker. Also smokes marijuana. Last 5 days has noticed herself to become more and more short of breath and wheezing. Decided to present to her PCP. She was given bronchodilators and sent to the ER. Accu-Cheks x-ray done. Checks x-ray - 50% left-sided pneumothorax. thoravac was placed. Patient did not respond to be water seal. Decision was made to have the patient go down for surgery.underwent wedge resection of the left upper lobe and stapling off the ruptured bleb.Chest tube drain in place. Today-chest tube was discontinued today. Dressing of the chest wall. Breathing stable. Starting a diet. Has been out of bed. . Review of systems: Was done for constitutional, cardiovascular, GI, pulmonary. relevant finding as above Active Medications Acetaminophen (Tylenol Tab) 1,000 mg PO Q6HR PRN PRN Reason: Fever and/ or Pain Last Admin: 08/19/19 04:20 Dose: 1,000 mg Documented by: Albuterol/Ipratropium (Duoneb 0.5 Mg-3 Mg/3 Ml Soln) 3 ml INHALATION RT-QID [facility] Last Admin: 08/20/19 19:04 Dose: 3 ml Documented by: Alprazolam (Xanax) 0.25 mg PO TID PRN PRN Reason: Anxiety Last Admin: 08/20/19 14:44 Dose: 0.25 mg Documented by: Enoxaparin Sodium (Lovenox) 40 mg SQ DAILY [facility] Last Admin: 08/20/19 07:38 Dose: 40 mg Documented by: Ketorolac Tromethamine (Toradol) 15 mg IVP Q6HR [facility] Stop: 08/23/19 12:01 Last Admin: 08/20/19 17:40 Dose: 15 mg Documented by: Morphine Sulfate (Morphine Sulfate (Inj)) 2 mg IVP Q4H PRN PRN Reason: Pain/Discomfort Last Admin: 08/15/19 19:49 Dose: 2 mg Documented by: Nicotine (Habitrol 21mg/24hr Patch) 1 patch TRANSDERM DAILY [facility] Last Admin: 08/20/19 07:38 Dose: 1 patch Documented by: Nicotine Polacrilex (Nicorette Gum) 2 mg BUCCAL Q4HR PRN PRN Reason: Nicotine Cravings Last Admin: 08/20/19 19:51 Dose: 2 mg Documented by: Ondansetron HCl (Zofran) 4 mg IVP Q6HR PRN PRN Reason: Nausea And Vomiting Last Admin: 08/18/19 05:21 Dose: 4 mg Documented by: Pantoprazole Sodium (Protonix) 40 mg PO [facility] Last Admin: 08/20/19 06:43 Dose: 40 mg Documented by: Tramadol HCl (Ultram) 50 mg PO QID PRN PRN Reason: Breakthrough Pain Last Admin: 08/20/19 14:44 Dose: 50 mg Documented by: Physical examination: VITAL SIGNS: 98.3, 84, 18, 11 7/65, 98% room air GENERAL: Sitting up in bed, comfortable EYES: Pupils equal. Conjunctiva normal. HEENT: External appearance of nose and ears normal, oral cavity grossly normal. NECK: JVD not raised; masses not palpable. HEART: First and second heart sounds are normal; no edema. LUNGS: Respiratory rate increased, decreased breath sounds, , dressing over the chest wall ABDOMEN: Soft, nontender, liver spleen not palpable, no masses palpable. PSYCH: Alert and oriented x3; mood and affect anxiousl. INVESTIGATIONS, reviewed in the clinical context: Hemoglobin 12.3 creatinine 0.61 Previous testing White count 6.7 hemoglobin 40.5 platelets 270 progression 3.8 crit 0.61 Chest x-ray film personally reviewed by me-hyperinflation left-sided pneumothorax EKG tracing-personally reviewed by me shows normal sinus rhythm Assessment: -Acute left-sided pneumothorax, with Thora VAC, followed by on 08/12/2019- partial left upper lobe wedge resection with bleb stapling, -COPD in a current smoker -Chronic nicotine dependence patient's active cigarette smoker -Recreational marijuana use -Moderate protein calorie malnutrition. Patient is decreased muscle mass loss of subcutaneous fat. -Situational anxiety - Plan: chest tube discontinued today. Repeat checks x-ray in the morning. If stable can be discharged. Discussed the patient and .
[2019-08-21] MEDS: KETOROLAC 30 MG/ML 1 ML VIAL IVP SCH (06:16)
[2019-08-21] MEDS: PANTOPRAZOLE 40 MG TABLET PO SCH (06:17)
[2019-08-21] MEDS: NICOTINE POLACRILEX 2 MG GUM BUCCAL PRN ×2 (06:17→11:28)
[2019-08-21] MEDS: IPRATROPIUM-ALBUTEROL 3 ML NEB INHALATION SCH ×2 (07:25→10:56)
[2019-08-21] MEDS: ALPRAZolam 0.25 MG TAB PO PRN (07:35)
[2019-08-21] MEDS: traMADol 50 MG TAB PO PRN (07:35)
[2019-08-21] MEDS: ENOXAPARIN 40 MG/0.4 ML SYRINGE SQ SCH (07:36)
[2019-08-21] MEDS: NICOTINE 21MG/24HR PATCH TRANSDERM SCH (07:36)
[2019-08-21 07:41] VITALS: RESP 18; TEMP 97.5
--- NOTE | 2019-08-21 08:04 | P.PN ---
Subjective Progress Note Date: 08/21/19 Principal diagnosis: Spontaneous left pneumothorax, first episode, with persistent bronchopleural fistula, emphysematous disease of the lung, continued air leak. 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 POD #16 Thoravent placement by the emergency room physicians POD #9 Left thoracoscopy with reinforced wedge resection of the apex of the left upper lobe including ruptured bleb The patient is currently sitting up in bed in no acute distress on the cardiac step-down unit. Left pleural chest tube discontinued yesterday without incident. Patient states her left-sided chest post surgical pain has significantly improved since discontinuation of the chest tube. She has been up ambulating in the hallway without incident, did sleep well last night. Repeat chest x-ray this morning does show increase in pneumothorax. No respiratory distress present, oxygenating well, improved use of incentive spirometry. Objective - Vital Signs Vital signs: Vital Signs Temp 97.5 F L 08/21/19 07:40 Pulse 74 08/21/19 07:40 Resp 18 08/21/19 07:40 BP 122/81 08/21/19 07:40 Pulse Ox 97 08/21/19 07:40 Intake & Output 08/20/19 08/21/19 08/21/19 18:59 06:59 18:59 Intake Total 960 Output Total 0 Balance 960 Weight 51.2 kg Intake: Oral 960 Output: Chest Tube Drainage 0 Chest Tube Left Lower 0 Anterior Chest Other: Voiding Method Toilet # Voids 1 1 - Constitutional General appearance: Present: cooperative, no acute distress, thin - Respiratory Details: Lung sounds diminished bilaterally. Respirations even, non-labored. Currently on room air with oxygen saturation 97%. Able to achieve just over 1500 mL on her incentive spirometry. Strong cough. - Cardiovascular Details: S1/S2 present. Regular rate/rhythm, sinus rhythm on telemetry. Palpable pulses bilaterally. No edema present. No calf pain or tenderness noted. SCDs present although patient is not wearing as she has been ambulating. - Gastrointestinal Gastrointestinal Comment(s): Abdomen soft, non-tender, non-distended. Active bowel sounds x 4 quadrants. Tolerating diet. Positive bowel movement - Genitourinary Genitourinary Comment(s): Continues to void clear, yellow urine. - Integumentary Integumentary Comment(s): Skin warm, dry and intact. Chest tube with dressing CDI. - Neurologic Neurologic: Present: CNII-XII intact - Musculoskeletal Musculoskeletal: Present: gait normal, strength equal bilaterally - Psychiatric Psychiatric: Present: A&O x's 3, appropriate affect, intact judgment & insight - Allied health notes Allied health notes reviewed: nursing - Labs CBC & Chem 7: 08/16/19 05:43 08/16/19 05:43 - Imaging and Cardiology Chest x-ray: image reviewed Assessment and Plan Assessment: 1. Spontaneous left-sided pneumothorax, first episode, with persistent bronchopleural fistula, emphysematous disease of the lung, continued air leak, status post thora-vent placement, status post left thoracoscopy 2. COPD with bullous disease 3. Chronic on-going nicotine dependence 4. Manic-depressive bipolar disorder 5. Marijuana use Plan: 1. Chest x-ray reviewed this morning, increase in pneumothorax, patient is stable. May be discharged to home from our standpoint, patient is to see Dr. Kidd next week with CXR before appointment 2. Continue to encourage smoking cessation. Continue nicotine patch and lozenges 3. Encourage use of incentive spirometry 10x every hour while awake and controlled coughing. 4. Continue current pain control regimen. 4. Monitor daily chest x-rays. 5. GI and DVT prophylaxis. 6. Increase activity as tolerated, may ambulate in hallway. Patient should be up in the chair at the minimum for all meals. 7. More recommendations to follow based on patient's clinical course. Time with Patient: Greater than 30
--- NOTE | 2019-08-21 09:31 | XR ---
EXAMINATION TYPE: XR chest 2V DATE OF EXAM: 08/21/2019 COMPARISON: Prior chest x-ray 08/20/2019 HISTORY: Status post chest tube removal TECHNIQUE: Frontal and lateral views of the chest are obtained. FINDINGS: There is been interval removal of the left-sided chest tube. Left-sided apical pneumothora x has increased in size in the interval. Prominent lung lines suggest underlying COPD. Interstitium i s increased at the lung bases. No evident pleural effusion. Heart size is small. Aorta is dense. IMPRESSION: Interval chest tube removal with interval increase in left apical pneumothorax.
[2019-08-21] MEDS: ACETAMINOPHEN TAB 500 MG TAB PO PRN (11:28)
[2019-08-21 11:31] VITALS: BP 117/78; PULSE 64
--- NOTE | 2019-08-21 11:49 | P.PN ---
Subjective Progress Note Date: 08/21/19 Principal diagnosis: Left-sided spontaneous pneumothorax, severe COPD, extensive emphysematous bullous changes 08/21/2019, patient seen eval examined during the rounds labs reviewed medications reviewed x-ray reviewed as well patient just U has been removed she is not complaining of any chest pain no cough congestion is present patient is ambulating hallway at room air saturation is stable would recommend follow-up in 1-2 weeks as outpatient 08/20/2019, patient seen eval examined denies any chest pain or shortness of breath except during deep breathing and cough patient has been doing deep breathing exercises incentive spirometry, chest tubes have been removed x-rays pending for tomorrow, small residual pneumothorax is present 08/18/2019, Pt seen examined care plan discussed, on water seal air leak is still present 08/17/2019, patient seen eval examined during the rounds labs reviewed medications reviewed care plan discussed with the patient and son present at bed side, the chest tube has been connected to water seal is still occasional air bubbles noted, respiratory status improved now she able to ambulate, has been doing I-S regularly 08/16/2019, patient seen and evaluated examined during the rounds labs reviewed medications reviewed care plan discussed with the patient at length, very minimal air leak present and pleural VAC chest pain is better patient is actively undergoing physical therapy [facility] chest x-ray showed resolution of left apical pneumothorax 08/14/2019, patient seen eval examined during the rounds she is postoperative day #2 chest pain is slightly improved but still have significant air leak from 2 Pleur-evac Meryl has been doing deep breathing exercise incentive spirometry reviewed medications reviewed , Chest x-ray atelectasis and left upper lobe stable chest tube 08/13/2019, patient seen eval examined during the rounds he she is postoperative day #1 of left thoracoscopy with wedge resection of left upper lobe ruptured bu lla were resected, complaining of some pain morphine just have been given, chest x-ray cystoscopy postoperative changes of COPD with small rhythm left apical pneumothorax 08/11/2019, patient seen eval reexamined during the rounds labs reviewed medications reviewed, patient has a higher lung expanded well but however still have significant air leak, some shoulder pain is present, hemodynamically she is stable denies any cough or sputum production patient is being scheduled tentatively for the VATS with bleb resection and stapling for tomorrow 08/10/2019, patient seen ahmet examined during the rounds labs reviewed medications reviewed today's x-ray has been reviewed as well patient has interm ittently air leak from the chest U however lungs are fully expanded now patient is tentatively being scheduled for VATS and stapling procedure for 08/09/2019, patient seen ahmet examined during the rounds labs reviewed medications reviewed remains on suction intermittent. Li present chest x-ray performed today reviewed no significant pneumothorax is seen patient has some shoulder discomfort otherwise doing very well continued do deep breathing exercises and incentive spirometry, has been on breathing treatment twice a day as needed 08/08/2019, patient seen ahmet examined during the rounds patient has a computed tomography scan done which is reviewed extensive bullous changes in the apices has been noted bilaterally to the pneumothorax is mainly at the basal area with the small bore chest tube in the apical region, cardiothoracic surgery is planning to DC the suction 2 hour post chest x-ray shows significant enlarging pneumothorax after that This is a 41-year-old female patient, a chronic smoker, history of COPD, was been having symptoms of bronchitis with cough and congestion of 5 days' duration. Her breathing got worse and she presented emergency department and the patient was found to have a large left-sided pneumothorax. The chest x-ray showed a 50% pneumothorax on the left. The patient had a Thoravent inserted in the emergency department. There was incomplete expansion of the left lung. Patient's initial FiO2 is at 100% nonrebreather facemask now is tapered down to 2 L nasal cannula. No chest pain. Less short of breath. Denies any trauma. No falls. No previous history of pneumothoraces. The patient smokes cigarettes and she also smokes marijuana. This morning she was placed on water seal pneumothorax have progressed again and sharp she started feeling some symptoms of chest discomfort connected back to section noted that significant air leak was present however pain subsided post placing on suction Objective - Vital Signs Vital signs: Vital Signs Temp 97.5 F L 08/21/19 07:40 Pulse 64 08/21/19 11:30 Resp 18 08/21/19 11:30 BP 117/78 08/21/19 11:30 Pulse Ox 99 08/21/19 11:30 Intake & Output 08/20/19 08/21/19 08/21/19 18:59 06:59 18:59 Intake Total 960 Output Total 0 Balance 960 Weight 51.2 kg Intake: Oral 960 Output: Chest Tube Drainage 0 Chest Tube Left Lower 0 Anterior Chest Other: Voiding Method Toilet # Voids 1 1 1 - Exam - Constitutional General appearance: cooperative, disheveled, no acute distress, thin - EENT Eyes: anicteric sclerae, EOMI, PERRLA, poor dentition, normal appearance ENT: hearing grossly normal Ears: bilateral: normal - Neck Neck: normal ROM Carotids: bilateral: upstroke normal - Respiratory Respiratory: bilateral: CTA - Cardiovascular Rhythm: regular Heart sounds: normal: S1, S2 - Gastrointestinal General gastrointestinal: normal bowel sounds - Integumentary Integumentary: normal turgor - Neurologic Neurologic: CNII-XII intact - Musculoskeletal Musculoskeletal: gait normal, generalized weakness, strength equal bilaterally - Psychiatric Psychiatric: A&O x's 3, appropriate affect, intact judgment & insight - Labs CBC & Chem 7: 08/16/19 05:43 08/16/19 05:43 Assessment and Plan Assessment: Spontaneous pneumothorax of the left side, status post repair of bronchopleural fistula and vaginal resection of ruptured bleb thoracoscopic procedure, Likely severe COPD emphysema Extensive bullous lung disease bilaterally Left upper lobe atelectasis History of smoking and nicotine abuse and use of marijuana Plan: Pain management Continue deep breathing exercises incentive spirometry Supplemental oxygen We'll follow closely atelectasis so far no evidence of infection or pneumonia Time with Patient: Greater than 30
--- NOTE | 2019-08-21 20:29 | P.DS ---
Providers Date of admission: 08/05/19 14:13 Expected date of discharge: 08/21/19 Attending physician: Broderick Snow Consults: 08/06/19 16:34 Consult Physician Routine Consulting Provider: You Ramirez Consult Reason/Comments: spontaneous pneumothorax Do you want consulting provider notified?: Yes 08/06/19 17:48 Consult Physician Routine Consulting Provider: Terrance Issa Consult Reason/Comments: spontaneous pnuemothorax with thoravent Do you want consulting provider notified?: Yes, Notify in am Primary care physician: Celio Barahona [place] [facility] Course: Chief Complaint: Short of breath Hospital course: This is a pleasant 49-year-old patient of Dr. Scarlett Barahona. Long-standing smoker. Also smokes marijuana. Last 5 days has noticed herself to become more and more short of breath and wheezing. Decided to present to her PCP. She was given bronchodilators and sent to the ER. Accu-Cheks x-ray done. Checks x-ray - 50% left-sided pneumothorax. thoravac was placed. Patient did not respond to be water seal. Decision was made to have the patient go down for surgery.underwent wedge resection of the left upper lobe and stapling off the ruptured bleb.Chest tube drain in place. patient had a bronchopleural fistula. That took a while to respond. Today-patient doing well. Up and about. Chest tube was discontinued yesterday. Breathing stable. Care discussed with the patient.patient is not to return to work until follow-up with Dr. Ramirez from pulmonary and cleared byr him to return to work. .consultation: Dr. Sofia Ramirez from pulmonary Cardiothoracic surgery Physical examination: VITAL SIGNS: 97.5, 74, 18, 122/81, 97% on room air GENERAL: Sitting up in bed, comfortable EYES: Pupils equal. Conjunctiva normal. HEENT: External appearance of nose and ears normal, oral cavity grossly normal. NECK: JVD not raised; masses not palpable. HEART: First and second heart sounds are normal; no edema. LUNGS: Respiratory rate normal,, decreased breath sounds, , dressing over the chest wall ABDOMEN: Soft, nontender, liver spleen not palpable, no masses palpable. PSYCH: Alert and oriented x3; mood and affect anxiousl. INVESTIGATIONS, reviewed in the clinical context: Hemoglobin 12.3 creatinine 0.61 Previous testing White count 6.7 hemoglobin 40.5 platelets 270 progression 3.8 crit 0.61 Chest x-ray film personally reviewed by me-hyperinflation left-sided pneumothorax EKG tracing-personally reviewed by me shows normal sinus rhythm Assessment: -Acute left-sided pneumothorax, with Thora VAC, followed by on 08/12/2019-pa rtial left upper lobe wedge resection with bleb stapling, -COPD in a current smoker -Chronic nicotine dependence patient's active cigarette smoker -Recreational marijuana use -Moderate protein calorie malnutrition. -Situational anxiety - disposition: Home Patient Condition at Discharge: Stable Plan - Discharge Summary Discharge Rx Participant: Yes New Discharge Prescriptions: New Ipratropium-Albuterol Nebulize [Duoneb 0.5 mg-3 mg/3 ml Soln] 3 ml INHALATION TID #90 ampul.neb Nicotine 21Mg/24Hr Patch [Habitrol] 1 patch TRANSDERM DAILY #14 patch Nicotine Polacrilex [Nicorette] 2 mg BUCCAL Q4HR PRN #30 gum PRN Reason: Nicotine Cravings Famotidine [Pepcid] 20 mg PO BID #60 tablet Acetaminophen Tab [Tylenol] 500 mg PO Q6HR PRN tab PRN Reason: Fever And/ Or Pain Continue Ibuprofen [Motrin Ib] 400 mg PO Q6H PRN PRN Reason: Pain Discontinued Loratadine [Claritin] 10 mg PO DAILY Discharge Medication List Ibuprofen [Motrin Ib] 400 mg PO Q6H PRN 08/05/19 [History] Acetaminophen Tab [Tylenol] 500 mg PO Q6HR PRN tab 08/21/19 [Rx] Famotidine [Pepcid] 20 mg PO BID #60 tablet 08/21/19 [Rx] Ipratropium-Albuterol Nebulize [Duoneb 0.5 mg-3 mg/3 ml Soln] 3 ml INHALATION TID #90 ampul.neb 08/21/19 [Rx] Nicotine 21Mg/24Hr Patch [Habitrol] 1 patch TRANSDERM DAILY #14 patch 08/21/19 [Rx] Nicotine Polacrilex [Nicorette] 2 mg BUCCAL Q4HR PRN #30 gum 08/21/19 [Rx] Follow up Appointment(s)/Referral(s): [facility] [NON-STAFF] - 1 Week (nebulizer. If any questions plese call agency. ) Kee Kidd MD [STAFF PHYSICIAN] - 08/26/19 (Office will call with time. Please have chest x-ray completed at the hospital prior to appointment.) Celio Barahona DO [Primary Care Provider] - 08/28/19 2:30 pm (With [facility]IENT [facility]ER DEVELOPER. Dr. Barahona has no follow up availability until after [place].) You Ramirez MD [STAFF PHYSICIAN] - 09/14/19 10:30 am Ambulatory/Diagnostic Orders: XR chest 2V [RAD.AMB] Time Frame: 08/26/19, Facility: [facility], Location: [facility] Patient Instructions/Handouts: Spontaneous Pneumothorax (DC), How to Stop Smoking (DC) Activity/Diet/Wound Care/Special Instructions: DISCHARGE INSTRUCTIONS: 1. No driving for 2 weeks, or until physician gives their ok. 2. No lifting, pushing, or pulling more than 10 pounds for 2 weeks. The y sician will advise of any restriction changes. 3. Continue pain control per as needed orders. Alternate acetaminophen (Tylenol) and ibuprofen (Motrin/Advil) for pain. 4. Continue with incentive spirometry and splinting until otherwise directed by the physician. 5. Leave chest tube dressing for 48 hours. After that, remove all dressings and shower daily. 6. Routine incision care. No powders, lotions, ointments on incisions. No dressings needed if no drainage. 7. Please call surgeon/CLIENT SERVER DEVELOPER for temp greater than 101 F or purulent drainage from incisions. not to return to work until okayed by dr sofia ramirez/pulmonary Discharge/Stand Alone Forms: Work/School Release / Restrict Discharge Disposition: HOME SELF-CARE
== END 2019-08-21 13:35 | disposition home or self-care (01) | DRG 164 ==
LOC: EC 12:32 → 3SCARD 14:13
PROVIDERS: ADMIT Hospitalist; ATTEND Hospitalist
PROC: 0W9B30Z Drainage of Left Pleural Cavity with Drainage Device, Percutaneous Approach (ICD-10-PCS; 2019-08-05)
PROC: 0B5P4ZZ Destruction of Left Pleura, Percutaneous Endoscopic Approach (ICD-10-PCS; 2019-08-12)
PROC: 0BBG4ZX Excision of Left Upper Lung Lobe, Percutaneous Endoscopic Approach, Diagnostic (ICD-10-PCS; 2019-08-12)
PROC: 0W9B30Z Drainage of Left Pleural Cavity with Drainage Device, Percutaneous Approach (ICD-10-PCS; principal; 2019-08-12 13:00)
DX: J86.0 Pyothorax with fistula (principal); E44.0 Moderate protein-calorie malnutrition; F31.30 Bipolar disorder, current episode depressed, mild or moderate severity, unspecified; J98.11 Atelectasis; J93.82 Other air leak; F17.210 Nicotine dependence, cigarettes, uncomplicated; F41.9 Anxiety disorder, unspecified; J20.9 Acute bronchitis, unspecified; J43.8 Other emphysema; Z80.1 Family history of malignant neoplasm of trachea, bronchus and lung; Z83.3 Family history of diabetes mellitus; D72.829 Elevated white blood cell count, unspecified; Z88.1 Allergy status to other antibiotic agents; Z88.5 Allergy status to narcotic agent; Z88.0 Allergy status to penicillin; Z90.49 Acquired absence of other specified parts of digestive tract
CPT/HCPCS: 32551; 36415; 71045; 71046; 71250; 80048; 80053; 81001; 81025; 85025; 85610; 86850; 86900; 86901; 88307; 94640; 94760; 96374; 96375; 99291

== ENCOUNTER → 2019-08-26 | Outpatient (CLI) | payer OTHER ==
--- NOTE | 2019-08-26 14:22 | XR ---
EXAMINATION TYPE: XR chest 2V DATE OF EXAM: 08/26/2019 COMPARISON: Prior chest x-ray 08/21/2019 HISTORY: Pneumothorax TECHNIQUE: Frontal and lateral views of the chest are obtained. FINDINGS: The left-sided apical pneumothorax has resolved. Lung sutures are present at the upper lef t hemithorax. No pleural effusion. Heart is stable. Aorta is dense. IMPRESSION: Resolution of patient's left-sided pneumothorax.
== END | disposition home or self-care (01) ==
LOC: RADXRMAIN 12:06
PROVIDERS: ATTEND Nurse Practitioner Acute Care
DX: J93.9 Pneumothorax, unspecified (principal)
CPT/HCPCS: 71046

== ENCOUNTER 2019-10-02 08:34 | Inpatient (IN) | payer OTHER ==
[2019-10-02] MEDS ORDERED: ONDANSETRON 4 MG/2 ML VIAL IVP STA (08:58)
[2019-10-02] MEDS ORDERED: SODIUM CHLORIDE 0.9% 1,000 ML IV STA ×2 (08:58)
[2019-10-02] MEDS ORDERED: KETOROLAC 30 MG/ML 1 ML VIAL IVP STA (08:59)
--- NOTE | 2019-10-02 09:00 | ED ---
General Adult HPI - General Chief complaint: Nausea/Vomiting/Diarrhea Stated complaint: vomiting Time Seen by Provider: 10/02/19 08:47 Source: patient, RN notes reviewed, old records reviewed Mode of arrival: ambulatory Limitations: no limitations - History of Present Illness Initial comments: 41-year-old female presents emergency room today with nausea vomiting, diarrhea for the past 2 days. Concerned that she has influenza. Patient states that she was around young child who was recently diagnosed with influenza. Patient states that she's had chills and fevers well. Her main complaint is nausea. She denies any specific abdominal pain. She does report that she has some left- sided lung pain where she had a chest tube for placed approximately 2 months ago. Patient states that she's been healing relatively well up until the past few weeks. She states that pain is worse with her vomitng. . - Related Data Home Medications Medication Instructions Recorded Confirmed Ibuprofen [Motrin Ib] 400 mg PO Q6H PRN 08/05/19 10/02/19 ALPRAZolam [Xanax] 0.25 mg PO BID PRN 10/02/19 10/02/19 Albuterol Sulfate [Ventolin HFA] 1 - 2 puff INHALATION RT-Q6H PRN 10/02/19 10/02/19 Ipratropium-Albuterol Nebulize 3 ml INHALATION RT-TID 10/02/19 10/02/19 [Duoneb 0.5 mg-3 mg/3 ml Soln] Melatonin 10 mg PO HS 10/02/19 10/02/19 Tiotropium Br/Olodaterol HCl 1 puff INHALATION RT-BID 10/02/19 10/02/19 [Stiolto Respimat Inhal [place]] Umeclidinium Brm/Vilanterol Tr 1 puff INHALATION RT-BID 10/02/19 10/02/19 [Anoro Ellipta 62.5-25 Mcg INH] busPIRone HCl [Buspar] 10 mg PO BID 10/02/19 10/02/19 Previous Rx's Medication Instructions Recorded Acetaminophen Tab [Tylenol] 500 mg PO Q6HR PRN tab 08/21/19 Famotidine [Pepcid] 20 mg PO BID #60 tablet 08/21/19 Nicotine 21Mg/24Hr Patch [Habitrol] 1 patch TRANSDERM DAILY #14 patch 08/21/19 Nicotine Polacrilex [Nicorette] 2 mg BUCCAL Q4HR PRN #30 gum 08/21/19 Allergies Allergy/AdvReac Type Severity Reaction Status Date / Time Penicillins Allergy Rash/Hives Verified 10/02/19 12:13 erythromycin base AdvReac Vomiting Verified 10/02/19 12:13 hydromorphone [From Dilaudid] AdvReac Vomiting Verified 10/02/19 12:13 Review of Systems ROS Statement: Those systems with pertinent positive or pertinent negative responses have been documented in the HPI. ROS Other: All systems not noted in ROS Statement are negative. Past Medical History Past Medical History: COPD History of Any Multi-Drug Resistant Organisms: None Reported Past Surgical History: Cholecystectomy Additional Past Surgical History / Comment(s): Laparoscopy, history of neck fracture. Past Anesthesia/Blood Transfusion Reactions: No Reported Reaction Past Psychological History: Anxiety, Bipolar, Depression Smoking Status: Former smoker Past Alcohol Use History: None Reported, Rare Past Drug Use History: Marijuana - Past Family History Mother Family Medical History: Cancer Additional Family Medical History / Comment(s): Mother and father from Lung Cancer; Brother is Diabetic and ETOH General Exam - General Exam Comments Initial Comments: 49-year-old female. Alert and oriented 3. Limitations: no limitations General appearance: alert, in no apparent distress Head exam: Present: atraumatic, normocephalic, normal inspection Eye exam: Present: normal appearance, PERRL, EOMI. Absent: scleral icterus, conjunctival injection, periorbital swelling ENT exam: Present: normal exam, mucous membranes moist Neck exam: Present: normal inspection. Absent: tenderness, meningismus, lymphadenopathy Respiratory exam: Absent: normal lung sounds bilaterally (diminished left lung sounds), respiratory distress, wheezes, rales, rhonchi, stridor Cardiovascular Exam: Present: regular rate, normal rhythm, normal heart sounds. Absent: systolic murmur, diastolic murmur, rubs, gallop, clicks GI/Abdominal exam: Present: soft, normal bowel sounds. Absent: distended, tenderness, guarding, rebound, rigid Extremities exam: Present: normal inspection, full ROM, normal capillary refill. Absent: tenderness, pedal edema, joint swelling, calf tenderness Back exam: Present: normal inspection Neurological exam: Present: alert, oriented X3, CN II-XII intact Psychiatric exam: Present: normal affect, normal mood Course Vital Signs 10/02/19 10/02/19 10/02/19 08:41 10:31 12:07 Temperature 98.1 F Pulse Rate 101 H 56 L 51 L Respiratory 18 18 18 Rate Blood Pressure 116/76 118/78 123/70 O2 Sat by Pulse 99 94 L 99 Oximetry Medical Decision Making - Medical Decision Making 41-year-old female presents nausea vomiting, episodes of diarrhea for the past 2 days. She also claims some left lung pain. History of pneumothorax. She reports she was just recently cleared. Today her chest x-ray continues to show a large pneumothorax. Patient has no significant abdominal tenderness. She was informed of the recurring pneumothorax. She is quite anxious and concerned. Patient initially refused thoravent as this did not work well for her in the past. Currently awaiting call from Dr. Ramirez, patient corporate wellness coordinator. After discussing the case with Dr. Ramirez, whom is well aware of the Patient. He recommends to avoid doing that thoravent, and consult patient's cardiothoracic surgeon Dr. Kidd. Dr. Kidd had performed LVATS procedure on the Patient. She is clinically stable, no need for emergent chest tube or thoravent at this time and Patient will just remain on oxygen. Patient case discussed with Dr. Thomas. - Lab Data Result diagrams: 10/02/19 09:07 10/02/19 09:07 Lab Results 10/02/19 10/02/19 10/02/19 Range/Units 09:07 09:07 09:07 WBC 9.7 (3.8-10.6) k/uL RBC 4.25 (3.80-5.40) m/uL Hgb 14.0 (11.4-16.0) gm/dL Hct 42.2 (34.0-46.0) % MCV 99.3 (80.0-100.0) fL MCH 33.0 (25.0-35.0) pg MCHC 33.3 (31.0-37.0) g/dL RDW 14.7 (11.5-15.5) % Plt Count 322 (150-450) k/uL Neutrophils % 78 % Lymphocytes % 14 % Monocytes % 5 % Eosinophils % 0 % Basophils % 0 % Neutrophils # 7.6 (1.3-7.7) k/uL Lymphocytes # 1.4 (1.0-4.8) k/uL Monocytes # 0.5 (0-1.0) k/uL Eosinophils # 0.0 (0-0.7) k/uL Basophils # 0.0 (0-0.2) k/uL Macrocytosis Slight Sodium 138 (137-145) mmol/L Potassium 3.6 (3.5-5.1) mmol/L Chloride 99 (98-107) mmol/L Carbon Dioxide 28 (22-30) mmol/L Anion Gap 11 mmol/L BUN 28 H (7-17) mg/dL Creatinine 0.53 (0.52-1.04) mg/dL Est GFR (CKD-EPI)AfAm >90 (>60 ml/min/1.73 sqM) Est GFR (CKD-EPI)NonAf >90 (>60 ml/min/1.73 sqM) Glucose 103 H (74-99) mg/dL Calcium 9.8 (8.4-10.2) mg/dL Total Bilirubin 1.1 (0.2-1.3) mg/dL AST 30 (14-36) U/L ALT 26 (4-34) U/L Alkaline Phosphatase 67 (38-126) U/L Total Protein 8.0 (6.3-8.2) g/dL Albumin 5.0 (3.5-5.0) g/dL Amylase 53 (30-110) U/L Lipase 57 (23-300) U/L Urine Color Urine Appearance (Clear) Urine pH (5.0-8.0) Ur Specific [place] (1.001-1.035) Urine Protein (Negative) Urine Glucose (UA) (Negative) Urine Ketones (Negative) Urine Blood (Negative) Urine Nitrite (Negative) Urine Bilirubin (Negative) Urine Urobilinogen (<2.0) mg/dL Ur Leukocyte Esterase (Negative) Urine RBC (0-5) /hpf Urine WBC (0-5) /hpf Ur Squamous Epith Cells (0-4) /hpf Amorphous Sediment (None) /hpf Urine Mucus (None) /hpf Influenza Type A RNA Not Detected (Not Detectd) Influenza Type B (PCR) Not Detected (Not Detectd) 10/02/19 Range/Units 10:13 WBC (3.8-10.6) k/uL RBC (3.80-5.40) m/uL Hgb (11.4-16.0) gm/dL Hct (34.0-46.0) % MCV (80.0-100.0) fL MCH (25.0-35.0) pg MCHC (31.0-37.0) g/dL RDW (11.5-15.5) % Plt Count (150-450) k/uL Neutrophils % % Lymphocytes % % Monocytes % % Eosinophils % % Basophils % % Neutrophils # (1.3-7.7) k/uL Lymphocytes # (1.0-4.8) k/uL Monocytes # (0-1.0) k/uL Eosinophils # (0-0.7) k/uL Basophils # (0-0.2) k/uL Macrocytosis Sodium (137-145) mmol/L Potassium (3.5-5.1) mmol/L Chloride (98-107) mmol/L Carbon Dioxide (22-30) mmol/L Anion Gap mmol/L BUN (7-17) mg/dL Creatinine (0.52-1.04) mg/dL Est GFR (CKD-EPI)AfAm (>60 ml/min/1.73 sqM) Est GFR (CKD-EPI)NonAf (>60 ml/min/1.73 sqM) Glucose (74-99) mg/dL Calcium (8.4-10.2) mg/dL Total Bilirubin (0.2-1.3) mg/dL AST (14-36) U/L ALT (4-34) U/L Alkaline Phosphatase (38-126) U/L Total Protein (6.3-8.2) g/dL Albumin (3.5-5.0) g/dL Amylase (30-110) U/L Lipase (23-300) U/L Urine Color Yellow Urine Appearance Cloudy H (Clear) Urine pH 6.0 (5.0-8.0) Ur Specific [place] 1.031 (1.001-1.035) Urine Protein 2+ H (Negative) Urine Glucose (UA) Negative (Negative) Urine Ketones 2+ H (Negative) Urine Blood Moderate H (Negative) Urine Nitrite Negative (Negative) Urine Bilirubin Negative (Negative) Urine Urobilinogen 3.0 (<2.0) mg/dL Ur Leukocyte Esterase Negative (Negative) Urine RBC 2 (0-5) /hpf Urine WBC 4 (0-5) /hpf Ur Squamous Epith Cells 4 (0-4) /hpf Amorphous Sediment Occasional H (None) /hpf Urine Mucus Occasional H (None) /hpf Influenza Type A RNA (Not Detectd) Influenza Type B (PCR) (Not Detectd) - Radiology Data Radiology results: report reviewed Chest x-ray shows large left pneumothorax. KUB continues to have a large left pneumothorax. Nonspecific abdomen. Disposition Clinical Impression: Pneumothorax on left, Nausea & vomiting Disposition: ADMITTED IP TO THIS HOSP Condition: Stable Is patient prescribed a controlled substance at d/c from ED?: No Referrals: Celio Barahona DO [Primary Care Provider] - 1-2 days Time of Disposition: 12:28
[2019-10-02 09:36] LABS: Basophils % (A) 0 %; Eosinophils % (A) 0 %; HCT 42.2 % (34.0-46.0); Lymphocytes # (A) 1.4 k/uL (1.0-4.8); Lymphocytes % (A) 14 %; MCHC 33.3 g/dL (31.0-37.0); MCV 99.3 fL (80.0-100.0); Macrocytosis Slight; Mean Platelet Volume 7.2; Monocytes # (A) 0.5 k/uL (0-1.0); Monocytes % (A) 5 %; Neutrophils # (A) 7.6 k/uL (1.3-7.7); Neutrophils % (A) 78 %; Platelet Count 322 k/uL (150-450); RBC 4.25 m/uL (3.80-5.40); RDW 14.7 % (11.5-15.5); WBC 9.7 k/uL (3.8-10.6)
[2019-10-02 09:53] LABS: ALT 26 U/L (4-34); AST 30 U/L (14-36); African American GFR (CKD) >90 (>60 ml/min/1.73 sqM); Alkaline Phosphatase 67 U/L (38-126); Amylase 53 U/L (30-110); Anion Gap 11 mmol/L; Blood Urea Nitrogen 28 mg/dL (7-17); Calcium 9.8 mg/dL (8.4-10.2); Carbon Dioxide 28 mmol/L (22-30); Chloride 99 mmol/L (98-107); Glucose 103 mg/dL (74-99); Non-African American GFR(CKD) >90 (>60 ml/min/1.73 sqM); Potassium 3.6 mmol/L (3.5-5.1); Sodium 138 mmol/L (137-145); Total Bilirubin 1.1 mg/dL (0.2-1.3)
--- NOTE | 2019-10-02 10:46 | XR ---
EXAMINATION TYPE: XR KUB DATE OF EXAM: 10/02/2019 COMPARISON: NONE HISTORY: Nausea TECHNIQUE: One view abdominal series FINDINGS: There is a large left-sided pneumothorax. Bowel gas pattern nonspecific. Surgical clips are seen in t he right abdomen. Osseous structures grossly intact. IMPRESSION: 1. Large left pneumothorax 2. Nonspecific abdomen
--- NOTE | 2019-10-02 10:49 | XR ---
EXAMINATION TYPE: XR chest 2V DATE OF EXAM: 10/02/2019 COMPARISON: NONE TECHNIQUE: PA and lateral views submitted. HISTORY: Pain FINDINGS: Large left pneumothorax. Right lung clear. No mediastinal deviation. Heart size normal. Emphysematous changes involving the lung apices suggest IMPRESSION: 1. Large left pneumothorax. Report called called to the ER clinician.
[2019-10-02 10:58] LABS: Amorphous Sediment,Urine Occasional /hpf; Appearance,Urine Cloudy (Clear); Bilirubin,Urine Negative (Negative); Blood,Urine Moderate (Negative); Color,Urine Yellow; Glucose,Urine (UA) Negative (Negative); Ketones,Urine 2+ (Negative); Leukocyte Esterase,Urine Negative (Negative); Mucus,Urine Occasional /hpf; Nitrite,Urine Negative (Negative); Protein,Urine 2+ (Negative); RBC,Urine 2 /hpf (0-5); Specific Gravity,Urine 1.031 (1.001-1.035); Squamous Epithelial Cell,Urine 4 /hpf (0-4); WBC,Urine 4 /hpf (0-5)
[2019-10-02] MEDS ORDERED: LORazepam 2 MG/ML INJ IV STA (12:09)
[2019-10-02] MEDS ORDERED: IBUPROFEN 400 MG TAB PO PRN (12:28)
[2019-10-02] MEDS ORDERED: KETOROLAC 30 MG/ML 1 ML VIAL IVP PRN (12:28)
[2019-10-02] MEDS ORDERED: NALOXONE 0.4 MG/ML 1 ML VIAL IV PRN (12:28)
[2019-10-02] MEDS ORDERED: LIDOCAINE 1% INJ 10MG/ML (20 ML MDV) SQ ONE (14:22)
[2019-10-02] MEDS: MORPHINE SULFATE 4 MG/ML SYRINGE IV PRN (14:41)
--- NOTE | 2019-10-02 14:53 | ED ---
Medical Decision Making - Lab Data Result diagrams: 10/02/19 09:07 10/02/19 09:07 Lab Results 10/02/19 10/02/19 10/02/19 Range/Units 09:07 09:07 09:07 WBC 9.7 (3.8-10.6) k/uL RBC 4.25 (3.80-5.40) m/uL Hgb 14.0 (11.4-16.0) gm/dL Hct 42.2 (34.0-46.0) % MCV 99.3 (80.0-100.0) fL MCH 33.0 (25.0-35.0) pg MCHC 33.3 (31.0-37.0) g/dL RDW 14.7 (11.5-15.5) % Plt Count 322 (150-450) k/uL Neutrophils % 78 % Lymphocytes % 14 % Monocytes % 5 % Eosinophils % 0 % Basophils % 0 % Neutrophils # 7.6 (1.3-7.7) k/uL Lymphocytes # 1.4 (1.0-4.8) k/uL Monocytes # 0.5 (0-1.0) k/uL Eosinophils # 0.0 (0-0.7) k/uL Basophils # 0.0 (0-0.2) k/uL Macrocytosis Slight Sodium 138 (137-145) mmol/L Potassium 3.6 (3.5-5.1) mmol/L Chloride 99 (98-107) mmol/L Carbon Dioxide 28 (22-30) mmol/L Anion Gap 11 mmol/L BUN 28 H (7-17) mg/dL Creatinine 0.53 (0.52-1.04) mg/dL Est GFR (CKD-EPI)AfAm >90 (>60 ml/min/1.73 sqM) Est GFR (CKD-EPI)NonAf >90 (>60 ml/min/1.73 sqM) Glucose 103 H (74-99) mg/dL Calcium 9.8 (8.4-10.2) mg/dL Total Bilirubin 1.1 (0.2-1.3) mg/dL AST 30 (14-36) U/L ALT 26 (4-34) U/L Alkaline Phosphatase 67 (38-126) U/L Total Protein 8.0 (6.3-8.2) g/dL Albumin 5.0 (3.5-5.0) g/dL Amylase 53 (30-110) U/L Lipase 57 (23-300) U/L Urine Color Urine Appearance (Clear) Urine pH (5.0-8.0) Ur Specific [place] (1.001-1.035) Urine Protein (Negative) Urine Glucose (UA) (Negative) Urine Ketones (Negative) Urine Blood (Negative) Urine Nitrite (Negative) Urine Bilirubin (Negative) Urine Urobilinogen (<2.0) mg/dL Ur Leukocyte Esterase (Negative) Urine RBC (0-5) /hpf Urine WBC (0-5) /hpf Ur Squamous Epith Cells (0-4) /hpf Amorphous Sediment (None) /hpf Urine Mucus (None) /hpf Influenza Type A RNA Not Detected (Not Detectd) Influenza Type B (PCR) Not Detected (Not Detectd) 10/02/19 Range/Units 10:13 WBC (3.8-10.6) k/uL RBC (3.80-5.40) m/uL Hgb (11.4-16.0) gm/dL Hct (34.0-46.0) % MCV (80.0-100.0) fL MCH (25.0-35.0) pg MCHC (31.0-37.0) g/dL RDW (11.5-15.5) % Plt Count (150-450) k/uL Neutrophils % % Lymphocytes % % Monocytes % % Eosinophils % % Basophils % % Neutrophils # (1.3-7.7) k/uL Lymphocytes # (1.0-4.8) k/uL Monocytes # (0-1.0) k/uL Eosinophils # (0-0.7) k/uL Basophils # (0-0.2) k/uL Macrocytosis Sodium (137-145) mmol/L Potassium (3.5-5.1) mmol/L Chloride (98-107) mmol/L Carbon Dioxide (22-30) mmol/L Anion Gap mmol/L BUN (7-17) mg/dL Creatinine (0.52-1.04) mg/dL Est GFR (CKD-EPI)AfAm (>60 ml/min/1.73 sqM) Est GFR (CKD-EPI)NonAf (>60 ml/min/1.73 sqM) Glucose (74-99) mg/dL Calcium (8.4-10.2) mg/dL Total Bilirubin (0.2-1.3) mg/dL AST (14-36) U/L ALT (4-34) U/L Alkaline Phosphatase (38-126) U/L Total Protein (6.3-8.2) g/dL Albumin (3.5-5.0) g/dL Amylase (30-110) U/L Lipase (23-300) U/L Urine Color Yellow Urine Appearance Cloudy H (Clear) Urine pH 6.0 (5.0-8.0) Ur Specific [place] 1.031 (1.001-1.035) Urine Protein 2+ H (Negative) Urine Glucose (UA) Negative (Negative) Urine Ketones 2+ H (Negative) Urine Blood Moderate H (Negative) Urine Nitrite Negative (Negative) Urine Bilirubin Negative (Negative) Urine Urobilinogen 3.0 (<2.0) mg/dL Ur Leukocyte Esterase Negative (Negative) Urine RBC 2 (0-5) /hpf Urine WBC 4 (0-5) /hpf Ur Squamous Epith Cells 4 (0-4) /hpf Amorphous Sediment Occasional H (None) /hpf Urine Mucus Occasional H (None) /hpf Influenza Type A RNA (Not Detectd) Influenza Type B (PCR) (Not Detectd) Disposition Clinical Impression: Pneumothorax on left, Nausea & vomiting Disposition: ADMITTED IP TO THIS [facility] Condition: Stable Procedures - Chest Tube Insertion Consent Obtained: written consent Side of Procedure: left Indication: Pneumothorax Placed on monitor/pulse oximetry: Yes Site Prep: Chloroprep Local Anesthesia: Lidocaine 1% Insertion Site: 5th Intercostal Space Scalpel: #10 Open into Pleural Space Using: Trocar Tube Size (Greek): Other Returns: Air Sutured in Place: No Attached to Suction: Yes Type of Suction: Pleuravac Repeat X-ray Results: Lung Inflated Patient Tolerated Procedure: well
--- NOTE | 2019-10-02 14:59 | XR ---
EXAMINATION TYPE: XR chest 1V portable DATE OF EXAM: 10/02/2019 COMPARISON: 10/02/2019 HISTORY: Post chest tube placement TECHNIQUE: Single frontal view of the chest is obtained. FINDINGS: There is interval marked improvement in the left pneumothorax which now measures approxima tely 15-20%. Subsegmental consolidation at the left lung noted there is emphysematous changes. Chest tube noted. Heart size stable. IMPRESSION: 1. Interval improvement in the left-sided pneumothorax now measuring approximately 15-20%. Consolidat ion at the lung base noted. 2. COPD
--- NOTE | 2019-10-02 15:41 | P.GSCN ---
History of Present Illness Consult date: 10/02/19 Reason for Consult: Recurrent left-sided spontaneous pneumothorax, known to our service history of left VATS. Requesting physician: Sd Ovalles History of present illness: This is a 49-year-old female patient who is followed by Dr. Scarlett Barahona on an outpatient basis. She has a past medical history significant for spontaneous left pneumothorax in July 2019 status post left thoracoscopic surgery with reinforced wedge resection of apex of the left upper lobe including ruptured bleb performed by Dr. Kee Kidd on 08/12/2018, chronic obstructive pulmonary disease, chronic nicotine dependence quit smoking in July 2019, manic depression bipolar and history of marijuana use. The patient presented to the emergency room today here at [facility] with complaints of nausea, vomiting, diarrhea and fever since 09/28/2019. She reports her fever was as high as 10 1F, complaints of some mild shortness of breath over the last couple of days and some left-sided chest pain where her old chest tube insertion site was. She denies any chills, abdominal pain, shortness of breath, dizziness or headache. Her labs on admission were WBC count of 9.7, hemoglobin 14.0, BUN 28, creatinine 0.53, and her influenza swab was negative for type A or type B. Due to her complaints of diarrhea, nausea and vomiting a KUB x-ray was completed which showed a nonspecific abdomen and a large left pneumothorax. For further evaluation a chest x-ray was completed which demonstrated a large left p neumothorax, no mediastinal deviation and emphysematous changes. Due to the findings of left large spontaneous pneumothorax a left chest Thoravent was placed by the emergency room physician Dr. Ovalles. The Thoravent was placed to low continuous wall suction -20 cm H2O and a continuous air leak is present. A post Thoravent chest tube insertion chest x-ray was completed which shows an improvement in the left sided pneumothorax measuring about 15% with consolidation at the left lung base. Due to the patient's history of spontaneous left pneumothorax status post left VATS surgery in August 2019 and this recurrent left pneumothorax a consult was placed to Dr. Kee Kidd from cardiothoracic surgery for further evaluation and treatment recommendations. Review of Systems A 14 point review of systems was completed and was negative except as mentioned in the HPI. Past Medical History Past Medical History: COPD History of Any Multi-Drug Resistant Organisms: None Reported Past Surgical History: Cholecystectomy Additional Past Surgical History / Comment(s): Laparoscopy, history of neck fracture. Past Anesthesia/Blood Transfusion Reactions: No Reported Reaction Past Psychological History: Anxiety, Bipolar, Depression Smoking Status: Former smoker (Quit smoking in July 2019) Past Alcohol Use History: None Reported, Rare Past Drug Use History: Marijuana - Past Family History Mother Family Medical History: Cancer Additional Family Medical History / Comment(s): Mother and father from Lung Cancer; Brother is Diabetic and ETOH Medications and Allergies Home Medications Medication Instructions Recorded Confirmed Type Ibuprofen [Motrin Ib] 400 mg PO Q6H PRN 08/05/19 10/02/19 History Acetaminophen Tab [Tylenol] 500 mg PO Q6HR PRN tab 08/21/19 10/02/19 Rx Famotidine [Pepcid] 20 mg PO BID #60 tablet 08/21/19 10/02/19 Rx Nicotine 21Mg/24Hr Patch [Habitrol] 1 patch TRANSDERM DAILY #14 patch 08/21/19 10/02/19 Rx Nicotine Polacrilex [Nicorette] 2 mg BUCCAL Q4HR PRN #30 gum 08/21/19 10/02/19 Rx ALPRAZolam [Xanax] 0.25 mg PO BID PRN 10/02/19 10/02/19 History Albuterol Sulfate [Ventolin HFA] 1 - 2 puff INHALATION RT-Q6H PRN 10/02/19 10/02/19 History Ipratropium-Albuterol Nebulize 3 ml INHALATION RT-TID 10/02/19 10/02/19 History [Duoneb 0.5 mg-3 mg/3 ml Soln] Melatonin 10 mg PO HS 10/02/19 10/02/19 History Tiotropium Br/Olodaterol HCl 1 puff INHALATION RT-BID 10/02/19 10/02/19 History [Stiolto Respimat Inhal [place]] Umeclidinium Brm/Vilanterol Tr 1 puff INHALATION RT-BID 10/02/19 10/02/19 History [Anoro Ellipta 62.5-25 Mcg INH] busPIRone HCl [Buspar] 10 mg PO BID 10/02/19 10/02/19 History Allergies Allergy/AdvReac Type Severity Reaction Status Date / Time Penicillins Allergy Rash/Hives Verified 10/02/19 12:13 erythromycin base AdvReac Vomiting Verified 10/02/19 12:13 hydromorphone [From Dilaudid] AdvReac Vomiting Verified 10/02/19 12:13 Surgical - Exam Vital Signs Temp Pulse Resp BP Pulse Ox 98.1 F 101 H 18 116/76 99 10/02/19 08:41 10/02/19 08:41 10/02/19 08:41 10/02/19 08:41 10/02/19 08:41 - General Thin well developed, well nourished, no distress, no pain - Eyes PERRL, normal ocular movement - ENT normal pinna, normal nares, normal mucosa, no hearing loss, no congestion, dentures (Upper plate) - Neck Neck is supple, no lymphadenopathy. no masses, no bruits, trachea midline, no venous distension - Respiratory Lungs sounds essentially clear throughout, diminished to her left lower lobe. Respirations are symmetrical and nonlabored. Left chest Thoravent in place to low continuous wall suction -20 cm H2O. Continuous air leak is present. - Cardiovascular Regular rhythm and rate. S1 and S2 present, negative for S3, gallop or murmur. No edema present. - Abdomen Abdomen is soft, nontender and nondistended. Active bowel sounds present all 4 abdominal quadrants. No guarding or rigidity. No organomegaly appreciated. - Genitourinary Deferred - Rectum Deferred - Integumentary no rash, no growths, no abnormal pigmentation - Neurologic Cranial nerves II through XII intact. normal coordination, normal sensation - Musculoskeletal normal gait, normal posture - Psychiatric oriented to time, oriented to person, oriented to place, speech is normal, memory intact Results - Labs 10/02/19 09:07 10/02/19 09:07 Abnormal Lab Results - Last 24 Hours (Table) 10/02/19 10/02/19 Range/Units 09:07 10:13 BUN 28 H (7-17) mg/dL Glucose 103 H (74-99) mg/dL Urine Appearance Cloudy H (Clear) Urine Protein 2+ H (Negative) Urine Ketones 2+ H (Negative) Urine Blood Moderate H (Negative) Amorphous Sediment Occasional H (None) /hpf Urine Mucus Occasional H (None) /hpf Diabetes panel 10/02/19 Range/Units 09:07 Sodium 138 (137-145) mmol/L Potassium 3.6 (3.5-5.1) mmol/L Chloride 99 (98-107) mmol/L Carbon Dioxide 28 (22-30) mmol/L BUN 28 H (7-17) mg/dL Creatinine 0.53 (0.52-1.04) mg/dL Glucose 103 H (74-99) mg/dL Calcium 9.8 (8.4-10.2) mg/dL AST 30 (14-36) U/L ALT 26 (4-34) U/L Alkaline Phosphatase 67 (38-126) U/L Total Protein 8.0 (6.3-8.2) g/dL Albumin 5.0 (3.5-5.0) g/dL Calcium panel 10/02/19 Range/Units 09:07 Calcium 9.8 (8.4-10.2) mg/dL Albumin 5.0 (3.5-5.0) g/dL Pituitary panel 10/02/19 Range/Units 09:07 Sodium 138 (137-145) mmol/L Potassium 3.6 (3.5-5.1) mmol/L Chloride 99 (98-107) mmol/L Carbon Dioxide 28 (22-30) mmol/L BUN 28 H (7-17) mg/dL Creatinine 0.53 (0.52-1.04) mg/dL Glucose 103 H (74-99) mg/dL Calcium 9.8 (8.4-10.2) mg/dL Adrenal panel 10/02/19 Range/Units 09:07 Sodium 138 (137-145) mmol/L Potassium 3.6 (3.5-5.1) mmol/L Chloride 99 (98-107) mmol/L Carbon Dioxide 28 (22-30) mmol/L BUN 28 H (7-17) mg/dL Creatinine 0.53 (0.52-1.04) mg/dL Glucose 103 H (74-99) mg/dL Calcium 9.8 (8.4-10.2) mg/dL Total Bilirubin 1.1 (0.2-1.3) mg/dL AST 30 (14-36) U/L ALT 26 (4-34) U/L Alkaline Phosphatase 67 (38-126) U/L Total Protein 8.0 (6.3-8.2) g/dL Albumin 5.0 (3.5-5.0) g/dL - Imaging Chest x-ray: report reviewed, image reviewed Assessment and Plan Assessment: 1. Recurrent left spontaneous pneumothorax, status post recent left VATS procedure and placement of left chest Thoravent by the emergency room physician 2. Diarrhea 3. Nausea and vomiting 4. 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 Chronic nicotine abuse, quit smoking in July 2019 6. History of marijuana use 7. Manic depressive bipolar disorder Plan: The patient was seen and examined at her bedside in the emergency room Department. Her chart and diagnostics were reviewed. The case to assist us in detail with Dr. Terrance Issa from cardiothoracic surgery. She has had a left chest Thoravent placed for pneumothorax by the emergency room physician Dr. Ovalles. We will keep her left Thoravent to low continuous wall suction -20 cm H2O and watch for airleak resolution. We will monitor her daily chest x-rays. Encourage use of her incentive spirometry every hour while awake. Pain control per current when necessary regimen. Medical management and comorbidities per primary care service. Further recommendations to follow based on patient's clinical course. Thank you for this consult and we look for to working with you in the care of this patient. Time with Patient: Greater than 30
--- NOTE | 2019-10-02 16:59 | P.CNPUL ---
History of Present Illness Consult date: 10/02/19 Reason for consult: dyspnea, pneumothorax Chief complaint: Shortness of breath History of present illness: This is a 49-year-old female who was seen evaluated examined in the emergency department patient presented into the hospital with a 5 day history of onset of nausea vomiting, patient started having shortness of breath came into the hospital a chest x-ray showed left-sided large pneumothorax vent has been placed per instruction of thoracic surgery which has been consulted currently is pain-free denies any cough or sputum production she had a significant history of left pneumothorax require VATS procedure and mechanical pleurodesis now with recurrence of the pneumothorax, her influenza serology is negative, labs and white cell count and normal BUN slightly elevated resistive of dehydration, patient is still have a large air leak through the pleural VAC Review of Systems All systems: negative Past Medical History Past Medical History: COPD History of Any Multi-Drug Resistant Organisms: None Reported Past Surgical History: Cholecystectomy Additional Past Surgical History / Comment(s): Laparoscopy, history of neck fracture. Past Anesthesia/Blood Transfusion Reactions: No Reported Reaction Past Psychological History: Anxiety, Bipolar, Depression Smoking Status: Former smoker (Quit smoking in July 2019) Past Alcohol Use History: None Reported, Rare Past Drug Use History: Marijuana - Past Family History Mother Family Medical History: Cancer Additional Family Medical History / Comment(s): Mother and father from Lung Cancer; Brother is Diabetic and ETOH Medications and Allergies Home Medications Medication Instructions Recorded Confirmed Type Ibuprofen [Motrin Ib] 400 mg PO Q6H PRN 08/05/19 10/02/19 History Acetaminophen Tab [Tylenol] 500 mg PO Q6HR PRN tab 08/21/19 10/02/19 Rx Famotidine [Pepcid] 20 mg PO BID #60 tablet 08/21/19 10/02/19 Rx Nicotine 21Mg/24Hr Patch [Habitrol] 1 patch TRANSDERM DAILY #14 patch 08/21/19 10/02/19 Rx Nicotine Polacrilex [Nicorette] 2 mg BUCCAL Q4HR PRN #30 gum 08/21/19 10/02/19 Rx ALPRAZolam [Xanax] 0.25 mg PO BID PRN 10/02/19 10/02/19 History Albuterol Sulfate [Ventolin HFA] 1 - 2 puff INHALATION RT-Q6H PRN 10/02/19 10/02/19 History Ipratropium-Albuterol Nebulize 3 ml INHALATION RT-TID 10/02/19 10/02/19 History [Duoneb 0.5 mg-3 mg/3 ml Soln] Melatonin 10 mg PO HS 10/02/19 10/02/19 History Tiotropium Br/Olodaterol HCl 1 puff INHALATION RT-BID 10/02/19 10/02/19 History [Stiolto Respimat Inhal [place]] Umeclidinium Brm/Vilanterol Tr 1 puff INHALATION RT-BID 10/02/19 10/02/19 History [Anoro Ellipta 62.5-25 Mcg INH] busPIRone HCl [Buspar] 10 mg PO BID 10/02/19 10/02/19 History Allergies Allergy/AdvReac Type Severity Reaction Status Date / Time Penicillins Allergy Rash/Hives Verified 10/02/19 12:13 erythromycin base AdvReac Vomiting Verified 10/02/19 12:13 hydromorphone [From Dilaudid] AdvReac Vomiting Verified 10/02/19 12:13 Physical Exam Vitals: Vital Signs Temp Pulse Resp BP Pulse Ox 10/02/19 15:30 44 L 10 L 122/64 99 10/02/19 15:00 49 L 13 122/64 97 10/02/19 14:55 20 10/02/19 14:50 52 L 17 122/64 97 10/02/19 14:49 47 L 15 132/66 97 10/02/19 14:01 55 L 20 117/65 96 10/02/19 12:07 51 L 18 123/70 99 10/02/19 10:31 56 L 18 118/78 94 L 10/02/19 08:41 98.1 F 101 H 18 116/76 99 Intake and Output 10/02/19 10/02/19 10/02/19 06:59 14:59 22:59 Other: Weight 56.245 kg Results - Laboratory Findings CBC and BMP: 10/02/19 09:07 10/02/19 09:07 Abnormal lab findings: Abnormal Labs 10/02/19 10/02/19 09:07 10:13 BUN 28 H Glucose 103 H Urine Appearance Cloudy H Urine Protein 2+ H Urine Ketones 2+ H Urine Blood Moderate H Amorphous Sediment Occasional H Urine Mucus Occasional H - Diagnostic Findings Chest x-ray: report reviewed, image reviewed (Finding as noted above large pneumothorax on admit x-ray followed by x-ray with further underwent revealed residual small pneumothorax) Assessment and Plan Assessment: Left-sided recurrence of spontaneous pneumothorax Advanced emphysema Intravascular volume depletion and dehydration Severe COPD Plan: Gentle rehydration Pain management Monitor clinical course with left Thoravent Time with Patient: Greater than 30
[2019-10-02] MEDS: HEPARIN SODIUM,PORCINE 5,000 UNIT/ML 1 ML VIAL SQ SCH ×2 (20:16→23:08)
[2019-10-02] MEDS: SODIUM CHLORIDE 0.9% 1,000 ML IV SCH ×2 (20:16→22:11)
[2019-10-02] MEDS: KETOROLAC 30 MG/ML 1 ML VIAL IVP SCH (21:24)
[2019-10-02] MEDS: ONDANSETRON 4 MG/2 ML VIAL IVP PRN (21:24)
[2019-10-02] MEDS: NICOTINE 21MG/24HR PATCH TRANSDERM SCH (23:01)
[2019-10-02] MEDS: NICOTINE POLACRILEX 2 MG GUM BUCCAL PRN (23:01)
--- NOTE | 2019-10-02 23:26 | P.HPIM ---
History of Present Illness H&P Date: 10/02/19 Chief Complaint: Cough and flulike symptoms Patient is a 49-year-old female with a known history of COPD, pneumothorax with history of VATS in August 2019, anxiety/bipolar/depression and previous history of smoking came to ER with complaints of cough and shortness of breath along with nausea vomiting diarrhea for the past 2 days. Patient says that she felt like flulike symptoms and came to ER. Patient states that her and changed was recently diagnosed with influenza. Patient did have fever and chills. Denied any abdominal pain. Patient did have left upper chest discomfort on admission. Influenza negative. Pelvis 9.7, hemoglobin 14.0 and creatinine 0.53. BUN 28. Chest x-ray showed large left pneumothorax. No mediastinal deviation. emphysematous changes. Patient was placed on Thoravent in the ER with low continuous suction. Review of Systems Constitutional: Patient have subjective fever or chills . No generalized weakness or weight loss. Abdomen: Patient denied nausea vomiting and diarrhea and abdominal pain. Cardiovascular: Patient denies any chest pain or short of breath no palpitations. Respiratory: Cough without sputum production. Did have shortness of breath Neurologic: Patient denied any numbness or tingling headache. Musculoskeletal: Patient denies any complaints of joint swelling or deformity. Skin: Negative Psychiatric: Negative Endocrine: No heat or cold intolerance. No recent weight gain. Genitourinary: No dysuria or hematuria. All other 14 point ROS negative except the above Past Medical History Past Medical History: COPD Additional Past Medical History / Comment(s): chest tube august 2019 History of Any Multi-Drug Resistant Organisms: None Reported Past Surgical History: Cholecystectomy Additional Past Surgical History / Comment(s): Laparoscopy, history of neck fracture. Past Anesthesia/Blood Transfusion Reactions: No Reported Reaction Past Psychological History: Anxiety, Bipolar, Depression Smoking Status: Former smoker Past Alcohol Use History: None Reported, Rare Past Drug Use History: Marijuana - Past Family History Mother Family Medical History: Cancer Additional Family Medical History / Comment(s): Mother and father from Lung Cancer; Brother is Diabetic and ETOH Medications and Allergies Home Medications Medication Instructions Recorded Confirmed Type Ibuprofen [Motrin Ib] 400 mg PO Q6H PRN 08/05/19 10/02/19 History Acetaminophen Tab [Tylenol] 500 mg PO Q6HR PRN tab 08/21/19 10/02/19 Rx Famotidine [Pepcid] 20 mg PO BID #60 tablet 08/21/19 10/02/19 Rx Nicotine 21Mg/24Hr Patch [Habitrol] 1 patch TRANSDERM DAILY #14 patch 08/21/19 10/02/19 Rx Nicotine Polacrilex [Nicorette] 2 mg BUCCAL Q4HR PRN #30 gum 08/21/19 10/02/19 Rx ALPRAZolam [Xanax] 0.25 mg PO BID PRN 10/02/19 10/02/19 History Albuterol Sulfate [Ventolin HFA] 1 - 2 puff INHALATION RT-Q6H PRN 10/02/19 10/02/19 History Ipratropium-Albuterol Nebulize 3 ml INHALATION RT-TID 10/02/19 10/02/19 History [Duoneb 0.5 mg-3 mg/3 ml Soln] Melatonin 10 mg PO HS 10/02/19 10/02/19 History Tiotropium Br/Olodaterol HCl 1 puff INHALATION RT-BID 10/02/19 10/02/19 History [Stiolto Respimat Inhal [place]] Umeclidinium Brm/Vilanterol Tr 1 puff INHALATION RT-BID 10/02/19 10/02/19 History [Anoro Ellipta 62.5-25 Mcg INH] busPIRone HCl [Buspar] 10 mg PO BID 10/02/19 10/02/19 History Allergies Allergy/AdvReac Type Severity Reaction Status Date / Time Penicillins Allergy Rash/Hives Verified 10/02/19 12:13 erythromycin base AdvReac Vomiting Verified 10/02/19 12:13 hydromorphone [From Dilaudid] AdvReac Vomiting Verified 10/02/19 12:13 Physical Exam Vitals: Vital Signs Temp Pulse Resp BP Pulse Ox 10/02/19 18:12 98.0 F 46 L 12 149/82 99 10/02/19 17:57 98.0 F 46 L 12 149/82 99 10/02/19 17:30 46 L 12 149/82 99 10/02/19 17:00 45 L 10 L 139/72 97 10/02/19 16:30 45 L 7 L 99 10/02/19 16:00 42 L 18 143/72 100 10/02/19 15:30 44 L 10 L 122/64 99 10/02/19 15:00 49 L 13 122/64 97 10/02/19 14:55 20 10/02/19 14:50 52 L 17 122/64 97 10/02/19 14:49 47 L 15 132/66 97 10/02/19 14:01 55 L 20 117/65 96 10/02/19 12:07 51 L 18 123/70 99 10/02/19 10:31 56 L 18 118/78 94 L 10/02/19 08:41 98.1 F 101 H 18 116/76 99 Intake and Output 10/02/19 10/02/19 10/02/19 06:59 14:59 22:59 Other: Weight 56.245 kg 56.245 kg PHYSICAL EXAMINATION: Patient is lying in the bed comfortably, no acute distress, awake alert and oriented.. HEENT: Normocephalic. Neck is supple. Pupils reactive. Nostrils clear. Oral cavity is moist. Ears reveal no drainage. Neck reveals no JVD, carotid bruits, or thyromegaly. CHEST EXAMINATION: Trachea is central. Symmetrical expansion. Left upper chest Thoravent. No wheezing. Nonlabored breathing.. CARDIAC: Normal S1, S2 with no gallops. No murmurs ABDOMEN: Soft. Bowel sounds normal. No organomegaly. No abdominal bruits. Extremities: reveal no edema. No clubbing or cyanosis Neurologically awake, alert, oriented x3 with well-coordinated movements. No focal deficits noted Skin: No rash or skin lesions. Psychiatric: Coperative. Nonsuicidal Musculoskeletal: No joint swelling or deformity. Normal range of motion. Results CBC & Chem 7: 10/02/19 09:07 10/02/19 09:07 Labs: Abnormal Lab Results - Last 24 Hours (Table) 10/02/19 10/02/19 Range/Units 09:07 10:13 BUN 28 H (7-17) mg/dL Glucose 103 H (74-99) mg/dL Urine Appearance Cloudy H (Clear) Urine Protein 2+ H (Negative) Urine Ketones 2+ H (Negative) Urine Blood Moderate H (Negative) Amorphous Sediment Occasional H (None) /hpf Urine Mucus Occasional H (None) /hpf Thrombosis Risk Factor Assmnt - DVT/VTE Prophylaxis DVT/VTE Prophylaxis: Pharmacologic Prophylaxis ordered - Choose All That Apply Each Factor Represents 1 point: Age 41-60 years Thrombosis Risk Factor Assessment Total Risk Factor Score: 1 Thrombosis Risk Factor Assessment Level: Low Risk Assessment and Plan Assessment: Left upper large spontaneous pneumothorax. Currently placed on Thoravent to low suction History of spontaneous pneumothorax status post chest tube placement and VATS in August 2019 COPD with emphysematous changes Nausea vomiting and diarrhea improved now Flulike illness on admission Anxiety/depression/bipolar disorder Previous history of smoking and marijuana use DVT prophylaxis Plan: Patient will be continued on thoravent with a low suction. air leak is present. Continue pain management and gentle hydration. Pulmonary and CT surgery is following. Further recommendations based on the clinical course. Time with Patient: Greater than 30
[2019-10-03] MEDS: KETOROLAC 30 MG/ML 1 ML VIAL IVP SCH ×4 (03:00→21:31)
[2019-10-03] MEDS: ONDANSETRON 4 MG/2 ML VIAL IVP PRN ×3 (05:45→17:57)
[2019-10-03] MEDS: MORPHINE SULFATE 4 MG/ML SYRINGE IV PRN (06:01)
--- NOTE | 2019-10-03 06:37 | XR ---
EXAMINATION TYPE: XR chest 1V portable DATE OF EXAM: 10/03/2019 HISTORY: Spontaneous left pneumothorax.. REFERENCE: Previous study dated 10/02/2019. FINDINGS: A left pleural drain remains in place. There continues to be a small right apical pneumotho rax. The heart is not enlarged. There is some left basilar atelectasis. There are tiny bilateral pleu ral effusions. IMPRESSION: SMALL RESIDUAL LEFT APICAL PNEUMOTHORAX.
[2019-10-03 06:54] LABS: HCT 35.3 % (34.0-46.0); HGB 11.6 gm/dL (11.4-16.0); MCH 32.8 pg (25.0-35.0); MCHC 32.7 g/dL (31.0-37.0); MCV 100.2 fL (80.0-100.0); Macrocytosis Slight; Mean Platelet Volume 7.3; Platelet Count 283 k/uL (150-450); RBC 3.53 m/uL (3.80-5.40); RDW 14.7 % (11.5-15.5); WBC 5.8 k/uL (3.8-10.6)
[2019-10-03 07:25] LABS: African American GFR (CKD) >90 (>60 ml/min/1.73 sqM); Anion Gap 7 mmol/L; Blood Urea Nitrogen 24 mg/dL (7-17); Calcium 8.1 mg/dL (8.4-10.2); Carbon Dioxide 26 mmol/L (22-30); Chloride 105 mmol/L (98-107); Glucose 82 mg/dL (74-99); Non-African American GFR(CKD) >90 (>60 ml/min/1.73 sqM); Potassium 3.3 mmol/L (3.5-5.1); Sodium 138 mmol/L (137-145)
--- NOTE | 2019-10-03 08:13 | P.PN ---
Subjective Progress Note Date: 10/03/19 Principal diagnosis: Recurrent left-sided spontaneous pneumothorax, status post left thoracoscopic surgery with reinforced wedge resection of apex of left upper lobe including ruptured blebs with mechanical pleurodesis on 08/12/2019, placement of left chest Thoravent by the emergency room physician. History of left spontaneous pneumothorax July 2019, severe chronic obstructive pulmonary disease, chronic nicotine dependence quit smoking in July 2018, manic depression bipolar and marijuana use. Status post day #1 placement of left chest Thoravent by the emergency room physician. The patient is laying in bed on the cardiac stepdown unit. She is in no acute distress. She continues to complain of nausea, denies any complaints of pain or shortness of breath. The patient states that if it wasn't for the nausea she would be feeling pretty good. Left chest Thoravent remains in place to low continuous wall suction -20 cm H2O. Continuous air leak is present. 15 mL of thin serous drainage since the Thoravent has been placed. She is achieving 1250 mL on her incentive spirometry. Oxygen saturation are 92% on room air. She has been afebrile since admission. Denies any further episodes of diarrhea or vomiting. Chest x-ray this morning demonstrates a small residual left apical pneumothorax. Objective - Vital Signs Vital signs: Vital Signs Temp 98.8 F 10/03/19 03:49 Pulse 59 L 10/03/19 03:52 Resp 16 10/03/19 03:52 BP 121/68 10/03/19 03:49 Pulse Ox 92 L 10/03/19 03:49 Intake & Output 10/02/19 10/03/19 10/03/19 18:59 06:59 18:59 Intake Total 800 Balance 800 Weight 56.245 kg 55.6 kg Intake: IV 800 0.9% NS @ 100ml/hr 800 Other: Voiding Method Toilet # Voids 1 - Constitutional General appearance: Present: cooperative, no acute distress, thin - Respiratory Details: Lung sounds essentially clear throughout. Respirations are symmetrical and nonlabored. Oxygen saturation is 92% on room air. Achieving 1250 mL on incent sophia spirometry. No wheezes, rhonchi or crackles present. - Cardiovascular Details: Regular rhythm and rate. S1 and S2 present, negative for S3, gallop or murmur. Remote telemetry showing sinus bradycardia heart rate 44. No edema present. - Gastrointestinal Gastrointestinal Comment(s): Abdomen is soft, nontender and nondistended. Active bowel sounds present in all 4 abdominal quadrants. No guarding or rigidity. No organomegaly appreciated. - Genitourinary Genitourinary Comment(s): Voiding clear paty urine. - Integumentary Integumentary Comment(s): Skin is warm and dry. No clubbing or cyanosis is present. No rash or abnormal pigmentation is present. Left chest Thoravent in place with scant serosanguineous drainage to insertion site. - Neurologic Neurologic: Present: CNII-XII intact - Musculoskeletal Musculoskeletal: Present: generalized weakness, strength equal bilaterally - Psychiatric Psychiatric: Present: A&O x's 3, appropriate affect, intact judgment & insight - Allied health notes Allied health notes reviewed: nursing - Labs CBC & Chem 7: 10/03/19 05:37 10/03/19 05:37 Labs: Abnormal Lab Results - Last 24 Hours (Table) 10/02/19 10/02/19 10/03/19 Range/Units 09:07 10:13 05:37 RBC 3.53 L (3.80-5.40) m/uL MCV 100.2 H (80.0-100.0) fL Potassium (3.5-5.1) mmol/L BUN 28 H (7-17) mg/dL Creatinine (0.52-1.04) mg/dL Glucose 103 H (74-99) mg/dL Calcium (8.4-10.2) mg/dL Urine Appearance Cloudy H (Clear) Urine Protein 2+ H (Negative) Urine Ketones 2+ H (Negative) Urine Blood Moderate H (Negative) Amorphous Sediment Occasional H (None) /hpf Urine Mucus Occasional H (None) /hpf 10/03/19 Range/Units 05:37 RBC (3.80-5.40) m/uL MCV (80.0-100.0) fL Potassium 3.3 L (3.5-5.1) mmol/L BUN 24 H (7-17) mg/dL Creatinine 0.48 L (0.52-1.04) mg/dL Glucose (74-99) mg/dL Calcium 8.1 L (8.4-10.2) mg/dL Urine Appearance (Clear) Urine Protein (Negative) Urine Ketones (Negative) Urine Blood (Negative) Amorphous Sediment (None) /hpf Urine Mucus (None) /hpf - Imaging and Cardiology Chest x-ray: report reviewed, image reviewed Assessment and Plan Assessment: 1. Recurrent left spontaneous pneumothorax, status post recent left VATS procedure and placement of left chest Thoravent by the emergency room physician 2. Diarrhea 3. Nausea and vomiting 4. 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 Chronic nicotine abuse, quit smoking in July 2019 6. History of marijuana use 7. Manic depressive bipolar disorder Plan: 1. Keep left chest Thoravent to low continuous wall suction -20 cm H2O. 2. Encourage use of her incentive spirometry every hour while awake. 3. Increase activity as tolerated. 4. Pain management per current when necessary orders. 5. Medical management and other comorbidities per primary care service. 6. Bronchodilator management per pulmonary medicine. 7. GI and DVT prophylaxis. 8. More recommendations to follow based on patient's clinical course. Time with Patient: Greater than 30
[2019-10-03] MEDS: HEPARIN SODIUM,PORCINE 5,000 UNIT/ML 1 ML VIAL SQ SCH ×2 (08:28→14:57)
[2019-10-03] MEDS: PANTOPRAZOLE 40 MG/10 ML VIAL IV SCH (08:28)
[2019-10-03] MEDS: SODIUM CHLORIDE 0.9% 1,000 ML IV SCH ×2 (13:34→21:31)
[2019-10-03] MEDS: NICOTINE 21MG/24HR PATCH TRANSDERM SCH (21:30)
--- NOTE | 2019-10-03 22:38 | P.PN ---
Subjective Progress Note Date: 10/03/19 Principal diagnosis: Left sided pneumothorax Patient is a 49-year-old female with a known history of COPD, pneumothorax with history of VATS in August 2019, anxiety/bipolar/depression and previous history of smoking came to ER with complaints of cough and shortness of breath a long with nausea vomiting diarrhea for the past 2 days. Patient says that she felt like flulike symptoms and came to ER. Patient states that her and changed was recently diagnosed with influenza. Patient did have fever and chills. Denied any abdominal pain. Patient did have left upper chest discomfort on admission. Influenza negative. Pelvis 9.7, hemoglobin 14.0 and creatinine 0.53. BUN 28. Chest x-ray showed large left pneumothorax. No mediastinal deviation. emphysematous changes. Patient was placed on Thoravent in the ER with low continuous suction. 10/03/2019 Patient is complaining of tightness in her left upper chest. Also complaints of nausea. No worsening shortness of breath. Chest x-ray showed improvement in left apical pneumothorax. Patient is being continued on Thoravent with low intermittent suction. Encouraged with incentive spirometry. CT surgery is following. Patient has been afebrile. plus or abdominal pain. No diarrhea. No headache or dizziness. Current medications reviewed. Objective - Vital Signs Vital signs: Vital Signs Temp 98.8 F 10/03/19 03:49 Pulse 59 L 10/03/19 03:52 Resp 16 10/03/19 03:52 BP 121/68 10/03/19 03:49 Pulse Ox 92 L 10/03/19 03:49 Intake & Output 10/02/19 10/03/19 10/03/19 18:59 06:59 18:59 Intake Total 800 0 Balance 800 0 Weight 56.245 kg 55.6 kg Intake: IV 800 0.9% NS @ 100ml/hr 800 Oral 0 Other: Voiding Method Toilet # Voids 1 - Exam PHYSICAL EXAMINATION: Patient is lying in the bed comfortably, no acute distress, awake alert and orie nted.. HEENT: Normocephalic. Neck is supple. Pupils reactive. Nostrils clear. Oral cavity is moist. Ears reveal no drainage. Neck reveals no JVD, carotid bruits, or thyromegaly. CHEST EXAMINATION: Trachea is central. Symmetrical expansion. Left upper chest Thoravent. No wheezing. Nonlabored breathing.. CARDIAC: Normal S1, S2 with no gallops. No murmurs ABDOMEN: Soft. Bowel sounds normal. No organomegaly. No abdominal bruits. Extremities: reveal no edema. No clubbing or cyanosis Neurologically awake, alert, oriented x3 with well-coordinated movements. No focal deficits noted Skin: No rash or skin lesions. Psychiatric: Coperative. Nonsuicidal Musculoskeletal: No joint swelling or deformity. Normal range of motion. - Labs CBC & Chem 7: 10/03/19 05:37 10/03/19 05:37 Labs: Abnormal Lab Results - Last 24 Hours (Table) 10/02/19 10/03/19 10/03/19 Range/Units 10:13 05:37 05:37 RBC 3.53 L (3.80-5.40) m/uL MCV 100.2 H (80.0-100.0) fL Potassium 3.3 L (3.5-5.1) mmol/L BUN 24 H (7-17) mg/dL Creatinine 0.48 L (0.52-1.04) mg/dL Calcium 8.1 L (8.4-10.2) mg/dL Urine Appearance Cloudy H (Clear) Urine Protein 2+ H (Negative) Urine Ketones 2+ H (Negative) Urine Blood Moderate H (Negative) Amorphous Sediment Occasional H (None) /hpf Urine Mucus Occasional H (None) /hpf Assessment and Plan Assessment: Left upper large spontaneous pneumothorax. Currently placed on Thoravent to low suction History of spontaneous pneumothorax status post chest tube placement and VATS in August 2019 COPD with emphysematous changes Nausea vomiting and diarrhea improved now Flulike illness on admission Anxiety/depression/bipolar disorder Previous history of smoking and marijuana use DVT prophylaxis Plan: Patient will be continued on thoravent with a low suction. air leak is present. Continue pain management and gentle hydration. Pulmonary and CT surgery is following. Further recommendations based on the clinical course. Time with Patient: Greater than 30
--- NOTE | 2019-10-03 23:08 | P.PN ---
Subjective Progress Note Date: 10/03/19 Principal diagnosis: Left-sided recurrence of spontaneous pneumothorax Advanced emphysema Intravascular volume depletion and dehydration Severe COPD Intractable nausea and vomiting 10/03/2019, patient seen and evaluated examined during the rounds he denies any chest pain, however air leak is still present, she has intractable nausea and vomiting for that Zofran is being given but is not helpful we'll and Noellan and also consult GI This is a 49-year-old female who was seen evaluated examined in the emergency department patient presented into the hospital with a 5 day history of onset of nausea vomiting, patient started having shortness of breath came into the hospital a chest x-ray showed left-sided large pneumothorax vent has been placed per instruction of thoracic surgery which has been consulted currently is pain-free denies any cough or sputum production she had a significant history of left pneumothorax require VATS procedure and mechanical pleurodesis now with recurrence of the pneumothorax, her influenza serology is negative, labs and white cell count and normal BUN slightly elevated resistive of dehydration, patient is still have a large air leak through the pleural VAC Objective - Vital Signs Vital signs: Vital Signs Temp 98.9 F 10/03/19 15:33 Pulse 50 L 10/03/19 15:33 Resp 16 10/03/19 15:33 BP 161/77 10/03/19 15:33 Pulse Ox 94 L 10/03/19 15:33 Intake & Output 10/03/19 10/03/19 10/04/19 06:59 18:59 06:59 Intake Total 800 1200 Output Total 835 Balance 800 1200 -835 Weight 55.6 kg Intake: IV 800 1000 0.9% NS @ 100ml/hr 800 1000 Oral 200 Output: Chest Tube Drainage 35 Thora-Vent Left Upper 35 Anterior Chest Urine 800 Other: Voiding Method Toilet Toilet # Voids 1 1 - Exam - General Thin well developed, well nourished, no distress, no pain - Eyes PERRL, normal ocular movement - ENT normal pinna, normal nares, normal mucosa, no hearing loss, no congestion, dentures (Upper plate) - Neck Neck is supple, no lymphadenopathy. no masses, no bruits, trachea midline, no venous distension - Respiratory Lungs sounds essentially clear throughout, diminished to her left lower lobe. Respirations are symmetrical and nonlabored. Left chest Thoravent in place to low continuous wall suction -20 cm H2O. Continuous air leak is present. - Cardiovascular Regular rhythm and rate. S1 and S2 present, negative for S3, gallop or murmur. No edema present. - Abdomen Abdomen is soft, nontender and nondistended. Active bowel sounds present all 4 abdominal quadrants. No guarding or rigidity. No organomegaly appreciated. - Integumentary no rash, no growths, no abnormal pigmentation - Neurologic Cranial nerves II through XII intact. normal coordination, normal sensation - Musculoskeletal normal gait, normal posture - Psychiatric oriented to time, oriented to person, oriented to place, speech is normal, memory intact - Labs CBC & Chem 7: 10/03/19 05:37 10/03/19 05:37 Labs: Abnormal Lab Results - Last 24 Hours (Table) 10/03/19 10/03/19 Range/Units 05:37 05:37 RBC 3.53 L (3.80-5.40) m/uL MCV 100.2 H (80.0-100.0) fL Potassium 3.3 L (3.5-5.1) mmol/L BUN 24 H (7-17) mg/dL Creatinine 0.48 L (0.52-1.04) mg/dL Calcium 8.1 L (8.4-10.2) mg/dL Assessment and Plan Assessment: Left-sided recurrence of spontaneous pneumothorax Advanced emphysema Intravascular volume depletion and dehydration Severe COPD Intractable nausea and vomiting Plan: Gentle rehydration Pain management Monitor clinical course with left Thoravent IV Zofran Reglan Time with Patient: Greater than 30
[2019-10-04] MEDS: METOCLOPRAMIDE 5 MG/ML 2 ML VIAL IVP PRN ×3 (00:22→14:48)
[2019-10-04] MEDS: ONDANSETRON 4 MG/2 ML VIAL IVP PRN ×3 (03:59→14:47)
[2019-10-04] MEDS: KETOROLAC 30 MG/ML 1 ML VIAL IVP SCH ×4 (03:59→20:55)
[2019-10-04] MEDS: SODIUM CHLORIDE 0.9% 1,000 ML IV SCH ×3 (04:00→23:10)
[2019-10-04 06:52] LABS: HCT 35.1 % (34.0-46.0); HGB 11.6 gm/dL (11.4-16.0); MCH 33.6 pg (25.0-35.0); MCV 101.8 fL (80.0-100.0); Macrocytosis Slight; Mean Platelet Volume 7.4; Platelet Count 242 k/uL (150-450); RBC 3.45 m/uL (3.80-5.40); RDW 14.5 % (11.5-15.5); WBC 6.3 k/uL (3.8-10.6)
--- NOTE | 2019-10-04 06:58 | XR ---
EXAMINATION TYPE: XR chest 1V portable DATE OF EXAM: 10/04/2019 HISTORY: Spontaneous left pneumothorax.. REFERENCE: Previous study dated 10/03/2019. FINDINGS: Left pleural drain remains in place. There continues to be a left apical pneumothorax. Ther e is atelectatic change present in the left upper lobe. The lungs are overinflated. The heart is not enlarged. IMPRESSION: CONTINUING, SMALL LEFT APICAL PNEUMOTHORAX.
[2019-10-04 07:14] LABS: African American GFR (CKD) >90 (>60 ml/min/1.73 sqM); Blood Urea Nitrogen 21 mg/dL (7-17); Calcium 8.1 mg/dL (8.4-10.2); Carbon Dioxide 17 mmol/L (22-30); Glucose 54 mg/dL (74-99); Non-African American GFR(CKD) >90 (>60 ml/min/1.73 sqM); Potassium 3.5 mmol/L (3.5-5.1)
[2019-10-04 07:44] LABS: Anion Gap 13 mmol/L; Chloride 107 mmol/L (98-107); Sodium 137 mmol/L (137-145)
[2019-10-04] MEDS: ENOXAPARIN 40 MG/0.4 ML SYRINGE SQ SCH (08:47)
[2019-10-04] MEDS: PANTOPRAZOLE 40 MG/10 ML VIAL IV SCH ×2 (08:47→20:55)
--- NOTE | 2019-10-04 09:20 | P.PN ---
Subjective Progress Note Date: 10/04/19 Principal diagnosis: Recurrent left-sided spontaneous pneumothorax, status post left thoracoscopic surgery with reinforced wedge resection of apex of left upper lobe including ruptured blebs with mechanical pleurodesis on 08/12/2019, placement of left chest Thoravent by the emergency room physician. History of left spontaneous pneumothorax July 2019, severe chronic obstructive pulmonary disease, chronic nicotine dependence quit smoking in July 2018, manic depression bipolar and marijuana use. Status post day #2 placement of left chest Thoravent by the emergency room physician. The patient is laying in bed on the cardiac stepdown unit. She is in no acute distress. She continues to complain of nausea, denies any further vomiting or complaints of pain or shortness of breath. She reports that she did have some abdominal pain yesterday. Left chest Thoravent remains in place to low continuous wall suction -20 cm H2O. Continuous air leak is present. Draining thin serous drainage. She is achieving 1250 mL on her incentive spirometry. Oxygen saturation are 95% on room air. She continues to be afebrile and her temperature at this time is 98.8F. Chest x-ray this morning continues to demonstrate a small residual left apical pneumothorax. Objective - Vital Signs Vital signs: Vital Signs Temp 98 F 10/04/19 04:00 Pulse 54 L 10/04/19 04:00 Resp 15 10/04/19 04:00 BP 137/79 10/04/19 04:00 Pulse Ox 95 10/04/19 04:00 Intake & Output 10/03/19 10/04/19 10/04/19 18:59 06:59 18:59 Intake Total 1200 Output Total 925 Balance 1200 -925 Weight 0 g Intake: IV 1000 0.9% NS @ 100ml/hr 1000 Oral 200 Output: Chest Tube Drainage 125 Thora-Vent Left Upper 125 Anterior Chest Urine 800 Other: Voiding Method Toilet Toilet # Voids 1 1 - Constitutional General appearance: Present: cooperative, no acute distress, thin - Respiratory Details: Lung sounds essentially clear to her bilateral upper lobes, few scattered crackles to her bilateral bases left greater than right. Respirations are symme trical and nonlabored. Oxygen saturation are 95% on room. Achieving 1250 mL on her incentive spirometry. Left chest Thoravent in place to low continuous wall suction -20 cm H2O. Draining thin serosanguineous drainage. Continuous air leak is present. - Cardiovascular Details: Regular rhythm and bradycardic rate. S1 and S2 present, negative for S3, gallop or murmur. Remote telemetry showing sinus bradycardia heart rate 51. No edema present. Sequential compression devices in place to bilateral lower extremities. - Gastrointestinal Gastrointestinal Comment(s): Abdomen is soft, nontender and nondistended. Active bowel sounds present all 4 abdominal quadrants. No guarding or rigidity. No organomegaly appreciated. - Integumentary Integumentary Comment(s): Skin is warm and dry. No clubbing or cyanosis is present. No rash or abnormal pigmentation is present. Left chest Thoravent is in place and secured. - Neurologic Neurologic: Present: CNII-XII intact - Musculoskeletal Musculoskeletal: Present: gait normal, strength equal bilaterally - Psychiatric Psychiatric: Present: A&O x's 3, appropriate affect, intact judgment & insight - Allied health notes Allied health notes reviewed: nursing - Labs CBC & Chem 7: 10/04/19 05:33 10/04/19 05:33 Labs: Abnormal Lab Results - Last 24 Hours (Table) 10/04/19 10/04/19 Range/Units 05:33 05:33 RBC 3.45 L (3.80-5.40) m/uL MCV 101.8 H (80.0-100.0) fL Carbon Dioxide 17 L (22-30) mmol/L BUN 21 H (7-17) mg/dL Creatinine 0.50 L (0.52-1.04) mg/dL Glucose 54 L (74-99) mg/dL Calcium 8.1 L (8.4-10.2) mg/dL - Imaging and Cardiology Chest x-ray: report reviewed, image reviewed Assessment and Plan Assessment: 1. Recurrent left spontaneous pneumothorax, status post recent left VATS procedure and placement of left chest Thoravent by the emergency room physician 2. Diarrhea 3. Nausea and vomiting 4. 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 Chronic nicotine abuse, quit smoking in July 2019 6. History of marijuana use 7. Manic depressive bipolar disorder Plan: 1. Keep left chest Thoravent to low continuous wall suction -20 cm H2O. Monitor for airleak resolution. 2. Encourage use of her incentive spirometry every hour while awake. 3. Increase activity as tolerated. 4. Pain management per current when necessary orders. 5. Medical management and other comorbidities per primary care service. 6. Bronchodilator management per pulmonary medicine. 7. GI and DVT prophylaxis. 8. More recommendations to follow based on patient's clinical course. Time with Patient: Greater than 30
[2019-10-04] MEDS ORDERED: TRIMETHOBENZAMIDE 100 MG/ML 2 ML VIAL IM PRN (16:25)
--- NOTE | 2019-10-04 17:11 | P.CONS ---
History of Present Illness - Reason for Consult Consult date: 10/04/19 Nausea Requesting physician: You Ramirez - Chief Complaint Cough, shortness of breath, nausea and vomiting - History of Present Illness 49-year-old female with a medical history significant for COPD, anxiety, previous tobacco abuse, marijuana abuse who presented to the hospital with complaints of cough, shortness of breath, nausea and vomiting. The patient was recently hospitalized for left sided spontaneous pneumothorax, status post left thorascopic surgery with wedge resection and mechanical pleurodesis on 08/12/2019 presented back to cough and shortness of breath after multiple episodes of nausea and vomiting. She underwent placement of a left chest thoravent in the emergency department. The patient had recently been diagnosed with influenza and reported multiple episodes of nausea and vomiting and association with her symptoms. Currently she is seen on the forward she continues to report intractable nausea. She denies any similar episodes in the past. No prior EGD or colonoscopy reported. She reports worsening of her symptoms with eating or smelling outside food. She reports a long-standing history of anxiety previously treated with Zantac therapy. Currently she uses marijuana daily for symptom control at home. Review of Systems REVIEW OF SYSTEMS: CONSTITUTIONAL: Denies any fevers, chills, weight change or fatigue. CARDIOVASCULAR: Denies any palpitations high or low blood pressures RESPIRATORY: Patient reported cough and shortness of breath on presentation and is status post chest tube placement.. GENITOURINARY: No dysuria or hematuria. MUSCULOSKELETAL: No weakness reported. SKIN: Denies any new rashes or lesions, jaundice or pallor. PSYCHIATRIC: She reports a long-standing history of anxiety treated with Xanax therapy and use of marijuana. NEUROLOGY: Denies headache, denies any new focal deficits. EARS/NOSE/THROAT: No recent hearing change, congestion, nasal discharge or sore throat. EYES: No pain in eyes, discharge or change in vision. GASTROINTESTINAL: As per HPI. Past Medical History Past Medical History: COPD Additional Past Medical History / Comment(s): chest tube august 2019 History of Any Multi-Drug Resistant Organisms: None Reported Past Surgical History: Cholecystectomy Additional Past Surgical History / Comment(s): Laparoscopy, history of neck fracture. Past Anesthesia/Blood Transfusion Reactions: No Reported Reaction Past Psychological History: Anxiety, Bipolar, Depression Smoking Status: Former smoker Past Alcohol Use History: None Reported, Rare Past Drug Use History: Marijuana - Past Family History Mother Family Medical History: Cancer Additional Family Medical History / Comment(s): Mother and father from Lung Cancer; Brother is Diabetic and ETOH Medications and Allergies Home Medications Medication Instructions Recorded Confirmed Type Ibuprofen [Motrin Ib] 400 mg PO Q6H PRN 08/05/19 10/02/19 History Acetaminophen Tab [Tylenol] 500 mg PO Q6HR PRN tab 08/21/19 10/02/19 Rx Famotidine [Pepcid] 20 mg PO BID #60 tablet 08/21/19 10/02/19 Rx Nicotine 21Mg/24Hr Patch [Habitrol] 1 patch TRANSDERM DAILY #14 patch 08/21/19 10/02/19 Rx Nicotine Polacrilex [Nicorette] 2 mg BUCCAL Q4HR PRN #30 gum 08/21/19 10/02/19 R x ALPRAZolam [Xanax] 0.25 mg PO BID PRN 10/02/19 10/02/19 History Albuterol Sulfate [Ventolin HFA] 1 - 2 puff INHALATION RT-Q6H PRN 10/02/19 10/02/19 History Ipratropium-Albuterol Nebulize 3 ml INHALATION RT-TID 10/02/19 10/02/19 History [Duoneb 0.5 mg-3 mg/3 ml Soln] Melatonin 10 mg PO HS 10/02/19 10/02/19 History Tiotropium Br/Olodaterol HCl 1 puff INHALATION RT-BID 10/02/19 10/02/19 History [Stiolto Respimat Inhal [place]] Umeclidinium Brm/Vilanterol Tr 1 puff INHALATION RT-BID 10/02/19 10/02/19 History [Anoro Ellipta 62.5-25 Mcg INH] busPIRone HCl [Buspar] 10 mg PO BID 10/02/19 10/02/19 History Allergies Allergy/AdvReac Type Severity Reaction Status Date / Time Penicillins Allergy Rash/Hives Verified 10/02/19 12:13 erythromycin base AdvReac Vomiting Verified 10/02/19 12:13 hydromorphone [From Dilaudid] AdvReac Vomiting Verified 10/02/19 12:13 Physical Exam Vitals: Vital Signs Temp Pulse Resp BP Pulse Ox 10/04/19 04:00 98 F 54 L 15 137/79 95 10/04/19 00:00 98 F 60 18 121/59 100 10/03/19 20:00 98.8 F 58 L 18 125/65 93 L 10/03/19 15:33 98.9 F 48 L 14 161/77 94 L 10/03/19 12:00 98.9 F 50 L 18 120/68 93 L Intake and Output 10/03/19 10/04/19 10/04/19 22:59 06:59 14:59 Intake Total 1200 Output Total 885 40 Balance 315 -40 Intake: IV 1000 0.9% NS @ 100ml/hr 1000 Oral 200 Output: Chest Tube Drainage 85 40 Thora-Vent Left Upper 85 40 Anterior Chest Urine 800 Other: Voiding Method Toilet Toilet # Voids 1 Weight 0 g On physical examination, patient appears comfortable in no apparent distress. HEAD: Normocephalic, atraumatic. EYES: No scleral icterus. No conjunctival injection. MOUTH: No lesions, tongue midline. NECK: Trachea midline, no gross abnormalities. CHEST: Decreased air entry in all lung farias, left chest tube in place. HEART: Regular rate and rhythm. ABDOMEN: Soft, and nontender to palpation. Bowel sounds are positive. No organomegaly. No guarding or rigidity. EXTREMITIES: No pedal edema. SKIN: No rashes, no jaundice. NEUROLOGIC: Alert and oriented x3. No focal deficits. Results CBC & Chem 7: 10/04/19 05:33 10/04/19 05:33 Labs: Abnormal Lab Results - Last 24 Hours (Table) 10/04/19 10/04/19 Range/Units 05:33 05:33 RBC 3.45 L (3.80-5.40) m/uL MCV 101.8 H (80.0-100.0) fL Carbon Dioxide 17 L (22-30) mmol/L BUN 21 H (7-17) mg/dL Creatinine 0.50 L (0.52-1.04) mg/dL Glucose 54 L (74-99) mg/dL Calcium 8.1 L (8.4-10.2) mg/dL Chest x-ray: report reviewed (Continuing left apical pneumothorax on chest x- ray.) Assessment and Plan (1) Nausea & vomiting Narrative/Plan: 41-year-old female with multiple medical comorbidities including COPD, anxiety, chronic daily marijuana use who presented to the hospital with cough, shortness of breath and nausea and vomiting. She reports recently being diagnosed with the flu and had multiple episodes of nausea and vomiting subsequently developing cough and shortness of breath. She had been seen and previously treated on rece nt hospitalization for a pneumothorax was found to have recurrence of the normal thorax currently with a Thoravent in place. Symptoms of nausea and vomiting may be related to viral or bacterial gastroenteritis, uncontrolled reflux, marijuana hyperemesis syndrome, gastritis or esophagitis or other etiology. Based on the patient's symptoms in general demeanor suspicion is that his anxiety is playing a role in persistence of her symptoms. Current Visit: Yes Status: Acute Code(s): R11.2 - NAUSEA WITH VOMITING, UNSPECIFIED SNOMED Code(s): 94942003 (2) Pneumothorax on left Current Visit: Yes Status: Acute Code(s): J93.9 - PNEUMOTHORAX, UNSPECIFIED SNOMED Code(s): 807324778 Plan: Supportive care Okay for diet as tolerated Protonix increased to twice daily Reglan increased to around the clock Zofran increased to around the clock Tigan as needed for breakthrough nausea IM added Would recommend consultation to the psychiatry service as the patient reports chronic use of marijuana and uncontrolled anxiety which is likely worsening her underlying symptoms of nausea and vomiting Marijuana abstinence No plans for endoscopic evaluation as the patient is high risk given current left pneumothorax Thank you for allowing us to participate in the care of the patient we will continue to follow
[2019-10-04] MEDS ORDERED: ONDANSETRON 4 MG/2 ML VIAL IVP SCH (18:00)
[2019-10-04] MEDS: ONDANSETRON 4 MG/2 ML VIAL IVP SCH (20:55)
[2019-10-04] MEDS: METOCLOPRAMIDE 5 MG/ML 2 ML VIAL IVP SCH (20:55)
[2019-10-04] MEDS: NICOTINE 21MG/24HR PATCH TRANSDERM SCH (23:10)
--- NOTE | 2019-10-04 23:31 | P.PN ---
Subjective Progress Note Date: 10/04/19 Principal diagnosis: Left sided pneumothorax Patient is a 49-year-old female with a known history of COPD, pneumothorax with history of VATS in August 2019, anxiety/bipolar/depression and previous history of smoking came to ER with complaints of cough and shortness of breath a long with nausea vomiting diarrhea for the past 2 days. Patient says that she felt like flulike symptoms and came to ER. Patient states that her and changed was recently diagnosed with influenza. Patient did have fever and chills. Denied any abdominal pain. Patient did have left upper chest discomfort on admission. Influenza negative. Pelvis 9.7, hemoglobin 14.0 and creatinine 0.53. BUN 28. Chest x-ray showed large left pneumothorax. No mediastinal deviation. emphysematous changes. Patient was placed on Thoravent in the ER with low continuous suction. 10/03/2019 Patient is complaining of tightness in her left upper chest. Also complaints of nausea. No worsening shortness of breath. Chest x-ray showed improvement in left apical pneumothorax. Patient is being continued on Thoravent with low intermittent suction. Encouraged with incentive spirometry. CT surgery is following. Patient has been afebrile. plus or abdominal pain. No diarrhea. No headache or dizziness. 10/04/2016 Patient was admitted to the hospital with nausea vomiting and flulike symptoms. Found have left upper pneumothorax. Patient is currently onThoravent with low intermittent suction. Patient did have intractable nausea yesterday. GI was consulted-recorded no intervention at this time. Continue the Reglan and Zofran. Patient is otherwise extremely anxious. Current medications reviewed. Objective - Vital Signs Vital signs: Vital Signs Temp 98.1 F 10/04/19 15:08 Pulse 62 10/04/19 15:08 Resp 16 10/04/19 15:08 BP 128/62 10/04/19 15:08 Pulse Ox 94 L 10/04/19 15:08 Intake & Output 10/03/19 10/04/19 10/04/19 18:59 06:59 18:59 Intake Total 1200 800 Output Total 925 1750 Balance 1200 -925 -950 Weight 0 g Intake: IV 1000 800 0.9% NS @ 100ml/hr 1000 800 Oral 200 Output: Chest Tube Drainage 125 Thora-Vent Left Upper 125 Anterior Chest Urine 800 1750 Other: Voiding Method Toilet Toilet Toilet # Voids 1 1 1 - Exam PHYSICAL EXAMINATION: Patient is lying in the bed comfortably, no acute distress, awake alert and oriented.. HEENT: Normocephalic. Neck is supple. Pupils reactive. Nostrils clear. Oral cavity is moist. Ears reveal no drainage. Neck reveals no JVD, carotid bruits, or thyromegaly. CHEST EXAMINATION: Trachea is central. Symmetrical expansion. Left upper chest Thoravent. No wheezing. Nonlabored breathing.. CARDIAC: Normal S1, S2 with no gallops. No murmurs ABDOMEN: Soft. Bowel sounds normal. No organomegaly. No abdominal bruits. Extremities: reveal no edema. No clubbing or cyanosis Neurologically awake, alert, oriented x3 with well-coordinated movements. No focal deficits noted Skin: No rash or skin lesions. Psychiatric: Coperative. Nonsuicidal. Anxious. Musculoskeletal: No joint swelling or deformity. Normal range of motion. - Labs CBC & Chem 7: 10/04/19 05:33 10/04/19 05:33 Labs: Abnormal Lab Results - Last 24 Hours (Table) 10/04/19 10/04/19 Range/Units 05:33 05:33 RBC 3.45 L (3.80-5.40) m/uL MCV 101.8 H (80.0-100.0) fL Carbon Dioxide 17 L (22-30) mmol/L BUN 21 H (7-17) mg/dL Creatinine 0.50 L (0.52-1.04) mg/dL Glucose 54 L (74-99) mg/dL Calcium 8.1 L (8.4-10.2) mg/dL Assessment and Plan Assessment: Left upper large spontaneous pneumothorax. Currently placed on Thoravent to low suction History of spontaneous pneumothorax status post chest tube placement and VATS in August 2019 COPD with emphysematous changes Nausea vomiting and diarrhea improved now Flulike illness on admission Anxiety/depression/bipolar disorder Previous history of smoking and marijuana use DVT prophylaxis Plan: Patient will be continued on thoravent with a low suction. air leak is present. Continue pain management and gentle hydration. Pulmonary and CT surgery is following. Further recommendations based on the clinical course. Time with Patient: Greater than 30
[2019-10-05] MEDS: ONDANSETRON 4 MG/2 ML VIAL IVP SCH ×4 (03:48→20:34)
[2019-10-05] MEDS: METOCLOPRAMIDE 5 MG/ML 2 ML VIAL IVP SCH ×4 (03:50→20:32)
[2019-10-05] MEDS: KETOROLAC 30 MG/ML 1 ML VIAL IVP SCH ×4 (03:50→20:30)
[2019-10-05] MEDS: PANTOPRAZOLE 40 MG/10 ML VIAL IV SCH ×2 (08:16→20:35)
[2019-10-05] MEDS: ENOXAPARIN 40 MG/0.4 ML SYRINGE SQ SCH (08:17)
--- NOTE | 2019-10-05 08:20 | XR ---
EXAMINATION TYPE: XR chest 1V portable DATE OF EXAM: 10/05/2019 COMPARISON: Prior chest 10/04/2019 HISTORY: Pneumothorax, chest tube TECHNIQUE: Single frontal view of the chest is obtained. FINDINGS: Findings are similar to prior exam. Left-sided thoracic vent is in place, small left apica l pneumothorax is present. Minimal patchy basilar density is noted. Heart is stable. Difficult to exc lude small effusion. IMPRESSION: Findings are similar to prior exam.
[2019-10-05] MEDS: LORazepam 0.5 MG TAB PO PRN ×3 (09:57→21:26)
--- NOTE | 2019-10-05 13:47 | P.PN ---
Subjective 49-year-old female with a known history of COPD, pneumothorax with history of VATS in August 2019, anxiety/bipolar/depression and previous history of smoking came to ER with complaints of cough and shortness of breath along with nausea vomiting diarrhea for the past 2 days. Patient says that she felt like flulike symptoms and came to ER. Patient states that her and changed was recently diagnosed with influenza. Patient did have fever and chills. Denied any abdominal pain. Patient did have left upper chest discomfort on admission. Influenza negative. Pelvis 9.7, hemoglobin 14.0 and creatinine 0.53. BUN 28. Chest x-ray showed large left pneumothorax. No mediastinal deviation. emphysematous changes. Patient was placed on Thoravent in the ER with low continuous suction. 10/03/2019 Patient is complaining of tightness in her left upper chest. Also complaints of nausea. No worsening shortness of breath. Chest x-ray showed improvement in left apical pneumothorax. Patient is being continued on Thoravent with low intermittent suction. Encouraged with incentive spirometry. CT surgery is following. Patient has been afebrile. plus or abdominal pain. No diarrhea. No headache or dizziness. 10/04/2019 Patient was admitted to the hospital with nausea vomiting and flulike symptoms. Found have left upper pneumothorax. Patient is currently onThoravent with low intermittent suction. Patient did have intractable nausea yesterday. GI was consulted-recorded no intervention at this time. Continue the Reglan and Zofran. Patient is otherwise extremely anxious. 10/05/2019 Patient still has some air leak. No overnight events. Patient still has a left-sided chest tube and Thoravent Constitutional: Denied any fatigue denied any fever. Cardio vascular: denied any chest pain, palpitations Gastrointestinal denied any nausea vomiting Pulmonary: Denied any shortness of breath cough Neurologic denied any new focal deficits All inpatient medications were reviewed and appropriate changes in these medications as dictated in the interval history and assessment and plan. Objective - Vital Signs Vital signs: Vital Signs Temp 98.1 F 10/05/19 08:00 Pulse 62 10/05/19 11:58 Resp 16 10/05/19 11:58 BP 123/68 10/05/19 08:00 Pulse Ox 93 L 10/05/19 08:00 Intake & Output 10/04/19 10/05/19 10/05/19 18:59 06:59 18:59 Intake Total 800 800 Output Total 1750 50 550 Balance -950 -50 250 Weight 59 kg Intake: IV 800 800 0.9% NS @ 100ml/hr 800 800 Output: Chest Tube Drainage 50 50 Thora-Vent Left Upper 50 50 Anterior Chest Urine 1750 500 Other: Voiding Method Toilet Toilet Toilet # Voids 1 1 - Exam PHYSICAL EXAMINATION: Patient is lying in the bed comfortably, no acute distress, awake alert and oriented.. HEENT: Normocephalic. Neck is supple. Pupils reactive. Nostrils clear. Oral cavity is moist. Ears reveal no drainage. Neck reveals no JVD, carotid bruits, or thyromegaly. CHEST EXAMINATION: Trachea is central. Symmetrical expansion. Left upper chest Thoravent. No wheezing. Nonlabored breathing.. CARDIAC: Normal S1, S2 with no gallops. No murmurs ABDOMEN: Soft. Bowel sounds normal. No organomegaly. No abdominal bruits. Extremities: reveal no edema. No clubbing or cyanosis Neurologically awake, alert, oriented x3 with well-coordinated movements. No focal deficits noted Skin: No rash or skin lesions. Psychiatric: Coperative. Nonsuicidal. Anxious. Musculoskeletal: No joint swelling or deformity. Normal range of motion. - Labs CBC & Chem 7: 10/04/19 05:33 10/04/19 05:33 Assessment and Plan Plan: Assessment and Plan Assessment: Left upper large spontaneous pneumothorax. Currently placed on Thoravent to low suction History of spontaneous pneumothorax status post chest tube placement and VATS in August 2019 COPD with emphysematous changes Nausea vomiting and diarrhea improved now Flulike illness on admission Anxiety/depression/bipolar disorder Previous history of smoking and marijuana use DVT prophylaxis
--- NOTE | 2019-10-05 15:31 | P.PN ---
Subjective Progress Note Date: 10/05/19 Principal diagnosis: Left-sided recurrence of spontaneous pneumothorax Advanced emphysema Intravascular volume depletion and dehydration Severe COPD Intractable nausea and vomiting 10/05/2019, patient seen eval examined during the rounds labs reviewed medications reviewed care plan discussed, continued to have extensive air leak, nausea is stable now patient is taking some by mouth diet 10/03/2019, patient seen and evaluated examined during the rounds he denies any chest pain, however air leak is still present, she has intractable nausea and vomiting for that Zofran is being given but is not helpful we'll and Noellan and also consult GI This is a 49-year-old female who was seen evaluated examined in the emergency department patient presented into the hospital with a 5 day history of onset of nausea vomiting, patient started having shortness of breath came into the hospital a chest x-ray showed left-sided large pneumothorax vent has been placed per instruction of thoracic surgery which has been consulted currently is pain-free denies any cough or sputum production she had a significant history of left pneumothorax require VATS procedure and mechanical pleurodesis now with recurrence of the pneumothorax, her influenza serology is negative, labs and wh ite cell count and normal BUN slightly elevated resistive of dehydration, patient is still have a large air leak through the pleural VAC Objective - Vital Signs Vital signs: Vital Signs Temp 98.1 F 10/05/19 12:00 Pulse 47 L 10/05/19 12:00 Resp 14 10/05/19 12:00 BP 132/68 10/05/19 12:00 Pulse Ox 94 L 10/05/19 12:00 Intake & Output 10/04/19 10/05/19 10/05/19 18:59 06:59 18:59 Intake Total 800 2000 Output Total 1750 50 1150 Balance -950 -50 850 Weight 59 kg Intake: IV 800 1600 0.9% NS @ 100ml/hr 800 1600 Oral 400 Output: Chest Tube Drainage 50 50 Thora-Vent Left Upper 50 50 Anterior Chest Urine 1750 1100 Other: Voiding Method Toilet Toilet Toilet # Voids 1 1 - Exam - General Thin well developed, well nourished, no distress, no pain - Eyes PERRL, normal ocular movement - ENT normal pinna, normal nares, normal mucosa, no hearing loss, no congestion, dentures (Upper plate) - Neck Neck is supple, no lymphadenopathy. no masses, no bruits, trachea midline, no venous distension - Respiratory Lungs sounds essentially clear throughout, diminished to her left lower lobe. Respirations are symmetrical and nonlabored. Left chest Thoravent in place to l ow continuous wall suction -20 cm H2O. Continuous air leak is present. - Cardiovascular Regular rhythm and rate. S1 and S2 present, negative for S3, gallop or murmur. No edema present. - Abdomen Abdomen is soft, nontender and nondistended. Active bowel sounds present all 4 abdominal quadrants. No guarding or rigidity. No organomegaly appreciated. - Integumentary no rash, no growths, no abnormal pigmentation - Neurologic Cranial nerves II through XII intact. normal coordination, normal sensation - Musculoskeletal normal gait, normal posture - Psychiatric oriented to time, oriented to person, oriented to place, speech is normal, memory intact - Labs CBC & Chem 7: 10/04/19 05:33 10/04/19 05:33 Assessment and Plan Assessment: Left-sided recurrence of spontaneous pneumothorax Advanced emphysema Intravascular volume depletion and dehydration Severe COPD Intractable nausea and vomiting Plan: Gentle rehydration Pain management Monitor clinical course with left Thoravent IV Zofran Reglan Time with Patient: Greater than 30
[2019-10-05] MEDS: SODIUM CHLORIDE 0.9% 1,000 ML IV SCH ×2 (15:34→20:30)
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
--- NOTE | 2019-10-05 16:15 | P.PN ---
Subjective Progress Note Date: 10/05/19 Principal diagnosis: Recurrent left-sided spontaneous pneumothorax, status post left thoracoscopic surgery with reinforced wedge resection of apex of left upper lobe including ruptured blebs with mechanical pleurodesis on 08/12/2019, placement of left chest Thoravent by the emergency room physician. History of left spontaneous pneumothorax July 2019, severe chronic obstructive pulmonary disease, chronic nicotine dependence quit smoking in July 2018, manic depression bipolar and marijuana use. Status post day #3 placement of left chest Thoravent by the emergency room physician. The patient is laying in bed on the cardiac stepdown unit. She is in no acute distress. This morning she denies any further complaints of nausea, shortness of breath or pain. She reports that she was able to tolerate some peanut butter toast this morning. Left chest Thoravent remains in place to low continuous wall suction -20 cm H2O. Continuous air leak is present. Draining thin serous drainage with 50 mL output in the last 24 hours. She is achieving 1250 mL on her incentive spirometry. Oxygen saturation are 94% on room air. She continues to be afebrile and her temperature at this time is 98.2F. Chest x-ray this morning continues to demonstrate a small residual left apical pneumothorax. She's been ambulating in her room with minimal assistance. Objective - Vital Signs Vital signs: Vital Signs Temp 98.2 F 10/05/19 04:00 Pulse 56 L 10/05/19 04:00 Resp 16 10/05/19 04:00 BP 142/66 10/05/19 04:00 Pulse Ox 93 L 10/05/19 04:00 Intake & Output 10/04/19 10/05/19 10/05/19 18:59 06:59 18:59 Intake Total 800 Output Total 1750 50 Balance -950 -50 Weight 59 kg Intake: IV 800 0.9% NS @ 100ml/hr 800 Output: Chest Tube Drainage 50 Thora-Vent Left Upper 50 Anterior Chest Urine 1750 Other: Voiding Method Toilet Toilet # Voids 1 1 - Constitutional General appearance: Present: cooperative, no acute distress, thin - Respiratory Details: Lung sounds essentially clear throughout. No wheezes, crackles or rhonchi. Respirations are symmetrical and nonlabored. Oxygen saturation 94% on room air. Achieving 1250 mL on her incentive spirometry. Left chest Thoravent remains in place to low continuous wall suction -20 cm H2O. Continuous air leak is present. Draining thin serosanguineous drainage. - Cardiovascular Details: Regular rhythm and bradycardic rate. S1 and S2 present, negative for S3, gallop or murmur. No edema present. Knee-high sequential compression devices in place for bilateral lower extremities. - Gastrointestinal Gastrointestinal Comment(s): Abdomen soft, nontender and nondistended. Active bowel sounds present in all 4 abdominal quadrants. Tolerating minimal oral intake. No guarding or rigidity. No organomegaly appreciated. - Genitourinary Genitourinary Comment(s): Voiding clear yellow urine. - Integumentary Integumentary Comment(s): Skin is warm and dry. No clubbing or cyanosis is present. No rash or abnormal pigmentation is present. Left chest Thoravent site clean and dry. - Neurologic Neurologic: Present: CNII-XII intact - Musculoskeletal Musculoskeletal: Present: gait normal, strength equal bilaterally - Psychiatric Psychiatric Comment(s): Flat affect. Psychiatric: Present: A&O x's 3, intact judgment & insight - Allied health notes Allied health notes reviewed: nursing - Labs CBC & Chem 7: 10/04/19 05:33 10/04/19 05:33 - Imaging and Cardiology Chest x-ray: report reviewed, image reviewed Assessment and Plan Assessment: 1. Recurrent left spontaneous pneumothorax, status post recent left VATS procedure and placement of left chest Thoravent by the emergency room physician 2. Diarrhea 3. Nausea and vomiting, resolved 4. 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 Chronic nicotine abuse, quit smoking in July 2019 6. History of marijuana use 7. Manic depressive bipolar disorder Plan: 1. Keep left chest Thoravent to low continuous wall suction -20 cm H2O. Monitor for airleak resolution. If the airleak remains persistent may require VATS with stapling procedure. 2. Encourage use of her incentive spirometry every hour while awake. 3. Increase activity as tolerated. Out of bed for all meals. 4. Pain management per current when necessary orders. 5. Medical management and other comorbidities per primary care service. 6. Bronchodilator management per pulmonary medicine. 7. GI and DVT prophylaxis. 8. Continue to encourage smoking cessation. 9. Continue to monitor daily chest x-rays. 10. More recommendations to follow based on patient's clinical course. Time with Patient: Greater than 30
[2019-10-05] MEDS: busPIRone HCl 10 MG TAB PO SCH ×2 (16:50→23:02)
--- NOTE | 2019-10-05 19:41 | P.PN ---
Subjective Progress Note Date: 10/05/19 Principal diagnosis: Intractable nausea and vomiting Patient is seen lying in bed reporting that her nausea and vomiting has improved. No further episodes of vomiting. She has tolerated her diet. Objective - Vital Signs Vital signs: Vital Signs Temp 98.1 F 10/05/19 08:00 Pulse 62 10/05/19 11:58 Resp 16 10/05/19 11:58 BP 123/68 10/05/19 08:00 Pulse Ox 93 L 10/05/19 08:00 Intake & Output 10/04/19 10/05/19 10/05/19 18:59 06:59 18:59 Intake Total 800 800 Output Total 1750 50 550 Balance -950 -50 250 Weight 59 kg Intake: IV 800 800 0.9% NS @ 100ml/hr 800 800 Output: Chest Tube Drainage 50 50 Thora-Vent Left Upper 50 50 Anterior Chest Urine 1750 500 Other: Voiding Method Toilet Toilet Toilet # Voids 1 1 - Exam On physical examination, patient appears comfortable in no apparent distress. HEAD: Normocephalic, atraumatic. EYES: No scleral icterus. No conjunctival injection. MOUTH: No lesions, tongue midline. NECK: Trachea midline, no gross abnormalities. CHEST: Left sided chest tube in place on low intermittent suction. ABDOMEN: Soft, thin and nontender. Bowel sounds are positive. No organomegaly. No guarding or rigidity. EXTREMITIES: No pedal edema. SKIN: No rashes, no jaundice. NEUROLOGIC: Alert and oriented x3. No focal deficits. - Labs CBC & Chem 7: 10/04/19 05:33 10/04/19 05:33 Assessment and Plan (1) Nausea & vomiting Narrative/Plan: 41-year-old female with multiple medical comorbidities including COPD, anxiety, chronic daily marijuana use who presented to the hospital with cough, shortness of breath and nausea and vomiting. She reports recently being diagnosed with the flu and had multiple episodes of nausea and vomiting subsequently developing cough and shortness of breath. She had been seen and previously treated on recent hospitalization for a pneumothorax was found to have recurrence of the normal thorax currently with a Thoravent in place. Symptoms of nausea and vomiting may be related to viral or bacterial gastroenteritis, uncontrolled reflux, marijuana hyperemesis syndrome, gastritis or esophagitis or other etiology. Based on the patient's symptoms in general demeanor suspicion is that his anxiety is playing a role in persistence of her symptoms. Patient seen lying in bed today reporting that she's had no further nausea or vomiting. She is tolerating a diet. Overall symptoms have improved. Current Visit: Yes Status: Acute Code(s): R11.2 - NAUSEA WITH VOMITING, UNSPECIFIED SNOMED Code(s): 55047093 (2) Pneumothorax on left Current Visit: Yes Status: Acute Code(s): J93.9 - PNEUMOTHORAX, UNSPECIFIED SNOMED Code(s): 325373528 Plan: Supportive care Okay for diet as tolerated Protonix twice daily Reglan around the clock, if patient continues to do well tomorrow we'll switch to as needed dosing Zofran around the clock Tigan as needed for breakthrough nausea IM Marijuana abstinence No plans for endoscopic evaluation as the patient is high risk given current left pneumothorax Thank you for allowing us to participate in the care of the patient we will continue to follow
[2019-10-05] MEDS: NICOTINE 21MG/24HR PATCH TRANSDERM SCH (20:28)
[2019-10-05] MEDS: MIRTAZAPINE 15 MG TAB PO SCH (20:29)
[2019-10-06] MEDS: KETOROLAC 30 MG/ML 1 ML VIAL IVP SCH ×3 (02:56→15:43)
[2019-10-06] MEDS: ONDANSETRON 4 MG/2 ML VIAL IVP SCH ×4 (02:58→20:12)
[2019-10-06] MEDS: METOCLOPRAMIDE 5 MG/ML 2 ML VIAL IVP SCH ×2 (03:00→09:26)
[2019-10-06] MEDS: SODIUM CHLORIDE 0.9% 1,000 ML IV SCH ×3 (03:02→20:15)
[2019-10-06 07:23] LABS: African American GFR (CKD) >90 (>60 ml/min/1.73 sqM); Anion Gap 5 mmol/L; Blood Urea Nitrogen 11 mg/dL (7-17); Carbon Dioxide 23 mmol/L (22-30); Chloride 112 mmol/L (98-107); Glucose 82 mg/dL (74-99); Non-African American GFR(CKD) >90 (>60 ml/min/1.73 sqM); Potassium 3.2 mmol/L (3.5-5.1); Sodium 140 mmol/L (137-145)
--- NOTE | 2019-10-06 07:54 | XR ---
EXAMINATION TYPE: XR chest 1V portable DATE OF EXAM: 10/06/2019 COMPARISON: Prior chest x-ray 10/05/2019 HISTORY: Pneumothorax, chest tube TECHNIQUE: Single frontal view of the chest is obtained. FINDINGS: Thoracic vent remains in place, minimal left apical pneumothorax is somewhat diminished co mpared to prior exam. Some patchy basilar density persists. No other significant interval change. IMPRESSION: Left apical pneumothorax appears slightly diminished.
--- NOTE | 2019-10-06 08:55 | P.PN ---
Subjective Progress Note Date: 10/06/19 Principal diagnosis: Recurrent left-sided spontaneous pneumothorax, intractable nausea and vomiting. Previous medical history of left-sided spontaneous pneumothorax with placement of thoravent, status post left VATS with reinforced wedge resection of the apex of the left upper lobe including ruptured blebs with mechanical pleurodesis in August 2019, severe COPD with bullous emphysema, chronic nicotine dependence, marijuana use, bipolar disorder/anxiety. POD #4 placement of left sided thoravent by the emergency room physicians with continued air leak The patient is currently sitting up in bed on the cardiac stepdown unit in no acute distress. She denies significant pain, denies shortness of breath, states nausea has gotten better, and has been ambulatory around the room without difficulty. She is quite down about this repeated admission. Thoravent remains to continuous wall suction with continuous air leak present. Chest x-ray reviewed from this morning demonstrates slight improvement but pneumothorax remains. No other new concerns. Objective - Vital Signs Vital signs: Vital Signs Temp 96.7 F L 10/06/19 07:39 Pulse 61 10/06/19 07:39 Resp 16 10/06/19 07:39 BP 145/84 10/06/19 07:39 Pulse Ox 95 10/06/19 07:39 Intake & Output 10/05/19 10/06/19 10/06/19 18:59 06:59 18:59 Intake Total 2000 800 Output Total 1150 290 Balance 850 510 Weight 59.3 kg Intake: IV 1600 800 0.9% NS @ 100ml/hr 1600 800 Oral 400 Output: Chest Tube Drainage 50 90 Thora-Vent Left Upper 50 90 Anterior Chest Urine 1100 200 Other: Voiding Method Toilet Toilet # Voids 1 - Constitutional General appearance: Present: cooperative, no acute distress, thin - Respiratory Details: Lungs sounds clear bilaterally. Respirations even, nonlabored. Currently on 2 L nasal cannula with oxygen saturation 95%. Able to achieve 1250 mL on her incentive spirometry. Strong cough. Left sided thoravent present to continuous wall suction, 90 mL serous drainage overnight, 250 mL in the last 24 hours. Continuous air leak remains present. - Cardiovascular Details: S1, S2 present. Regular rate and rhythm, sinus rhythm on telemetry. Palpable peripheral pulses bilaterally. No edema present. No calf pain or tenderness noted. - Gastrointestinal Gastrointestinal Comment(s): Abdomen soft, nontender, nondistended. Active bowel sounds present 4 quadrants. Tolerating liquids. - Genitourinary Genitourinary Comment(s): Continues to void - Integumentary Integumentary Comment(s): Skin is warm and dry with evidence of good perfusion - Neurologic Neurologic: Present: CNII-XII intact - Musculoskeletal Musculoskeletal: Present: gait normal, strength equal bilaterally - Psychiatric Psychiatric: Present: A&O x's 3, appropriate affect, intact judgment & insight - Allied health notes Allied health notes reviewed: nursing - Labs CBC & Chem 7: 10/04/19 05:33 10/06/19 05:41 Labs: Abnormal Lab Results - Last 24 Hours (Table) 10/06/19 Range/Units 05:41 Potassium 3.2 L (3.5-5.1) mmol/L Chloride 112 H (98-107) mmol/L Calcium 8.0 L (8.4-10.2) mg/dL - Imaging and Cardiology Chest x-ray: report reviewed, image reviewed Assessment and Plan Assessment: 1. Recurrent left-sided spontaneous pneumothorax, status post left sided thoravent placement 2. Intractable nausea and vomiting 3. History of left-sided spontaneous pneumothorax with placement of thoravent on subsequent VATS, wedge resection, mechanical pleurodesis in August 2019 4. Severe COPD with bullous emphysema 5. Chronic nicotine dependence 6. Marijuana use 7. Bipolar disorder/anxiety Plan: 1. Keep left chest Thoravent to wall suction. 2. Plan is for left sided VATS with possible bleb stapling, talc pleurodesis on , 10/08/[address] iKdd. 3. Wean O2 as tolerated. Encourage use of her incentive spirometry every hour while awake. 4. Increase activity as tolerated, ambulate in room 5. Pain management per current medication regimen. 6. Bronchodilators per pulmonology 7. GI and DVT prophylaxis. 8. Continue to encourage smoking cessation. 9. Continue to monitor daily chest x-rays. 10. Medical management of other comorbidities per primary care service 11. More recommendations to follow based on patient's progress. Time with Patient: Greater than 30
[2019-10-06] MEDS: busPIRone HCl 10 MG TAB PO SCH ×2 (09:17→20:10)
[2019-10-06] MEDS: ENOXAPARIN 40 MG/0.4 ML SYRINGE SQ SCH (09:20)
[2019-10-06] MEDS: PANTOPRAZOLE 40 MG/10 ML VIAL IV SCH ×2 (09:27→20:10)
[2019-10-06] MEDS ORDERED: METOCLOPRAMIDE 5 MG/ML 2 ML VIAL IVP PRN (10:44)
[2019-10-06] MEDS: LORazepam 0.5 MG TAB PO PRN (12:24)
--- NOTE | 2019-10-06 13:26 | P.PN ---
Subjective 49-year-old female with a known history of COPD, pneumothorax with history of VATS in August 2019, anxiety/bipolar/depression and previous history of smoking came to ER with complaints of cough and shortness of breath along with nausea vomiting diarrhea for the past 2 days. Patient says that she felt like flulike symptoms and came to ER. Patient states that her and changed was recently diagnosed with influenza. Patient did have fever and chills. Denied any abdominal pain. Patient did have left upper chest discomfort on admission. Influenza negative. Pelvis 9.7, hemoglobin 14.0 and creatinine 0.53. BUN 28. Chest x-ray showed large left pneumothorax. No mediastinal deviation. emphysematous changes. Patient was placed on Thoravent in the ER with low continuous suction. 10/03/2019 Patient is complaining of tightness in her left upper chest. Also complaints of nausea. No worsening shortness of breath. Chest x-ray showed improvement in left apical pneumothorax. Patient is being continued on Thoravent with low intermittent suction. Encouraged with incentive spirometry. CT surgery is following. Patient has been afebrile. plus or abdominal pain. No diarrhea. No headache or dizziness. 10/04/2019 Patient was admitted to the hospital with nausea vomiting and flulike symptoms. Found have left upper pneumothorax. Patient is currently onThoravent with low intermittent suction. Patient did have intractable nausea yesterday. GI was consulted-recorded no intervention at this time. Continue the Reglan and Zofran. Patient is otherwise extremely anxious. 10/05/2019 Patient still has some air leak. No overnight events. Patient still has a left-sided chest tube and Thoravent\ 10/06/2019 Patient can use to have a leak from a the chest tube. Probably will need the VATS procedure. Will discuss with cardiac thoracic surgery discussed with pulmonology. Constitutional: Denied any fatigue denied any fever. Cardio vascular: denied any chest pain, palpitations Gastrointestinal denied any nausea vomiting Pulmonary: Denied any shortness of breath cough Neurologic denied any new focal deficits All inpatient medications were reviewed and appropriate changes in these medications as dictated in the interval history and assessment and plan. Objective - Vital Signs Vital signs: Vital Signs Temp 98.9 F 10/06/19 11:33 Pulse 62 10/06/19 11:33 Resp 16 10/06/19 11:52 BP 145/82 10/06/19 11:33 Pulse Ox 93 L 10/06/19 11:33 Intake & Output 10/05/19 10/06/19 10/06/19 18:59 06:59 18:59 Intake Total 2000 800 200 Output Total 1150 290 0 Balance 850 510 200 Weight 59.3 kg Intake: IV 1600 800 20 0.9% NS @ 100ml/hr 1600 800 Invasive Line 2 20 Oral 400 180 Output: Chest Tube Drainage 50 90 0 Thora-Vent Left Upper 50 90 0 Anterior Chest Urine 1100 200 Other: Voiding Method Toilet Toilet Toilet # Voids 1 - Exam PHYSICAL EXAMINATION: Patient is lying in the bed comfortably, no acute distress, awake alert and oriented.. HEENT: Normocephalic. Neck is supple. Pupils reactive. Nostrils clear. Oral cavity is moist. Ears reveal no drainage. Neck reveals no JVD, carotid bruits, or thyromegaly. Chest tube in place CHEST EXAMINATION: Trachea is central. Symmetrical expansion. Left upper chest Thoravent. No wheezing. Nonlabored breathing.. CARDIAC: Normal S1, S2 with no gallops. No murmurs ABDOMEN: Soft. Bowel sounds normal. No organomegaly. No abdominal bruits. Extremities: reveal no edema. No clubbing or cyanosis Neurologically awake, alert, oriented x3 with well-coordinated movements. No focal deficits noted Skin: No rash or skin lesions. Psychiatric: Coperative. Nonsuicidal. Anxious. Musculoskeletal: No joint swelling or deformity. Normal range of motion. - Labs CBC & Chem 7: 10/04/19 05:33 10/06/19 05:41 Labs: Abnormal Lab Results - Last 24 Hours (Table) 10/06/19 Range/Units 05:41 Potassium 3.2 L (3.5-5.1) mmol/L Chloride 112 H (98-107) mmol/L Calcium 8.0 L (8.4-10.2) mg/dL Assessment and Plan Plan: Assessment and Plan Assessment: Left upper large spontaneous pneumothorax. Currently placed on Thoravent to low suction History of spontaneous pneumothorax status post chest tube placement and VATS in August 2019 COPD with emphysematous changes Nausea vomiting and diarrhea improved now Flulike illness on admission Anxiety/depression/bipolar disorder Previous history of smoking and marijuana use DVT prophylaxis
[2019-10-06] MEDS ORDERED: Potassium Replacement Protocol 1 EACH MISC MISCELLANE PRN (16:56)
[2019-10-06] MEDS: POTASSIUM CHLORIDE ER 20 MEQ TAB.ER PO SCH ×2 (17:12→18:20)
[2019-10-06] MEDS: NICOTINE 21MG/24HR PATCH TRANSDERM SCH (20:09)
[2019-10-06] MEDS: MIRTAZAPINE 15 MG TAB PO SCH (20:10)
[2019-10-06] MEDS: NICOTINE POLACRILEX 2 MG GUM BUCCAL PRN (23:05)
[2019-10-07] MEDS: ONDANSETRON 4 MG/2 ML VIAL IVP SCH ×4 (03:01→19:56)
--- NOTE | 2019-10-07 08:04 | XR ---
EXAMINATION TYPE: XR chest 1V portable DATE OF EXAM: 10/07/2019 COMPARISON: Prior chest x-ray 10/06/2019 HISTORY: Pneumothorax TECHNIQUE: Single frontal view of the chest is obtained. FINDINGS: Small left apical pneumothorax persists, thoracic vent is in place with tubing coursing to wards the superior lateral left apex. Minimal subsegmental basilar atelectatic changes are suspected. Heart is stable. IMPRESSION: Stable small left apical pneumothorax.
[2019-10-07] MEDS: busPIRone HCl 10 MG TAB PO SCH ×2 (08:13→19:56)
[2019-10-07] MEDS: ENOXAPARIN 40 MG/0.4 ML SYRINGE SQ SCH (08:13)
[2019-10-07] MEDS: NICOTINE POLACRILEX 2 MG GUM BUCCAL PRN ×3 (08:15→23:57)
[2019-10-07] MEDS: PANTOPRAZOLE 40 MG/10 ML VIAL IV SCH ×2 (08:18→19:55)
[2019-10-07] MEDS ORDERED: ONDANSETRON 4 MG/2 ML VIAL IVP ONE (08:25)
[2019-10-07] MEDS: POTASSIUM CHLORIDE ER 20 MEQ TAB.ER PO SCH ×2 (08:48→10:35)
[2019-10-07] MEDS: LORazepam 0.5 MG TAB PO PRN ×2 (08:49→19:57)
[2019-10-07] MEDS: LACTATED RINGERS 1,000 ML IV SCH (08:49)
--- NOTE | 2019-10-07 10:46 | P.PN ---
Subjective Progress Note Date: 10/06/19 Principal diagnosis: Left-sided recurrence of spontaneous pneumothorax Advanced emphysema Intravascular volume depletion and dehydration Severe COPD Intractable nausea and vomiting 10/06/2019, patient continued to have shortness of breath at activity, nausea and vomiting has improved now she able to tolerate by mouth very well, her chest x-ray continue show a left apical pneumothorax but a leak is continuous on the chest tube, cardiac surgery have been following the patient didn't want to do repeat surgery date has not been decided pending availability of Dr. Kidd 10/05/2019, patient seen eval examined during the rounds labs reviewed medications reviewed care plan discussed, continued to have extensive air leak, nausea is stable now patient is taking some by mouth diet 10/03/2019, patient seen and evaluated examined during the rounds he denies any chest pain, however air leak is still present, she has intractable nausea and vomiting for that Zofran is being given but is not helpful we'll and Noellan and also consult GI This is a 49-year-old female who was seen evaluated examined in the emergency department patient presented into the hospital with a 5 day history of onset of nausea vomiting, patient started having shortness of breath came into the [facility] a chest x-ray showed left-sided large pneumothorax vent has been placed per instruction of thoracic surgery which has been consulted currently is pain-free denies any cough or sputum production she had a significant history of left pneumothorax require VATS procedure and mechanical pleurodesis now with recurrence of the pneumothorax, her influenza serology is negative, labs and white cell count and normal BUN slightly elevated resistive of dehydration, patient is still have a large air leak through the pleural VAC Objective - Vital Signs Vital signs: Vital Signs Temp 98.0 F 10/06/19 16:00 Pulse 76 10/06/19 16:00 Resp 16 10/06/19 16:00 BP 123/66 10/06/19 16:00 Pulse Ox 96 10/06/19 16:00 Intake & Output 10/05/19 10/06/19 10/06/19 18:59 06:59 18:59 Intake Total 2000 800 1010 Output Total 1150 290 0 Balance 979 902 2528 Weight 59.3 kg Intake: IV 1600 800 30 0.9% NS @ 100ml/hr 1600 800 Invasive Line 2 30 Oral 400 980 Output: Chest Tube Drainage 50 90 0 Thora-Vent Left Upper 50 90 0 Anterior Chest Urine 1100 200 Other: Voiding Method Toilet Toilet Toilet # Voids 1 - Exam - General Thin well developed, well nourished, no distress, no pain - Eyes PERRL, normal ocular movement - ENT normal pinna, normal nares, normal mucosa, no hearing loss, no congestion, dentures (Upper plate) - Neck Neck is supple, no lymphadenopathy. no masses, no bruits, trachea midline, no venous distension - Respiratory Lungs sounds essentially clear throughout, diminished to her left lower lobe. Respirations are symmetrical and nonlabored. Left chest Thoravent in place to low continuous wall suction -20 cm H2O. Continuous air leak is present. - Cardiovascular Regular rhythm and rate. S1 and S2 present, negative for S3, gallop or murmur. No edema present. - Abdomen Abdomen is soft, nontender and nondistended. Active bowel sounds present all 4 abdominal quadrants. No guarding or rigidity. No organomegaly appreciated. - Integumentary no rash, no growths, no abnormal pigmentation - Neurologic Cranial nerves II through XII intact. normal coordination, normal sensation - Musculoskeletal normal gait, normal posture - Psychiatric oriented to time, oriented to person, oriented to place, speech is normal, memory intact - Labs CBC & Chem 7: 10/04/19 05:33 10/07/19 06:01 Labs: Abnormal Lab Results - Last 24 Hours (Table) 10/06/19 Range/Units 05:41 Potassium 3.2 L (3.5-5.1) mmol/L Chloride 112 H (98-107) mmol/L Calcium 8.0 L (8.4-10.2) mg/dL Assessment and Plan Assessment: Left-sided recurrence of spontaneous pneumothorax Advanced emphysema Intravascular volume depletion and dehydration Severe COPD Intractable nausea and vomiting Plan: Chest tube management as per cardiothoracic surgery Gentle rehydration Pain management Monitor clinical course with left Thoravent IV Zofran Reglan Time with Patient: Greater than 30
--- NOTE | 2019-10-07 10:48 | P.PN ---
Subjective Progress Note Date: 10/07/19 Principal diagnosis: Left-sided recurrence of spontaneous pneumothorax Advanced emphysema Intravascular volume depletion and dehydration Severe COPD Intractable nausea and vomiting 10/07/2019, patient seen and evaluated examined nausea vomiting has improved now able to tolerate by mouth well, patient is complaining of headache relieved with pain medications, air leak is still present, chest x-ray continue show a small apical pneumothorax is basal atelectasis, will put her on IV Rocephin for now 10/06/2019, patient continued to have shortness of breath at activity, nausea and vomiting has improved now she able to tolerate by mouth very well, her chest x-ray continue show a left apical pneumothorax but a leak is continuous on the chest tube, cardiac surgery have been following the patient didn't want to do repeat surgery date has not been decided pending availability of Dr. Kidd 10/05/2019, patient seen eval examined during the rounds labs reviewed medications reviewed care plan discussed, continued to have extensive air leak, nausea is stable now patient is taking some by mouth diet 10/03/2019, patient seen and evaluated examined during the rounds he denies any chest pain, however air leak is still present, she has intractable nausea and vomiting for that Zofran is being given but is not helpful we'll and Reglan and also consult GI This is a 49-year-old female who was seen evaluated examined in the emergency department patient presented into the hospital with a 5 day history of onset of nausea vomiting, patient started having shortness of breath came into the hospital a chest x-ray showed left-sided large pneumothorax vent has been placed per instruction of thoracic surgery which has been consulted currently is pain-free denies any cough or sputum production she had a significant history of left pneumothorax require VATS procedure and mechanical pleurodesis now with recurrence of the pneumothorax, her influenza serology is negative, labs and white cell count and normal BUN slightly elevated resistive of dehydration, patient is still have a large air leak through the pleural VAC Objective - Vital Signs Vital signs: Vital Signs Temp 98.7 F 10/07/19 07:34 Pulse 72 10/07/19 08:00 Resp 16 10/07/19 08:00 BP 153/72 10/07/19 07:34 Pulse Ox 95 10/07/19 07:34 Intake & Output 01/28/20 01/29/20 01/29/20 18:59 06:59 18:59 Intake Total 1450 800 320 Output Total 0 400 40 Balance 1450 400 280 Weight 63.6 kg Intake: IV 30 800 0.9% NS @ 100ml/hr 800 Invasive Line 2 30 Oral 1420 320 Output: Chest Tube Drainage 0 200 40 Thora-Vent Left Upper 0 200 40 Anterior Chest Urine 200 Other: Voiding Method Toilet Toilet Toilet # Voids 1 # Bowel Movements 1 - Exam - General Thin well developed, well nourished, no distress, no pain - Eyes PERRL, normal ocular movement - ENT normal pinna, normal nares, normal mucosa, no hearing loss, no congestion, dentures (Upper plate) - Neck Neck is supple, no lymphadenopathy. no masses, no bruits, trachea midline, no venous distension - Respiratory Lungs sounds essentially clear throughout, diminished to her left lower lobe. Respirations are symmetrical and nonlabored. Left chest Thoravent in place to low continuous wall suction -20 cm H2O. Continuous air leak is present. - Cardiovascular Regular rhythm and rate. S1 and S2 present, negative for S3, gallop or murmur. No edema present. - Abdomen Abdomen is soft, nontender and nondistended. Active bowel sounds present all 4 abdominal quadrants. No guarding or rigidity. No organomegaly appreciated. - Integumentary no rash, no growths, no abnormal pigmentation - Neurologic Cranial nerves II through XII intact. normal coordination, normal sensation - Musculoskeletal normal gait, normal posture - Psychiatric oriented to time, oriented to person, oriented to place, speech is normal, memory intact - Labs CBC & Chem 7: 10/04/19 05:33 10/07/19 06:01 Labs: Abnormal Lab Results - Last 24 Hours (Table) 10/07/19 Range/Units 06:01 Potassium 3.4 L (3.5-5.1) mmol/L Assessment and Plan Assessment: Left-sided recurrence of spontaneous pneumothorax Left lower lobe segmental atelectasis versus pneumonia Advanced emphysema Intravascular volume depletion and dehydration Severe COPD Intractable nausea and vomiting Plan: Chest tube management as per cardiothoracic surgery Gentle rehydration Pain management Monitor clinical course with left Thoravent IV Zofran Reglan IV Rocephin Continue deep breathing exercise and I-S Time with Patient: Greater than 30
--- NOTE | 2019-10-07 12:39 | P.PN ---
Subjective Progress Note Date: 10/07/19 Principal diagnosis: Recurrent left-sided spontaneous pneumothorax, intractable nausea and vomiting. Past medical history of left-sided spontaneous pneumothorax with placement of thoravent in July 2018, status post left VATS with reinforced wedge resection of the apex of the left upper lobe including ruptured blebs with mechanical pleurodesis in August of 2019, severe COPD with bullous emphysema, chronic nicotine dependence, marijuana use, bipolar disorder/anxiety. Status post day #5 placement of left chest Thoravent by the emergency room physician. The patient is laying in bed on the cardiac stepdown unit. She is in no acute distress. She denies any complaints of nausea, vomiting, shortness of breath or pain. Left chest Thoravent remains in place to low continuous wall suction -20 cm H2O. Continuous air leak is present. Draining thin serous drainage with 200 mL output in the last 24 hours. She is achieving 1250 mL on her incentive spirometry. Oxygen saturation are 95% on room air. She is afebrile. Chest x- ray this morning continues to demonstrate a stable small left apical pneumothorax. She's reports that sha has been ambulating in her room with minimal assistance and has been sitting up to the chair for meals. Preoperative teaching reinforced with the patient, questions answered to the best of my ability. Objective - Vital Signs Vital signs: Vital Signs Temp 98.7 F 10/07/19 07:34 Pulse 72 10/07/19 07:34 Resp 16 10/07/19 07:34 BP 153/72 10/07/19 07:34 Pulse Ox 95 10/07/19 07:34 Intake & Output 10/06/19 10/07/19 10/07/19 18:59 06:59 18:59 Intake Total 1450 800 Output Total 0 400 Balance 1450 400 Weight 63.6 kg Intake: IV 30 800 0.9% NS @ 100ml/hr 800 Invasive Line 2 30 Oral 1420 Output: Chest Tube Drainage 0 200 Thora-Vent Left Upper 0 200 Anterior Chest Urine 200 Other: Voiding Method Toilet Toilet # Voids 1 # Bowel Movements 1 - Constitutional General appearance: Present: cooperative, no acute distress, thin - Respiratory Details: Lung sounds are essentially clear to her bilateral upper lobes, few scattered crackles to bilateral bases. Respirations are symmetrical and nonlabored. Oxygen saturation are 95% on room air. She is achieving 1250 mL on her incentive spirometry. Left chest Thoravent in place to low continuous wall suction -20 cm H2O. Continuous air leak is present. Draining thin serous drainage. - Cardiovascular Details: Regular rhythm and rate. S1 and S2 present, negative for S3, gallop or murmur. No edema present. Knee-high sequential compression devices in place for nicolás ateral lower extremities. - Gastrointestinal Gastrointestinal Comment(s): Abdomen is soft, nontender and nondistended. Active bowel sounds present in all 4 abdominal quadrants. No guarding or rigidity. No organomegaly appreciated. - Genitourinary Genitourinary Comment(s): Voiding clear yellow urine. - Integumentary Integumentary Comment(s): Skin is warm and dry. No clubbing or cyanosis is present. No rash or abnormal pigmentation is present. - Neurologic Neurologic: Present: CNII-XII intact - Musculoskeletal Musculoskeletal: Present: gait normal, strength equal bilaterally - Psychiatric Psychiatric: Present: A&O x's 3, appropriate affect, intact judgment & insight - Allied health notes Allied health notes reviewed: nursing - Labs CBC & Chem 7: 10/04/19 05:33 10/07/19 06:01 Labs: Abnormal Lab Results - Last 24 Hours (Table) 10/07/19 Range/Units 06:01 Potassium 3.4 L (3.5-5.1) mmol/L - Imaging and Cardiology Chest x-ray: report reviewed, image reviewed Assessment and Plan Assessment: 1. Recurrent left-sided spontaneous pneumothorax, status post left sided thoravent placement 2. Intractable nausea and vomiting 3. History of left-sided spontaneous pneumothorax with placement of thoravent on subsequent VATS, wedge resection, mechanical pleurodesis in August 2019 4. Severe COPD with bullous emphysema 5. Chronic nicotine dependence 6. Marijuana use 7. Bipolar disorder/anxiety Plan: 1. Keep left chest Thoravent to low continuous wall suction -20 cm H2O. Monitor for airleak resolution. She is scheduled for a left sided VATS procedure with possible bleb stapling, and pleurodesis on , 10/08/2019 to be performed by Dr. Kee Kidd. 2. Encourage use of her incentive spirometry every hour while awake. 3. Increase activity as tolerated. Out of bed for all meals. 4. Pain management per current when necessary orders. 5. Medical management and other comorbidities per primary care service. 6. Bronchodilator management per pulmonary medicine. 7. GI and DVT prophylaxis. 8. Continue to encourage smoking cessation. 9. Continue to monitor daily chest x-rays. 10. More recommendations to follow based on patient's clinical course. Time with Patient: Greater than 30
[2019-10-07] MEDS: MIRTAZAPINE 15 MG TAB PO SCH (19:56)
[2019-10-07] MEDS: NICOTINE 21MG/24HR PATCH TRANSDERM SCH (20:04)
--- NOTE | 2019-10-07 22:16 | P.PN ---
Progress Note - Text Progress Note Date: 10/07/19 Chief Complaint: Short of breath Interval history: This is a pleasant 49-year-old patient of Dr. Scarlett Barahona. Presented here in July 2019 with a left pneumothorax. thoravac was placed. Patient did not respond to be water seal. Decision was made to have the patient go down for surgery.underwent wedge resection of the left upper lobe and stapling off the ruptured bleb.patient had a bronchopleural fistula. That took a while to respond. Patient now again presented with shortness of breath and and left-sided pneumothorax. Thora-vent was placed which is connected to suction. Today-sitting up. Slightly anxious. Breathing is stable. Mother and daughter present. Review of systems: Was done for constitutional, cardiovascular, GI, pulmonary. relevant finding as above Active Medications Acetaminophen (Tylenol Tab) 650 mg PO Q6HR PRN PRN Reason: Mild Pain or Fever > 100.5 Buspirone HCl (Buspar) 10 mg PO BID [facility] Last Admin: 10/07/19 19:56 Dose: 10 mg Documented by: Enoxaparin Sodium (Lovenox) 40 mg SQ DAILY [facility] Last Admin: 10/07/19 08:13 Dose: 40 mg Documented by: Fentanyl Citrate (Sublimaze) 50 mcg IV Q3M PRN PRN Reason: Pain Control Stop: 10/08/19 08:26 Lactated Ringer's (Lactated Ringers) 1,000 mls @ 20 mls/hr IV .Q24H [facility] Last Admin: 10/07/19 08:49 Dose: 20 mls/hr Documented by: Ceftriaxone Sodium 1 gm/ (Sodium Chloride) 50 mls @ 100 mls/hr IVPB Q24HR [facility] Last Admin: 10/07/19 12:51 Dose: 100 mls/hr Documented by: Lorazepam (Ativan) 0.5 mg PO Q6HR PRN PRN Reason: Anxiety Last Admin: 10/07/19 19:57 Dose: 0.5 mg Documented by: Metoclopramide HCl (Reglan) 10 mg IVP Q6H PRN PRN Reason: Nausea And Vomiting Mirtazapine (Remeron) 15 mg PO HS [facility] Last Admin: 10/07/19 19:56 Dose: 15 mg Documented by: Miscellaneous Information (Potassium Per Protocol) 1 each MISCELLANE DAILY PRN; Protocol PRN Reason: Per Protocol Morphine Sulfate (Morphine Sulfate (Inj)) 4 mg IV Q4HR PRN PRN Reason: Severe Pain Last Admin: 10/03/19 06:01 Dose: 4 mg Documented by: Naloxone HCl (Narcan) 0.2 mg IV Q2M PRN PRN Reason: Opioid Reversal Nicotine (Habitrol 21mg/24hr Patch) 1 patch TRANSDERM DAILY@2100 [facility] Last Admin: 10/07/19 20:04 Dose: 1 patch Documented by: Nicotine Polacrilex (Nicorette Gum) 2 mg BUCCAL Q4HR PRN PRN Reason: Nicotine Cravings Last Admin: 10/07/19 19:56 Dose: 2 mg Documented by: Ondansetron HCl (Zofran) 4 mg IVP Q6H [facility] Last Admin: 10/07/19 19:56 Dose: 4 mg Documented by: Pantoprazole Sodium (Protonix) 40 mg IV BID [facility] Last Admin: 10/07/19 19:55 Dose: 40 mg Documented by: Talc (Steritalc (W/Blower)) 3 gm INTRAPLEUR ONCE ONE; Protocol Stop: 10/08/19 11:01 Trimethobenzamide HCl (Tigan) 200 mg IM Q6HR PRN PRN Reason: Nausea Physical examination: VITAL SIGNS: 98.2, 69, 16, 134/73, 97% on room air GENERAL: Sitting up in bed, awake EYES: Pupils equal. Conjunctiva normal. HEENT: External appearance of nose and ears normal, oral cavity grossly normal. NECK: JVD not raised; masses not palpable. HEART: First and second heart sounds are normal; no edema. LUNGS: Respiratory rate normal,, decreased breath sounds, , Thora-vent, left anterior chest wall. To water seal ABDOMEN: Soft, nontender, liver spleen not palpable, no masses palpable. PSYCH: Alert and oriented x3; mood and affect anxiousl. INVESTIGATIONS, reviewed in the clinical context: Potassium 3.4 Assessment: -Recurrent left-sided pneumothorax, with the last admission-Thora VAC, followed by on 08/12/2019-partial left upper lobe wedge resection with bleb stapling, -COPD in a X smoker -Hypokalemia -Dehydration -Pneumonia Plan: Patient will be taken down for a chest tube in place and pleurodesis. Care was discussed with Dr. Ramirez from pulmonary and the patient. Questions were answered.
[2019-10-07] MEDS: MELATONIN 5 MG TABLET PO SCH (23:29)
[2019-10-07] MEDS: FAMOTIDINE 20 MG TAB PO SCH (23:29)
[2019-10-08] MEDS: ONDANSETRON 4 MG/2 ML VIAL IVP SCH ×4 (03:22→20:31)
[2019-10-08 06:25] LABS: INR 1.1 (<1.2); Partial Thromboplastin Time 23.7 sec (22.0-30.0); Prothrombin Time 10.9 sec (9.0-12.0)
[2019-10-08] MEDS ORDERED: MD COMMUNICATION TO PHARMACY 1 EACH MISC PO PRN (06:31)
--- NOTE | 2019-10-08 07:33 | P.PN ---
Subjective Progress Note Date: 10/08/19 Principal diagnosis: Recurrent left-sided spontaneous pneumothorax, intractable nausea and vomiting. Previous medical history of left-sided spontaneous pneumothorax with placement of thoravent, status post left VATS with reinforced wedge resection of the apex of the left upper lobe including ruptured blebs with mechanical pleurodesis in August 2019, severe COPD with bullous emphysema, previous nicotine dependence, marijuana use, bipolar disorder/anxiety. POD #6 placement of left sided thoravent by the emergency room physicians with continued air leak The patient is currently sitting up in bed on the cardiac stepdown unit in no acute distress. She denies significant pain, denies shortness of breath, states nausea has gotten better, and has been ambulatory around the room without difficulty. She is very anxious about today's procedure. Thoravent remains to continuous wall suction with continuous air leak present. No other new concerns. Objective - Vital Signs Vital signs: Vital Signs Temp 98.2 F 10/08/19 03:57 Pulse 69 10/08/19 03:59 Resp 18 10/08/19 03:59 BP 132/76 10/08/19 03:57 Pulse Ox 95 10/08/19 03:57 Intake & Output 10/07/19 10/08/19 10/08/19 18:59 06:59 18:59 Intake Total 1330 10 Output Total 690 90 Balance 640 -80 Weight 60.7 kg Intake: IV 210 10 Invasive Line 3 10 Lactated Ringers 1,000 ml 160 @ 20 mls/hr IV .Q24H [facility] Rx#:[id number] cefTRIAXone 1 gm In 50 Sodium Chloride 0.9% 50 ml @ 100 mls/hr IVPB Q24HR [facility] Rx#:[id number] Oral 1120 Output: Chest Tube Drainage 90 90 Thora-Vent Left Upper 90 90 Anterior Chest Urine 600 Other: Voiding Method Toilet Toilet # Voids 1 - Constitutional General appearance: Present: cooperative, no acute distress, thin - Respiratory Details: Lungs sounds clear bilaterally. Respirations even, nonlabored. Currently on room air with oxygen saturation 95%. Able to achieve 1500 mL on her incentive spirometry. Strong cough. Left sided thoravent present to continuous wall suction, 70 mL serous drainage overnight, 250 mL in the last 24 hours. Continuous air leak remains present. - Cardiovascular Details: S1, S2 present. Regular rate and rhythm, sinus rhythm on telemetry. Palpable peripheral pulses bilaterally. No edema present. No calf pain or tenderness noted. - Gastrointestinal Gastrointestinal Comment(s): Abdomen soft, nontender, nondistended. Active bowel sounds present 4 quadrant s. Currently NPO for surgery today - Genitourinary Genitourinary Comment(s): Continues to void - Integumentary Integumentary Comment(s): Skin is warm and dry with evidence of good perfusion - Neurologic Neurologic: Present: CNII-XII intact - Musculoskeletal Musculoskeletal: Present: gait normal, strength equal bilaterally - Psychiatric Psychiatric Comment(s): Flat affect, patient anxious Psychiatric: Present: A&O x's 3, intact judgment & insight - Allied health notes Allied health notes reviewed: nursing - Labs CBC & Chem 7: 10/04/19 05:33 10/08/19 05:51 Labs: Abnormal Lab Results - Last 24 Hours (Table) 10/07/19 Range/Units 06:01 Potassium 3.4 L (3.5-5.1) mmol/L Assessment and Plan Assessment: 1. Recurrent left-sided spontaneous pneumothorax, status post left sided thoravent placement, continued air leak 2. Intractable nausea and vomiting, resolved 3. History of left-sided spontaneous pneumothorax with placement of thoravent on subsequent VATS, wedge resection, mechanical pleurodesis in August 2019 4. Severe COPD with bullous emphysema 5. Previous nicotine dependence 6. Marijuana use 7. Bipolar disorder/anxiety Plan: 1. Keep left chest Thoravent to wall suction. 2. Plan is for left sided VATS with possible bleb stapling, talc pleurodesis today with Dr. Kidd. 3. Encourage use of her incentive spirometry every hour while awake. 4. Increase activity as tolerated, ambulate in room 5. Pain management per current medication regimen. 6. Bronchodilators per pulmonology 7. GI and DVT prophylaxis. 8. Continue to encourage smoking cessation. 9. Continue to monitor daily chest x-rays. 10. Medical management of other comorbidities per primary care service 11. More recommendations to follow based on patient's progress. Time with Patient: Greater than 30
[2019-10-08] MEDS: PANTOPRAZOLE 40 MG/10 ML VIAL IV SCH (08:34)
[2019-10-08] MEDS: FAMOTIDINE 20 MG TAB PO SCH ×2 (08:35→16:04)
[2019-10-08] MEDS: LORazepam 0.5 MG TAB PO PRN ×2 (08:35→23:27)
[2019-10-08] MEDS: busPIRone HCl 10 MG TAB PO SCH ×2 (08:35→20:22)
[2019-10-08] MEDS: LACTATED RINGERS 1,000 ML IV SCH ×2 (08:48→13:18)
[2019-10-08] MEDS: IPRATROPIUM-ALBUTEROL 3 ML NEB INHALATION SCH ×3 (09:04→21:04)
[2019-10-08] MEDS ORDERED: IV FLUID CONTINUATION 950 ML IV ONE (10:42)
[2019-10-08] MEDS ORDERED: MIDAZOLAM 2 MG/2 ML VIAL IV ONE (10:55)
[2019-10-08] MEDS ORDERED: LIDOCAINE 1% INJ 10MG/ML (20 ML MDV) ONE (11:00)
[2019-10-08] MEDS ORDERED: ONDANSETRON 4 MG/2 ML VIAL ONE (11:00)
[2019-10-08] MEDS ORDERED: STERILE TALC 3 GM POWDER W/BLOWER KIT INTRAPLEUR ONE ×2 (11:00→12:06)
[2019-10-08] MEDS ORDERED: SUCCINYLCHOLINE CHLORIDE 100 MG/5 ML SYR IV ONE (11:00)
[2019-10-08] MEDS ORDERED: fentaNYL (PF) 50 MCG/ML 2 ML AMP ONE (11:00)
[2019-10-08] MEDS ORDERED: ROCURONIUM BROMIDE 10 MG/ML 10 ML VIAL IV ONE (11:00)
[2019-10-08] MEDS ORDERED: NEOSTIGMINE 1 MG/ML 10 ML VIAL ONE (11:00)
[2019-10-08] MEDS ORDERED: GLYCOPYRROLATE 0.2 MG/ML 2 ML VIAL ONE (11:00)
[2019-10-08] MEDS ORDERED: MIDAZOLAM 2 MG/2 ML VIAL ONE (11:00)
[2019-10-08] MEDS ORDERED: BUPIVACAINE (PF) 0.5% 30 ML VIAL SQ ONE ×2 (11:59→12:13)
--- NOTE | 2019-10-08 12:38 | P.OP ---
Date of Procedure: 10/08/19 Preoperative Diagnosis: Recurrent spontaneous pneumothorax left pleural space with persistent bronchopleural fistula Postoperative Diagnosis: Same Procedure(s) Performed: Redo left thoracoscopy with lysis of adhesions stapling of blebs left upper lobe and talc pleurodesis Anesthesia: OSCAR Surgeon: Kee Kidd [facility] Coordinator #1: Alexx Waddell Estimated Blood Loss (ml): 3 IV fluids (ml): 500 Urine output (ml): 0 Pathology: other (Wedge resection blebs left upper lobe) Condition: stable Disposition: PACU Indications for Procedure: 49-year-old female who had presented with a left-sided pneumothorax and recent past. She had persistent air leak and underwent stapling of apical blebs with mechanical pleurodesis. This proceeded well and the patient had been discharged. She had been seen in follow-up and the lung was inflated. Last week she developed a viral illness and had hyperemesis. This resulted in recurrent left-sided pneumothorax. She presented to the ER and a Thora vent was placed. After several days in the hospital she still had persistent air leak continuous from the Thora vent and redo thoracoscopy was indicated. Operative Findings: Further blebs were noted in the anterior edge of the left upper lobe. There were adhesions at the apex as well as laterally. These were for the most part taken down. Some of the denser apical adhesions were left in place. Description of Procedure: Patient was brought to the operating room, placed supine on the operating table, anesthetized and and intubated with a double-lumen endotracheal tube. Tube was positioned with fiberoptic bronchoscopy and secured. The patient was turned in the right lateral decubitus position and the left chest sterilely prepped and draped. 2 of the previous 3 incisions were reopened and the video thoracoscope was introduced. Single lung ventilation was utilized. Chest was explored. There were adhesions anterolaterally as well as apically. Anterolaterally adhesions were taken down with electrocautery. The apical adhesions were partially taken down. The lung was carefully examined. Was no evidence of air leak at the apex. However there was a area of blebs on the anterior medial edge of the left upper lobe of the lung. This was resected with multiple firings of Endo CASSIUS stapler. We then infused 3 g sterile talc into the chest. A insufflat or was used. Talc poudrage was accomplished successfully throughout the chest cavity. 28-[place] chest tube was placed through separate stab incision and positioned posterior apically and secured with an 0 Ethibond suture. The lung was reinflated under thoracoscopic visualization and the chest tube was connected to suction. The to chest incisions were closed with layers of Vicryl suture. After percent Marcaine was used to perform rib blocks posteriorly at the level of the incisions. Dry sterile dressings were applied and the patient was transferred to recovery in stable condition.
[2019-10-08] MEDS: fentaNYL (PF) 50 MCG/ML 2 ML AMP IV PRN ×2 (12:45→12:50)
[2019-10-08] MEDS: MEPERIDINE 50 MG/ML SYRINGE IVP ONE ×2 (12:56→13:30)
--- NOTE | 2019-10-08 13:15 | XR ---
EXAMINATION TYPE: XR chest 1V portable DATE OF EXAM: 10/08/2019 CLINICAL HISTORY: Pneumothorax with new chest tube. TECHNIQUE: Single AP portable upright view of the chest is obtained. COMPARISON: Chest x-ray from one day earlier and older studies. FINDINGS: Intervertebral removal of anterior position pleural drainage catheter with new chest tube left lateral base extending to lung apex. Tiny residual left apical pneumothorax is felt improved aft er chest tube exchange. New subcutaneous emphysema left lateral lower thorax. Chronic emphysematous change with parenchymal fibrotic changes in the bases. Multiple tiny bilateral pleural effusions are felt present. Cardiac silhouette size stable and within normal limits. Osseous structures are intact. IMPRESSION: Tiny left apical pneumothorax redemonstrated slightly improved after chest tube exchange for different tubing device.
[2019-10-08] MEDS: KETOROLAC 30 MG/ML 1 ML VIAL IVP SCH ×2 (14:27→20:23)
--- NOTE | 2019-10-08 15:16 | P.PN ---
Subjective Progress Note Date: 10/08/19 Principal diagnosis: Left-sided recurrence of spontaneous pneumothorax Advanced emphysema Intravascular volume depletion and dehydration Severe COPD Intractable nausea and vomiting 10/08/2019, patient is status post patellar pleurodesis still intermittent air leak is present, some complaint of pain is present patient has been getting Toradol, chest x-ray revealed a small pneumothorax in the apex 10/07/2019, patient seen and evaluated examined nausea vomiting has improved now able to tolerate by mouth well, patient is complaining of headache relieved with pain medications, air leak is still present, chest x-ray continue show a small apical pneumothorax is basal atelectasis, will put her on IV Rocephin for now 10/06/2019, patient continued to have shortness of breath at activity, nausea and vomiting has improved now she able to tolerate by mouth very well, her chest x-ray continue show a left apical pneumothorax but a leak is continuous on the chest tube, cardiac surgery have been following the patient didn't want to do repeat surgery date has not been decided pending availability of Dr. Kidd 10/05/2019, patient seen eval examined during the rounds labs reviewed medications reviewed care plan discussed, continued to have extensive air leak, nausea is stable now patient is taking some by mouth diet 10/03/2019, patient seen and evaluated examined during the rounds he denies any chest pain, however air leak is still present, she has intractable nausea and vomiting for that Zofran is being given but is not helpful we'll and Donita and also consult GI This is a 49-year-old female who was seen evaluated examined in the emergency department patient presented into the hospital with a 5 day history of onset of nausea vomiting, patient started having shortness of breath came into the hospital a chest x-ray showed left-sided large pneumothorax vent has been placed per instruction of thoracic surgery which has been consulted currently is pain-free denies any cough or sputum production she had a significant history of left pneumothorax require VATS procedure and mechanical pleurodesis now with recurrence of the pneumothorax, her influenza serology is negative, labs and white cell count and normal BUN slightly elevated resistive of dehydration, patient is still have a large air leak through the pleural VAC Objective - Vital Signs Vital signs: Vital Signs Temp 97.6 F 10/08/19 14:20 Pulse 62 10/08/19 14:23 Resp 24 10/08/19 14:23 BP 142/72 10/08/19 14:20 Pulse Ox 92 L 10/08/19 14:20 Intake & Output 10/07/19 10/08/19 10/08/19 18:59 06:59 18:59 Intake Total 1330 10 1440 Output Total 690 90 10 Balance 640 -80 1430 Weight 60.7 kg 60.7 kg Intake: IV 048 47 5899 Invasive Line 3 10 40 Lactated Ringers 1,000 ml 160 @ 20 mls/hr IV .Q24H [facility] Rx#:[id number] cefTRIAXone 1 gm In 50 Sodium Chloride 0.9% 50 ml @ 100 mls/hr IVPB Q24HR [facility] Rx#:[id number] Oral 1120 Output: Chest Tube Drainage 90 90 Thora-Vent Left Upper 90 90 Anterior Chest Urine 600 Estimated Blood Loss 10 Other: Voiding Method Toilet Toilet Bedside Commode # Voids 1 0 - Exam - General Thin well developed, well nourished, no distress, no pain - Eyes PERRL, normal ocular movement - ENT normal pinna, normal nares, normal mucosa, no hearing loss, no congestion, dentures (Upper plate) - Neck Neck is supple, no lymphadenopathy. no masses, no bruits, trachea midline, no venous distension - Respiratory Lungs sounds essentially clear throughout, diminished to her left lower lobe. Respirations are symmetrical and nonlabored. Left chest Thoravent in place to low continuous wall suction -20 cm H2O. Continuous air leak is present. - Cardiovascular Regular rhythm and rate. S1 and S2 present, negative for S3, gallop or murmur. No edema present. - Abdomen Abdomen is soft, nontender and nondistended. Active bowel sounds present all 4 abdominal quadrants. No guarding or rigidity. No organomegaly appreciated. - Integumentary no rash, no growths, no abnormal pigmentation - Neurologic Cranial nerves II through XII intact. normal coordination, normal sensation - Musculoskeletal normal gait, normal posture - Psychiatric oriented to time, oriented to person, oriented to place, speech is normal, memory intact - Labs CBC & Chem 7: 10/04/19 05:33 10/08/19 05:51 Assessment and Plan Assessment: Left-sided recurrence of spontaneous pneumothorax status post talc pleurodesis postop day #0 Left lower lobe segmental atelectasis versus pneumonia Advanced emphysema Intravascular volume depletion and dehydration Severe COPD Intractable nausea and vomiting Plan: Chest tube management as per cardiothoracic surgery Gentle rehydration Pain management Monitor clinical course with left Thoravent IV Zofran Reglan IV Rocephin Continue deep breathing exercise and I-S Time with Patient: Greater than 30
[2019-10-08] MEDS: PANTOPRAZOLE 40 MG TABLET PO SCH (16:04)
[2019-10-08] MEDS ORDERED: KETOROLAC 30 MG/ML 1 ML VIAL IVP SCH (18:00)
--- NOTE | 2019-10-08 19:33 | P.PN ---
Progress Note - Text Progress Note Date: 10/08/19 Chief Complaint: Short of breath Interval history: This is a pleasant 49-year-old patient of Dr. Scarlett Barahona. Presented here in July 2019 with a left pneumothorax. thoravac was placed. Patient did not respond to be water seal. Decision was made to have the patient go down for surgery.underwent wedge resection of the left upper lobe and stapling off the ruptured bleb.patient had a bronchopleural fistula. That took a while to respond. Patient now again presented with shortness of breath and and left-sided pneumothorax. Thora-vent was placed which is connected to suction. Today-this was taken to the operating room today. Underwent thoracoscopic, with resection of blebs and pleurodesis. Chest tube was also placed. Postprocedure started sleepy. at the bedside. Review of systems: Attempted for constitutional, cardiovascular, GI, pulmonary. relevant finding as above Active Medications Acetaminophen (Tylenol Tab) 650 mg PO Q6HR PRN PRN Reason: Mild Pain or Fever > 100.5 Albuterol/Ipratropium (Duoneb 0.5 Mg-3 Mg/3 Ml Soln) 3 ml INHALATION RT-TID [facility] Last Admin: 10/08/19 12:10 Dose: Not Given Documented by: Buspirone HCl (Buspar) 10 mg PO BID [facility] Last Admin: 10/08/19 08:35 Dose: 10 mg Documented by: Enoxaparin Sodium (Lovenox) 40 mg SQ DAILY [facility] Famotidine (Pepcid) 20 mg PO BID@0900,1600 [facility] Last Admin: 10/08/19 16:04 Dose: 20 mg Documented by: Lactated Ringer's (Lactated Ringers) 1,000 mls @ 20 mls/hr IV .Q24H [facility] Last Admin: 10/08/19 13:18 Dose: 500 mls Documented by: Ceftriaxone Sodium 1 gm/ (Sodium Chloride) 50 mls @ 100 mls/hr IVPB Q24HR [facility] Last Admin: 10/08/19 08:34 Dose: 100 mls/hr Documented by: Ketorolac Tromethamine (Toradol) 15 mg IVP Q6H [facility] Stop: 10/12/19 15:01 Last Admin: 10/08/19 14:27 Dose: 15 mg Documented by: Lorazepam (Ativan) 0.5 mg PO Q6HR PRN PRN Reason: Anxiety Last Admin: 10/08/19 08:35 Dose: 0.5 mg Documented by: Melatonin (Melatonin) 10 mg PO [facility] Last Admin: 10/07/19 23:29 Dose: 10 mg Documented by: Metoclopramide HCl (Reglan) 10 mg IVP Q6H PRN PRN Reason: Nausea And Vomiting Mirtazapine (Remeron) 15 mg PO [facility] Last Admin: 10/07/19 19:56 Dose: 15 mg Documented by: Miscellaneous Information (Potassium Per Protocol) 1 each MISCELLANE DAILY PRN; Protocol PRN Reason: Per Protocol Miscellaneous Information (Md Communication To Pharmacy) 1 each PO ONCE PRN PRN Reason: See Comments Morphine Sulfate (Morphine Sulfate (Inj)) 4 mg IV Q4HR PRN PRN Reason: Severe Pain Last Admin: 10/03/19 06:01 Dose: 4 mg Documented by: Naloxone HCl (Narcan) 0.2 mg IV Q2M PRN PRN Reason: Opioid Reversal Nicotine (Habitrol 21mg/24hr Patch) 1 patch TRANSDERM DAILY@2100 [facility] Last Admin: 10/07/19 20:04 Dose: 1 patch Documented by: Nicotine Polacrilex (Nicorette Gum) 2 mg BUCCAL Q4HR PRN PRN Reason: Nicotine Cravings Last Admin: 10/07/19 23:57 Dose: 2 mg Documented by: Ondansetron HCl (Zofran) 4 mg IVP Q6H [facility] Last Admin: 10/08/19 16:04 Dose: 4 mg Documented by: Pantoprazole Sodium (Protonix) 40 mg PO AC-BID [facility] Last Admin: 10/08/19 16:04 Dose: 40 mg Documented by: Trimethobenzamide HCl (Tigan) 200 mg IM Q6HR PRN PRN Reason: Nausea Physical examination: VITAL SIGNS: 97.6, 62, 24, 142/72, 92% on 5 L GENERAL: Laying in bed, sleepy EYES: Pupils equal. Conjunctiva normal. HEENT: External appearance of nose and ears normal, oral cavity grossly normal. NECK: JVD not raised; masses not palpable. HEART: First and second heart sounds are normal; no edema. LUNGS: Respiratory rate increased, decreased breath sounds, , left-sided chest tube ABDOMEN: Soft, nontender, liver spleen not palpable, no masses palpable. PSYCH: Sleepy but does respond to questions. INVESTIGATIONS, reviewed in the clinical context: Potassium 3.5 Assessment: -Recurrent left-sided pneumothorax, with the last admission-Thora VAC, followed by on 08/12/2019-partial left upper lobe wedge resection with bleb stapling, . Today: October 08 patient underwent repeat thoracoscopy with bleb resection, and talc pleurodesis, and a chest tube placement. -COPD in a X smoker -Hypokalemia -Dehydration -Pneumonia Plan: Continue current medication treatment plan. Discussed with the at the bedside.
[2019-10-08] MEDS: MELATONIN 5 MG TABLET PO SCH (20:22)
[2019-10-08] MEDS: MIRTAZAPINE 15 MG TAB PO SCH (20:22)
[2019-10-08] MEDS: NICOTINE 21MG/24HR PATCH TRANSDERM SCH (20:23)
[2019-10-08] MEDS: ACETAMINOPHEN TAB 325 MG TAB PO PRN (23:27)
[2019-10-09] MEDS: KETOROLAC 30 MG/ML 1 ML VIAL IVP SCH ×4 (03:04→20:17)
[2019-10-09] MEDS: ONDANSETRON 4 MG/2 ML VIAL IVP SCH ×4 (03:04→20:18)
[2019-10-09] MEDS: PANTOPRAZOLE 40 MG TABLET PO SCH ×2 (06:02→15:26)
[2019-10-09] MEDS: LORazepam 0.5 MG TAB PO PRN ×3 (06:02→18:25)
[2019-10-09] MEDS: ACETAMINOPHEN TAB 325 MG TAB PO PRN (06:03)
[2019-10-09] MEDS: NICOTINE POLACRILEX 2 MG GUM BUCCAL PRN (06:05)
[2019-10-09] MEDS ORDERED: traMADol 50 MG TAB PO PRN (06:58)
[2019-10-09] MEDS: IPRATROPIUM-ALBUTEROL 3 ML NEB INHALATION SCH ×3 (07:08→19:03)
--- NOTE | 2019-10-09 08:07 | P.PN ---
Subjective Progress Note Date: 10/09/19 Principal diagnosis: Recurrent left-sided spontaneous pneumothorax left pleural space with persistent bronchopleural fistula, intractable nausea and vomiting. Previous medical his tory of left-sided spontaneous pneumothorax with placement of thoravent, status post left VATS with reinforced wedge resection of the apex of the left upper lobe including ruptured blebs with mechanical pleurodesis in August 2019, severe COPD with bullous emphysema, previous nicotine dependence, marijuana use, bipolar disorder/anxiety. POD #7 placement of left sided thoravent by the emergency room physicians with continued air leak POD #1 redo left thoracoscopy with lysis of adhesions, stapling of blebs left upper lobe, and talc pleurodesis The patient is currently sitting up in bed on the cardiac stepdown unit in no acute distress. She does complain of significant pain at her chest tube site and burning in the chest from the talc, doesn't feel Tylenol and Toradol are enough pain control, however she does not want morphine. Denies shortness of breath. Left pleural chest tube present to [facility], no air leak present. Patient does state she has been ambulatory in the room without difficulty. Objective - Vital Signs Vital signs: Vital Signs Temp 98.5 F 10/09/19 04:00 Pulse 86 10/09/19 07:18 Resp 18 10/09/19 04:00 BP 136/81 10/09/19 04:00 Pulse Ox 98 10/09/19 07:10 Intake & Output 10/08/19 10/09/19 10/09/19 18:59 06:59 18:59 Intake Total 1640 160 Output Total 210 40 Balance 1430 120 Weight 60.7 kg 59.3 kg Intake: IV 1440 Invasive Line 3 40 Intake, IV Titration 160 Amount Lactated Ringers 1,000 ml 160 @ 20 mls/hr IV .Q24H [facility] Rx#:[id number] Oral 200 Output: Chest Tube Drainage 200 40 Chest Tube Left Lateral 200 40 Chest Estimated Blood Loss 10 Other: Voiding Method Bedpan Bedpan # Voids 0 1 - Constitutional General appearance: Present: cooperative, no acute distress - Respiratory Details: Lungs sounds clear bilaterally. Respirations even, nonlabored. Currently on 4 L nasal cannula with oxygen saturation 92%. Only able to achieve 500 mL on her incentive spirometry. Weak cough. Left sided pleural chest tube present to waterseal, 40 mL serous drainage overnight, 300 mL since surgery. No air leak present, positive tidaling in the waterseal chamber. - Cardiovascular Details: S1, S2 present. Regular rate and rhythm, sinus rhythm on telemetry. Palpable peripheral pulses bilaterally. No edema present. No calf pain or tenderness noted. - Gastrointestinal Gastrointestinal Comment(s): Abdomen soft, nontender, nondistended. Active bowel sounds present 4 quadrants. Tolerating diet - Genitourinary Genitourinary Comment(s): Continues to void - Integumentary Integumentary Comment(s): Skin is warm and dry with evidence of good perfusion - Neurologic Neurologic: Present: CNII-XII intact - Musculoskeletal Musculoskeletal: Present: gait normal, strength equal bilaterally - Psychiatric Psychiatric Comment(s): Flat affect, patient anxious Psychiatric: Present: A&O x's 3 - Allied health notes Allied health notes reviewed: nursing - Labs CBC & Chem 7: 10/04/19 05:33 10/08/19 05:51 - Imaging and Cardiology Chest x-ray: image reviewed Assessment and Plan Assessment: 1. Recurrent left-sided spontaneous pneumothorax left pleural space with persistent bronchopleural fistula, status post left sided thoravent placement, continued air leak, status post redo VATS, stapling of blebs, talc pleurodesis 2. Intractable nausea and vomiting, resolved 3. History of left-sided spontaneous pneumothorax with placement of thoravent on subsequent VATS, wedge resection, mechanical pleurodesis in August 2019 4. Severe COPD with bullous emphysema 5. Previous nicotine dependence 6. Marijuana use 7. Bipolar disorder/anxiety Plan: 1. Left pleural chest tube placed to waterseal yesterday. Continue to waterseal for another 24 hours. 2. Wean O2 as tolerated. Encourage use of her incentive spirometry every hour while awake. 3. Increase activity as tolerated, ambulate in hallway 4. Pain management per current medication regimen. Morphine discontinued as patient is refusing. Tramadol and Toradol added 5. Bronchodilators per pulmonology 8. GI and DVT prophylaxis. 9. Continue to encourage smoking cessation. 10. Continue to monitor daily chest x-rays. 11. Medical management of other comorbidities per primary care service 12. More recommendations to follow based on patient's progress. Time with Patient: Greater than 30
--- NOTE | 2019-10-09 09:07 | XR ---
EXAMINATION TYPE: XR chest 2V DATE OF EXAM: 10/09/2019 COMPARISON: Prior chest 10/08/2019 HISTORY: Status post VATS TECHNIQUE: Frontal and lateral views of the chest are obtained. FINDINGS: Left-sided chest tube remains in place. Small left apical pneumothorax persists and may be slightly more prominent than on prior. Subcutaneous emphysema is noted. There is bibasilar increased attenuation in the lower hemithoraces. Prominent lung volumes with flattening of the hemidiaphragms suggests COPD. Heart is stable. Patient is rotated. IMPRESSION: Findings are similar to prior exam, postop changes. Basilar atelectasis, there may be mi nimal effusion. Small left apical pneumothorax.
[2019-10-09] MEDS: busPIRone HCl 10 MG TAB PO SCH ×2 (09:08→20:17)
[2019-10-09] MEDS: FAMOTIDINE 20 MG TAB PO SCH ×2 (09:08→15:26)
[2019-10-09] MEDS: ENOXAPARIN 40 MG/0.4 ML SYRINGE SQ SCH (09:09)
--- NOTE | 2019-10-09 10:33 | P.PN ---
Subjective Progress Note Date: 10/09/19 Principal diagnosis: Left-sided recurrence of spontaneous pneumothorax Advanced emphysema Intravascular volume depletion and dehydration Severe COPD Intractable nausea and vomiting 10/09/2019, patient seen eval reexamined during the rounds labs reviewed medications reviewed chest x-ray done earlier this morning was reviewed as well is still have severe pain weakness was severity has improved still have some minimal air leak is present, left-sided apical pneumothorax stable 10/08/2019, patient is status post patellar pleurodesis still intermittent air leak is present, some complaint of pain is present patient has been getting Toradol, chest x-ray revealed a small pneumothorax in the apex 10/07/2019, patient seen and evaluated examined nausea vomiting has improved now able to tolerate by mouth well, patient is complaining of headache relieved with pain medications, air leak is still present, chest x-ray continue show a small apical pneumothorax is basal atelectasis, will put her on IV Rocephin for now 10/06/2019, patient continued to have shortness of breath at activity, nausea and vomiting has improved now she able to tolerate by mouth very well, her chest x-ray continue show a left apical pneumothorax but a leak is continuous on the chest tube, cardiac surgery have been following the patient didn't want to do repeat surgery date has not been decided pending availability of Dr. Kidd 10/05/2019, patient seen eval examined during the rounds labs reviewed medications reviewed care plan discussed, continued to have extensive air leak, nausea is stable now patient is taking some by mouth diet 10/03/2019, patient seen and evaluated examined during the rounds he denies any chest pain, however air leak is still present, she has intractable nausea and vomiting for that Zofran is being given but is not helpful we'll and Reglan and also consult GI This is a 49-year-old female who was seen evaluated examined in the emergency department patient presented into the hospital with a 5 day history of onset of nausea vomiting, patient started having shortness of breath came into the hospital a chest x-ray showed left-sided large pneumothorax vent has been placed per instruction of thoracic surgery which has been consulted currently is pain-free denies any cough or sputum production she had a significant history of left pneumothorax require VATS procedure and mechanical pleurodesis now with recurrence of the pneumothorax, her influenza serology is negative, labs and white cell count and normal BUN slightly elevated resistive of dehydration, patient is still have a large air leak through the pleural VAC Objective - Vital Signs Vital signs: Vital Signs Temp 99 F 10/09/19 08:00 Pulse 97 10/09/19 08:00 Resp 14 10/09/19 08:00 BP 111/64 10/09/19 08:00 Pulse Ox 92 L 10/09/19 08:00 Intake & Output 10/08/19 10/09/19 10/09/19 18:59 06:59 18:59 Intake Total 1640 160 240 Output Total 210 40 20 Balance 1430 120 220 Weight 60.7 kg 59.3 kg Intake: IV 1440 Invasive Line 3 40 Intake, IV Titration 160 Amount Lactated Ringers 1,000 ml 160 @ 20 mls/hr IV .Q24H [facility] Rx#:[id number] Oral 200 240 Output: Chest Tube Drainage 200 40 20 Chest Tube Left Lateral 200 40 20 Chest Estimated Blood Loss 10 Other: Voiding Method Bedpan Bedpan # Voids 0 1 - Exam - General Thin well developed, well nourished, no distress, no pain - Eyes PERRL, normal ocular movement - ENT normal pinna, normal nares, normal mucosa, no hearing loss, no congestion, dentures (Upper plate) - Neck Neck is supple, no lymphadenopathy. no masses, no bruits, trachea midline, no venous distension - Respiratory Lungs sounds essentially clear throughout, diminished to her left lower lobe. Respirations are symmetrical and nonlabored. Left chest Thoravent in place to low continuous wall suction -20 cm H2O. Continuous air leak is present. - Cardiovascular Regular rhythm and rate. S1 and S2 present, negative for S3, gallop or murmur. No edema present. - Abdomen Abdomen is soft, nontender and nondistended. Active bowel sounds present all 4 abdominal quadrants. No guarding or rigidity. No organomegaly appreciated. - Integumentary no rash, no growths, no abnormal pigmentation - Neurologic Cranial nerves II through XII intact. normal coordination, normal sensation - Musculoskeletal normal gait, normal posture - Psychiatric oriented to time, oriented to person, oriented to place, speech is normal, memory intact - Labs CBC & Chem 7: 10/04/19 05:33 10/08/19 05:51 Assessment and Plan Assessment: Left-sided recurrence of spontaneous pneumothorax status post talc pleurodesis postop day #1 Left lower lobe segmental atelectasis versus pneumonia Advanced emphysema Intravascular volume depletion and dehydration Severe COPD Intractable nausea and vomiting Plan: Chest tube management as per cardiothoracic surgery, will be placed on water seal minimum yearly is present Gentle rehydration Pain management Monitor clinical course with left Thoravent IV Zofran Reglan IV Rocephin Continue deep breathing exercise and I-S Time with Patient: Greater than 30
[2019-10-09] MEDS: traMADol 50 MG TAB PO PRN ×2 (11:32→18:15)
[2019-10-09 13:53] VITALS: BMI 21.1
--- NOTE | 2019-10-09 19:26 | P.PN ---
Progress Note - Text Progress Note Date: 10/09/19 Chief Complaint: Short of breath Interval history: This is a pleasant 49-year-old patient of Dr. Scarlett Barahona. Presented here in July 2019 with a left pneumothorax. thoravac was placed. Patient did not respond to be water seal. Decision was made to have the patient go down for surgery.underwent wedge resection of the left upper lobe and stapling off the ruptured bleb.patient had a bronchopleural fistula. That took a while to respond. Patient now again presented with shortness of breath and and left-sided pneumothorax. Thora-vent was placed which is connected to suction.on October 08, Underwent thoracoscopic, with resection of blebs and pleurodesis. Chest tube was also placed. Today-Sitting up in bed, awake.. Some pain in the left chest wall at the tube site. Did tolerate some diet. No nausea vomiting. Review of systems: Attempted for constitutional, cardiovascular, GI, pulmonary. relevant finding as above Active Medications Acetaminophen (Tylenol Tab) 650 mg PO Q6HR PRN PRN Reason: Mild Pain or Fever > 100.5 Last Admin: 10/09/19 06:03 Dose: 650 mg Documented by: Albuterol/Ipratropium (Duoneb 0.5 Mg-3 Mg/3 Ml Soln) 3 ml INHALATION RT-TID [facility] Last Admin: 10/09/19 19:03 Dose: 3 ml Documented by: Buspirone HCl (Buspar) 10 mg PO BID [facility] Last Admin: 10/09/19 09:08 Dose: 10 mg Documented by: Enoxaparin Sodium (Lovenox) 40 mg SQ DAILY [facility] Last Admin: 10/09/19 09:09 Dose: 40 mg Documented by: Famotidine (Pepcid) 20 mg PO BID@0900,1600 [facility] Last Admin: 10/09/19 15:26 Dose: 20 mg Documented by: Ceftriaxone Sodium 1 gm/ (Sodium Chloride) 50 mls @ 100 mls/hr IVPB Q24HR [facility] Last Admin: 10/09/19 09:18 Dose: 100 mls/hr Documented by: Ketorolac Tromethamine (Toradol) 15 mg IVP Q6H [facility] Stop: 10/12/19 15:01 Last Admin: 10/09/19 15:25 Dose: 15 mg Documented by: Lorazepam (Ativan) 0.5 mg PO Q6HR PRN PRN Reason: Anxiety Last Admin: 10/09/19 18:25 Dose: 0.5 mg Documented by: Melatonin (Melatonin) 10 mg PO [facility] Last Admin: 10/08/19 20:22 Dose: 10 mg Documented by: Metoclopramide HCl (Reglan) 10 mg IVP Q6H PRN PRN Reason: Nausea And Vomiting Mirtazapine (Remeron) 15 mg PO [facility] Last Admin: 10/08/19 20:22 Dose: 15 mg Documented by: Miscellaneous Information (Potassium Per Protocol) 1 each MISCELLANE DAILY PRN; Protocol PRN Reason: Per Protocol Miscellaneous Information (Md Communication To Pharmacy) 1 each PO ONCE PRN PRN Reason: See Comments Naloxone HCl (Narcan) 0.2 mg IV Q2M PRN PRN Reason: Opioid Reversal Nicotine (Habitrol 21mg/24hr Patch) 1 patch TRANSDERM DAILY@2100 [facility] Last Admin: 10/08/19 20:23 Dose: 1 patch Documented by: Nicotine Polacrilex (Nicorette Gum) 2 mg BUCCAL Q4HR PRN PRN Reason: Nicotine Cravings Last Admin: 10/09/19 06:05 Dose: 2 mg Documented by: Ondansetron HCl (Zofran) 4 mg IVP Q6H [facility] Last Admin: 10/09/19 15:26 Dose: 4 mg Documented by: Pantoprazole Sodium (Protonix) 40 mg PO AC-BID [facility] Last Admin: 10/09/19 15:26 Dose: 40 mg Documented by: Tramadol HCl (Ultram) 50 mg PO Q6HR PRN PRN Reason: Pain Scale 4 to 6 Last Admin: 10/09/19 18:15 Dose: 50 mg Documented by: Tramadol HCl (Ultram) 100 mg PO Q6HR PRN PRN Reason: Pain Scale 6 to 10 Trimethobenzamide HCl (Tigan) 200 mg IM Q6HR PRN PRN Reason: Nausea Physical examination: VITAL SIGNS: 98.3, 86, 14, 124/72, 94% on 3 L GENERAL: Sitting up in bed, awake EYES: Pupils equal. Conjunctiva normal. HEENT: External appearance of nose and ears normal, oral cavity grossly normal. NECK: JVD not raised; masses not palpable. HEART: First and second heart sounds are normal; no edema. LUNGS: Respiratory rate increased, decreased breath sounds, , left-sided chest tube ABDOMEN: Soft, nontender, liver spleen not palpable, no masses palpable. PSYCH: Alert 3, mood and affect normal INVESTIGATIONS, reviewed in the clinical context: Potassium 3.5 Urine hCG negative Chest x-ray-small left apical pneumothorax, basilar atelectasis Assessment: -Recurrent left-sided pneumothorax, with the last admission-[facility], followed by on 08/12/2019-partial left upper lobe wedge resection with bleb stapling, . October 08 patient underwent repeat thoracoscopy with bleb resection, and talc pleurodesis, and a chest tube placement. -COPD in a X smoker -Hypokalemia -Dehydration -Pneumonia Plan: Continue ceftriaxone. Other medications to continue. Pain medications in place. Patient reminded to use that respiratory spirometer.
[2019-10-09] MEDS: NICOTINE 21MG/24HR PATCH TRANSDERM SCH (20:17)
[2019-10-09] MEDS: MIRTAZAPINE 15 MG TAB PO SCH (20:17)
[2019-10-09] MEDS: MELATONIN 5 MG TABLET PO SCH (23:14)
[2019-10-10] MEDS: KETOROLAC 30 MG/ML 1 ML VIAL IVP SCH ×4 (03:48→20:22)
[2019-10-10] MEDS: ONDANSETRON 4 MG/2 ML VIAL IVP SCH ×4 (03:48→20:33)
--- NOTE | 2019-10-10 06:36 | XR ---
EXAMINATION TYPE: XR chest 2V DATE OF EXAM: 10/10/2019 HISTORY: post vats. REFERENCE: Previous study dated 10/09/2019. FINDINGS: There is a left pleural drain in place. There is a tiny left apical pneumothorax. There is bibasilar airspace disease worse on the left than the right. There are bilateral effusions, worse on the left than the right. The heart is not enlarged. There is underlying overinflation of the lungs. IMPRESSION: 1. COPD. 2. TINY LEFT APICAL PNEUMOTHORAX. 3. BIBASILAR AIRSPACE DISEASE. 4. SMALL, BILATERAL EFFUSIONS.
[2019-10-10] MEDS: traMADol 50 MG TAB PO PRN ×3 (06:37→18:40)
[2019-10-10] MEDS: PANTOPRAZOLE 40 MG TABLET PO SCH ×2 (06:37→16:01)
[2019-10-10] MEDS: IPRATROPIUM-ALBUTEROL 3 ML NEB INHALATION SCH ×4 (08:34→19:52)
--- NOTE | 2019-10-10 09:23 | P.PN ---
Subjective Progress Note Date: 10/10/19 Principal diagnosis: Recurrent left-sided spontaneous pneumothorax left pleural space with persistent bronchopleural fistula, intractable nausea and vomiting. Previous medical his tory of left-sided spontaneous pneumothorax with placement of thoravent, status post left VATS with reinforced wedge resection of the apex of the left upper lobe including ruptured blebs with mechanical pleurodesis in August 2019, severe COPD with bullous emphysema, previous nicotine dependence, marijuana use, bipolar disorder/anxiety. POD #8 placement of left sided thoravent by the emergency room physicians with continued air leak POD #2 redo left thoracoscopy with lysis of adhesions, stapling of blebs left upper lobe, and talc pleurodesis The patient is currently sitting up in bed on the cardiac stepdown unit in no acute distress. She does complain of continued pain at her chest tube site, slightly better than yesterday, she has been able to get some sleep. Denies shortness of breath. Left pleural chest tube present to waterseal, no air leak present. Patient does state she has been ambulatory in the room without difficulty. Objective - Vital Signs Vital signs: Vital Signs Temp 98.3 F 10/10/19 04:00 Pulse 79 10/10/19 04:00 Resp 20 10/10/19 04:00 BP 150/82 10/10/19 04:00 Pulse Ox 94 L 10/10/19 04:00 Intake & Output 10/09/19 10/10/19 10/10/19 18:59 06:59 18:59 Intake Total 830 Output Total 20 50 Balance 810 -50 Weight 59.3 kg 58.1 kg Intake: IV 230 0.9% NS @ 100ml/hr 180 cefTRIAXone 1 gm In 50 Sodium Chloride 0.9% 50 ml @ 100 mls/hr IVPB Q24HR [facility] Rx#:[id number] Oral 600 Output: Chest Tube Drainage 20 50 Chest Tube Left Lateral 20 50 Chest Other: Voiding Method Toilet # Voids 1 - Constitutional General appearance: Present: cooperative, no acute distress - Respiratory Details: Lungs sounds clear bilaterally. Respirations even, nonlabored. Currently on 3 L nasal cannula with oxygen saturation 94%. Only able to achieve 1000 mL on her incentive spirometry. Weak cough. Left sided pleural chest tube present to waterseal, 50 mL serous drainage overnight, 250 mL since surgery. No air leak present. - Cardiovascular Details: S1, S2 present. Regular rate and rhythm, sinus rhythm on telemetry. Palpable peripheral pulses bilaterally. No edema present. No calf pain or tenderness noted. - Gastrointestinal Gastrointestinal Comment(s): Abdomen soft, nontender, nondistended. Active bowel sounds present 4 quadrants. Tolerating diet - Genitourinary Genitourinary Comment(s): Continues to void - Integumentary Integumentary Comment(s): Skin is warm and dry with evidence of good perfusion - Neurologic Neurologic: Present: CNII-XII intact - Musculoskeletal Musculoskeletal: Present: gait normal, strength equal bilaterally - Psychiatric Psychiatric: Present: A&O x's 3, appropriate affect, intact judgment & insight - Allied health notes Allied health notes reviewed: nursing - Labs CBC & Chem 7: 10/04/19 05:33 10/08/19 05:51 - Imaging and Cardiology Chest x-ray: report reviewed, image reviewed Assessment and Plan Assessment: 1. Recurrent left-sided spontaneous pneumothorax left pleural space with persistent bronchopleural fistula, status post left sided thoravent placement, continued air leak, status post redo VATS, stapling of blebs, talc pleurodesis 2. Intractable nausea and vomiting, resolved 3. History of left-sided spontaneous pneumothorax with placement of thoravent on subsequent VATS, wedge resection, mechanical pleurodesis in August 2019 4. Severe COPD with bullous emphysema 5. Previous nicotine dependence 6. Marijuana use 7. Bipolar disorder/anxiety Plan: 1. Will discontinue left pleural chest tube today. Repeat chest x-ray in the morning. If stable may discharge to home from cardiothoracic surgery standpoint when okay with other services. 2. Wean O2 as tolerated. Encourage use of her incentive spirometry every hour while awake. 3. Increase activity as tolerated, ambulate in hallway 4. Pain management per current medication regimen. 5. Bronchodilators per pulmonology 8. GI and DVT prophylaxis. 9. Continue to encourage smoking cessation. 10. Continue to monitor daily chest x-rays. 11. Medical management of other comorbidities per primary care service 12. More recommendations to follow based on patient's progress. Time with Patient: Greater than 30
[2019-10-10] MEDS: ENOXAPARIN 40 MG/0.4 ML SYRINGE SQ SCH (09:28)
[2019-10-10] MEDS: FAMOTIDINE 20 MG TAB PO SCH ×2 (09:29→16:01)
[2019-10-10] MEDS: busPIRone HCl 10 MG TAB PO SCH ×2 (09:29→20:23)
--- NOTE | 2019-10-10 12:15 | XR ---
EXAMINATION TYPE: XR chest 2V DATE OF EXAM: 10/10/2019 HISTORY: Follow up pneumo. REFERENCE: Previous study dated earlier today. FINDINGS: A right pleural drain remains in place. There continues to be a tiny left apical pneumothor ax. There is bibasilar airspace disease. There are small, bilateral effusions. The heart is not enlar ged. IMPRESSION: 1. TINY LEFT APICAL PNEUMOTHORAX. 2. BIBASILAR AIRSPACE DISEASE. 3. SMALL, BILATERAL EFFUSIONS.
--- NOTE | 2019-10-10 13:04 | PN ---
PROGRESS NOTE DATE OF SERVICE: 10/10/2019 This patient went to the restroom and came back and has been complaining of worsening shortness of breath and chest pain. On physical examination, her vitals are stable. She is afebrile. Her chest reveals decreased breath sounds on the left. Cardiovascular system is in S1, S2. Abdomen is soft. There is no pedal edema. There is no air leak in the left chest tube. IMPRESSION AT THIS TIME: Recurrent left pneumothorax. Check for alpha-1 antitrypsin deficiency. Check a chest x-ray today. She is status post talc pleurodesis. Depending on how she does, we shall make further changes to her care. Her medications and labs were reviewed. MMODL / IJN: [id number] /
--- NOTE | 2019-10-10 18:12 | P.PN ---
Progress Note - Text Progress Note Date: 10/10/19 Chief Complaint: Short of breath Interval history: This is a pleasant 49-year-old patient of Dr. Scarlett Barahona. Presented here in July 2019 with a left pneumothorax. thoravac was placed. Patient did not respond to be water seal. Decision was made to have the patient go down for surgery.underwent wedge resection of the left upper lobe and stapling off the ruptured bleb.patient had a bronchopleural fistula. That took a while to respond. Patient now again presented with shortness of breath and and left-sided pneumothorax. Thora-vent was placed which is connected to suction.on October 08, Underwent thoracoscopic, with resection of blebs and pleurodesis. Chest tube was also placed. Today-sitting at the edge of the bed. States gets winded with activity. Bronchodilators helping. Family including at the bedside. Review of systems: Attempted for constitutional, cardiovascular, GI, pulmonary. relevant finding as above Active Medications Acetaminophen (Tylenol Tab) 650 mg PO Q6HR PRN PRN Reason: Mild Pain or Fever > 100.5 Last Admin: 10/09/19 06:03 Dose: 650 mg Documented by: Albuterol/Ipratropium (Duoneb 0.5 Mg-3 Mg/3 Ml Soln) 3 ml INHALATION RT-QID [facility] Last Admin: 10/10/19 16:16 Dose: 3 ml Documented by: Buspirone HCl (Buspar) 10 mg PO BID [facility] Last Admin: 10/10/19 09:29 Dose: 10 mg Documented by: Enoxaparin Sodium (Lovenox) 40 mg SQ DAILY [facility] Last Admin: 10/10/19 09:28 Dose: 40 mg Documented by: Famotidine (Pepcid) 20 mg PO BID@0900,1600 [facility] Last Admin: 10/10/19 16:01 Dose: 20 mg Documented by: Ceftriaxone Sodium 1 gm/ (Sodium Chloride) 50 mls @ 100 mls/hr IVPB Q24HR [facility] Last Admin: 10/10/19 09:28 Dose: 100 mls/hr Documented by: Ketorolac Tromethamine (Toradol) 15 mg IVP Q6H [facility] Stop: 10/12/19 15:01 Last Admin: 10/10/19 16:02 Dose: 15 mg Documented by: Lorazepam (Ativan) 0.5 mg PO Q6HR PRN PRN Reason: Anxiety Last Admin: 10/09/19 18:25 Dose: 0.5 mg Documented by: Melatonin (Melatonin) 10 mg PO [facility] Last Admin: 10/09/19 23:14 Dose: 10 mg Documented by: Metoclopramide HCl (Reglan) 10 mg IVP Q6H PRN PRN Reason: Nausea And Vomiting Mirtazapine (Remeron) 15 mg PO [facility] Last Admin: 10/09/19 20:17 Dose: 15 mg Documented by: Miscellaneous Information (Potassium Per Protocol) 1 each MISCELLANE DAILY PRN; Protocol PRN Reason: Per Protocol Miscellaneous Information (Md Communication To Pharmacy) 1 each PO ONCE PRN PRN Reason: See Comments Naloxone HCl (Narcan) 0.2 mg IV Q2M PRN PRN Reason: Opioid Reversal Nicotine (Habitrol 21mg/24hr Patch) 1 patch TRANSDERM DAILY@2100 [facility] Last Admin: 10/09/19 20:17 Dose: 1 patch Documented by: Nicotine Polacrilex (Nicorette Gum) 2 mg BUCCAL Q4HR PRN PRN Reason: Nicotine Cravings Last Admin: 10/09/19 06:05 Dose: 2 mg Documented by: Ondansetron HCl (Zofran) 4 mg IVP Q6H [facility] Last Admin: 10/10/19 16:01 Dose: 4 mg Documented by: Pantoprazole Sodium (Protonix) 40 mg PO AC-BID [facility] Last Admin: 10/10/19 16:01 Dose: 40 mg Documented by: Tramadol HCl (Ultram) 50 mg PO Q6HR PRN PRN Reason: Pain Scale 4 to 6 Last Admin: 10/10/19 11:49 Dose: 50 mg Documented by: Tramadol HCl (Ultram) 100 mg PO Q6HR PRN PRN Reason: Pain Scale 6 to 10 Trimethobenzamide HCl (Tigan) 200 mg IM Q6HR PRN PRN Reason: Nausea Physical examination: VITAL SIGNS: 98, 75, 20, 130/74, 92% on 2 L GENERAL: Sitting at the edge of the bed, EYES: Pupils equal. Conjunctiva normal. HEENT: External appearance of nose and ears normal, oral cavity grossly normal. NECK: JVD not raised; masses not palpable. HEART: First and second heart sounds are normal; no edema. LUNGS: Respiratory rate increased, decreased breath sounds, , left-sided chest tube ABDOMEN: Soft, nontender, liver spleen not palpable, no masses palpable. PSYCH: Alert 3, mood and affect normal INVESTIGATIONS, reviewed in the clinical context: Potassium 3.5 Urine hCG negative Chest x-ray-small left apical pneumothorax, basilar atelectasis Assessment: -Recurrent left-sided pneumothorax, with the last admission-[facility], followed by on 08/12/2019-partial left upper lobe wedge resection with bleb stapling, . October 08 patient underwent repeat thoracoscopy with bleb resection, and talc pleurodesis, and a chest tube placement. -COPD in a X smoker -Hypokalemia -Dehydration -Pneumonia Plan: Continue ceftriaxone. Increase bronchodilators every 6 hours Discussed with the patient.
[2019-10-10] MEDS: NICOTINE 21MG/24HR PATCH TRANSDERM SCH (20:22)
[2019-10-10] MEDS: MELATONIN 5 MG TABLET PO SCH (20:23)
[2019-10-10] MEDS: NICOTINE POLACRILEX 2 MG GUM BUCCAL PRN (20:23)
[2019-10-10] MEDS: MIRTAZAPINE 15 MG TAB PO SCH (20:23)
[2019-10-10] MEDS: LORazepam 0.5 MG TAB PO PRN (20:26)
[2019-10-11] MEDS: ONDANSETRON 4 MG/2 ML VIAL IVP SCH ×4 (04:32→20:30)
[2019-10-11] MEDS: KETOROLAC 30 MG/ML 1 ML VIAL IVP SCH ×4 (04:33→20:28)
--- NOTE | 2019-10-11 06:36 | XR ---
EXAMINATION TYPE: XR chest 2V DATE OF EXAM: 10/11/2019 HISTORY: post vats. REFERENCE: Previous study dated 10/10/2019 left pleural drain remains in place. I can no longer identif ied definite pneumothorax. The lungs are overinflated. There is left basilar airspace disease. There is a left-sided effusion an d a smaller right effusion.. FINDINGS: 1. COPD. 2. Resolution of the patient's left apical pneumothorax. 3. Bilateral effusions, greater on the left than the right. 4. Continuing left basilar airspace disease. IMPRESSION:
[2019-10-11 06:40] LABS: HCT 35.9 % (34.0-46.0); HGB 11.5 gm/dL (11.4-16.0); MCH 32.8 pg (25.0-35.0); MCHC 31.9 g/dL (31.0-37.0); MCV 102.7 fL (80.0-100.0); Macrocytosis Slight; Mean Platelet Volume 7.9; Platelet Count 256 k/uL (150-450); RDW 14.6 % (11.5-15.5); WBC 5.6 k/uL (3.8-10.6)
[2019-10-11] MEDS: PANTOPRAZOLE 40 MG TABLET PO SCH ×2 (06:46→15:40)
[2019-10-11 06:56] LABS: African American GFR (CKD) >90 (>60 ml/min/1.73 sqM); Anion Gap 7 mmol/L; Blood Urea Nitrogen 13 mg/dL (7-17); Calcium 8.5 mg/dL (8.4-10.2); Carbon Dioxide 31 mmol/L (22-30); Chloride 99 mmol/L (98-107); Glucose 110 mg/dL (74-99); Non-African American GFR(CKD) >90 (>60 ml/min/1.73 sqM); Potassium 3.8 mmol/L (3.5-5.1); Sodium 137 mmol/L (137-145)
--- NOTE | 2019-10-11 07:57 | P.PN ---
Subjective Progress Note Date: 10/11/19 Principal diagnosis: Recurrent left-sided spontaneous pneumothorax left pleural space with persistent bronchopleural fistula, intractable nausea and vomiting. Previous medical his tory of left-sided spontaneous pneumothorax with placement of thoravent, status post left VATS with reinforced wedge resection of the apex of the left upper lobe including ruptured blebs with mechanical pleurodesis in August 2019, severe COPD with bullous emphysema, previous nicotine dependence, marijuana use, bipolar disorder/anxiety. POD #9 placement of left sided thoravent by the emergency room physicians with continued air leak POD #3 redo left thoracoscopy with lysis of adhesions, stapling of blebs left upper lobe, and talc pleurodesis The patient is currently sitting up in bed on the cardiac stepdown unit in no acute distress. She does complain of continued pain at her chest tube site, slightly better than yesterday, she has been able to get some sleep. Denies shortness of breath. Left pleural chest tube present to waterseal, no air leak present. Patient does state she has been ambulatory in the room without difficulty. Objective - Vital Signs Vital signs: Vital Signs Temp 97.4 F L 10/11/19 04:00 Pulse 69 10/11/19 04:00 Resp 20 10/11/19 04:00 BP 129/80 10/11/19 04:00 Pulse Ox 92 L 10/11/19 04:00 Intake & Output 10/10/19 10/11/19 10/11/19 18:59 06:59 18:59 Intake Total 360 560 Output Total 20 0 Balance 340 560 Weight 86.9 kg Intake: Oral 360 560 Output: Chest Tube Drainage 20 0 Chest Tube Left Lateral 20 0 Chest Other: # Voids 1 2 - Constitutional General appearance: Present: cooperative, no acute distress - Respiratory Details: Lungs sounds clear bilaterally. Respirations even, nonlabored. Currently on room air with oxygen saturation 92%. Only able to achieve 1000 mL on her incentive spirometry. Weak cough. Left sided pleural chest tube present to waterseal, no drainage overnight, 50 mL serous drainage in the last 24 hours. No air leak present. - Cardiovascular Details: S1, S2 present. Regular rate and rhythm, sinus rhythm on telemetry. Palpable peripheral pulses bilaterally. No edema present. No calf pain or tenderness noted. - Gastrointestinal Gastrointestinal Comment(s): Abdomen soft, nontender, nondistended. Active bowel sounds present 4 quadrants. Tolerating diet - Genitourinary Genitourinary Comment(s): Continues to void - Integumentary Integumentary Comment(s): Skin is warm and dry with evidence of good perfusion - Neurologic Neurologic: Present: CNII-XII intact - Musculoskeletal Musculoskeletal: Present: gait normal, strength equal bilaterally - Psychiatric Psychiatric: Present: A&O x's 3, appropriate affect, intact judgment & insight - Allied health notes Allied health notes reviewed: nursing - Labs CBC & Chem 7: 10/11/19 05:21 10/11/19 05:21 Labs: Abnormal Lab Results - Last 24 Hours (Table) 10/11/19 10/11/19 Range/Units 05:21 05:21 RBC 3.50 L (3.80-5.40) m/uL MCV 102.7 H (80.0-100.0) fL Carbon Dioxide 31 H (22-30) mmol/L Glucose 110 H (74-99) mg/dL - Imaging and Cardiology Chest x-ray: report reviewed, image reviewed Assessment and Plan Assessment: 1. Recurrent left-sided spontaneous pneumothorax left pleural space with persistent bronchopleural fistula, status post left sided thoravent placement, continued air leak, status post redo VATS, stapling of blebs, talc pleurodesis 2. Intractable nausea and vomiting, resolved 3. History of left-sided spontaneous pneumothorax with placement of thoravent on subsequent VATS, wedge resection, mechanical pleurodesis in August 2019 4. Severe COPD with bullous emphysema 5. Previous nicotine dependence 6. Marijuana use 7. Bipolar disorder/anxiety Plan: 1. Will discontinue left pleural chest tube today. Repeat chest x-ray in the morning. If stable may discharge to home from cardiothoracic surgery standpoint when okay with other services. 2. Encourage use of her incentive spirometry every hour while awake. 3. Increase activity as tolerated, ambulate in hallway 4. Pain management per current medication regimen. 5. Bronchodilators per pulmonology 8. GI and DVT prophylaxis. 9. Continue to encourage smoking cessation. 10. Continue to monitor daily chest x-rays. 11. Medical management of other comorbidities per primary care service 12. More recommendations to follow based on patient's progress. Time with Patient: Greater than 30
[2019-10-11] MEDS: busPIRone HCl 10 MG TAB PO SCH ×2 (08:33→20:30)
[2019-10-11] MEDS: FAMOTIDINE 20 MG TAB PO SCH ×2 (08:33→15:40)
[2019-10-11] MEDS: ENOXAPARIN 40 MG/0.4 ML SYRINGE SQ SCH (08:33)
[2019-10-11] MEDS: IPRATROPIUM-ALBUTEROL 3 ML NEB INHALATION SCH ×4 (08:38→20:45)
--- NOTE | 2019-10-11 11:50 | PN ---
PROGRESS NOTE DATE OF SERVICE: October 11, 2019. She is less short of breath. She has some pain on the left side. On physical examination, vital signs are stable. She is afebrile. Chest reveals decreased breath sounds on the left. Cardiovascular system is S1, S2. Abdomen is soft. There is no edema. IMPRESSION: At this time is: Left-sided pneumothorax status post pleurodesis. Await alpha-1 antitrypsin phenotype level. Continue incentive spirometry. I agree with discharge planning with close outpatient followup. MMODL / IJN: [id number] /
[2019-10-11] MEDS: traMADol 50 MG TAB PO PRN ×2 (12:25→19:06)
[2019-10-11] MEDS: LORazepam 0.5 MG TAB PO PRN ×2 (15:40→20:30)
[2019-10-11] MEDS: NICOTINE 21MG/24HR PATCH TRANSDERM SCH (20:28)
[2019-10-11] MEDS: MELATONIN 5 MG TABLET PO SCH (20:29)
[2019-10-11] MEDS: NICOTINE POLACRILEX 2 MG GUM BUCCAL PRN (20:30)
[2019-10-11] MEDS: MIRTAZAPINE 15 MG TAB PO SCH (20:30)
--- NOTE | 2019-10-11 21:16 | P.PN ---
Progress Note - Text Progress Note Date: 10/11/19 Chief Complaint: Short of breath Interval history: This is a pleasant 49-year-old patient of Dr. Scarlett Barahona. Presented here in July 2019 with a left pneumothorax. thoravac was placed. Patient did not respond to be water seal. Decision was made to have the patient go down for surgery.underwent wedge resection of the left upper lobe and stapling off the ruptured bleb.patient had a bronchopleural fistula. That took a while to respond. Patient now again presented with shortness of breath and and left-sided pneumothorax. Thora-vent was placed which is connected to suction.on October 08, Underwent thoracoscopic, with resection of blebs and pleurodesis. Chest tube was also placed. Today-chest tube removed today. Dressing in place. Chest pain greatly improved. Breathing improving. Review of systems: Attempted for constitutional, cardiovascular, GI, pulmonary. relevant finding as above Active Medications Acetaminophen (Tylenol Tab) 650 mg PO Q6HR PRN PRN Reason: Mild Pain or Fever > 100.5 Last Admin: 10/09/19 06:03 Dose: 650 mg Documented by: Albuterol/Ipratropium (Duoneb 0.5 Mg-3 Mg/3 Ml Soln) 3 ml INHALATION RT-QID [facility] Last Admin: 10/11/19 20:45 Dose: Not Given Documented by: Buspirone HCl (Buspar) 10 mg PO BID [facility] Last Admin: 10/11/19 20:30 Dose: 10 mg Documented by: Enoxaparin Sodium (Lovenox) 40 mg SQ DAILY [facility] Last Admin: 10/11/19 08:33 Dose: 40 mg Documented by: Famotidine (Pepcid) 20 mg PO BID@0900,1600 [facility] Last Admin: 10/11/19 15:40 Dose: 20 mg Documented by: Ceftriaxone Sodium 1 gm/ (Sodium Chloride) 50 mls @ 100 mls/hr IVPB Q24HR [facility] Last Admin: 10/11/19 08:33 Dose: 100 mls/hr Documented by: Ketorolac Tromethamine (Toradol) 15 mg IVP Q6H [facility] Stop: 10/12/19 15:01 Last Admin: 10/11/19 20:28 Dose: 15 mg Documented by: Lorazepam (Ativan) 0.5 mg PO Q6HR PRN PRN Reason: Anxiety Last Admin: 10/11/19 20:30 Dose: 0.5 mg Documented by: Melatonin (Melatonin) 10 mg PO [facility] Last Admin: 10/11/19 20:29 Dose: 10 mg Documented by: Metoclopramide HCl (Reglan) 10 mg IVP Q6H PRN PRN Reason: Nausea And Vomiting Mirtazapine (Remeron) 15 mg PO [facility] Last Admin: 10/11/19 20:30 Dose: 15 mg Documented by: Miscellaneous Information (Potassium Per Protocol) 1 each MISCELLANE DAILY PRN; Protocol PRN Reason: Per Protocol Miscellaneous Information (Md Communication To Pharmacy) 1 each PO ONCE PRN PRN Reason: See Comments Naloxone HCl (Narcan) 0.2 mg IV Q2M PRN PRN Reason: Opioid Reversal Nicotine (Habitrol 21mg/24hr Patch) 1 patch TRANSDERM DAILY@2100 [facility] Last Admin: 10/11/19 20:28 Dose: 1 patch Documented by: Nicotine Polacrilex (Nicorette Gum) 2 mg BUCCAL Q4HR PRN PRN Reason: Nicotine Cravings Last Admin: 10/11/19 20:30 Dose: 2 mg Documented by: Ondansetron HCl (Zofran) 4 mg IVP Q6H [facility] Last Admin: 10/11/19 20:30 Dose: Not Given Documented by: Pantoprazole Sodium (Protonix) 40 mg PO AC-BID [facility] Last Admin: 10/11/19 15:40 Dose: 40 mg Documented by: Tramadol HCl (Ultram) 50 mg PO Q6HR PRN PRN Reason: Pain Scale 4 to 6 Last Admin: 10/11/19 19:06 Dose: 50 mg Documented by: Tramadol HCl (Ultram) 100 mg PO Q6HR PRN PRN Reason: Pain Scale 6 to 10 Last Admin: 10/11/19 06:46 Dose: 100 mg Documented by: Trimethobenzamide HCl (Tigan) 200 mg IM Q6HR PRN PRN Reason: Nausea Physical examination: VITAL SIGNS: 98.4, 78, 20, 131/76, 86% on room air GENERAL: Sitting up, more comfortable EYES: Pupils equal. Conjunctiva normal. HEENT: External appearance of nose and ears normal, oral cavity grossly normal. NECK: JVD not raised; masses not palpable. HEART: First and second heart sounds are normal; no edema. LUNGS: Respiratory rate increased, decreased breath sounds, , dressing over the left chest wall ABDOMEN: Soft, nontender, liver spleen not palpable, no masses palpable. PSYCH: Alert 3, mood and affect normal INVESTIGATIONS, reviewed in the clinical context: Hemoglobin 11.5 potassium 3.8 Previous testing Potassium 3.5 Urine hCG negative Chest x-ray-small left apical pneumothorax, basilar atelectasis Assessment: -Recurrent left-sided pneumothorax, with the last admission-Thora VAC, followed by on 08/12/2019-partial left upper lobe wedge resection with bleb stapling, . October 08 patient underwent repeat thoracoscopy with bleb resection, and talc pleurodesis, and a chest tube placement. Chest tube removed today. -COPD in a X smoker -Hypokalemia -Dehydration -Pneumonia Plan: Continue with bronchodilators. Encouraged to use I-S. Switched to oral antibiotics.
[2019-10-11 23:01] VITALS: RESP 16
[2019-10-12] MEDS: ONDANSETRON 4 MG/2 ML VIAL IVP SCH ×2 (05:13→09:09)
[2019-10-12] MEDS: KETOROLAC 30 MG/ML 1 ML VIAL IVP SCH ×2 (05:13→09:08)
[2019-10-12 06:10] VITALS: BP 136/65; TEMP 98.8
[2019-10-12] MEDS: PANTOPRAZOLE 40 MG TABLET PO SCH (06:12)
[2019-10-12] MEDS: traMADol 50 MG TAB PO PRN (06:12)
[2019-10-12] MEDS: NICOTINE POLACRILEX 2 MG GUM BUCCAL PRN (07:14)
--- NOTE | 2019-10-12 07:29 | P.PN ---
Subjective Progress Note Date: 10/12/19 Principal diagnosis: Recurrent left-sided spontaneous pneumothorax left pleural space with persistent bronchopleural fistula, intractable nausea and vomiting. Previous medical his tory of left-sided spontaneous pneumothorax with placement of thoravent, status post left VATS with reinforced wedge resection of the apex of the left upper lobe including ruptured blebs with mechanical pleurodesis in August 2019, severe COPD with bullous emphysema, previous nicotine dependence, marijuana use, bipolar disorder/anxiety. POD #10 placement of left sided thoravent by the emergency room physicians with continued air leak POD #4 redo left thoracoscopy with lysis of adhesions, stapling of blebs left upper lobe, and talc pleurodesis The patient is currently sitting up in bed on the cardiac stepdown unit in no acute distress. She does complain of continued pain of lower left rib. Denies shortness of breath at rest, states her oxygen level is low with ambulation. Left pleural chest tube discontinued yesterday without incident. Patient has been ambulatory in the hallway without difficulty. Objective - Vital Signs Vital signs: Vital Signs Temp 98.8 F 10/12/19 04:09 Pulse 78 10/12/19 04:09 Resp 16 10/12/19 04:09 BP 136/65 10/12/19 04:09 Pulse Ox 93 L 10/12/19 04:09 Intake & Output 10/11/19 10/12/19 10/12/19 18:59 06:59 18:59 Intake Total 360 250 Balance 360 250 Weight 57.6 kg Intake: Oral 360 250 Other: # Voids 1 3 - Constitutional General appearance: Present: cooperative, no acute distress, thin - Respiratory Details: Lungs sounds clear, diminished bilaterally. Respirations even, nonlabored. Currently on 2 LPM NC with oxygen saturation 93%. Only able to achieve 1000 mL on her incentive spirometry. Weak cough. - Cardiovascular Details: S1, S2 present. Regular rate and rhythm, sinus rhythm on telemetry. Palpable peripheral pulses bilaterally. No edema present. No calf pain or tenderness noted. - Gastrointestinal Gastrointestinal Comment(s): Abdomen soft, nontender, nondistended. Active bowel sounds present 4 quadrants. Tolerating diet - Genitourinary Genitourinary Comment(s): Continues to void - Integumentary Integumentary Comment(s): Skin is warm and dry with evidence of good perfusion. 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 - Neurologic Neurologic: Present: CNII-XII intact - Musculoskeletal Musculoskeletal: Present: gait normal, strength equal bilaterally - Psychiatric Psychiatric: Present: A&O x's 3, appropriate affect, intact judgment & insight - Allied health notes Allied health notes reviewed: nursing - Labs CBC & Chem 7: 10/11/19 05:21 10/11/19 05:21 - Imaging and Cardiology Chest x-ray: image reviewed Assessment and Plan Assessment: 1. Recurrent left-sided spontaneous pneumothorax left pleural space with persistent bronchopleural fistula, status post left sided thoravent placement, continued air leak, status post redo VATS, stapling of blebs, talc pleurodesis 2. Intractable nausea and vomiting, resolved 3. History of left-sided spontaneous pneumothorax with placement of thoravent on subsequent VATS, wedge resection, mechanical pleurodesis in August 2019 4. Severe COPD with bullous emphysema 5. Previous nicotine dependence 6. Marijuana use 7. Bipolar disorder/anxiety Plan: 1. CXR stable. May discharge to home from cardiothoracic surgery standpoint pirnce ash with others service lines. Follow-up appointment has been made with Dr. Kidd. Thoracic discharge instructions placed on discharge plan. 2. Encourage use of her incentive spirometry every hour while awake. 3. Increase activity as tolerated, ambulate in hallway 4. Pain management per current medication regimen. 5. Bronchodilators per pulmonology 8. GI and DVT prophylaxis. 9. Continue to encourage smoking cessation. 10. Medical management of other comorbidities per primary care service 11. Will continue to see on an as-needed basis while hospitalized Time with Patient: Greater than 30
[2019-10-12] MEDS: IPRATROPIUM-ALBUTEROL 3 ML NEB INHALATION SCH ×2 (08:51→12:33)
[2019-10-12 08:54] VITALS: PULSE 80
[2019-10-12] MEDS ORDERED: CEFDINIR 300 MG CAP PO SCH (09:00)
[2019-10-12] MEDS: busPIRone HCl 10 MG TAB PO SCH (09:08)
[2019-10-12] MEDS: FAMOTIDINE 20 MG TAB PO SCH (09:08)
[2019-10-12] MEDS: ENOXAPARIN 40 MG/0.4 ML SYRINGE SQ SCH (09:09)
--- NOTE | 2019-10-12 09:41 | XR ---
EXAMINATION TYPE: XR chest 2V DATE OF EXAM: 10/12/2019 COMPARISON: 10/11/2019 TECHNIQUE: PA and lateral views submitted. HISTORY: Post VATS FINDINGS: Chest tube has been removed and there is approximately 5-10% pneumothorax apically and along the medi al margin of the chest on the left. Air-fluid level overlying the mediastinum may represent a compone nt of hydropneumothorax with pleural fluid seen at the left lung base. Tiny right effusion is seen an d there is evidence of COPD. Degenerative change of the spine noted. Subcutaneous emphysema suspected anteriorly on the lateral view. Could not exclude a small degree of pneumomediastinum. IMPRESSION: 1. Chest tube removal with suspected left-sided hydropneumothorax measuring 5-10%. The amount of pleu ral fluid bilaterally is similar to the prior exam.
--- NOTE | 2019-10-12 15:06 | PN ---
PROGRESS NOTE DATE OF SERVICE: 10/12/2019. She has been hemodynamically stable. She is less short of breath. She continues to have some left-sided chest pain. On physical examination, she has some decreased breath sounds on the left side. Vitals otherwise stable. CHEST: Otherwise clear. CARDIOVASCULAR SYSTEM: Reveals an S1, S2. ABDOMEN: Soft. There is no edema. IMPRESSION: Recurrent pneumothorax, status post left pleurodesis with talc. At this point in time, await alpha-1 antitrypsin phenotype. I agree with discharge planning with close outpatient followup. She was counseled regarding her condition and this approach and has a fair understanding of her recommendations. MMODL / IJN: [id number] /
--- NOTE | 2019-10-12 21:44 | P.DS ---
Providers Date of admission: 10/02/19 12:15 Expected date of discharge: 10/12/19 Attending physician: Broderick Snow Consults: 10/02/19 12:28 Consult Physician Stat Consulting Provider: You Ramirez Consult Reason/Comments: Pneumothorax Do you want consulting provider notified?: Already Contacted Consult Physician Stat Consulting Provider: Kee Kidd Consult Reason/Comments: Spontaneous pneumothorax, Hx LVATS Do you want consulting provider notified?: Yes 10/04/19 16:31 Consult Physician Stat Consulting Provider: Tye Lujan Consult Reason/Comments: Anxiety Do you want consulting provider notified?: Yes Primary care physician: Celio Barahona [facility] Course: Chief Complaint: Short of breath Hospital course: This is a pleasant 49-year-old patient of Dr. Scarlett Barahona. Presented here in July 2019 with a left pneumothorax. thoravac was placed. Patient did not respond to be water seal. Decision was made to have the patient go down for surgery.underwent wedge resection of the left upper lobe and stapling off the ruptured bleb.patient had a bronchopleural fistula. That took a while to respond. Patient now again presented with shortness of breath and left-sided pneumothorax. Thora-vent was placed which was connected to suction.on October 08, Underwent thoracoscopic, with resection of blebs and pleurodesis. Chest tube was also placed. An eventually, removed. Today-Doing much better. Up and about. Breathing much improved. Keep warm.. Discussed with patient. Questions answered. Consultation: Dr. Kidd from cardiothoracic surgery Dr. Kris Ramirez from pulmonary Physical examination: VITAL SIGNS: 98.4, 78, 16, 136/65, 93% on 2 L GENERAL: Sitting up, comfortable EYES: Pupils equal. Conjunctiva normal. HEENT: External appearance of nose and ears normal, oral cavity grossly normal. NECK: JVD not raised; masses not palpable. HEART: First and second heart sounds are normal; no edema. LUNGS: Respiratory rate increased, decreased breath sounds, , dressing over the left chest wall ABDOMEN: Soft, nontender, liver spleen not palpable, no masses palpable. PSYCH: Alert 3, mood and affect normal INVESTIGATIONS, reviewed in the clinical context: White count 5.6 hemoglobin 11.5 potassium 3.8 creatinine 0.56 Previous testing Potassium 3.5 Urine hCG negative Chest x-ray-small left apical pneumothorax, basilar atelectasis Assessment: -Recurrent left-sided pneumothorax, with the last admission-Thora VAC, followed by on 08/12/2019-partial left upper lobe wedge resection with bleb stapling, . October 08 patient underwent repeat thoracoscopy with bleb resection, and talc pleurodesis, and a chest tube placement. Chest tube removed today. -COPD in a X smoker -Hypokalemia -Dehydration -Pneumonia Disposition: Home Patient Condition at Discharge: Stable Plan - Discharge Summary Discharge Rx Participant: No New Discharge Prescriptions: New Cefdinir [Omnicef] 300 mg PO BID #6 cap Continue Famotidine [Pepcid] 20 mg PO BID #60 tablet Acetaminophen Tab [Tylenol] 500 mg PO Q6HR PRN tab PRN Reason: Fever And/ Or Pain Umeclidinium Brm/Vilanterol Tr [Anoro Ellipta 62.5-25 Mcg INH] 1 puff INHALATION RT-BID Albuterol Sulfate [Ventolin HFA] 1 - 2 puff INHALATION RT-Q6H PRN PRN Reason: Shortness Of Breath busPIRone HCl [Buspar] 10 mg PO BID Tiotropium Br/Olodaterol HCl [Stiolto Respimat Inhal [place]] 1 puff INHALATION RT-BID Melatonin 10 mg PO HS ALPRAZolam [Xanax] 0.25 mg PO BID PRN PRN Reason: Anxiety Nicotine 21Mg/24Hr Patch [Habitrol] 1 patch TRANSDERM DAILY #14 patch Nicotine Polacrilex [Nicorette] 2 mg BUCCAL Q4HR PRN #30 gum PRN Reason: Nicotine Cravings Changed Ipratropium-Albuterol Nebulize [Duoneb 0.5 mg-3 mg/3 ml Soln] 3 ml INHALATION RT-TID PRN #0 PRN Reason: Wheezing Discontinued Ibuprofen [Motrin Ib] 400 mg PO Q6H PRN PRN Reason: Pain Discharge Medication List Acetaminophen Tab [Tylenol] 500 mg PO Q6HR PRN tab 08/21/19 [Rx] Famotidine [Pepcid] 20 mg PO BID #60 tablet 08/21/19 [Rx] ALPRAZolam [Xanax] 0.25 mg PO BID PRN 10/02/19 [History] Albuterol Sulfate [Ventolin HFA] 1 - 2 puff INHALATION RT-Q6H PRN 10/02/19 [History] Melatonin 10 mg PO HS 10/02/19 [History] Tiotropium Br/Olodaterol HCl [Stiolto Respimat Inhal [place]] 1 puff INHALATION RT-BID 10/02/19 [History] Umeclidinium Brm/Vilanterol Tr [Anoro Ellipta 62.5-25 Mcg INH] 1 puff INHALATION RT-BID 10/02/19 [History] busPIRone HCl [Buspar] 10 mg PO BID 10/02/19 [History] Cefdinir [Omnicef] 300 mg PO BID #6 cap 10/12/19 [Rx] Ipratropium-Albuterol Nebulize [Duoneb 0.5 mg-3 mg/3 ml Soln] 3 ml INHALATION RT-TID PRN #0 10/12/19 [Rx] Nicotine 21Mg/24Hr Patch [Habitrol] 1 patch TRANSDERM DAILY #14 patch 10/12/19 [Rx] Nicotine Polacrilex [Nicorette] 2 mg BUCCAL Q4HR PRN #30 gum 10/12/19 [Rx] Follow up Appointment(s)/Referral(s): Kee Kidd MD [STAFF PHYSICIAN] - 10/22/19 1:15 pm () Celio Barahona DO [Primary Care Provider] - 10/21/19 2:45 pm (Saturday) You Ramirez MD [STAFF PHYSICIAN] - 10/23/19 10:15 am (Saturday) Patient Instructions/Handouts: How to Stop Smoking (DC), Video Assisted Thoracoscopic Surgery (DC) Activity/Diet/Wound Care/Special Instructions: DISCHARGE INSTRUCTIONS: 1. No driving for 2 weeks, or until physician gives their ok. 2. No lifting, pushing, or pulling more than 10 pounds for 2 weeks. The physician will advise of any restriction changes. 3. Continue pain control per as needed orders. Alternate acetaminophen (Tylenol) and ibuprofen (Motrin/Advil) for pain. 4. Continue with incentive spirometry and splinting until otherwise directed by the physician. 5. Leave chest tube dressing for 48 hours. After that, remove all dressings and shower daily. 6. Routine incision care. No powders, lotions, ointments on incisions. 7. Please call surgeon/JAVA J2EE SOFTWARE ENGINEER for temp greater than 101 F or purulent drainage from incisions. Discharge Disposition: HOME SELF-CARE
[2019-10-14 12:11] LABS: Alpha 1 Anti-Trypsin 140 mg/dL (90 - 200)
== END 2019-10-12 13:46 | disposition home or self-care (01) | DRG 163 ==
LOC: EC 08:34 → 3SCARD 12:15
PROVIDERS: ADMIT Hospitalist; ATTEND Hospitalist
PROC: 0W9B30Z Drainage of Left Pleural Cavity with Drainage Device, Percutaneous Approach (ICD-10-PCS; 2019-10-02)
PROC: 0W9B40Z Drainage of Left Pleural Cavity with Drainage Device, Percutaneous Endoscopic Approach (ICD-10-PCS; principal; 2019-10-08 12:15)
PROC: 0BQG4ZZ Repair Left Upper Lung Lobe, Percutaneous Endoscopic Approach (ICD-10-PCS; principal; 2019-10-08 12:15)
PROC: 3E0L4GC Introduction of Other Therapeutic Substance into Pleural Cavity, Percutaneous Endoscopic Approach (ICD-10-PCS; principal; 2019-10-08 12:15)
DX: J86.0 Pyothorax with fistula (principal); J18.9 Pneumonia, unspecified organism; F31.9 Bipolar disorder, unspecified; F41.9 Anxiety disorder, unspecified; J43.9 Emphysema, unspecified; R19.7 Diarrhea, unspecified; R11.2 Nausea with vomiting, unspecified; E87.6 Hypokalemia; E86.0 Dehydration; F17.200 Nicotine dependence, unspecified, uncomplicated; Z71.6 Tobacco abuse counseling; Z71.3 Dietary counseling and surveillance; Z79.899 Other long term (current) drug therapy; Z90.2 Acquired absence of lung [part of]; Z87.81 Personal history of (healed) traumatic fracture; Z98.890 Other specified postprocedural states; Z90.49 Acquired absence of other specified parts of digestive tract; Z86.19 Personal history of other infectious and parasitic diseases; Z87.09 Personal history of other diseases of the respiratory system; Z88.1 Allergy status to other antibiotic agents; Z88.5 Allergy status to narcotic agent; Z88.0 Allergy status to penicillin; Z81.1 Family history of alcohol abuse and dependence; Z83.3 Family history of diabetes mellitus; Z80.1 Family history of malignant neoplasm of trachea, bronchus and lung
CPT/HCPCS: 32551; 36415; 71045; 71046; 74018; 80048; 80053; 81001; 81025; 82103; 82104; 82150; 83690; 84132; 85025; 85027; 85610; 85730; 86850; 86900; 86901; 87502; 88307; 94640; 94760; 96361; 96374; 96375; 96376; 99285

== ENCOUNTER → 2019-11-27 | Outpatient (CLI) | payer OTHER ==
--- NOTE | 2019-11-27 12:19 | XR ---
EXAMINATION TYPE: XR chest 2V DATE OF EXAM: 11/27/2019 COMPARISON: Prior chest x-ray 10/12/2019 HISTORY: Dyspnea TECHNIQUE: Frontal and lateral views of the chest are obtained. FINDINGS: There is no focal air space opacity, pleural effusion, or pneumothorax seen. Minimal blunt ing of the costophrenic angles may be due to hyperinflation or possibly pleural reaction on the left. Aorta is dense. The cardiac silhouette size is within normal limits. The osseous structures are in tact. The patient is rotated. IMPRESSION: Improvement in patient's left-sided pneumothorax and abnormal density in the left lung b ase. There is underlying emphysema.
== END | disposition home or self-care (01) ==
LOC: RADXRMAIN 11:27
PROVIDERS: ATTEND Family Medicine
DX: R91.8 Other nonspecific abnormal finding of lung field (principal); R06.00 Dyspnea, unspecified; Z87.09 Personal history of other diseases of the respiratory system
CPT/HCPCS: 71046

== ENCOUNTER → 2020-02-16 | Outpatient (CLI) | payer OTHER ==
--- NOTE | 2020-02-16 15:56 | US ---
EXAMINATION TYPE: US abdomen limited DATE OF EXAM: 02/16/2020 COMPARISON: NONE CLINICAL HISTORY: R07.81 Pleurodynia. Palpable area LUQ just inferior to ribs at prior chest tube sit e TECHNIQUE/FINDINGS: Targeted grayscale ultrasound was performed of the left upper quadrant inferior t o a rib end. Patient's palpable abnormality. LUQ at patient's area of concern: no sonographic abnorma lity seen at this time. No sonographic cystic or solid mass. IMPRESSION: No sonographic abnormality to correspond to the patient's palpable abnormality. CT chest could be considered if there is further concern.
== END | disposition home or self-care (01) ==
LOC: RADUSWWP 15:19
PROVIDERS: ATTEND Family Medicine
DX: R07.81 Pleurodynia (principal)
CPT/HCPCS: 76705

== ENCOUNTER → 2020-10-04 | Outpatient (CLI) | payer OTHER ==
--- NOTE | 2020-10-04 14:19 | XR ---
Bilateral hands HISTORY: M 25.50, pain 3 views each hand submitted. Some mild remodeling present at the radiocarpal joint. Bone mineralization, joint spaces and alignmen t are maintained. Fracture or dislocation. Probable geode present in the distal pole of the scaphoid on the left. Soft tissue swelling suspected the proximal interphalangeal joint of the third digit of the left hand. Distortion of the fifth metacarpal on the right likely due to old fracture. IMPRESSION: Nonspecific findings described above.
== END | disposition home or self-care (01) ==
LOC: RADXRMAIN 13:16
PROVIDERS: ATTEND Nurse Practitioner Family
DX: M89.8X4 Other specified disorders of bone, hand (principal)

== ENCOUNTER → 2020-10-12 | Outpatient (CLI) | payer OTHER ==
--- NOTE | 2020-10-12 13:04 | US ---
EXAMINATION TYPE: US extremity nonvasc mass TERRENCE DATE OF EXAM: 10/12/2020 COMPARISON: Xray 10/04/20 CLINICAL HISTORY: M79.644 PAIN RT FINGERS,M79.645 PAIN IN LT FINGERS. Pain / swelling in wrist/finger s bilaterally. Recent Diagnosis of Rheumatoid Arthritis per pt. No masses or fluid collection seen on either side. If additional evaluation is required, MRI would be recommended. IMPRESSION: 1. No suspicious joint effusions or large erosions identified.
== END | disposition home or self-care (01) ==
LOC: RADUSWWP 10:45
PROVIDERS: ATTEND Family Medicine
DX: M79.645 Pain in left finger(s) (principal); M79.644 Pain in right finger(s)
CPT/HCPCS: 76882

== ENCOUNTER → 2021-01-06 | Outpatient (CLI) | payer OTHER ==
--- NOTE | 2021-01-09 11:22 | MM ---
Reason for exam: screening (asymptomatic). Last mammogram was performed 8 years and 10 months ago. History: Family history of breast cancer in paternal grandmother. Physical Findings: A clinical breast exam by your physician is recommended on an annual basis and results should be correlated with mammographic findings. MG 3D Screening Mammo W/Cad Bilateral CC and MLO view(s) were taken. Prior study comparison: March 07, 2012, CAD bilateral diagnostic mammogram. The breast tissue is heterogeneously dense. This may lower the sensitivity of mammography. There are benign appearing round calcifications bilaterally. There is no discrete abnormality. ASSESSMENT: Benign, BI-RAD 2 RECOMMENDATION: Routine screening mammogram of both breasts in 1 year.
== END | disposition home or self-care (01) ==
LOC: RADMAMWWP 15:23
PROVIDERS: ATTEND Family Medicine
DX: Z12.31 Encounter for screening mammogram for malignant neoplasm of breast (principal); Z80.3 Family history of malignant neoplasm of breast
CPT/HCPCS: 77063; 77067

== ENCOUNTER → 2021-06-01 | Outpatient (CLI) | payer OTHER ==
[2021-06-01 19:31] LABS: Basophils # (A) 0.03 X 10*3/uL (0.00-0.10); Basophils % (A) 0.3 %; Eosinophils # (A) 0.01 X 10*3/uL (0.04-0.35); Eosinophils % (A) 0.1 %; HCT 41.5 % (37.2-46.3); HGB 13.6 g/dL (12.0-15.0); MCH 33.3 pg (27.0-32.0); MCHC 32.8 g/dL (32.0-37.0); MCV 101.5 fL (80.0-97.0); Monocytes # (A) 0.35 X 10*3/uL (0.20-1.00); Monocytes % (A) 3.5 %; Neutrophils # (A) 8.24 X 10*3/uL (1.80-7.70); Neutrophils % (A) 82.7 %; Platelet Count 299 X 10*3/uL (140-440); RBC 4.09 X 10*6/uL (4.10-5.20); RDW 13.7 % (11.5-14.5); WBC 9.97 X 10*3/uL (4.50-10.00)
[2021-06-01 20:29] LABS: Erythrocyte Sedimentation Rate 8 mm/Hr (0-20)
[2021-06-02 04:03] LABS: ALT 27 U/L (8-44); AST 33 U/L (13-35); African American GFR (CKD) 100.3 (60.0-200.0); C Reactive Protein <0.4 mg/dL (0.0-0.8); Non-African American GFR(CKD) 86.6 (60.0-200.0)
== END | disposition home or self-care (01) ==
LOC: LABWHC1 13:15
PROVIDERS: ATTEND Internal Medicine Rheumatology
DX: M06.9 Rheumatoid arthritis, unspecified (principal)
CPT/HCPCS: 36415; 82565; 84450; 84460; 85025; 85652; 86140

== ENCOUNTER 2021-08-05 08:27 | Emergency (ER) | payer OTHER ==
[2021-08-05] MEDS ORDERED: SODIUM CHLORIDE 0.9% 1,000 ML IV STA (08:42)
[2021-08-05] MEDS ORDERED: ONDANSETRON 4 MG/2 ML VIAL IVP STA (08:42)
[2021-08-05 08:52] VITALS: TEMP 97.5
[2021-08-05 09:25] LABS: Basophils % (A) 0 %; Eosinophils # (A) 0.1 k/uL (0-0.7); Eosinophils % (A) 1 %; HCT 46.9 % (34.0-46.0); HGB 16.4 gm/dL (11.4-16.0); Lymphocytes # (A) 0.7 k/uL (1.0-4.8); Lymphocytes % (A) 9 %; MCH 34.1 pg (25.0-35.0); MCHC 34.9 g/dL (31.0-37.0); MCV 97.8 fL (80.0-100.0); Mean Platelet Volume 8.3; Monocytes # (A) 0.4 k/uL (0-1.0); Monocytes % (A) 5 %; Neutrophils # (A) 6.9 k/uL (1.3-7.7); Neutrophils % (A) 83 %; Platelet Count 227 k/uL (150-450); RDW 13.8 % (11.5-15.5); WBC 8.3 k/uL (3.8-10.6)
[2021-08-05] MEDS ORDERED: DEXAMETHASONE SOD PHOSPHATE 10 MG/ML 1 ML VIAL IVP STA (09:33)
[2021-08-05] MEDS ORDERED: ACETAMINOPHEN TAB 325 MG TAB PO STA (09:33)
[2021-08-05 09:35] LABS: Albumin 5.2 g/dL (3.5-5.0); Calcium 10.2 mg/dL (8.4-10.2); Total Bilirubin 0.8 mg/dL (0.2-1.3); Total Protein 8.8 g/dL (6.3-8.2)
--- NOTE | 2021-08-05 09:40 | XR ---
EXAMINATION TYPE: XR chest 2V DATE OF EXAM: 08/05/2021 COMPARISON: Chest x-ray November 27, 2019 HISTORY: Cough and congestion. TECHNIQUE: Frontal and lateral views of the chest are obtained. FINDINGS: Underlying emphysematous change greatest in the upper lungs redemonstrated. There is right basilar opacity and frontal view appears to localize to the lingula on lateral view. Left lung is cl ear. The cardiac silhouette size is stable and upper limits of normal. The osseous structures are i ntact. IMPRESSION: Chronic emphysematous change with right middle lobe acute infiltrate and/or atelectasis.
[2021-08-05] MEDS ORDERED: METOCLOPRAMIDE 5 MG/ML 2 ML VIAL IVP STA (09:44)
[2021-08-05] MEDS ORDERED: SODIUM CHLORIDE 0.9% 1,000 ML IV ONE (10:19)
--- NOTE | 2021-08-05 10:32 | ED ---
Nausea/Vomiting/Diarrhea HPI - General Chief complaint: Nausea/Vomiting/Diarrhea Stated complaint: vomiting Time Seen by Provider: 08/05/21 08:37 Source: patient, family, RN notes reviewed Mode of arrival: wheelchair Limitations: no limitations - History of Present Illness Initial comments: Patient is a 51-year-old female that presents to emergency room complaining of abdominal pain nausea vomiting and Covid like symptoms since Saturday. Patient didn't appear to be moderately uncomfortable bed stating that her nausea is pretty significant. Patient denied any other issues or complaints. She was otherwise well-appearing. She denied chest pain shortness of breath headache diarrhea constipation fever fatigue chills. - Related Data Home Medications Medication Instructions Recorded Confirmed ALPRAZolam [Xanax] 0.25 mg PO BID PRN 10/02/19 10/02/19 Albuterol Sulfate [Ventolin HFA] 1 - 2 puff INHALATION RT-Q6H PRN 10/02/19 10/02/19 Melatonin 10 mg PO HS 10/02/19 10/02/19 Tiotropium Br/Olodaterol HCl 1 puff INHALATION RT-BID 10/02/19 10/02/19 [Stiolto Respimat Inhal [place]] Umeclidinium Brm/Vilanterol Tr 1 puff INHALATION RT-BID 10/02/19 10/02/19 [Anoro Ellipta 62.5-25 Mcg INH] busPIRone HCl [Buspar] 10 mg PO BID 10/02/19 10/02/19 Previous Rx's Medication Instructions Recorded Acetaminophen Tab [Tylenol] 500 mg PO Q6HR PRN tab 08/21/19 Famotidine [Pepcid] 20 mg PO BID #60 tablet 08/21/19 Cefdinir [Omnicef] 300 mg PO BID #6 cap 10/12/19 Ipratropium-Albuterol Nebulize 3 ml INHALATION RT-TID PRN #0 10/12/19 [Duoneb 0.5 mg-3 mg/3 ml Soln] Nicotine 21Mg/24Hr Patch [Habitrol] 1 patch TRANSDERM DAILY #14 patch 10/12/19 Nicotine Gum (Polacrilex) 2 mg BUCCAL Q4HR PRN #30 gum 10/12/19 [Nicorette] Ondansetron Odt [Zofran Odt] 4 mg PO Q8HR PRN #10 tab 08/05/21 Allergies Allergy/AdvReac Type Severity Reaction Status Date / Time Penicillins Allergy Rash/Hives Verified 08/05/21 08:36 erythromycin base AdvReac Vomiting Verified 08/05/21 08:36 hydromorphone [From Dilaudid] AdvReac Vomiting Verified 08/05/21 08:36 Review of Systems ROS Statement: Those systems with pertinent positive or pertinent negative responses have been documented in the HPI. ROS Other: All systems not noted in ROS Statement are negative. Past Medical History Past Medical History: COPD Additional Past Medical History / Comment(s): chest tube august 2019, RA History of Any Multi-Drug Resistant Organisms: None Reported Past Surgical History: Cholecystectomy Additional Past Surgical History / Comment(s): Laparoscopy, history of neck fracture. Past Anesthesia/Blood Transfusion Reactions: No Reported Reaction Past Psychological History: Anxiety, Bipolar, Depression Smoking Status: Former smoker Past Alcohol Use History: None Reported, Rare Past Drug Use History: Marijuana - Past Family History Mother Family Medical History: Cancer Additional Family Medical History / Comment(s): Mother and father from Lung Cancer; Brother is Diabetic and ETOH General Exam Limitations: no limitations General appearance: alert, in no apparent distress Head exam: Present: atraumatic, normocephalic, normal inspection Eye exam: Present: normal appearance, PERRL, EOMI. Absent: scleral icterus, conjunctival injection, periorbital swelling ENT exam: Present: normal exam, mucous membranes moist Neck exam: Present: normal inspection Respiratory exam: Present: normal lung sounds bilaterally. Absent: respiratory distress, wheezes, rales, rhonchi, stridor Cardiovascular Exam: Present: regular rate, normal rhythm, normal heart sounds. Absent: systolic murmur, diastolic murmur, rubs, gallop, clicks GI/Abdominal exam: Present: soft, normal bowel sounds. Absent: distended, tenderness, guarding, rebound, rigid Extremities exam: Present: normal inspection, full ROM, normal capillary refill. Absent: tenderness, pedal edema, joint swelling, calf tenderness Neurological exam: Present: alert, oriented X3 Psychiatric exam: Present: normal affect, normal mood Skin exam: Present: warm, dry, intact, normal color. Absent: rash Course Vital Signs 08/05/21 08/05/21 08/05/21 08:29 08:52 09:48 Temperature 94.7 F L 97.5 F L Pulse Rate 58 L 50 L Respiratory 24 20 Rate Blood Pressure 124/77 134/66 O2 Sat by Pulse 99 100 Oximetry Medical Decision Making - Medical Decision Making 51-year-old female with Covid like symptoms nausea vomiting. Covid test, labs, 1 L normal saline, 10 mg of Decadron, 4 mg Zofran ordered. Labs unremarkable. Patient has continuing nausea, 10 mg Reglan ordered. Patient does meet criteria for monoclonal antibodies and wishes to undergo IV infusion. Patient is agreeable with discharge home after infusion. Case discussed with Dr. Carolina, patient can discharge after. - Lab Data Result diagrams: 08/05/21 08:25 08/05/21 08:56 Lab Results 08/05/21 08/05/21 08/05/21 Range/Units 08:25 08:49 08:56 WBC 8.3 (3.8-10.6) k/uL RBC 4.80 (3.80-5.40) m/uL Hgb 16.4 H (11.4-16.0) gm/dL Hct 46.9 H (34.0-46.0) % MCV 97.8 (80.0-100.0) fL MCH 34.1 (25.0-35.0) pg MCHC 34.9 (31.0-37.0) g/dL RDW 13.8 (11.5-15.5) % Plt Count 227 (150-450) k/uL MPV 8.3 Neutrophils % 83 % Lymphocytes % 9 % Monocytes % 5 % Eosinophils % 1 % Basophils % 0 % Neutrophils # 6.9 (1.3-7.7) k/uL Lymphocytes # 0.7 L (1.0-4.8) k/uL Monocytes # 0.4 (0-1.0) k/uL Eosinophils # 0.1 (0-0.7) k/uL Basophils # 0.0 (0-0.2) k/uL Sodium 138 (137-145) mmol/L Potassium 4.0 (3.5-5.1) mmol/L Chloride 100 (98-107) mmol/L Carbon Dioxide 19 L (22-30) mmol/L Anion Gap 19 mmol/L BUN 41 H (7-17) mg/dL Creatinine 1.00 (0.52-1.04) mg/dL Est GFR (CKD-EPI)AfAm 76 (>60 ml/min/1.73 sqM) Est GFR (CKD-EPI)NonAf 66 (>60 ml/min/1.73 sqM) Glucose 160 H (74-99) mg/dL Calcium 10.2 (8.4-10.2) mg/dL Total Bilirubin 0.8 (0.2-1.3) mg/dL AST 53 H (14-36) U/L ALT 42 H (4-34) U/L Alkaline Phosphatase 140 H (38-126) U/L Total Protein 8.8 H (6.3-8.2) g/dL Albumin 5.2 H (3.5-5.0) g/dL Amylase 68 (30-110) U/L Lipase 83 (23-300) U/L Coronavirus (PCR) Detected A (Not Detectd) - Radiology Data Radiology results: report reviewed, image reviewed Chest x-ray: Chronic emphysematous change with right middle lobe acute infiltrate or atelectasis. Disposition Clinical Impression: Dehydration, COVID, Nausea & vomiting Disposition: HOME SELF-CARE Condition: Stable Instructions (If sedation given, give patient instructions): Coronavirus Disease 2019 (COVID-19) Additional Instructions: Please return to the Emergency Department if symptoms worsen or any other concerns. Follow-up with primary care in 1-2 days. Take Zofran as prescribed. Is patient prescribed a controlled substance at d/c from ED?: No Referrals: Celio Barahona DO [Primary Care Provider] - 1-2 days Time of Disposition: 10:41
[2021-08-05] MEDS ORDERED: CASIRIVIMAB (REGN10933) (EUA) 600 MG, IMDEVIMAB (REGN10987) (EUA) 600 MG in SODIUM CHLO... IVPB ONE (10:45)
[2021-08-05] MEDS: SODIUM CHLORIDE 0.9% 50 ML IVPB ONE ×2 (11:13→11:28)
[2021-08-05 11:47] VITALS: BP 105/57; PULSE 50; RESP 18
== END 2021-08-05 12:34 | disposition home or self-care (01) ==
LOC: EC 08:27
DX: U07.1 COVID-19 (principal); E86.0 Dehydration; R11.2 Nausea with vomiting, unspecified; J44.9 Chronic obstructive pulmonary disease, unspecified; F41.9 Anxiety disorder, unspecified; F31.9 Bipolar disorder, unspecified; F12.90 Cannabis use, unspecified, uncomplicated; Z87.891 Personal history of nicotine dependence; Z79.51 Long term (current) use of inhaled steroids
CPT/HCPCS: 36415; 80053; 82150; 83690; 85025; 87635; 71046; 96374; 96375 ×2; 96361 ×2; 99284; J1100; J2765; J2405; Q0243

== ENCOUNTER → 2023-10-24 | Outpatient (CLI) | payer OTHER ==
[2023-10-25 02:14] LABS: Basophils # (A) 0.02 X 10*3/uL (0.00-0.10); Basophils % (A) 0.2 %; Eosinophils # (A) 0.03 X 10*3/uL (0.04-0.35); Eosinophils % (A) 0.3 %; HGB 12.6 g/dL (12.0-15.0); Lymphocytes # (A) 1.33 X 10*3/uL (0.90-5.00); MCHC 33.2 g/dL (32.0-37.0); MCV 96.4 FL (80.0-97.0); Mean Platelet Volume 10.3 FL (9.5-12.2); Monocytes # (A) 0.53 X 10*3/uL (0.20-1.00); Monocytes % (A) 5.2 %; NRBC Per 100 WBC 0 X 10*3/uL (0.00-0.01); Neutrophils # (A) 8.31 X 10*3/uL (1.80-7.70); Neutrophils % (A) 80.9 %; Platelet Count 230 X 10*3/uL (140-440); RBC 3.94 X 10*6/uL (4.10-5.20); RDW 13.2 % (11.5-14.5); WBC 10.26 X 10*3/uL (4.50-10.00)
[2023-10-25 02:56] LABS: ALT 28 U/L (8-44); AST 26 U/L (13-35); Albumin 4.7 g/dL (3.8-4.9); Albumin/Globulin Ratio 2.24 Ratio (1.60-3.17); Alkaline Phosphatase 66 U/L (41-126); BUN/Creat Ratio 21.75 Ratio (12.00-20.00); Blood Urea Nitrogen 17.4 mg/dL (9.0-27.0); Calcium 9.9 mg/dL (8.7-10.3); Carbon Dioxide 23.8 mmol/L (21.6-31.8); Chloride 106 mmol/L (96-109); Globulin 2.1 g/dL (1.6-3.3); Glucose 105 mg/dL (70-110); Sodium 142 mmol/L (135-145); Total Bilirubin 0.3 mg/dL (0.3-1.2); Total Protein 6.8 g/dL (6.2-8.2)
== END | disposition home or self-care (01) ==
LOC: LABWHC1 15:29
PROVIDERS: ATTEND Internal Medicine Rheumatology
DX: M06.9 Rheumatoid arthritis, unspecified (principal)
CPT/HCPCS: 36415; 80053; 85025

== ENCOUNTER → 2024-09-30 | Outpatient (CLI) | payer OTHER ==
--- NOTE | 2024-09-30 17:45 | MM ---
Reason for Exam: Screening (asymptomatic). Last mammogram was performed 3 year(s) and 9 month(s) ago. Patient History: Menarche at age 12. First Full-Term at age 18. Postmenopausal. Paternal grandmother had breast cancer. Risk Values: Celeste 5 year model risk: 0.9%. NCI Lifetime model risk: 6.8%. Prior Study Comparison: 03/07/2012 Bilateral Diagnostic Mammogram, [facility]. 01/06/2021 Bilateral Screening Mammogram, [facility]. Tissue Density: The breasts are heterogeneously dense, which may obscure small masses. Findings: Analyzed By CAD. New nodular focal asymmetry anterior upper-outer quadrant right breast for which further evaluation is recommended. Otherwise, no significant change. Overall Assessment: Incomplete: need additional imaging evaluation, BI-RAD 0 Management: Special View Mammogram of the right breast. Diagnostic Breast Ultrasound of the right breast. [facility] will attempt to contact patient to return for supplemental views and ultrasound if indicated. [facility], , 09/30/2024 5:42 PM. Electronically signed and approved by: Jose Silverman M.D. Radiologist
== END | disposition home or self-care (01) ==
LOC: RADMAMWWP 16:24
PROVIDERS: ATTEND Family Medicine
DX: Z12.31 Encounter for screening mammogram for malignant neoplasm of breast (principal); Z78.0 Asymptomatic menopausal state; Z80.3 Family history of malignant neoplasm of breast; R92.333 Mammographic heterogeneous density, bilateral breasts
CPT/HCPCS: 77067